=== PATIENT | female | born 1990 | race Caucasian/White ===

== ENCOUNTER 2017-01-16 19:13 | Outpatient (CLI) | payer BC, MEDICAID, SELFPAY ==
[2017-01-16 20:00] LABS: Mucous, Urine 0 SEEN /hpf (<or=2+); Red Blood Cells-Urine 0 SEEN /hpf (0-5)
[2017-01-16 20:14] VITALS: BMI 33.9
[2017-01-16 20:18] LABS: Color, Urine Yellow (Yellow); Glucose, Dipstick Normal (Normal); Ketone-Dipstick Negative (Negative); Leukocyte Esterase-Dipstick 25 /ul (Negative); Nitrite-Dipstick Negative (Negative); Occult Blood-Urine Negative /ul (Negative); Protein-Dipstick 15 mg/dl (Negative); Urine Bilirubin Dipstick Negative (Negative); Urine Clarity Clear (Clear); Urine Urobilinogen Normal (Normal)
[2017-01-16 20:26] LABS: Bacteria RARE /hpf (None Seen); Squamous Epithelial Cells - UA 0-5 SEEN /hpf (5-10); White Blood Cells 0-5 SEEN /hpf (0-5)
[2017-01-16 20:29] LABS: ROM Internal Control Test YES-OK TO RESULT pt. (Internal QC); ROM Patient Test Negative (Negative)
[2017-01-16] MEDS: Nalbuphine 10 MG/ML Ampul IM (22:26)
[2017-01-17] MEDS: Nalbuphine 10 MG/ML Ampul IM (01:33)
--- NOTE | 2017-01-17 21:16 | OB.TRI.NOTE ---
History of Present Illness - History of Present Illness Reason For Visit: R/O LABOR Gestational age: 39 History of Present Illness: presents 37 weeks co ctx - Medications Home Medications: Home Medications Medication Instructions Recorded Pnv No.122/Iron/Folic Acid 1 each PO DAILY 09/09/16 [ Multi Tablet] Acetaminophen [Tylenol Extra 500 - 1,000 mg PO Q6H PRN PRN 01/16/17 Strength] - Allergies Allergies/Adverse Reactions: Allergies STEROIDS Allergy (Unknown, Uncoded 01/16/17 20:17) Unknown NST - FHR Rate Baby A Baseline: 140 Variability:: Moderate Accelerations:: 15 x 15 Decelerations:: None NST Reactive:: Yes FHR Category:: Category I Uterine Activity:: q2-5 Impression/Plan some cervical change and then stable, monitored extended hours, given nubain x 2 and then no cervical change. dc home labor precautions category I tracing reactive
== END 2017-01-17 06:05 | disposition home or self-care (01) ==
PROVIDERS: Family Provider Family Medicine; PCP Family Medicine; Visit Provider Obstetrics & Gynecology
DX: Z34.93 Encounter for supervision of normal pregnancy, unspecified, third trimester (principal); Z3A.37 37 weeks gestation of pregnancy
CPT/HCPCS: 59025; 59050; 81001; 84112; 87086; 87088; 96372; 99218; G0378

== ENCOUNTER 2017-06-23 10:00 | Outpatient (RCR) | payer BC, MEDICAID, SELFPAY ==
--- NOTE | 2017-05-26 11:29 | HP.PTEVAL_ITS ---
Patient's Visit Information DANIEL RAIN is a 27 year old F referred to Physical Therapy by Agus Levy DO [email or web address] with a diagnosis of SCIATICA. Date of Evaluation: 05/26/17 Physical Therapist: Cortez Penny PT, - Visit Plan Frequency: 2x /Week Duration: 4 Weeks Plan: DLS ABD/BACK ,POSTURAL EX'S ,MODALITIES ,SI JOINT CORRECTION EX'S -METS - Subjective Subjective: This 27 y/o female presents to physical therapy sciatica. Patient has had lumbar pain sciatica symptoms since 1st pregrancy 6 years ago ,then 2nd was worse. Symptoms worse with bending,lifting ,sitting, standing. Symptoms better with walking. Pain pain is affects sleeping. Coughing/sneezing - . Bowel/bladder normal.Pain affects quality of life and ability housework tasks. Location of pain symmtrical L-S region buttucks /hamstring right side.Denies parathesia/tingling. SOCAIL: 2 childern ,boyfriend. VOCATION: not working - Pain Bilateral Back Pain Intensity (Out of 10): 4 Pain Intensity Range: 10 Bilateral Lower Extremity Pain Intensity (Out of 10): 0 Pain Intensity Range: 10 - Objective POSTURE: mild foward posture,right pelvis elevated ight ,leg length 1/4 R - shorter. GAIT: normal tj ,reciprocal pattern. NEURO: denies parathesia/ tingling ,reflexes L3-4,L4-5,L5-S1 2/3. PALPATION: tender SI,paraspinals. MMT : quads/hams 4/5,hip flexion 4-/5 ,ankle 4/5. LUMBAR ROM: flexion WNL, extension WNL,side glides WNL. FLEXABILITY: min WNL - Special Tests L/S Slump test left side: Negative L/S Slump test right side: Negative L/S Left Straight Leg Raise: Negative L/S Right Straight Leg Raise: Negative Lumbar Standing: Flexion - Mechanical Response: No effect Lumbar Standing: Flexion - Symptoms During Testing: Increases Lumbar Standing: Flexion - Symptoms After Testing: No worse Lumbar Standing: Extension - Mechanical Response: No effect Lumbar Standing: Extension - Symptoms During Testing: Increases Lumbar Standing: Extension - Symptoms After Testing: No worse Lumbar Lying: Flexion - Mechanical Response: No effect Lumbar Lying: Flexion - Symptoms During Testing: Increases Lumbar Lying: Flexion - Symptoms After Testing: No worse Comments:: STIFFNESS Lumbar Lying: Extension - Mechanical Response: No effect Lumbar Lying: Extension - Symptoms During Testing: Increases Lumbar Lying: Extension - Symptoms After Testing: No worse - Goals Goal 1:: Independant with HEP. Goal Time Frame: 4-6 Weeks Goal 2:: Independant with posture for ADL'S Goal Time Frame: 4-6 Weeks Goal 3:: Decrease lumbar pain by 50% or greater to improve function Goal Time Frame: 4-6 Weeks Goal 4:: Patient to increase strength of multifidas and Transverse abd to improve pelvic lumbar control. Goal Time Frame: 4-6 Weeks Goal 5:: Patient be able to perform ADL'S and housework tasks with min limiitations Goal Time Frame: 4-6 Weeks - Rehabilitation Potential Physical Therapy Diagnosis: This patient has symmtrical lumbar pain with radicular symmptom sfor 6 years since 1st worse 2nd with multple complexity issues. along with derease sore strength,weakness ,and posture Rehabilitation Potential: Good - Anticipated Interventions Patient/Client Instruction: Educate patient on: Condition, Plan of Care For the Purpose of:: To decrease pain, To increase ROM, To improve muscle performance and motor function, To increase tolerance to activity/condition/ position, To improve performance and independence with ADL's, To improve ability of physical actions for home/community/work/leisure, To improve health of tissue, To decrease soft tissue restriction, To reduce risk of recurrence, To improve health and function, To improve ability to perform tasks related to life management Therapeutic Exercise to Include: Strength training, Postural training, Flexibilty training, Dynamic Lumbar Stabilization For the Purpose of:: To decrease pain, To improve muscle performance and motor function, To increase tolerance to activity/condition/position, To improve ability of physical actions for home/community/work/leisure, To improve health of tissue, To decrease soft tissue restriction, To increase flexibility/ROM, To reduce risk of recurrence, To prevent re-injury, To improve ability to perform tasks related to life management TENS: Yes IF ES: Yes Thermo therapy (hot pack): Yes Ultrasound (thermal/non thermal): Yes For the Purpose of:: To decrease pain, To increase ROM, To improve nutrient delivery to tissue, To increase oxygenation perfusion, To improve health of tissue, To decrease soft tissue restriction Thank you for the opportunity to evaluate your patient. For Medicare and Medicare HMO plans, please review the plan of care and approve it. It will need to be FAXED BACK to us at [phone] for Medicare purposes. Please let me know if there are questions or concerns regarding this plan of care. Physician Signature: Date:
--- NOTE | 2017-08-23 08:21 | HP.PTDCNRP_ITS ---
HP - Discharge Summary (1) - Patient Information DANIEL RAIN was seen in my office for initial evaluation on 05/26/17. The following Plan of Care was established for this patient: Initial Frequency: 2x /Week Initial Duration: 4 Weeks - Anticipated Interventions Patient/Client Instruction: Educate patient on: Condition, Plan of Care For the Purpose of:: To decrease pain, To increase ROM, To improve muscle performance and motor function, To increase tolerance to activity/condition/ position, To improve performance and independence with ADL's, To improve ability of physical actions for home/community/work/leisure, To improve health of tissue, To decrease soft tissue restriction, To reduce risk of recurrence, To improve health and function, To improve ability to perform tasks related to life management Therapeutic Exercise to Include: Strength training, Postural training, Flexibilty training, Dynamic Lumbar Stabilization For the Purpose of:: To decrease pain, To improve muscle performance and motor function, To increase tolerance to activity/condition/position, To improve ability of physical actions for home/community/work/leisure, To improve health of tissue, To decrease soft tissue restriction, To increase flexibility/ROM, To reduce risk of recurrence, To prevent re-injury, To improve ability to perform tasks related to life management TENS: Yes IF ES: Yes Thermo therapy (hot pack): Yes Ultrasound (thermal/non thermal): Yes For the Purpose of:: To decrease pain, To increase ROM, To improve nutrient delivery to tissue, To increase oxygenation perfusion, To improve health of tissue, To decrease soft tissue restriction This patient was last seen in our office 06/23/17. Pertinent comments regarding their Physical therapy will appear below: Patient seen for PT for sciatica pain for PT for 8 visits for DLS ,POSTURAL EX' S,manual therapy and modalities PRN. Patient progressed with decrease pain and improve function ,thus is d/c. At this point I will be discontinuing this patient from physical therapy. I would be happy to see this patient again in the future if found appropriate by the physician. Thank you! Cortez Penny, PT,
== END 2017-06-23 19:00 | disposition home or self-care (01) ==
LOC: PT 10:00
PROVIDERS: Family Provider Family Medicine; PCP Family Medicine; Visit Provider Family Medicine
DX: M54.30 Sciatica, unspecified side (principal)
CPT/HCPCS: 97014; 97110; 97162; G0283

== ENCOUNTER → 2017-07-05 09:53 | Outpatient (CLI) | payer BC, MEDICAID, SELFPAY ==
[2017-07-05 12:46] LABS: CRP 4.05 mg/L (0.0-3.0)
[2017-07-06 16:09] LABS: Endomysial Antibody IgA Negative (Negative)
[2017-07-07 11:29] LABS: Immunoglobulin A 124 mg/dL (87-352); t-Transglutaminase IgA <2 U/mL (0-3)
== END ==
PROVIDERS: Family Provider Family Medicine; PCP Family Medicine; Visit Provider Internal Medicine Gastroenterology
DX: R10.9 Unspecified abdominal pain (principal)
CPT/HCPCS: 36415; 82784; 83516; 86140; 86255

== ENCOUNTER → 2017-07-12 08:24 | Outpatient (CLI) | payer BC, MEDICAID, SELFPAY ==
--- NOTE | 2017-07-12 08:27 | RAD_ITS ---
PROCEDURE: SMALL BOWEL SERIES DATE OF EXAMINATION: July 12, 2017. INDICATION: Female, 27 years old. Lower abdominal pain. PHYSICIAN: Brian Gillespie M.D. FLUOROSCOPY TIME (if supplied): (0:43) minutes/seconds TECHNIQUE: Radiographic and fluoroscopic images were taken of the small intestine following the ingestion of barium. COMPARISON: None. FINDINGS: A preliminary supine KUB was obtained. There is an unremarkable bowel gas pattern. Fecal material is present throughout the colon. The lung bases are unremarkable. The osseous structures are normal. The patient orally ingested approximately 12 ounces of thin barium Normal visualized fundus, body, and antrum of the stomach. Normal duodenal bulb, C-loop, and proximal jejunum. Normal visualized mucosal folds of the jejunum and ileum. There are no demonstrated dilatations, strictures, or masses of the small intestine. There is no mass displacement of the loops of small intestine. There is a normal motor pattern with barium reaching the colon within approximately 45 minutes. Spot films under fluoroscopic observation demonstrated a normal terminal ileum and ileocecal valve. RAD/Small Bowel Series Only IMPRESSION: Normal small bowel series. Electronically Signed: Brian Gillespie MD at 10:14 EDT Tel [phone], Service support ,
== END ==
PROVIDERS: Family Provider Family Medicine; PCP Family Medicine; Visit Provider Internal Medicine Gastroenterology
DX: R10.9 Unspecified abdominal pain (principal)
CPT/HCPCS: 74250

== ENCOUNTER 2017-11-18 03:39 | Emergency (ER) | payer BC, SELFPAY ==
[2017-11-18 03:41] VITALS: BP 122/83; PULSE 59; RESP 16; TEMP 36.2; O2SAT 98; BMI 29.0
--- NOTE | 2017-11-18 04:00 | ED.DCSUM_ITS ---
- ER Visit Summary Date of Service: 11/18/17 Chief Complaint: Right-sided dental pain History of Present Illness: The patient is a 27 F who presents for 1 day of right-sided dental pain. Patient states she had a root canal performed in the past on her right maxillary posterior molar. She did not get a crown on it, as she did not have the money at the time. Yesterday she began having aching at the tooth that is gradually worsened, and now is radiating down into her jaw and neck. She has tried ibuprofen and Orajel without relief. She denies any fever, trouble breathing, pain with swallowing, inability to handle her secretions, neck stiffness, or other complaints at this time. Physical Examination: Patient is afebrile and hemodynamically stable. Well-nourished well-developed sitting in bed in no distress. Patient has no noted facial swelling on the right. Oropharynx shows no asymmetry or posterior oropharyngeal erythema or exudate. No oropharyngeal lesions. Normal gingiva. Tenderness to percussion of the right maxillary second molar. No obvious fracture or decay. No noted fluctuance or erythema to the gingiva. No sublingual edema. Neck is supple and without lymphadenopathy. Remainder of exam is unremarkable. Test Results: [] Emergency Department Course and Treatment: Patient has no findings on exam that are consistent with an obvious dental abscess or facial cellulitis. Her exam is unremarkable, although she is complaining of the severe dental pain. Antibiotics were not started at this time, as there is no indication of actual dental infection. Patient was given a prescription for ibuprofen and acetaminophen to use in combination to help with pain control. She will call her dentist on Monday to set up a follow-up appointment. We discussed signs or symptoms that should warrant another evaluation in the emergency department. Patient was discharged home after receiving a dose of pain medication in the emergency department. Treatment Plan: [] Disposition: [] Impression: Odontalgia This note was generated with [employer] dictation software. It may contain incorrect words, spelling, and punctuation that were not noted in review of the chart prior to signing ED Disposition - Plan for ED Patient: Disposition: Home or Assisted Living Chief Complaint: Dental Instructions: ED Tooth Pain Prescriptions: Acetaminophen [Acetaminophen 8 Hour] 650 mg PO 4X/DAY PRN PRN #30 tab PRN Reason: Pain Ibuprofen 600 mg PO 4X/DAY PRN PRN #30 tab PRN Reason: Pain Referrals: Valarie Escoto DO [Primary Care Provider] - As Needed Randy Shea [NON-STAFF] - As soon as possible Additional Instructions: You may take the ibuprofen and the acetaminophen together 4 times a day as needed for pain. Try an ice pack on your jaw to see if that helps with pain as well. There was no sign of an infection at this time, and thus antibiotics were not prescribed. If you develop fever, inability to open your mouth, severe sore throat, difficulty swallowing your own saliva, difficulty breathing , or any other concerns, please return immediately to the emergency department for another evaluation. If you have any worsening of your condition or any new concerning symptoms, please return immediately to the emergency department for another evaluation.
--- NOTE | 2017-11-18 04:06 | DCINST.ED_ITS ---
ED Disposition - Plan for ED Patient: Disposition: Home or Assisted Living Chief Complaint: Dental Instructions: ED Tooth Pain Prescriptions: Acetaminophen [Acetaminophen 8 Hour] 650 mg PO 4X/DAY PRN PRN #30 tab PRN Reason: Pain Ibuprofen 600 mg PO 4X/DAY PRN PRN #30 tab PRN Reason: Pain Referrals: Valarie Escoto DO [Primary Care Provider] - As Needed Randy Shea [NON-STAFF] - As soon as possible Additional Instructions: You may take the ibuprofen and the acetaminophen together 4 times a day as needed for pain. Try an ice pack on your jaw to see if that helps with pain as well. There was no sign of an infection at this time, and thus antibiotics were not prescribed. If you develop fever, inability to open your mouth, severe sore throat, difficulty swallowing your own saliva, difficulty breathing , or any other concerns, please return immediately to the emergency department for another evaluation. If you have any worsening of your condition or any new concerning symptoms, please return immediately to the emergency department for another evaluation.
[2017-11-18] MEDS: Ibuprofen 600 MG Tablet PO (04:12)
[2017-11-18] MEDS: Acetaminophen 500 MG Tablet PO (04:13)
[2017-11-18 04:15] VITALS: BP 120/78; PULSE 74; RESP 16; O2SAT 97
== END 2017-11-18 04:19 | disposition home or self-care (01) ==
PROVIDERS: Emergency Provider Emergency Medicine; Family Provider Family Medicine; PCP Family Medicine
DX: K08.89 Other specified disorders of teeth and supporting structures (principal); Z79.899 Other long term (current) drug therapy
CPT/HCPCS: 90471; 99284

== ENCOUNTER 2018-07-17 10:59 | Emergency (ER) | payer SELFPAY ==
[2018-07-17 11:00] VITALS: BP 112/56; PULSE 75; RESP 16; TEMP 36.3; O2SAT 100; BMI 26.9
--- NOTE | 2018-07-17 11:26 | ED.VISSUMM ---
- ER Visit Summary Date of Service: 07/17/18 Chief Complaint: [Abdominal pain] History of Present Illness: The patient is a 28 F [presents the emergency department with symptoms that started yesterday. Patient states that she initially believed it was due to drinking a cup of coffee. Patient had upper abdominal distention and discomfort that radiated around to both sides of her mid back. Patient states that she was able to go to sleep and slept okay last night and woke up this morning and had continued ongoing pain in the upper epigastric region that radiated towards the right lower quadrant and left lower quadrant. Patient states the pain is continuous but waxes and wanes in intensity. Patient states that she is had some sweating associated with it. Patient states food seems to make it worse. Patient had one watery stool this morning and she has had 4 episodes of vomiting. Patient initially seen at urgent care and referred to the emergency department. Patient denies urinary symptoms. She denies fever at home. Her last menstrual period was the end of last month and she does not believe that she is late on her.. Patient does have history of fibromyalgia and history of IBS. No prior surgeries.] Physical Examination: [HEENT-PERRLA, EOMI. Cranial nerves II through XII grossly intact. TMs clear. Mucous membranes moist. No adenopathy. Cardiovascular-regular rate and rhythm without murmur or ectopy Lungs-clear to auscultation, chest wall stable without crepitus or subcu emphysema Abdomen-normoactive bowel sounds, soft. Patient has some mild right upper quadrant and epigastric tenderness on palpation. Negative Freeman sign. Patient also with tenderness over the right lower quadrant in the area of McBurney's. There is no rebound, rigidity, or perineal signs. Extremities-intact ?4, normal range of motion, normal pulses, atraumatic.] Test Results: [CBC with differential obtained showed a white count of 11.2. Chemistries were unremarkable. LFTs were normal. Lipase was 131. Urinalysis was normal. hCG was negative. CT scan of the abdomen pelvis without contrast showed a normal appendix as well as a normal gallbladder and nothing else acute.] Emergency Department Course and Treatment: [Patient received normal saline and was given Zofran 4 mg IV.] Treatment Plan: [Patient advised to follow-up with primary care physician within next 3 to 5 days. Patient will be given prescription for Prevacid as well as Zofran and Bentyl. Etiology of her abdominal pain unclear however it is possible and may be gastroenteritis versus early peptic ulcer disease. Patient understands testing in the ER does not rule out gallbladder disease however this I feel is low on the differential at this time.] Disposition: [Discharged home in stable condition] Impression: [Abdominal pain-etiology uncertain] This note was generated with [employer] dictation software. It may contain incorrect words, spelling, and punctuation that were not noted in review of the chart prior to signing ED Disposition - Plan for ED Patient: Referrals: Valarie Escoto DO [Primary Care Provider] -
[2018-07-17] MEDS: 0.9% Normal Saline 1,000 ML 1000 ML IV (11:30)
[2018-07-17] MEDS: Ondansetron 4 MG/2 ML Vial IV (11:30)
[2018-07-17 11:44] LABS: Bacteria 0 SEEN /hpf (None Seen); Mucous, Urine 0 SEEN /hpf (<or=2+); Red Blood Cells-Urine 0 SEEN /hpf (0-5); White Blood Cells 0 SEEN /hpf (0-5)
[2018-07-17 11:50] LABS: Absolute Lymphocyte Count 1.78 X10^3/ul (0.83-4.51); Absolute Neutrophil Count 8.1 X10^3/uL (2.0-7.7); Basophil# 0.04 X10^3/uL; Basophil% 0.4 % (0-1); Eosinophil# 0.37 X10^3/uL; Eosinophils% 3.3 % (0-5); Hematocrit 43.1 % (37-47); Hemoglobin 14.5 g/dl (12.0-15.0); Lymphocyte # 1.78 X10^3/ul (4.0); Lymphocyte % 15.9 % (19-41); Mean Corp Hgb Conc 33.6 g/gl (32-36); Mean Corpuscular Hgb 30.6 pg (27.0-32.0); Mean Corpuscular Volume 90.9 fL (81-99); Monocyte# 0.84 X10^3/uL; Monocyte% 7.5 % (0-10); Neutrophil # 8.12 X10^3/uL (2.7-7.7); Neutrophil % 72.7 % (47-70); Platelet Count 288 K/mm3 (150-450); RBC Distribution Width CV 13.6 % (11.6-14.6); RBC Distribution Width SD 45.7 fl (35.1-43.9); Red Blood Count 4.74 M/mm3 (4.2-5.4); White Blood Count 11.2 K/mm3 (4.4-11.0)
[2018-07-17 11:53] LABS: Color, Urine Yellow (Yellow); Glucose, Dipstick Normal (Normal); Ketone-Dipstick Negative (Negative); Leukocyte Esterase-Dipstick Negative /ul (Negative); Nitrite-Dipstick Negative (Negative); Occult Blood-Urine Negative /ul (Negative); Protein-Dipstick Negative (Negative); Urine Bilirubin Dipstick Negative (Negative); Urine Clarity Clear (Clear); Urine Urobilinogen Normal (Normal); Urine pH 6.5 (5.0 - 8.0)
[2018-07-17 12:02] LABS: POSITIVE COUNT NO; POSITIVE DIFFERENTIAL NO; POSITIVE MORPHOLOGY NO
[2018-07-17 12:05] LABS: ALB/GLOB Ratio 1.2 RATIO (0.9-2.4); AST(SGOT) 17 U/L (15-37); Alanine Aminotransfer ALT/SGPT 20 U/L (13-56); Alkaline Phosphatase 55 U/L (45-117); Anion Gap 7 (5-15); BUN 9 mg/dL (7-18); BUN/Creat Ratio 12.9 RATIO (10-20); Calcium,Total 8.4 mg/dL (8.5-10.1); Chloride 106 mmol/L (98-107); EST Glomerular Filtration Rate 107 mL/min (>60); Est Glom Filt Rate - Afr Amer 130 mL/min (>60); Estimated Creatinine Clearance 118.43 ml/min; Globulin 3.4 g/dL (2.2-4.2); Glucose 98 mg/dL (74-106); Lipase 131 U/L (73-393); Protein, Total 7.4 g/dL (6.4-8.2); Sodium Level 141 mmol/L (136-145)
[2018-07-17 12:13] LABS: Squamous Epithelial Cells - UA 0-5 SEEN /hpf (5-10)
--- NOTE | 2018-07-17 12:30 | CT_ITS ---
STUDY: CT ABDOMEN AND PELVIS WITHOUT CONTRAST REASON FOR EXAM: Female, 28 years old. Diffuse abdominal pain. RADIATION DOSAGE (If Supplied By Facility): CTDIvol = ( 7.35 ) mGy, DLP = ( 380.12 ) mGycm TECHNIQUE: Transaxial images were obtained from the dome of the diaphragm to the symphysis pubis without oral contrast, and without intravenous contrast. Sagittal and coronal images were reconstructed. Individualized dose optimization techniques were used for this CT. COMPARISON: January 01, 2009. FINDINGS: Lung bases: Unremarkable. Heart: Unremarkable. Liver: Unremarkable. Gallbladder/biliary ducts: Unremarkable. Pancreas: Unremarkable. Spleen: Unremarkable. Adrenal glands: Unremarkable. Kidneys/ureters/bladder: Unremarkable. Uterus/adnexa: Distended endometrial canal. Small bilateral cystic adnexa (axial image 137 series 2). Large bowel/small bowel: No acute small bowel or large bowel process. Underdistended distal colon/rectum. Appendix: Unremarkable (axial image 117 series 2). Gastroesophageal junction/stomach: Unremarkable. Retroperitoneum/lymph nodes: No intra-abdominal free air. No ascites. No pathologically enlarged lymph nodes. Vascular: Unremarkable. Osseous structures: Unremarkable. Subcutaneous/soft tissues: Unremarkable. CT/Abdomen/Pelvis without Cont IMPRESSION: No acute intra-abdominal/pelvic findings JELLY MAKER finding statistically physiologic Electronically Signed: Geraldo Chatterjee DO at 13:04 EDT Tel , Service support ,
[2018-07-17 12:42] LABS: Internal QC Validated? YES +Cl - CLEAR BKGD; Pregnancy, Serum, hCG Quali. NEGATIVE Negative
--- NOTE | 2018-07-17 13:49 | ED.DEP ---
ED Disposition - Plan for ED Patient: Instructions: ED Abdominal Pain Unkn Cause Prescriptions: Ondansetron [Zofran Odt] 4 mg PO Q8H PRN PRN #10 tab PRN Reason: Nausea Dicyclomine HCl [Bentyl] 20 mg PO TIDAC #20 cap Lansoprazole [Prevacid] 30 mg PO DAILY #30 cap Referrals: Valarie Escoto DO [Primary Care Provider] - 3-5 Days
[2018-07-17 14:08] VITALS: BP 109/74; PULSE 71; RESP 16; O2SAT 97
== END 2018-07-17 14:09 | disposition home or self-care (01) ==
LOC: ED 11:28
PROVIDERS: Emergency Provider Emergency Medicine; Family Provider Family Medicine; PCP Family Medicine
DX: R10.11 Right upper quadrant pain (principal); R10.31 Right lower quadrant pain; R11.2 Nausea with vomiting, unspecified; M79.7 Fibromyalgia; K58.9 Irritable bowel syndrome, unspecified
CPT/HCPCS: 74176; 80053; 81001; 83690; 84703; 85025; 96361; 96374; 99283; J7030; J2405

== ENCOUNTER → 2019-05-09 14:59 | Outpatient (CLI) | payer MEDICAID, SELFPAY ==
[2019-05-09 14:32] VITALS: BMI 26.9
[2019-05-09 16:22] LABS: Prolactin 3.8 ng/mL; Thyroid Stim Hormone (TSH) 0.63 uIU/mL (0.358-3.74)
[2019-05-12 14:06] LABS: DHEA Sulfate 266.2 ug/dL (84.8-378.0)
[2019-05-13 11:55] LABS: Testosterone Free 1.7 pg/mL (0.0-4.2)
[2019-05-14 15:17] LABS: HPV APTIMA, High Risk Negative (Negative)
== END ==
PROVIDERS: PCP Family Medicine; Referring Provider Nurse Practitioner Women's Health; Visit Provider Nurse Practitioner Women's Health
DX: Z12.4 Encounter for screening for malignant neoplasm of cervix (principal); L68.0 Hirsutism; R10.2 Pelvic and perineal pain
CPT/HCPCS: 36415; 82627; 84146; 84402; 84443; 87624; 88175; 82626; G0145

== ENCOUNTER → 2019-05-22 15:19 | Outpatient (CLI) | payer MEDICAID, SELFPAY ==
[2019-05-09 14:32] VITALS: BMI 26.9
--- NOTE | 2019-05-22 15:20 | US_ITS ---
STUDY: ULTRASOUND OF THE FEMALE PELVIS - COMPLETE REASON FOR EXAM: Female, 29 years old. PELVIC PAIN-LLQ LMP: 04/30/2019 TECHNIQUE: Transabdominal real-time exam with burk scale image documentation. Transvaginal ultrasound was required for better visualization of the uterus and adnexal areas. TECHNICAL QUALITY: Adequate. COMPARISON: Prior pelvic ultrasound FINDINGS: The uterus is anteverted and is in a midline position. The uterus measures 10.3 x 5.5 x 3.8 cm. Normal uterine cervix. The endometrium measures 7 mm in thickness, and is hyperechoic. There is no demonstrated endometrial mass. There is no demonstrated myometrial mass. I.U.D. - The patient does not have an I.U.D. The right ovary is visualized. The right ovary measures 3.8 x 3.3 x 2.5 cm. Volume 16mm Multiple follicles and a somewhat peripheral distribution. There is no visualized right adnexal mass or complex lesion. There is normal arterial and normal venous vascularity. The left ovary is visualized. The left ovary measures 3.2 x 3.1 x 1.7 cm. Volume 9 mL Multiple follicles and a somewhat peripheral distribution. There is no visualized left adnexal mass or complex lesion. There is normal arterial and normal venous vascularity. Prominent size of left adnexal vessels. There is no fluid in the cul-de-sac. The pre void volume of the bladder was 189 ml. US/Transvaginal Non- IMPRESSION: Normal uterus. Normal size and volume of the left ovary without dominant cyst or mass. Somewhat peripheral distribution of numerous follicles. Mild increased size and volume of the right ovary without a dominant cyst or mass. Peripheral distribution of numerous follicles. Findings suggest the possibility of polycystic ovaries, particularly the features of the right ovary. Prominent and tortuous adnexal veins on the left. Electronically Signed: Jamilah Jaquez MD at 15:41 EST , Service support ,
--- NOTE | 2019-05-22 15:20 | US_ITS ---
STUDY: ULTRASOUND OF THE FEMALE PELVIS - COMPLETE REASON FOR EXAM: Female, 29 years old. PELVIC PAIN-LLQ LMP: 04/30/2019 TECHNIQUE: Transabdominal real-time exam with burk scale image documentation. Transvaginal ultrasound was required for better visualization of the uterus and adnexal areas. TECHNICAL QUALITY: Adequate. COMPARISON: Prior pelvic ultrasound FINDINGS: The uterus is anteverted and is in a midline position. The uterus measures 10.3 x 5.5 x 3.8 cm. Normal uterine cervix. The endometrium measures 7 mm in thickness, and is hyperechoic. There is no demonstrated endometrial mass. There is no demonstrated myometrial mass. I.U.D. - The patient does not have an I.U.D. The right ovary is visualized. The right ovary measures 3.8 x 3.3 x 2.5 cm. Volume 16mm Multiple follicles and a somewhat peripheral distribution. There is no visualized right adnexal mass or complex lesion. There is normal arterial and normal venous vascularity. The left ovary is visualized. The left ovary measures 3.2 x 3.1 x 1.7 cm. Volume 9 mL Multiple follicles and a somewhat peripheral distribution. There is no visualized left adnexal mass or complex lesion. There is normal arterial and normal venous vascularity. Prominent size of left adnexal vessels. There is no fluid in the cul-de-sac. The pre void volume of the bladder was 189 ml. US/Pelvic (Non ) IMPRESSION: Normal uterus. Normal size and volume of the left ovary without dominant cyst or mass. Somewhat peripheral distribution of numerous follicles. Mild increased size and volume of the right ovary without a dominant cyst or mass. Peripheral distribution of numerous follicles. Findings suggest the possibility of polycystic ovaries, particularly the features of the right ovary. Prominent and tortuous adnexal veins on the left. Electronically Signed: Jamilah Jaquez MD at 15:41 EST , Service support ,
== END ==
PROVIDERS: PCP Family Medicine; Referring Provider Nurse Practitioner Women's Health; Visit Provider Nurse Practitioner Women's Health
DX: L68.0 Hirsutism (principal); R10.2 Pelvic and perineal pain
CPT/HCPCS: 76830; 76856; 93976

== ENCOUNTER 2019-06-27 01:30 | Emergency (ER) | payer MEDICAID, SELFPAY ==
[2019-05-09 14:32] VITALS: BMI 26.9
--- NOTE | 2019-06-27 | EKG12_ITS ---
Test Reason : HEADACHES Blood Pressure : / mmHG Vent. Rate : 082 BPM Atrial Rate : 082 BPM P-R Int : 154 ms QRS Dur : 086 ms QT Int : 350 ms P-R-T Axes : 064 074 060 degrees QTc Int : 408 ms Normal sinus rhythm with sinus arrhythmia Normal ECG Confirmed by SAVANNA AVALOS, LOULOU ([id number]), content editor CHER MARQUEZ ([id number]) on 07/02/2019 2:08:46 PM Referred By: BROWN Confirmed By:NARCISO CORRALES MD
--- NOTE | 2019-06-27 02:30 | CT_ITS ---
STUDY: CT BRAIN WITHOUT CONTRAST REASON FOR EXAM: Female, 29 years old. FLASHING IN EYES, NUMBNESS LEFT ARM, FLASHING IN EYES X 2O MINS, PARESTHESIA RADIATION DOSAGE (If Supplied By Facility): CTDIvol = ( 444.99 ) mGy, DLP = ( 812.98 ) mGycm TECHNIQUE: Transaxial CT imaging of the brain was performed without administration of intravenous contrast material. Individualized dose optimization techniques were used for this CT. COMPARISON: No relevant priors. FINDINGS: Normal soft tissue structures. Normal calvarium. Normal size ventricles and extra-axial spaces for the patient''s age. Normal white matter tracts of the cerebral hemispheres. Normal basal ganglia and thalami. Normal brainstem. Normal cerebellum. There is no intracranial hemorrhage. There are no findings of an acute ischemic infarction. Normal visualized paranasal sinuses. CT/Brain/Head without Contrast IMPRESSION: Normal unenhanced CT scan of the brain. Electronically Signed: Maren Ackerman MD at 2:53 EDT , Service support ,
[2019-06-27 10:18] LABS: ALB/GLOB Ratio 1.3 RATIO (0.9-2.4); Albumin, Serum 4.3 g/dL (3.2-5.0); BUN 12 mg/dL (7-18); Calcium,Total 8.8 mg/dL (8.5-10.1); Creatinine, Serum 0.86 mg/dL (0.55-1.02); EST Glomerular Filtration Rate 84 mL/min (>60); Est Glom Filt Rate - Afr Amer 102 mL/min (>60); Globulin 3.3 g/dL (2.2-4.2); Glucose 103 mg/dL (74-106); Protein, Total 7.6 g/dL (6.4-8.2)
[2019-06-27 10:19] LABS: AST(SGOT) 20 U/L (15-37); Alanine Aminotransfer ALT/SGPT 25 U/L (13-56); Alkaline Phosphatase 45 U/L (45-117); Anion Gap 7 (5-15); Chloride 108 mmol/L (98-107); Potassium 3.7 mmol/L (3.5-5.1); Sodium Level 141 mmol/L (136-145)
[2019-06-27 13:29] LABS: Absolute Lymphocyte Count 3.92 X10^3/uL (0.83-4.51); Absolute Neutrophil Count 6.2 X10^3/uL (2.0-7.7); Basophil% 0.6 % (0-1); Eosinophils% 1.6 % (0-5); Hemoglobin 14.1 g/dL (12.0-15.0); Lymphocyte # 3.92 X10^3/ul (4.0); Lymphocyte % 34.9 % (19-41); Mean Corp Hgb Conc 33.6 g/dL (32-36); Mean Corpuscular Hgb 31.7 pg (27.0-32.0); Mean Corpuscular Volume 94.4 fL (81-99); Mean Platelet Vol. 9.9 fl (6.2-12.0); Monocyte# 0.88 X10^3/uL; Monocyte% 7.8 % (0-10); Neutrophil # 6.16 X10^3/uL (2.7-7.7); Neutrophil % 54.8 % (47-70); Platelet Count 280 K/mm3 (150-450); RBC Distribution Width CV 44.9 % (11.6-14.6); RBC Distribution Width SD 13.1 fl (35.1-43.9); Red Blood Count 4.45 M/mm3 (4.2-5.4); White Blood Count 11.2 K/mm3 (4.4-11.0)
[2019-06-27 13:30] LABS: Basophil# 0.07 X10^3/uL; Eosinophil# 0.18 X10^3/uL; NRBC Flagged by Analyzer 0 % (0-5)
== END 2019-06-27 03:20 | disposition home or self-care (01) ==
LOC: ED 08:41
PROVIDERS: Emergency Provider Emergency Medicine; PCP Family Medicine
DX: G43.909 Migraine, unspecified, not intractable, without status migrainosus (principal); R20.2 Paresthesia of skin; M79.7 Fibromyalgia; Z72.0 Tobacco use
CPT/HCPCS: 36415; 70450; 80053; 85025; 93005; 96360; 96361; 99283; J7030; A4216

== ENCOUNTER 2019-09-18 12:18 | Emergency (ER) | payer MEDICAID, SELFPAY ==
[2019-08-23 14:58] VITALS: BMI 26.9
[2019-09-18 12:19] VITALS: BP 129/54; PULSE 98; RESP 18; TEMP 36.6; O2SAT 100; BMI 26.7
--- NOTE | 2019-09-18 12:39 | EKG12_ITS ---
Test Reason : GEN ILLNESS Blood Pressure : / mmHG Vent. Rate : 075 BPM Atrial Rate : 075 BPM P-R Int : 154 ms QRS Dur : 082 ms QT Int : 344 ms P-R-T Axes : 078 080 069 degrees QTc Int : 384 ms Normal sinus rhythm with sinus arrhythmia Normal ECG Confirmed by SAVANNA AVALOS, LOULOU ([id number]), editor sound JAMES SCALES ([id number]) on 09/20/2019 10:00:40 AM Referred By: MAE Confirmed By:NARCISO CORRALES MD
[2019-09-18 12:58] LABS: Bacteria 0 SEEN /hpf (None Seen); Color, Urine Yellow (Yellow); Glucose, Dipstick Normal (Normal); Ketone-Dipstick Negative (Negative); Leukocyte Esterase-Dipstick 25 /ul (Negative); Mucous, Urine 0 SEEN /hpf (<or=2+); Nitrite-Dipstick Negative (Negative); Occult Blood-Urine Negative /ul (Negative); Protein-Dipstick Negative (Negative); Red Blood Cells-Urine 0 SEEN /hpf (0-5); Urine Bilirubin Dipstick Negative (Negative); Urine Clarity Sl. Cloudy (Clear); Urine Urobilinogen Normal (Normal)
[2019-09-18 13:09] LABS: Absolute Lymphocyte Count 2.38 X10^3/uL (0.83-4.51); Absolute Neutrophil Count 4.4 X10^3/uL (2.0-7.7); Basophil# 0.04 X10^3/uL; Basophil% 0.5 % (0-1); Eosinophil# 0.11 X10^3/uL; Eosinophils% 1.5 % (0-5); Hematocrit 43.5 % (37-47); Hemoglobin 14.5 g/dL (12.0-15.0); Lymphocyte # 2.38 X10^3/ul (4.0); Lymphocyte % 31.6 % (19-41); Mean Corp Hgb Conc 33.3 g/dL (32-36); Mean Corpuscular Hgb 31.7 pg (27.0-32.0); Mean Corpuscular Volume 95.2 fL (81-99); Mean Platelet Vol. 9.8 fl (6.2-12.0); Monocyte# 0.53 X10^3/uL; NRBC Flagged by Analyzer 0 % (0-5); Neutrophil # 4.44 X10^3/uL (2.7-7.7); Neutrophil % 59.1 % (47-70); Platelet Count 288 K/mm3 (150-450); RBC Distribution Width CV 13.1 % (11.6-14.6); RBC Distribution Width SD 45.8 fl (35.1-43.9); Red Blood Count 4.57 M/mm3 (4.2-5.4); White Blood Count 7.5 K/mm3 (4.4-11.0)
[2019-09-18 13:11] LABS: Squamous Epithelial Cells - UA 5-10 SEEN /hpf (5-10)
[2019-09-18 13:12] LABS: White Blood Cells 0-5 SEEN /hpf (0-5)
[2019-09-18 13:14] LABS: Internal QC Validated? YES +Cl - CLEAR BKGD; Pregnancy, Serum, hCG Quali. NEGATIVE Negative
--- NOTE | 2019-09-18 13:14 | RAD_ITS ---
STUDY: X-RAY CHEST REASON FOR EXAM: Female, 29 years old. SINUS CONGESTION AND ALLERGY SX X4 WEEKS, HAS HAD CHEST CONGESTION AND TIGHTNESS X4 DAYS WITH SOB TECHNIQUE: 2 AP portable views COMPARISON: None. FINDINGS: EKG leads overlie the chest The lungs are clear and expanded. There is no demonstrated pleural abnormality. Normal size heart. Normal mediastinum and estrellita. Normal visualized pulmonary arteries. Normal visualized aortic arch and descending thoracic aorta. Normal visualized thoracic spine. Normal visualized ribs, clavicles, and shoulders. There is no demonstrated abnormality of the visualized soft tissue structures of the upper abdomen. RAD/Chest 1 View (Portable) IMPRESSION: Normal x-ray examination of the chest. Electronically Signed: Dale Arroyo MD at 13:24 EDT , Service support ,
[2019-09-18] MEDS: 0.9% Normal Saline 1,000 ML 1000 ML IV (13:15)
[2019-09-18 13:24] LABS: ALB/GLOB Ratio 1.2 RATIO (0.9-2.4); AST(SGOT) 11 U/L (15-37); Alanine Aminotransfer ALT/SGPT 15 U/L (13-56); Albumin, Serum 4.2 g/dL (3.2-5.0); Alkaline Phosphatase 46 U/L (45-117); Anion Gap 5 (5-15); BUN 11 mg/dL (7-18); BUN/Creat Ratio 13.3 RATIO (10-20); Calcium,Total 8.9 mg/dL (8.5-10.1); Chloride 108 mmol/L (98-107); Creatinine, Serum 0.83 mg/dL (0.55-1.02); EST Glomerular Filtration Rate 88 mL/min (>60); Est Glom Filt Rate - Afr Amer 106 mL/min (>60); Estimated Creatinine Clearance 99.01 ml/min; Globulin 3.4 g/dL (2.2-4.2); Glucose 89 mg/dL (74-106); Lipase 115 U/L (73-393); Potassium 3.8 mmol/L (3.5-5.1); Protein, Total 7.6 g/dL (6.4-8.2); Sodium Level 141 mmol/L (136-145)
[2019-09-18 13:28] LABS: D-Dimer Quantitative (DVT/PE) <= 0.27 FEU/ug/m (0.27-0.49)
--- NOTE | 2019-09-18 14:14 | ED.VISSUMM ---
- ER Visit Summary Date of Service: 09/18/19 Chief Complaint: Chest pain and abdominal pain History of Present Illness: The patient is a [address] Luo. She reports she has chest pain that began 4 days ago. Is a constant pain that waxes and wanes. 6 out of 10 at worst 5-10 currently. Is increased with smoking or deep breaths. Is decreased with warm tea. For that she is mildly short of breath with this. She denies any nausea or diaphoresis with this. Patient reports that she had epigastric pain for the past 3 days. Is a constant sharp pain that is 3 out of 10 at worst and 2 out of 10 currently. Is increased with eating. Is decreased with water. She reports that she feels bloated. States that seems to be worsened with eating red meat, spicy, or fatty foods. She also complains of a poor appetite. Patient complains of an occasional cough. She denies any sputum production. No fever or chills. Physical Examination: Vitals: Stable. Afebrile. General: Well-nourished and well-developed. Head: Normocephalic atraumatic. Neck: Supple, no lymphadenopathy. No JVD. Nontender. Cardiovascular: Regular rate and rhythm. No murmurs. Respiratory: No respiratory distress. Clear to auscultation bilaterally. Mild tenderness palpation of the costochondral margin on the left that does reproduce her pain. Abdominal: Soft, mild epigastric tenderness to palpation, nondistended, normal bowel sounds. No guarding, rebound, or peritoneal signs. Back: Nontender. Extremities: Nontender, no edema. Skin: Normal color, no rash. Neurologic: Alert and oriented ?3. Cranial nerves II through XII are intact. Normal strength and sensation. Psych: Normal affect. Test Results: EKG is sinus at 75 no acute changes. D-dimer is negative. Troponin is negative. test is negative. UA is negative. LFTs show an AST of 11 and total bili 1.1. Lipase is 115. Chem-7 shows a chloride 108. CBC is normal. Clinical Impression(s) from Imaging Studies Chest X-Ray 09/18/19 13:14 IMPRESSION: Normal x-ray examination of the chest. Electronically Signed: Dale Arroyo MD at 13:24 EDT , Service support , Emergency Department Course and Treatment: Patient refused pain or nausea medications. She was given a liter of normal saline. She is resting comfortably. Treatment Plan: Patient will be discharged with Zofran and Prilosec. Instructed to follow-up her primary care physician 1 week if not improving. Return to the emergency department for any worsening symptoms. Disposition: To home in improved and stable condition. Impression: 1. Abdominal pain, uncertain cause. 2. Atypical chest pain. This note was generated with [employer] software. It may contain incorrect words, spelling, and punctuation that were not noted in review of the chart prior to signing ED Disposition - Plan for ED Patient: Instructions: ED Abdominal Pain Unkn Cause Fem Prescriptions: Omeprazole [Prilosec] 20 mg PO DAILY #30 cap Prescription Printed Ondansetron [Zofran Odt] 4 mg PO Q8H PRN PRN #10 tab PRN Reason: Nausea Prescription Printed Referrals: Valarie Escoto DO [Primary Care Provider] - 1 Week if not improving
[2019-09-18 14:39] VITALS: PULSE 82; RESP 14; O2SAT 97
== END 2019-09-18 14:40 | disposition home or self-care (01) ==
LOC: ED 12:49
PROVIDERS: Emergency Provider Emergency Medicine; PCP Family Medicine
DX: R10.13 Epigastric pain (principal); R07.89 Other chest pain; R06.02 Shortness of breath; R05 Cough; R19.7 Diarrhea, unspecified; M79.7 Fibromyalgia; K58.9 Irritable bowel syndrome, unspecified; Z79.899 Other long term (current) drug therapy
CPT/HCPCS: 71045; 80053; 81001; 83690; 84484; 84703; 85025; 85379; 93005; 96360; 99285; J7030; A4216

== ENCOUNTER → 2020-02-25 15:17 | Outpatient (CLI) | payer MEDICAID, SELFPAY ==
[2020-01-28 12:49] VITALS: BMI 25.9
[2020-02-25 16:48] LABS: hCG Titer Quant., Serum 53398 mIU/mL (1-3)
== END ==
PROVIDERS: PCP Family Medicine; Referring Provider Nurse Practitioner Women's Health; Visit Provider Nurse Practitioner Women's Health
DX: N91.2 Amenorrhea, unspecified (principal)
CPT/HCPCS: 36415; 84702

== ENCOUNTER → 2020-03-03 12:12 | Outpatient (CLI) | payer MEDICAID, SELFPAY ==
[2020-01-28 12:49] VITALS: BMI 25.9
--- NOTE | 2020-03-03 12:14 | US_ITS ---
STUDY: FIRST TRIMESTER OBSTETRICAL ULTRASOUND REASON FOR EXAM: Female, 30 years old DATING/ VIABILITY -- LMP UNKNOWN LMP: Unknown. TECHNIQUE: Transvaginal TECHNICAL QUALITY: Adequate. PRIOR ULTRASOUND: None. FINDINGS: There is visualization of a single gestational sac in a normal intrauterine position. The mean sac diameter (MSD) measures 2.75 cm, indicating an estimated gestational age (EGA) of 7 weeks, 6 days. The gestational sac shape is within normal limits. There is a visualized yolk sac. The yolk sac measures 4.5 mm. The placenta is non-visualized. There is visualization of a live embryo. The crown-rump length (CRL) measures 1.86 cm, indicating an estimated gestational age (EGA) of 8 weeks, 1 days. There is demonstrated cardiac activity with a heart rate of 168 bpm. The estimated gestation age (EGA) by LMP is unknown. The estimated gestation age (EGA) by US is 8 weeks, 0 days. The estimated date of delivery (ARIANNA) by US is 10/13/2020. The uterus measures 13.3 cm x 8.7 cm x 6.5 cm. There is no demonstrated uterine fibroid. The cervix is closed. The right ovary measures 3.4 cm x 3.3 cm x 2.4 cm. There is no right ovarian cyst. There is no visualized right adnexal mass or complex lesion. The left ovary measures 3.9 cm x 4 cm x 3 cm. There is a 1.5 cm x 1.2 cm x 1.2 cm follicle. There is no visualized left adnexal mass or complex lesion. There is no fluid in the cul de sac. US/Init OB < 14Wks US IMPRESSION: Single live uterine gestation with mean gestational age of 8 weeks. Electronically Signed: Brian Gillespie, at 14:00 EST , Service support ,
== END ==
PROVIDERS: PCP Family Medicine; Referring Provider Nurse Practitioner Women's Health; Visit Provider Nurse Practitioner Women's Health
DX: Z36.87 Encounter for antenatal screening for uncertain dates (principal); Z3A.08 8 weeks gestation of pregnancy
CPT/HCPCS: 76801

== ENCOUNTER → 2020-03-16 | Outpatient (CLI) | payer MEDICAID, SELFPAY ==
[2020-03-16 14:36] VITALS: BMI 26.5
[2020-03-16 17:21] LABS: Amphetamine Urine VISTA NEGATIVE (<1000 ng/mL); Barbiturate Urine VISTA NEGATIVE (< 200 ng/mL); Benzodiazepine Urine VISTA NEGATIVE (< 200 ng/mL); Cocaine Urine VISTA NEGATIVE (< 300 ng/mL); Ecstacy Urine VISTA NEGATIVE (< 500 ng/mL); Methadone Urine VISTA NEGATIVE (< 300 ng/mL); PCP Urine VISTA NEGATIVE (< 25 ng/mL); THC Urine VISTA POSITIVE (< 50 ng/mL); Vista UDS pH Range 6
== END | disposition home or self-care (01) ==
LOC: LABSPEC 16:16
PROVIDERS: PCP Family Medicine; Referring Provider Obstetrics & Gynecology; Visit Provider Obstetrics & Gynecology
DX: Z34.80 Encounter for supervision of other normal pregnancy, unspecified trimester (principal)
CPT/HCPCS: 80307; 87086; 87088

== ENCOUNTER → 2020-03-23 12:50 | Outpatient (CLI) | payer MEDICAID, SELFPAY ==
[2020-03-16 14:36] VITALS: BMI 26.5
[2020-03-23 13:35] LABS: Absolute Lymphocyte Count 1.42 X10^3/uL (0.83-4.51); Absolute Neutrophil Count 4.6 X10^3/uL (2.0-7.7); Basophil# 0.03 X10^3/uL; Basophil% 0.4 % (0-1); Eosinophil# 0.08 X10^3/uL; Eosinophils% 1.2 % (0-5); Hematocrit 40.6 % (37-47); Hemoglobin 13.5 g/dL (12.0-15.0); Lymphocyte # 1.42 X10^3/ul (4.0); Lymphocyte % 20.6 % (19-41); Mean Corp Hgb Conc 33.3 g/dL (32-36); Mean Corpuscular Hgb 30.8 pg (27.0-32.0); Mean Corpuscular Volume 92.7 fL (81-99); Monocyte# 0.74 X10^3/uL; Monocyte% 10.8 % (0-10); NRBC Flagged by Analyzer 0 % (0-5); Neutrophil # 4.59 X10^3/uL (2.7-7.7); Neutrophil % 66.7 % (47-70); Platelet Count 264 K/mm3 (150-450); RBC Distribution Width CV 12.9 % (11.6-14.6); RBC Distribution Width SD 43.9 fl (35.1-43.9); Red Blood Count 4.38 M/mm3 (4.2-5.4); White Blood Count 6.9 K/mm3 (4.4-11.0)
[2020-03-23 14:49] LABS: HIV - WCH Non-Reactive (Nonreactive); Hepatitis B Surface Antigen Non-Reactive (Nonreactive); Hepatitis C Antibody Non-Reactive (Nonreactive); Rubella IgG Reactive (Nonreactive)
[2020-03-23 15:24] LABS: Glucose Challenge Gest 1H 50g 98 mg/dL (70-140)
[2020-03-26 03:34] LABS: Rapid Plasmin Reagin (RPR) NONREACTIVE (NONREACTIVE)
== END ==
PROVIDERS: PCP Family Medicine; Referring Provider Obstetrics & Gynecology; Visit Provider Obstetrics & Gynecology
DX: Z31.430 Encounter of female for testing for genetic disease carrier status for procreative management (principal); Z34.81 Encounter for supervision of other normal pregnancy, first trimester
CPT/HCPCS: 36415; 82950; 85025; 86592; 86703; 86762; 86803; 86850; 86900; 86901; 87340

== ENCOUNTER → 2020-07-23 11:08 | Outpatient (CLI) | payer MEDICAID, SELFPAY ==
[2020-07-10 10:05] VITALS: BMI 30.2
[2020-07-23 11:25] LABS: Absolute Lymphocyte Count 2.05 X10^3/uL (0.83-4.51); Absolute Neutrophil Count 8.6 X10^3/uL (2.0-7.7); Basophil# 0.06 X10^3/uL; Basophil% 0.5 % (0-1); Eosinophil# 0.15 X10^3/uL; Eosinophils% 1.3 % (0-5); Hematocrit 33.8 % (37-47); Hemoglobin 10.9 g/dL (12.0-15.0); Lymphocyte # 2.05 X10^3/ul (0.83-4.51); Lymphocyte % 17.4 % (19-41); Mean Corp Hgb Conc 32.2 g/dL (32-36); Mean Corpuscular Hgb 31.3 pg (27.0-32.0); Mean Corpuscular Volume 97.1 fL (81-99); Mean Platelet Vol. 9.8 fl (6.2-12.0); Monocyte# 0.69 X10^3/uL; Monocyte% 5.9 % (0-10); NRBC Flagged by Analyzer 0 % (0-5); Neutrophil % 73.2 % (47-70); Platelet Count 275 K/mm3 (150-450); RBC Distribution Width CV 13.1 % (11.6-14.6); RBC Distribution Width SD 46.4 fl (35.1-43.9); Red Blood Count 3.48 M/mm3 (4.2-5.4); White Blood Count 11.8 K/mm3 (4.4-11.0)
[2020-07-23 11:28] LABS: Glucose Challenge Gest 1H 50g 95 mg/dL (70-140)
== END ==
PROVIDERS: PCP Family Medicine; Referring Provider Nurse Practitioner Women's Health; Visit Provider Nurse Practitioner Women's Health
DX: Z34.92 Encounter for supervision of normal pregnancy, unspecified, second trimester (principal); Z3A.18 18 weeks gestation of pregnancy; Z13.1 Encounter for screening for diabetes mellitus
CPT/HCPCS: 36415; 82950; 85025

== ENCOUNTER 2020-08-15 23:00 | Outpatient (CLI) | payer MEDICAID, SELFPAY ==
[2020-08-06 09:32] VITALS: BMI 30.2
[2020-08-15 23:09] VITALS: BMI 31.1
[2020-08-15 23:12] VITALS: BP 118/64; PULSE 80; PULSE 88; TEMP 36.3; O2SAT 98
--- NOTE | 2020-08-16 00:57 | OB.TRI.HP_ITS ---
HPI - General HPI Narrative DANIEL RAIN, is a 30 F who presents for vaginal bleeding postcoital. Patient was having relations and then developed bleeding afterwards. She denies any clots but admits occasional contractions admits good movement no loss of fluid. Maternal Data Information ARIANNA Calculator Estimated Delivery Date Method Current WG Current Estimate 10/12/20 Ultrasound #1 31w 6d Other Estimates 09/14/20 LMP (Uncertain) 35w 6d PFSH Medical History (Updated 08/16/20 @ 01:[address] Anisa Gilbert MD) Anxiety Fibromyalgia Fibromyalgia GERD (gastroesophageal reflux disease) Hirsutism IBS (irritable bowel syndrome) Low blood pressure PCOS (polycystic ovarian syndrome) Seizures Home Medications lactobacillus combination no.8 3 billion cell capsule 3,000 mmu cells PO DAILY 01/28/20 [History Last Taken Unknown] PNV-iron 29 mg-folic acid 1 mg-omega3 250 mg-dha 200mg oral combo pack pkg PO 03/10/20 [History Last Taken 08/15/20] ferrous sulfate [iron] 325 mg PO DAILY 08/15/20 [History Last Taken Unknown] Allergy/AdvReac Type Severity Reaction Status Date / Time STEROIDS Allergy Unknown Unknown Uncoded 08/15/20 23:19 Family History Aunt Diabetes Mother Autosomal recessive severe combined immunodeficiency disease Other Anemia Anxiety Arthritis Asthma Breast cancer Cancer Depression Epilepsy Heart disease Surgical History History of tonsillectomy History of wisdom tooth extraction, class II edentulism Social History current occupational status: student current occupation: [employer] Smoking Status: Current every day smoker alcohol intake: never substance use type: does not use caffeine: Yes what type of physical activity do you participate in: walking and aerobics frequency: 1-2 times per week seatbelt use: always do you feel safe at home: Yes 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 Date Name GA/Weeks Outcome Route Bth Weight Infant Gen Labor Lgth Anesthesia Del [facility] Provider FOB Unknown 2011 Abelino Valente 40 live - full term 9lbs 1oz M chente 12 hours epidural [facility] Ofelia Unknown 2016 Dayana 38 live - full term 8lbs 8oz Female 11 hours epidural [facility] Ofelia Delivery Date: no complications Katelyn Arreola Delivery Date: nuchal cord; failed epidural; jaundice- stayed an extra 4 days in hospital Katelyn Arreola Visit Details Expected Delivery Route/Plan Labor Preferences- CB/BF classes: yes labor support person: Josue labor intervention preferences: no specific pain management options preferred: epidural cut cord/dad catch: yes : yes PP control planned: discussed/considering nexplanon discussed possible routes of delivery and associated risks: [] special requests: [] Plans flu vaccine: decline tdap vaccine: given rhogam: na LARC form signed: yes declined movement and labor precautions reviewed. Problem list reviewed and updated with the most current plan of care details and appropriate orders placed. Relevant counseling for the gestational age provided. Continue routine care and follow up unless otherwise noted in visit notes/problem list details OB Flowsheet Initial Weight: 170 lb Date -?-?-?-?-?-?-?-?-?-?-?-?- EGA Weight BP Urine Prot -?-?-?-?-?-?-?-?-?-?-?-?- Glucose FHR FuHt Pres Dilation -?-?-?-?-?-?-?-?-?-?-?-?- Effaced St Visit Note 03/16/20 -?-?-?-?-?-?-?-?-?-?-?-?- 10w 0d 169 lb 8 oz (-8 oz) 169 lb 8 oz (-8 oz) 110/78 110/78 -?-?-?-?-?-?-?-?-?-?-?-?- 163 -?-?-?-?-?-?-?-?-?-?-?-?- GP - CRL 35mm co nsistent with prior US. 04/17/20 -?-?-?-?-?-?-?-?-?-?-?-?- 14w 4d 175 lb (+5 lb) 114/57 -?-?-?-?-?-?-?-?-?-?-?-?- 150 -?-?-?-?-?-?-?-?-?-?-?-?- SM- no vb lof so me fm 05/13/20 -?-?-?-?-?-?-?-?-?-?-?-?- 18w 2d 181 lb 2 oz (+11 lb 2 oz) 110/60 Negative -?-?-?-?-?-?-?-?-?-?-?-?- Negative 150 -?-?-?-?-?-?-?-?-?-?-?-?- GP - no LOF, VB, DFM, ctx. Anatomy scan 05/21. 06/12/20 -?-?-?-?-?-?-?-?-?-?-?-?- 22w 4d 188 lb (+18 lb) 112/82 Negative -?-?-?-?-?-?-?-?-?-?-?-?- Negative 145 -?-?-?-?-?-?-?-?-?-?-?-?- SM- no vb lof go od fm no regular ctx 07/10/20 -?-?-?-?-?-?--?-?-?-?-?-?- 26w 4d 193 lb (+23 lb) 116/72 Negative -?-?-?-?-?-?-?-?-?-?-?-?- Negative 145 -?-?-?-?-?-?-?-?-?-?-?-?- SM- no vb lof go od fm no reuglar ctx 07/23/20 -?-?-?-?-?-?-?-?-?-?-?-?- 28w 3d 196 lb 2 oz (+26 lb 2 oz) 108/60 Trace -?-?-?-?-?-?-?-?-?-?-?--?- Negative 142 29 -?-?-?-?-?-?-?-?-?-?-?-?- MH-No VB, LOF. G ood FM. larc, will start FE. Glucose nl 08/06/20 -?-?-?-?-?-?-?-?-?-?-?-?- 30w 3d 194 lb (+24 lb) 120/82 -?-?-?-?-?-?-?-?-?-?-?-?- 140 32 -?-?-?-?-?-?-?-?-?-?-?-?- SM- no vb lof go od fm no regular ctx 08/15/20 -?-?-?-?-?-?-?-?-?-?-?-?- 31w 5d 195 lb 15.855 oz (+25 lb 15.855 oz) 118/64 -?-?-?-?-?-?-?-?-?-?-?-?- -?-?-?-?-?-?-?-?-?-?-?-?- ROS Constitutional Constitutional: Reports systems reviewed and no addt'l complaints, except as documented Gastrointestinal Gastrointestinal: Reports as per HPI Physical Exam Const alert, oriented x3 and no apparent distress HEENT Head and Scalp: normocephalic and atraumatic Neck full ROM and no lymphadenopathy Chest inspection of chest normal Resp normal respiratory effort GI GI Narrative: gravid, abdomen nontender, AGA Manual OB Exam: dilated, effaced and station NST FHR Rate Baby A Baseline: 140 Variability:: Moderate Accelerations:: 15 x 15 Decelerations:: None NST Reactive:: Yes FHR Category:: Category I Uterine Activity:: no regular Assessment & Plan Assessment/Plan (1) Postcoital bleeding: PLAN: cervix 1-2 thick high, stable, dc home labor and bleeding preca utions Multi Select Codes Visit Charges Office Visit/Consults: 18028 OV L3 Est Urinary/Genital Urinary/Genital CPT Codes: 77552-26 non-stress test Interp
== END 2020-08-16 01:00 | disposition home or self-care (01) ==
LOC: WPOUT 23:07 → WP 23:07
PROVIDERS: PCP Family Medicine; Referring Provider Obstetrics & Gynecology; Visit Provider Obstetrics & Gynecology
DX: O46.8X3 Other antepartum hemorrhage, third trimester (principal); N93.0 Postcoital and contact bleeding; O99.613 Diseases of the digestive system complicating pregnancy, third trimester; K58.9 Irritable bowel syndrome, unspecified; K21.9 Gastro-esophageal reflux disease without esophagitis; O99.333 Smoking (tobacco) complicating pregnancy, third trimester; F17.200 Nicotine dependence, unspecified, uncomplicated; Z3A.31 31 weeks gestation of pregnancy
CPT/HCPCS: 59025; 59050; 99218; G0378

== ENCOUNTER → 2020-08-20 10:11 | Outpatient (CLI) | payer MEDICAID, SELFPAY ==
[2020-08-20 09:49] VITALS: BMI 31.1
[2020-08-20 10:32] LABS: Basophil# 0.04 X10^3/uL; Basophil% 0.4 % (0-1); Eosinophil# 0.12 X10^3/uL; Eosinophils% 1.2 % (0-5); Hematocrit 32.6 % (37-47); Hemoglobin 10.8 g/dL (12.0-15.0); Lymphocyte % 18.4 % (19-41); Mean Corp Hgb Conc 33.1 g/dL (32-36); Mean Corpuscular Volume 96.7 fL (81-99); Mean Platelet Vol. 10.1 fl (6.2-12.0); Monocyte# 0.66 X10^3/uL; Monocyte% 6.8 % (0-10); NRBC Flagged by Analyzer 0 % (0-5); Neutrophil # 7.02 X10^3/uL (2.7-7.7); Platelet Count 271 K/mm3 (150-450); RBC Distribution Width CV 13.7 % (11.6-14.6); RBC Distribution Width SD 48.7 fl (35.1-43.9); Red Blood Count 3.37 M/mm3 (4.2-5.4); White Blood Count 9.8 K/mm3 (4.4-11.0)
== END ==
PROVIDERS: PCP Family Medicine; Referring Provider Obstetrics & Gynecology; Visit Provider Obstetrics & Gynecology
DX: O99.019 Anemia complicating pregnancy, unspecified trimester (principal); Z3A.00 Weeks of gestation of pregnancy not specified
CPT/HCPCS: 36415; 85025

== ENCOUNTER 2020-08-25 07:20 | Outpatient (CLI) | payer MEDICAID, SELFPAY ==
[2020-08-20 09:49] VITALS: BMI 31.1
[2020-08-25 07:31] VITALS: BP 105/56; PULSE 87; TEMP 36.9
[2020-08-25 07:32] VITALS: BMI 31.2
[2020-08-25 08:22] LABS: Color, Urine Yellow (Yellow); Glucose, Dipstick Normal (Normal); Ketone-Dipstick Negative (Negative); Leukocyte Esterase-Dipstick 25 /ul (Negative); Nitrite-Dipstick Negative (Negative); Occult Blood-Urine 10 /ul (Negative); Protein-Dipstick 15 mg/dl (Negative); Urine Bilirubin Dipstick Negative (Negative); Urine Clarity Sl. Cloudy (Clear); Urine Urobilinogen Normal (Normal)
[2020-08-25 08:31] LABS: ROM Internal Control Test YES-OK TO RESULT pt. (Internal QC)
[2020-08-25 08:33] LABS: ROM Patient Test POSITIVE (Negative)
--- NOTE | 2020-08-25 09:48 | OB.TRI.HP_ITS ---
HPI - General HPI Narrative DANIEL RAIN, is a 30 F at 33 weeks who presents with loss of fluid. Patient reports that she had intercourse last night and had some bleeding and cramping following intercourse. Reports that this morning she woke up and noticed a large gush of yellow fluid. Not continuing to have leaking at this time. Denies dysuria. Maternal Data Information ARIANNA Calculator Estimated Delivery Date Method Current WG Current Estimate 10/12/20 Ultrasound #1 33w 1d Other Estimates 09/14/20 LMP (Uncertain) 37w 1d PFSH Medical History Anxiety Fibromyalgia Fibromyalgia GERD (gastroesophageal reflux disease) Hirsutism IBS (irritable bowel syndrome) Low blood pressure PCOS (polycystic ovarian syndrome) Seizures Home Medications lactobacillus combination no.8 3 billion cell capsule 3,000 mmu cells PO DAILY 01/28/20 [History Last Taken Unknown] PNV-iron 29 mg-folic acid 1 mg-omega3 250 mg-dha 200mg oral combo pack pkg PO 03/10/20 [History Last Taken 08/15/20] ferrous sulfate [iron] 325 mg PO DAILY 08/15/20 [History Last Taken Unknown] Allergy/AdvReac Type Severity Reaction Status Date / Time STEROIDS Allergy Unknown Unknown Uncoded 08/25/20 07:33 Family History Aunt Diabetes Mother Autosomal recessive severe combined immunodeficiency disease Other Anemia Anxiety Arthritis Asthma Breast cancer Cancer Depression Epilepsy Heart disease Surgical History History of tonsillectomy History of wisdom tooth extraction, class II edentulism Social History current occupational status: student current occupation: [employer] Smoking Status: Current every day smoker alcohol intake: never substance use type: does not use caffeine: Yes what type of physical activity do you participate in: walking and aerobics frequency: 1-2 times per week seatbelt use: always do you feel safe at home: Yes 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 Date Name GA/Weeks Outcome Route Bth [facility] F[facility] Unknown 2011 Abelino Valente 40 live - full term 9lbs 1oz M chente 12 hours epidural [facility] Tirsojaqueline Unknown 2016 Dayana 38 live - full term 8lbs 8oz Female 11 hours epidural [facility] Marcanthony Delivery Date: no complications Katelyn Arreola Delivery Date: nuchal cord; failed epidural; jaundice- stayed an extra 4 days in hospital Dorita Arreolaily Visit Details Expected Delivery Route/Plan Labor Preferences- CB/BF classes: yes labor support person: Josue labor intervention preferences: no specific pain management options preferred: epidural cut cord/dad catch: yes : yes PP control planned: discussed/considering nexplanon discussed possible routes of delivery and associated risks: [] special requests: [] Plans flu vaccine: decline tdap vaccine: given rhogam: na LARC form signed: yes declined movement and labor precautions reviewed. Problem list reviewed and updated with the most current plan of care details and appropriate orders placed. Relevant counseling for the gestational age provided. Continue routine care and follow up unless otherwise noted in visit notes/problem list details OB Flowsheet Initial Weight: 170 lb Date -?-?-?-?-?-?-?-?-?-?-?-?- EGA Weight BP Urine Prot -?-?-?-?-?-?-?-?-?-?--?-?- Glucose FHR FuHt Pres Dilation -?-?-?-?-?-?-?-?-?-?-?-?- Effaced St Visit Note 03/16/20 -?-?-?-?-?-?-?-?-?-?-?-?- 10w 0d 169 lb 8 oz (-8 oz) 169 lb 8 oz (-8 oz) 110/78 110/78 -?-?-?-?-?-?-?-?-?-?-?-?- 163 -?-?-?-?-?-?-?-?-?-?-?-?- GP - CRL 35mm co nsistent with prior US. 04/17/20 -?-?-?-?-?-?-?-?-?-?-?-?- 14w 4d 175 lb (+5 lb) 114/57 -?-?-?-?-?-?-?-?-?-?-?-?- 150 -?-?-?-?-?-?-?-?-?-?-?-?- SM- no vb lof so me fm 05/13/20 -?-?-?-?-?-?-?-?-?-?-?-?- 18w 2d 181 lb 2 oz (+11 lb 2 oz) 110/60 Negative -?-?-?-?-?-?-?-?-?-?-?-?- Negative 150 -?-?-?-?-?-?-?-?-?-?-?-?- GP - no LOF, VB, DFM, ctx. Anatomy scan 05/21. 06/12/20 -?-?-?-?-?-?--?-?-?-?-?-?- 22w 4d 188 lb (+18 lb) 112/82 Negative -?-?-?-?-?-?-?-?-?-?-?-?- Negative 145 -?-?-?-?-?-?-?-?-?-?-?-?- SM- no vb lof go od fm no regular ctx 07/10/20 -?-?-?-?-?-?-?-?-?-?-?-?- 26w 4d 193 lb (+23 lb) 116/72 Negative -?-?-?-?-?-?-?-?-?-?-?-?- Negative 145 -?-?-?-?-?-?-?-?-?-?-?-?- SM- no vb lof go od fm no reuglar ctx 07/23/20 -?-?-?-?-?-?-?-?-?-?-?-?- 28w 3d 196 lb 2 oz (+26 lb 2 oz) 108/60 Trace -?-?-?-?-?-?-?-?-?-?-?-?- Negative 142 29 -?-?-?-?-?-?-?-?-?-?-?-?- MH-No VB, LOF. G ood FM. larc, will start FE. Glucose nl 08/06/20 -?-?-?-?-?-?-?-?-?-?-?-?- 30w 3d 194 lb (+24 lb) 120/82 -?-?-?-?-?-?-?-?-?-?-?-?- 140 32 -?-?-?-?-?-?-?-?-?-?-?-?- SM- no vb lof go od fm no regular ctx 08/15/20 -?-?-?-?-?-?-?-?-?-?-?-?- 31w 6d 195 lb 15.855 oz (+25 lb 15.855 oz) 118/64 -?-?-?-?-?-?-?-?-?-?-?-?- -?-?-?-?-?-?-?-?-?-?-?-?- 08/20/20 -?-?-?-?-?-?-?-?-?-?-?-?- 32w 3d 196 lb 2 oz (+26 lb 2 oz) 120/70 Negative -?-?-?-?-?-?-?-?-?-?-?-?- Negative 140 32 -?-?-?-?-?-?-?-?-?-?-?-?- GP - no LOF, VB, DFM, ctx. Seen in ER over weekend for bleeding. No bleeding since. PTL precautions reviewed. 08/25/20 -?-?-?-?-?-?-?-?-?-?-?-?- 33w 1d 196 lb 10.437 oz (+26 lb 10.437 oz) 105/56 15 mg/ dl (Negative) H -?-?-?-?-?-?-?-?-?-?-?-?- -?-?-?-?-?-?-?-?-?-?-?-?- ROS Constitutional Constitutional: Denies fatigue or fever(s) Genitourinary Genitourinary: Denies contractions, itching, urinary frequency, urinary hesitancy or urinary urgency Physical Exam Const alert, oriented x3, no apparent distress, average body habitus, healthy appearing and well nourished HEENT normocephalic and moist oral mucous membranes Head and Scalp: atraumatic Eyes PERRL and EOMs intact bilaterally Neck full ROM Resp normal respiratory effort, no retractions and no use of accessory muscles Cardio regular rate and regular rhythm GI soft to palpation, non-tender and non-distended OB / External & Speculum: external exam normal, vaginal bleeding and vaginal discharge; Negative for bleeding, tissue present in vagina, vaginal laceration, vulvular erythema or vulvular tenderness Amniotic Fluid: no amniotic fluid noted and other yellow discharge noted but no passage of fluid through os on valsalva ; Negative for ferning present Extremity normal to inspection and full ROM Skin no rashes or lesions noted Neuro no focal motor deficits and no sensory deficits noted Psych mental status grossly normal, affect normal, speech normal and activity/motor behavior normal NST FHR Rate Baby A Baseline: 140 Variability:: Moderate Accelerations:: 15 x 15 Decelerations:: None NST Reactive:: Yes FHR Category:: Category I Uterine Activity:: irritability Assessment & Plan (1) Vaginal discharge: PLAN: Presents after having large gush of fluid this morning. No further leaking. Patient did have bleeding last night, but none currently ROM plus sent and was positive, however clinical picture was not consistent with loss of fluid Ferning is negative. Bedside ROSI is 17 with a DVP of 5.4. Suspect that positive ROM is related to a combination of recent intercourse and vaginal bleeding and is a false positive test given negative ferning, negative pooling, normal ROSI Patient discharged home in stable condition with good return precautions Multi Select Codes Visit Charges Office Visit/Consults: 88783 OV L3 Est Urinary/Genital Urinary/Genital CPT Codes: 74514-99 non-stress test Interp
== END 2020-08-25 09:52 ==
LOC: WPOUT 07:26 → WP 07:27
PROVIDERS: PCP Family Medicine; Referring Provider Obstetrics & Gynecology; Visit Provider Obstetrics & Gynecology
DX: O26.893 Other specified pregnancy related conditions, third trimester (principal); N89.8 Other specified noninflammatory disorders of vagina; Z3A.33 33 weeks gestation of pregnancy
CPT/HCPCS: 59025; 59050; 76815; 81002; 84112; 87086; 87088; 99218; G0378

== ENCOUNTER → 2020-09-18 10:25 | Outpatient (CLI) | payer MEDICAID, SELFPAY ==
[2020-09-18 09:57] VITALS: BMI 31.2
[2020-09-18 10:48] LABS: Absolute Lymphocyte Count 1.74 X10^3/uL (0.83-4.51); Absolute Neutrophil Count 7.7 X10^3/uL (2.0-7.7); Basophil# 0.04 X10^3/uL; Basophil% 0.4 % (0-1); Hematocrit 33.2 % (37-47); Lymphocyte # 1.74 X10^3/ul (0.83-4.51); Lymphocyte % 16.6 % (19-41); Mean Corp Hgb Conc 33.1 g/dL (32-36); Mean Corpuscular Hgb 31.4 pg (27.0-32.0); Mean Corpuscular Volume 94.9 fL (81-99); Mean Platelet Vol. 10.1 fl (6.2-12.0); Monocyte# 0.74 X10^3/uL; Monocyte% 7.1 % (0-10); NRBC Flagged by Analyzer 0 % (0-5); Neutrophil # 7.74 X10^3/uL (2.7-7.7); Neutrophil % 73.8 % (47-70); Platelet Count 266 K/mm3 (150-450); RBC Distribution Width CV 13.4 % (11.6-14.6); RBC Distribution Width SD 46.7 fl (35.1-43.9); White Blood Count 10.5 K/mm3 (4.4-11.0)
[2020-09-18 11:11] LABS: ALB/GLOB Ratio 0.7 RATIO (0.9-2.4); AST(SGOT) 18 U/L (15-37); Alanine Aminotransfer ALT/SGPT 15 U/L (13-56); Albumin, Serum 2.8 g/dL (3.2-5.0); Alkaline Phosphatase 109 U/L (45-117); Anion Gap 7 (5-15); BUN 6 mg/dL (7-18); BUN/Creat Ratio 9.6 RATIO (10-20); Calcium,Total 8.5 mg/dL (8.5-10.1); Chloride 106 mmol/L (98-107); Creatinine, Serum 0.63 mg/dL (0.55-1.02); EST Glomerular Filtration Rate 120 mL/min (>60); Est Glom Filt Rate - Afr Amer 145 mL/min (>60); Globulin 3.9 g/dL (2.2-4.2); Glucose 79 mg/dL (74-106); Potassium 3.5 mmol/L (3.5-5.1); Protein, Total 6.7 g/dL (6.4-8.2); Sodium Level 137 mmol/L (136-145)
== END ==
PROVIDERS: PCP Family Medicine; Referring Provider Obstetrics & Gynecology; Visit Provider Obstetrics & Gynecology
DX: O26.899 Other specified pregnancy related conditions, unspecified trimester (principal); R10.11 Right upper quadrant pain; Z3A.00 Weeks of gestation of pregnancy not specified
CPT/HCPCS: 36415; 80053; 85025; 87081

== ENCOUNTER → 2020-09-21 08:51 | Outpatient (CLI) | payer MEDICAID, SELFPAY ==
[2020-09-18 09:57] VITALS: BMI 31.2
--- NOTE | 2020-09-21 08:52 | US_ITS ---
STUDY: SECOND AND THIRD TRIMESTER OBSTETRICAL ULTRASOUND - LIMITED REASON FOR EXAM: Female, 30 years old . growth. Larger than dates. LMP: 01/06/2020. PRIOR ULTRASOUND: Comparison is made with prior study dated 03/03/2020. TECHNIQUE: Transabdominal TECHNICAL QUALITY: Adequate. FINDINGS: There is a single intrauterine fetus. The fetus is in a cephalic presentation. There is demonstrated cardiac activity with a heart rate of 148 bpm. There is a normal amniotic fluid volume. The largest amniotic fluid pocket measures 5 cm. The amniotic fluid index (ROSI) is 14.7 cm. The placenta is posterior in location and is not low lying. There are Grade 2 placental changes. The cervix was not measured due to head position. BIOMETRY: BPD: 9.1 cm: 37 weeks, 0 days HC: 32.7 cm: 37 weeks, 0 days AC: 33.4 cm: 37 weeks, 1 days FL: 7.2 cm: 37 weeks, 0 days Age by LMP: 37 weeks, 0 days. ARIANNA by LMP: 10/12/2020. age by prior US: 36 weeks, 6 days. ARIANNA by prior US: 10/13/2020. age by current US: 37 weeks, 1 days. ARIANNA by current US: 10/11/2020. Estimated weight: 3173 grams, +/- 476 grams, 64 percentile. US/OB Limited With Biometrics IMPRESSION: Single live intrauterine gestation with a mean gestational age of 36 weeks and 6 days. The measurements obtained today fall within the normal expected range. Electronically Signed: Brian Gillespie MD at 8:34 EDT , Service support ,
== END ==
PROVIDERS: PCP Family Medicine; Referring Provider Obstetrics & Gynecology; Visit Provider Obstetrics & Gynecology
DX: O26.843 Uterine size-date discrepancy, third trimester (principal); Z3A.36 36 weeks gestation of pregnancy
CPT/HCPCS: 76816

== ENCOUNTER 2020-09-29 20:05 | Inpatient (IN) | payer MEDICAID, SELFPAY ==
[2020-09-25 09:43] VITALS: BMI 31.2
[2020-09-29] VITALS (46 sets, daily range): BP systolic 93–137; BP diastolic 49–89; PULSE 78–118; TEMP 36.6–37.4; O2SAT 83–100; BMI 31.1
[2020-09-29] MEDS: Lactated Ringers 1,000 ML 50 ML IV (20:25)
[2020-09-29] MEDS: Lactated Ringers 500 ML 999 ML IV ×2 (20:26→21:54)
[2020-09-29 20:40] LABS: Absolute Lymphocyte Count 2.08 X10^3/uL (0.83-4.51); Absolute Neutrophil Count 9.3 X10^3/uL (2.0-7.7); Basophil# 0.02 X10^3/uL; Basophil% 0.2 % (0-1); Eosinophil# 0.15 X10^3/uL; Eosinophils% 1.2 % (0-5); Hematocrit 35.2 % (37-47); Hemoglobin 11.7 g/dL (12.0-15.0); Lymphocyte # 2.08 X10^3/ul (0.83-4.51); Lymphocyte % 16.7 % (19-41); Mean Corp Hgb Conc 33.2 g/dL (32-36); Mean Corpuscular Hgb 31.1 pg (27.0-32.0); Mean Corpuscular Volume 93.6 fL (81-99); Mean Platelet Vol. 10.8 fl (6.2-12.0); Monocyte# 0.81 X10^3/uL; Monocyte% 6.5 % (0-10); NRBC Flagged by Analyzer 0 % (0-5); Neutrophil % 74.4 % (47-70); Platelet Count 287 K/mm3 (150-450); RBC Distribution Width CV 13.4 % (11.6-14.6); RBC Distribution Width SD 46.2 fl (35.1-43.9); Red Blood Count 3.76 M/mm3 (4.2-5.4); White Blood Count 12.5 K/mm3 (4.4-11.0)
[2020-09-29] MEDS: fentaNYL-bupivacaine (epidural) 100 ML BAG EPIDURAL (21:52)
[2020-09-29] MEDS: Ondansetron 4 MG/2 ML Vial IV (22:34)
[2020-09-29] MEDS: 0.9% Saline Lock 10 ML Syringe IV (22:34)
--- NOTE | 2020-09-29 23:05 | HP.PCM.OB_ITS ---
HPI - General General Date of Admission: 09/29/20 HPI Narrative DANIEL RAIN, is a 30 F who presents IAL made cervical change to 4 and now 5 cm. no vb lof admits good fm Maternal Data Information ARIANNA Calculator Estimated Delivery Date Method Current WG Current Estimate 10/12/20 Ultrasound #1 38w 1d Other Estimates 09/14/20 LMP (Uncertain) 42w 1d PFS PFS Medical History Anxiety Fibromyalgia Fibromyalgia GERD (gastroesophageal reflux disease) Hirsutism IBS (irritable bowel syndrome) Low blood pressure PCOS (polycystic ovarian syndrome) Seizures Home Medications lactobacillus combination no.8 3 billion cell capsule 3,000 mmu cells PO DAILY 01/28/20 [History Last Taken Unknown] PNV-iron 29 mg-folic acid 1 mg-omega3 250 mg-dha 200mg oral combo pack pkg PO 03/10/20 [History Last Taken 09/28/20] ferrous sulfate [iron] 325 mg PO DAILY 08/15/20 [History Last Taken 09/27/20] famotidine [Pepcid] 20 mg PO BID 09/29/20 [History Last Taken 09/27/20] Allergy/AdvReac Type Severity Reaction Status Date / Time STEROIDS Allergy Unknown Unknown Uncoded 09/29/20 17:48 Family History Aunt Diabetes Mother Autosomal recessive severe combined immunodeficiency disease Other Anemia Anxiety Arthritis Asthma Breast cancer Cancer Depression Epilepsy Heart disease Surgical History History of tonsillectomy History of wisdom tooth extraction, class II edentulism Social History current occupational status: student current occupation: [employer] Smoking Status: Never smoker alcohol intake: never substance use type: does not use caffeine: Yes what type of physical activity do you participate in: walking and aerobics frequency: 1-2 times per week seatbelt use: always do you feel safe at home: Yes additional social history: 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 Date Name GA/Weeks Outcome Route Bth Weight Gen [facility] 2011 Abelino Valente 40 live - full term 9lbs 1oz M chente 12 hours epidural [facility] 2016 Dayana 38 live - full term 8lbs 8oz Female 11 hours epidural [facility] Marcwilmerony Delivery Date: no complications Katelyn Arreola Delivery Date: nuchal cord; failed epidural; jaundice- stayed an extra 4 days in hospital Dorita Arreolaily Visit Details Expected Delivery Route/Plan Labor Preferences- CB/BF classes: yes labor support person: Josue labor intervention preferences: no specific pain management options preferred: epidural cut cord/dad catch: yes : yes PP control planned: discussed/considering nexplanon discussed possible routes of delivery and associated risks: [] special requests: [] Plans flu vaccine: decline tdap vaccine: given rhogam: na LARC form signed: yes declined movement and labor precautions reviewed. Problem list reviewed and updated with the most current plan of care details and appropriate orders placed. Relevant counseling for the gestational age provided. Continue routine care and follow up unless otherwise noted in visit notes/problem list details OB Flowsheet Initial Weight: 170 lb Date -?-?-?-?-?-?-?-?-?-?-?-?- EGA Weight BP Urine Prot -?-?-?-?-?-?-?-?-?-?-?-?- Glucose FHR FuHt Pres Dilation -?-?-?-?-?-?-?-?-?-?-?-?- Effaced St Visit Note 03/16/20 -?-?-?-?-?-?-?-?-?-?-?-?- 10w 0d 169 lb 8 oz (-8 oz) 169 lb 8 oz (-8 oz) 110/78 110/78 -?-?-?-?-?-?-?-?-?-?-?-?- 163 -?-?-?-?-?-?-?-?-?-?-?-?- GP - CRL 35mm co nsistent with prior US. 04/17/20 -?-?-?-?-?-?-?-?-?-?-?-?- 14w 4d 175 lb (+5 lb) 114/57 -?-?-?-?-?-?-?-?-?-?-?-?- 150 -?-?-?-?-?-?-?-?-?-?-?-?- SM- no vb lof so me fm 05/13/20 -?-?-?-?-?-?-?-?-?-?-?-?- 18w 2d 181 lb 2 oz (+11 lb 2 oz) 110/60 Negative -?-?-?-?-?-?-?-?-?-?-?-?- Negative 150 -?-?-?-?-?-?-?-?-?-?-?-?- GP - no LOF, VB, DFM, ctx. Anatomy scan 05/21. 06/12/20 -?-?-?-?-?-?-?-?-?-?-?-?- 22w 4d 188 lb (+18 lb) 112/82 Negative -?-?-?-?-?-?-?-?-?-?-?-?- Negative 145 -?-?-?-?-?-?-?-?-?-?-?-?- SM- no vb lof go od fm no regular ctx 07/10/20 -?-?-?-?-?-?-?-?-?-?-?-?- 26w 4d 193 lb (+23 lb) 116/72 Negative -?-?-?-?-?-?-?-?-?-?-?-?- Negative 145 -?-?-?-?-?-?-?-?-?-?-?-?- SM- no vb lof go od fm no reuglar ctx 07/23/20 -?-?-?-?-?-?-?-?-?-?-?-?- 28w 3d 196 lb 2 oz (+26 lb 2 oz) 108/60 Trace -?-?-?-?-?-?-?-?-?-?-?-?- Negative 142 29 -?-?-?-?-?-?-?-?-?-?-?-?- MH-No VB, LOF. G ood FM. larc, will start FE. Glucose nl 08/06/20 -?-?-?-?-?-?-?-?-?-?-?-?- 30w 3d 194 lb (+24 lb) 120/82 -?-?-?-?-?-?-?-?-?-?-?-?- 140 32 -?-?-?-?-?-?-?-?-?-?-?-?- SM- no vb lof go od fm no regular ctx 08/15/20 -?-?-?-?-?-?-?-?-?-?-?-?- 31w 6d 195 lb 15.855 oz (+25 lb 15.855 oz) 118/64 -?-?-?-?-?-?-?-?-?-?--?-?- -?-?-?-?-?-?-?-?-?-?-?-?- 08/20/20 -?-?-?-?-?-?-?-?-?-?-?-?- 32w 3d 196 lb 2 oz (+26 lb 2 oz) 120/70 Negative -?-?-?-?-?-?-?-?-?-?-?-?- Negative 140 32 -?-?-?-?-?-?-?-?-?-?-?-?- GP - no LOF, VB, DFM, ctx. Seen in ER over weekend for bleeding. No bleeding since. PTL precautions reviewed. 08/25/20 -?-?-?-?-?-?-?-?-?-?-?-?- 33w 1d 196 lb 10.437 oz (+26 lb 10.437 oz) 105/56 15 mg/ dl (Negative) H -?-?-?-?-?-?-?-?-?-?-?-?- -?-?-?-?-?-?-?-?-?-?-?-?- 09/04/20 -?-?-?-?-?-?-?-?-?-?-?-?- 34w 4d 196 lb (+26 lb) 104/68 -?-?-?-?-?-?-?-?-?-?-?-?- 140 35 -?-?-?-?-?-?-?-?-?-?-?-?- SM- no vb lof go od fm no reuglar ctx. had episode of upper abdominal pain and vomiting that resolved. 09/18/20 -?-?-?-?-?-?-?-?-?-?-?-?- 36w 4d 197 lb (+27 lb) 124/76 Negative -?-?-?-?-?-?-?-?-?-?-?-?- Negative 140 37 Cephalic 1 -?-?-?-?-?-?-?-?-?-?-?-?- 50 -3 GP - no LO F, VB, DFM, ctx. GBS today. Still having RUQ/epigastric pain. Pepcid sent to pharmacy. CMP ordered. 09/25/20 -?-?-?-?-?-?-?-?-?-?-?-?- 37w 4d 197 lb (+27 lb) 102/88 Negative -?-?-?-?-?-?-?-?-?-?-?-?- Negative 145 38 Cephalic -?-?-?-?-?-?-?-?-?-?-?-?- SM- no vb lof go od fm no regular ctx. some RUQ discomfort but good overall 09/29/20 -?-?-?-?-?-?-?-?-?-?-?-?- 38w 1d 109/66 137/75 128/89 129/65 118/67 131/64 100/50 99/54 127/57 102/55 102/54 99/51 100/50 98/50 94/53 94/52 98/56 -?-?-?-?-?-?-?-?-?-?-?-?- -?-?-?-?-?-?-?-?-?-?-?-?- NST FHR Rate Baby A Baseline: 140 Variability:: Moderate Accelerations:: 15 x 15 Decelerations:: None NST Reactive:: Yes FHR Category:: Category I Uterine Activity:: q3-5 ROS Constitutional Constitutional: Reports systems reviewed and no addt'l complaints, except as documented ENT HEENT: Reports systems reviewed and no addt'l complaints, except as documented Cardiovascular Cardiovascular: Reports systems reviewed and no addt'l complaints, except as documented Respiratory/Chest Respiratory/Chest: Reports systems reviewed and no addt'l complaints, except as documented Gastrointestinal Gastrointestinal: Reports systems reviewed and no addt'l complaints, except as documented and nausea; Denies abdominal pain Genitourinary Genitourinary: Reports systems reviewed and no addt'l complaints, except as documented, contractions Details: present and frequency (regular ) and movement Details: present Musculoskeletal Musculoskeletal: Reports systems reviewed and no addt'l complaints, except as documented Integumentary Integumentary: Reports as per HPI Neurologic Neurologic: Reports systems reviewed and no addt'l complaints, except as documented Endocrine Endocrinology: Reports systems reviewed and no addt'l complaints, except as documented Vital Signs Vital Signs Vital Signs: 09/29/20 16:45 09/29/20 16:47 09/29/20 20:07 Temperature 98.2 F 99.3 F H Pulse Rate 101 H 100 Blood Pressure 111/68 109/66 BP Systolic 111 109 BP Diastolic 68 66 Pulse Ox 99 09/29/20 21:17 09/29/20 21:29 09/29/20 21:33 Temperature 98.1 F Pulse Rate 113 H 118 H 113 H Blood Pressure 137/75 H 128/89 H BP Systolic 137 128 BP Diastolic 75 89 Pulse Ox 99 09/29/20 21:34 09/29/20 21:38 09/29/20 21:39 Temperature Pulse Rate 115 H 111 H 109 H Blood Pressure 129/65 H BP Systolic 129 BP Diastolic 65 Pulse Ox 100 99 09/29/20 21:42 09/29/20 21:44 09/29/20 21:48 Temperature Pulse Rate 112 H 111 H 103 H Blood Pressure 118/67 131/64 H BP Systolic 118 131 BP Diastolic 67 64 Pulse Ox 100 09/29/20 21:50 09/29/20 21:53 09/29/20 21:55 Temperature Pulse Rate 115 H 112 H 106 H Blood Pressure 100/50 L BP Systolic 100 BP Diastolic 50 Pulse Ox 99 99 09/29/20 21:57 09/29/20 22:00 09/29/20 22:03 Temperature Pulse Rate 116 H 115 H 113 H Blood Pressure 99/54 L 127/57 H BP Systolic 99 127 BP Diastolic 54 57 Pulse Ox 99 09/29/20 22:05 09/29/20 22:09 09/29/20 22:10 Temperature Pulse Rate 109 H 113 H 104 H Blood Pressure 102/55 L BP Systolic 102 BP Diastolic 55 Pulse Ox 99 99 09/29/20 22:12 09/29/20 22:15 09/29/20 22:17 Temperature Pulse Rate 111 H 117 H 115 H Blood Pressure 102/54 L 99/51 L BP Systolic 102 99 BP Diastolic 54 51 Pulse Ox 98 09/29/20 22:20 09/29/20 22:22 09/29/20 22:25 Temperature Pulse Rate 111 H 109 H 100 Blood Pressure 100/50 L BP Systolic 100 BP Diastolic 50 Pulse Ox 99 99 09/29/20 22:30 09/29/20 22:33 09/29/20 22:35 Temperature Pulse Rate 112 H 85 90 Blood Pressure 98/50 L BP Systolic 98 BP Diastolic 50 Pulse Ox 97 99 09/29/20 22:40 09/29/20 22:43 09/29/20 22:45 Temperature Pulse Rate 87 94 86 Blood Pressure 94/53 L BP Systolic 94 BP Diastolic 53 Pulse Ox 97 98 09/29/20 22:50 09/29/20 22:53 09/29/20 22:55 Temperature Pulse Rate 85 88 Blood Pressure 94/52 L BP Systolic 94 BP Diastolic 52 Pulse Ox 96 98 09/29/20 22:56 09/29/20 23:00 Temperature Pulse Rate 102 H 106 H Blood Pressure 98/56 L BP Systolic 98 BP Diastolic 56 Pulse Ox 100 Weight Weight: 196 lb Body Mass Index (BMI) 31.1 Physical Exam Const alert, oriented x3 and healthy appearing Constitutional Narrative: uncomfortable with contractions HEENT normocephalic and moist oral mucous membranes Head and Scalp: atraumatic Neck full ROM, no lymphadenopathy, supple and thyroid normal General: trachea midline Thyroid: thyroid normal Lymph Lymphatic: no lymphadenopathy noted Chest inspection of chest normal Resp normal respiratory effort Cardio regular rate GI normal to inspection, nondistended, normoactive bowel sounds, soft to palpation and non-tender Inspection: gravid external exam normal Bimanual Exam - Vag & Uterus: uterus non-tender Manual OB Exam: estimated gestational size appropriate, presentation cephalic, dilated, effaced and station Extremity normal to inspection General Extremity: Negative for edema Skin no rashes or lesions noted Neuro deep tendon reflexes 2+ bilaterally Motor Exam: strength 5/5 throughout and clonus absent Psych mental status grossly normal Labs Labs Labs: Blood Type A POSITIVE Antibody Screen NEGATIVE Hct 35.2 % (37-47) L Hgb 11.7 g/dL (12.0-15.0) L Obstetrics US Rubella IgG Antibody Reactive (Nonreactive) Hep Bs Antigen Non-Reactive (Nonreactive) HIV 1&2 Antibody Non-Reactive (Nonreactive) C.trachomatis DNA (PCR) Negative (Negative) Glucose 1 Hr 50 gm 95 mg/dL (70-140) Group B Strep DNA Negative (Negative) Rhogam given: No Assessment & Plan (1) : QUALIFIERS: Weeks of gestation: 37 weeks Qualified Code(s): Z3A.37 - 37 weeks gestation of COMMENT: genetic- low risk and carrier- neg14/14; NL anatomy, GBS neg, 09/18 growth nl 64% (2) Anxiety and depression: COMMENT: doing well without any medication at this time. (3) Supervision of other normal : COMMENT: PRR ARIANNA 10/12/20 girl Tania PC: Dayana Roca Spouse: Josue (4) Anemia affecting , antepartum: COMMENT: Fe added, Hgb 10.8 on 08/20 (5) Active labor at term: PLAN: Patient presents IAL, plan expectant management for , pitocin/AROM PRN if needed. Pain management: plans epidural. GBS neg. Management of any complications: none I have reviewed the [facility] and made any clinically relevant updates.
[2020-09-30] VITALS (41 sets, daily range): BP systolic 92–147; BP diastolic 50–69; PULSE 76–120; RESP 16; TEMP 36.2–38.4; O2SAT 93–100
[2020-09-30] MEDS: fentaNYL-bupivacaine (epidural) 100 ML BAG EPIDURAL (02:13)
[2020-09-30] MEDS: Lactated Ringers 1,000 ML 200 ML IV (02:15)
[2020-09-30] MEDS: Oxytocin 30 units/NS 500 ml 30 UNITS/500 ML IV.SOLN 334 UNITS IV (04:19)
--- NOTE | 2020-09-30 04:26 | EX.PCM.OBRPT ---
Assessment & Plan (1) : QUALIFIERS: Weeks of gestation: 37 weeks Qualified Code(s): Z3A.37 - 37 weeks gestation of COMMENT: genetic- low risk and carrier- neg; NL anatomy, GBS neg, 09/18 growth nl 64% (2) Supervision of other normal : COMMENT: PRR ARIANNA 10/12/20 maeve Marin PC: George Rocay Spouse: Josue (3) Anxiety and depression: COMMENT: doing well without any medication at this time. (4) Anemia affecting , antepartum: COMMENT: Fe added, Hgb 10.8 on 08/20 (5) Active labor at term: Maternal Data Information ARIANNA Calculator Estimated Delivery Date Method Current WG Current Estimate 10/12/20 Ultrasound #1 38w 2d Other Estimates 09/14/20 LMP (Uncertain) 42w 2d Vaginal Delivery Operative Information Date of Procedure: 09/30/20 Pre-Operative Diagnosis: IAL Post-Operative Diagnosis: same Surgery / Procedure Performed: Spontaneous Vaginal Delivery Type of Anesthesia: Epidural Special Medications: none Estimated Blood Loss: 100 Fluids Replaced: crystalloid Findings Description of Procedure: Patient began pushing and delivered the head in the JUSTIN presentation. The head was delivered atraumatically . The anterior and posterior shoulders delivered without complication followed by the rest of the infant and the infant was placed on the maternal abdomen. Delayed cord clamping was employed for approximately 60 seconds. Cord was clamped and cut and gentle traction was applied to the cord and the placenta delivered spontaneously immediately following it was noted to be intact with three-vessel cord. The perineum and vagina were inspected and noted to have no laceration. EBL was 100 cc. Patient and infant tolerated delivery well. Presentation: JUSTIN Amniotic Membrane Rupture Type: Artificial Amniotic Fluid Description: Clear Placental Delivery Description: Spontaneous Placenta Disposition: [facility] Cord Vessel Description: 3 Vessels Cord Entanglement: None A Gender: Female Delayed Cord Clamping: Yes Post Vaginal Delivery Medications Given After Delivery: IV Pitocin Episiotomy Description: None Laceration: None Complication Complications: None Procedures Urinary/Genital [id number]: [id number] Vaginal Delivery+PP Care([facility])
--- NOTE | 2020-09-30 04:28 | PCM.DC ---
Discharge Instructions Diet Discharge Diet: No restrictions Activity Discharge Activity: Return to Normal Activity, May Not Drive (while taking narcotic pain medications.) and May Shower May resume sexual activity in: 4-6 weeks Dressing / Incision Call your doctor if your incision/area has: Continuous Slow Oozing, Sudden Increased Bleeding, Increased Pain/ Swelling, Increased Redness and Foul Smelling Discharge Follow Up Care Please Follow Up With: Anisa Gilbert MD When: Call [phone] to make an appointment with your doctor in 6 weeks. If you had elevated blood pressure or 4th degree laceration, you will need to be seen in 2 weeks. Test Results: Test results from this visit will be discussed in further detail at your follow-up appointment, if applicable. Discharge Plan Admission Admit Date/Time: 09/29/20 20:05 Primary Reason for Your Visit: vaginal delivery Attending Provider: Anisa Gilbert Primary Care Provider: Valarie Escoto Discharge Orders/Prescriptions Prescriptions: New naproxen 250 MG tablet 250 - 500 mg PO Q8H PRN PRN (Reason: MILD PAIN) Qty: 30 RF: 1 Continued Adult Probiotic 3 billion cell capsule 3,000 mmu cells PO DAILY RF: 0 PNV-iron 29 mg-folic acid 1 mg-omega3 250 mg-dha 200mg oral combo pack [id number] mg combo pack PO RF: 0 ferrous sulfate [iron] 325 mg (65 mg iron) Tablet 325 mg PO DAILY RF: 0 famotidine [Pepcid] 20 mg tablet 20 mg PO BID RF: 0 Referrals / Follow Up: Valarie Escoto DO [Primary Care Provider] - Anisa Gilbert MD [STAFF PHYSICIAN] - Disposition Disposition (needs filled in before D/C Order can be placed): Home, Self Care
[2020-09-30] MEDS: Acetaminophen 500 MG Tablet 1000 MG PO ×2 (04:53→20:29)
[2020-09-30] MEDS: 0.9% Saline Lock 10 ML Syringe IV (06:55)
[2020-09-30] MEDS: Naproxen 500 MG Tablet PO (14:17)
[2020-10-01] VITALS: BP 90/47; PULSE 68; RESP 16; TEMP 36.4; O2SAT 98
[2020-10-01 04:20] VITALS: BP 92/51; PULSE 72; RESP 16; TEMP 36.7
[2020-10-01] MEDS: Naproxen 500 MG Tablet PO ×2 (05:52→08:19)
[2020-10-01 08:00] VITALS: BP 114/69; PULSE 83; RESP 16; TEMP 36.3; O2SAT 100
[2020-10-01] MEDS: Senna/Docusate Sodium 1 Tablet PO (08:20)
--- NOTE | 2020-10-01 10:45 | CASEMGMT ---
Social Work Assessment Labor and Delivery Unit [place] [place] [id number] Phone number: [phone] Date of Referral: 09/30/2020 Time of Referral: 1749 Referred By: Dr. Wren Date of Intervention: 10/01/2020 Time of Intervention: 1025 Reason for Referral: Maternal history of substance use positive for THC in February 2020 History obtained from: Medical records and mother of baby (MOB) Dania Rogers; father of baby (FOB) Oniel Blue present for part of conversation. Household composition: MOB and FOB report together along with the MOB older children. Home situation is reported as safe and adequate. Patient's parent/guardian status: MOB is a 30-year-old single female involved with the FOB who is [place]/ male, for the last 1 year. During private conversation with the MOB, the MOB denied any history of domestic violence or intimate partner violence. Hickman baby is the first child for the FOB. Minor children include: Abelino Valente, born 03/27/2011; Dayana Valente, born 01/22/2017; baby girl Stephanie Blue, born 09/30/2020. The first August children's father is a man by the name of Aiden Valente. Medical History: MOB is 3, para 2 now 3 after delivering the baby girl. care started at 10 weeks. MOB with a history of fibromyalgia and PCOS. Reported history of seizure disorder. Infant delivered at 38 weeks gestation weighing 30 to 70 g. Apgars 8 and 8 at 1 and 5 minutes of life. 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 Recently graduated from this program. No issues with reading, writing, or learning comprehension. Financial Status: MOB is not currently employed. The FOB works at [employer]. Infant Supplies: MOB reports to have all necessary supplies including a safe sleep space and car seat for the baby. MOB plans to breast-feed baby. Childcare/Caregiver(s): MOB will be the primary caregiver of the , with the FOB helping when he is home. Transportation: MOB denies any issues. Programs/Agencies Involved: MOB is involved with job and family services for medical and food assistance. Reports plan to apply for WIC. Accepted information on help me grow but declined referral. No other agency involvement reported. Children Services/Legal Issues: MOB denies any legal issues for herself or the FOB. When asked about children services history, the MOB reported a history of talking to a social services coordinator 1 time in the past. From what MOB describes it sounds like it may have been a social services coordinator at the doctor's office rather than children services. There is discussion about MOB seeking care for the child in and appropriate timeframe. No further discussions occurred other than that one time at the doctor's office. Behavioral Health Issues: Mental Health History: MOB reports a history of depression and anxiety. Depression since the age of 16. MOB reports a history of depression and anxiety after the of her daughter. The older 2 children's father had difficulty with remaining loyal to the MOB, and reports that hours prior to delivering Dayana MOB found out about some infidelity that had been occurring throughout the with Dayana. MOB denies any history of suicidal ideation, planning, intent or attempts. [place] depression screen below the threshold for depression with a score of 4 on this date. Substance Use History: MOB with a history of marijuana usage which is reported as social. Denies continued use throughout the . Denies any illicit substance use such as heroin, meth, cocaine, or any pills. No alcohol use reported during . Family History: Not discussed. Drug Screens: Maternal drug screen positive at the new OB visit on March 16, 2020 for marijuana. No subsequent testing for the MOB. Infant's urine drug screen is negative meconium is pending. Family/Social Stressors: MOB reports stress from multiple obligations during this such as trying to finish school. MOB reports things are leveling out the right now and to be feeling as though her emotional health is stable. Support Systems: MOB reports her father, her sister, and the FOB and support systems. FOB did ask her to take some time off of work to help. Depression/Shaken Baby/Safe Sleeping provided information on depression and anxiety, shaken baby prevention and safe sleeping. ASSESSMENT: Met with the MOB and the FOB together, and then along with the MOB. MOB and FOB both polite and cooperative. MOB reports to have needed supplies for the baby and that housing is stable. Reports to feel to have adequate support. During private conversation with the MOB, MOB denied any abuse history. Talked a bit more about history of depression and anxiety. Would be open to seeking support through counseling if needed. MOB denies continued substance use during . Educated to need to call children services regarding substance exposure in utero. Offered MOB opportunity to ask questions. Let MOB know that uncertain whether case would be opened at this time due to drug screen being early in trimester and the baby negative drug screen at time of delivery. But MOB now that if the meconium comes back positive however children services would more certainly follow-up. MOB denies any concerns about the FOB with any substance use. Safe Plan of Care for related to substance use: Discussed no breast-feeding and using substances. MOB agreed and would go to formula. No use of substances around the baby. Plan for abstinence at this time. PLAN: MOB and infant will discharge home when ready. Provided MOB with mood and anxiety disorder packet, and a [facility] resource list. [facility] applications also provided. -RODRIGO Flanagan, LOLA *Information documented in this assessment generated with [employer]*
--- NOTE | 2020-10-01 11:36 | PCM.PN.OB ---
Subjective Subjective Patient doing well without complaints. Tolerating PO. Ambulating and voiding without difficulty. feeding well. Denies chest pain, shortness of breath, calf pain/swelling, fevers, chills, lightheadedness. Objective Data Objective Data Vital Signs: Vital Signs Temp Pulse Resp BP Pulse Ox 97.4 F L 83 16 114/69 100 10/01/20 08:00 10/01/20 08:00 10/01/20 08:00 10/01/20 08:00 10/01/20 08:00 Oxygen Delivery Method Room Air Weight: 196 lb Body Mass Index (BMI) 31.1 Intake & Output: Intake and Output for Last 24 Hours 09/29/20 09/30/20 10/01/20 23:59 23:59 23:59 Intake Total 1048.33 / 1048.33 2063.34 / 2063.34 Output Total 1750 / 1750 Balance 1048.33 / 1048.33 313.34 / 313.34 Lab / Micro Data Result Diagrams: 09/29/20 20:25 Micro: Microbiology 09/29/20 20:22 Mucosa - Nose SARS-CoV-2 Antigen (Rapid) - Final ROS Constitutional Constitutional: Reports systems reviewed and no addt'l complaints, except as documented Cardiovascular Cardiovascular: Reports systems reviewed and no addt'l complaints, except as documented Respiratory/Chest Respiratory/Chest: Reports systems reviewed and no addt'l complaints, except as documented Gastrointestinal Gastrointestinal: Reports systems reviewed and no addt'l complaints, except as documented Physical Exam Const alert, oriented x3 and no apparent distress HEENT Head and Scalp: atraumatic Resp normal respiratory effort GI soft to palpation and non-tender Bimanual Exam - Vag & Uterus: uterus non-tender Uterus Palpation: uterus fundus firm (below Umbilicus) Assessment & Plan (1) Vaginal delivery: COMMENT: IAL 38 SM girl Eloha PLAN: s/p PPD # 1 1. routine post delivery care 2. breast feeding- support given 3. rh positive 4. rubella immune
--- NOTE | 2020-10-01 14:30 | CASEMGMT ---
Social Work Labor and Delivery Unit Called [facility] children services, and spoke with Keyanna in the intake department, , extension [phone]. Reported substance exposed infant in utero based on first trimester drug screen. No subsequent testing done between first drug screen and delivery. Infant's urine drug screen negative. Meconium is pending. Brief maternal and histories provided. Children services aware of intended discharge timeframe. Plan: MOB and will discharge home when ready. Community resource information and information on mood and anxiety disorders provided. Will monitor for meconium drug screen. -GALE Flanagan, COIN MACHINE MECHANIC *Documentation generated via the [employer] system*
--- NOTE | 2020-10-07 17:08 | NURSING ---
Follow up phone call no answer. Left voicemail.
--- NOTE | 2020-10-20 13:03 | CASEMGMT ---
Social Work Labor and Delivery Unit 's meconium drug screen results are back. Please refer to 's chart, which is linked directly to this patient's chart. Called [facility] services this date, and spoke with Andressa in the intake screening department, , extension [phone]. Updated Andressa to results. No further social work services requested or indicated. -GALE Flanagan, RN WOMEN SERVICES *Information generated via the [employer] system.*
== END 2020-10-01 11:45 | disposition home or self-care (01) | DRG 560 ==
LOC: WPOUT 20:12 → WP 20:12
PROVIDERS: Admitting Provider Obstetrics & Gynecology; PCP Family Medicine; Visit Provider Obstetrics & Gynecology
DX: O99.354 Diseases of the nervous system complicating childbirth (principal); G40.909 Epilepsy, unspecified, not intractable, without status epilepticus; O99.02 Anemia complicating childbirth; D64.9 Anemia, unspecified; O99.52 Diseases of the respiratory system complicating childbirth; J45.909 Unspecified asthma, uncomplicated; O99.62 Diseases of the digestive system complicating childbirth; K58.9 Irritable bowel syndrome, unspecified; K21.9 Gastro-esophageal reflux disease without esophagitis; Z20.822 Contact with and (suspected) exposure to COVID-19; Z87.891 Personal history of nicotine dependence; Z3A.37 37 weeks gestation of pregnancy; Z37.0 Single live birth
CPT/HCPCS: 59025; 59050; 85025; 86850; 86900; 86901; 87426; 99218; J7120; A4216; G0378; J2405

== ENCOUNTER → 2020-11-25 16:48 | Outpatient (CLI) | payer MEDICAID, SELFPAY ==
[2020-10-21 13:37] VITALS: BMI 31.1
--- NOTE | 2020-11-25 16:51 | CT_ITS ---
STUDY: CT ABDOMEN AND PELVIS WITH CONTRAST REASON FOR EXAM: Female, 30 years old. LOWER ABD PAIN RADIATION DOSAGE (If Supplied By Facility): CTDIvol = ( 15.05 ) mGy, DLP = ( 1112.23 ) mGycm TECHNIQUE: Transaxial images were obtained from the dome of the diaphragm to the symphysis pubis with oral contrast. 100mL Isovue-300 was administered. Sagittal and coronal images were reconstructed. Individualized dose optimization techniques were used for this CT. COMPARISON: None. FINDINGS: The visualized lung bases are unremarkable. The visualized portions of the heart are within normal limits. Normal liver. Normal gallbladder and extrahepatic biliary system. Normal spleen. Normal pancreas. Normal bilateral adrenal glands. Normal right kidney. Normal left kidney. Normal visualized stomach. Normal small intestine. Normal colon. The appendix is visualized and appears normal. Normal abdominal aorta. Normal inferior vena cava. Normal retroperitoneum. Normal urinary bladder. Normal visualized uterus. There is a small umbilical hernia containing fat. Normal osseous structures. CT/Abdomen/Pelvis WITH Contrast IMPRESSION: No acute inflammatory process, bowel obstruction or bowel wall thickening. Electronically Signed: Buzz Lares MD ([place]) at 9:52 EDT , Service support ,
== END ==
PROVIDERS: PCP Family Medicine; Referring Provider Family Medicine; Visit Provider Family Medicine
DX: R10.9 Unspecified abdominal pain (principal)
CPT/HCPCS: 74177; Q9967

== ENCOUNTER → 2021-01-13 | Outpatient (CLI) | payer MEDICAID, SELFPAY ==
[2021-01-13 17:31] LABS: Probe Check A
== END | disposition home or self-care (01) ==
LOC: LABSPEC 01-14 06:33
PROVIDERS: PCP Family Medicine; Referring Provider Family Medicine; Visit Provider Family Medicine
DX: Z20.828 Contact with and (suspected) exposure to other viral communicable diseases (principal)
CPT/HCPCS: 87635; U0005; U0003

== ENCOUNTER 2021-01-28 09:26 | Day surgery (SDC) | payer MEDICAID, SELFPAY ==
[2021-01-28] VITALS (7 sets, daily range): BP systolic 92–110; BP diastolic 60–80; PULSE 70–78; RESP 16–18; TEMP 36.1–36.4; O2SAT 97–100; BMI 30.3
--- NOTE | 2021-01-28 | GASB_PTH ---
PATIENT: DANIEL RAIN LOC: EN U#:[id number] AGE/SX: 31/F ROOM: RE01/28/[address]: Dr. Garret Clarke DO : 1990 BED: DIS: 01/28/2021 SPEC #: [id number] RECD: 01/28/21 13:30 STATUS: SOPHIA VALERIANO #: [id number] MONA: 01/28/21 00:[address]: Garret Clarke DEPT: SURGICAL PATHOLOGY RECD BY: Wilfredo Dunham ENTERED: 01/29/21 09:22 SP TYPE: Gastric Bx OTHR DR: Dr. Valarie Escoto DO Tissues: A - Gastric mucous membrane B - Duodenum, NOS Procedures: Surgery Specimen Level IV HEADER OPERATION: Colonoscopy, EGD ([facility]) PRE-OP DIAGNOSIS: Irritable bowel syndrome TISSUE SUBMITTED: A ? Antrum biopsy, B ? Duodenum biopsy MICROSCOPIC DIAGNOSIS A. Gastric antrum, biopsy: Chronic gastritis. B. Duodenum, biopsy: No pathologic change. AM:christianne 02/01/2021 COMMENT A. The results of immunohistochemistry for Helicobacter pylori will be reported separately ([id number]). MICROSCOPIC DESCRIPTION Slides are reviewed. GROSS DESCRIPTION A - Received in fixative is one container labeled with the patient's name and designated antrum biopsy. The specimen consists of multiple irregular fragments of light moreira soft tissue that in aggregate measure 1 x 0.3 x 0.1 cm. The specimen is totally submitted in one cassette. B - Received in fixative is one container labeled with the patient's name and designated duodenum biopsy. The specimen consists of multiple irregular fragments of light moreira soft tissue that in aggregate measure 0.6 x 0.3 x 0.1 cm. The specimen is totally submitted in one cassette. / BRAYAN:christianne 01/29/21 TC:3 CPT: 76715 x2
[2021-01-28 09:54] LABS: Internal QC Validated? YES +Cl - CLEAR BKGD; Pregnancy, Urine Negative Negative
[2021-01-28] MEDS: Lactated Ringers 1,000 ML 100 ML IV (09:59)
--- NOTE | 2021-01-28 10:46 | HP.PCM_ITS ---
History and Physical Date of Admission: 02/08/21 Details: DANIEL RAIN, is a 30 F who presents to the office today for abdominal pain and alternating diarrhea and constipation. For the last ten years, following her her first , she has had difficulty with fibromyalgia, IBS, autoimmune disease (elevated MATT inflammatory marker). Her recent , she gave September of 2020, 4 healthy child. She originally thought her symptoms were secondary to an umbilical hernia. Her current symptoms include constipation that has been ongoing since after her first , but has been much worse since recent . She has tried stool softeners which were ineffective. PCP also prescribed Linzess started 145mcg but this dose was ineffective and dose doubled and this has been more helpful. She has had a couple instances of diarrhea with double dose. Increased pain in upper stomach and constant pain in lower stomach. Feels bloated constantly. Indigestion with chest pressure, taking Pepcid 20mg QD PRN. Has eliminated fat and red meat from diet and this is helpful. Three vaginal births the most recent being September 2020. States she has vitiligo in her leg creases. History of PCOS. Increased fatigue recently. 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 Numbness and tingling in fingertips discussed - possible Raynaud. Denies history of EGD of colonoscopy. Family history of Lupus. 11/25/20 CT of abdomen and pelvis showed small umbilical hernia containing fat. No surgery or treatment recommended at that time by Dr. Levy who is her PCP. ROS Const Constitutional: Positive for fatigue, headache(s), weakness and weight change (gain) Eyes Eyes: Positive for blurry vision, irritation and discharge ENT ENT: Positive for nasal congestion, headache(s) and hoarseness Cardio Cardiology: Positive for chest pain at rest Gastro GI: Positive for abdominal pain, bloating, constipation, heartburn and nausea/dyspepsia Musc Musculoskeletal: Positive for joint pain, back pain, joint swelling, muscle cramps, muscle weakness, numbness, stiffness, tingling and leg pain at night Skin Skin: Positive for dry skin Neuro Neurology: Positive for weakness, headache(s), numbness and tingling Psych Psychiatric: Positive for anxiety Endo Endocrine: Positive for cold intolerance and fatigue Jesse/Lymp Hematologic/Lymphatic: Positive for easy bruising Exam Const General: cooperative and comfortable Nutritional Appearance: average body habitus and well nourished [facility] Head: normal to inspection Ears: hearing grossly normal bilaterally Nose: external nose normal Face and sinus: normal facial exam Mouth: oral mucosae normal Throat: posterior oropharynx normal Eyes General: appearance normal, both eyes and all related structures Neck Neck: normal visual inspection Chest Chest palpation & inspection: normal inspection of the chest and normal palpation of entire chest wall Resp Effort & Inspection: normal respiratory effort Auscultation: Bilateral: Clear to Auscultation Cardio Palpation: normal PMI Rate: regular rate Rhythm: regular rhythm GI Inspection: normal to inspection Auscultation: normal bowel sounds Percussion: normal to percussion Palpation: no hepatosplenomegaly Skin General: no rashes or lesions noted Neuro General: patient alert Extrem General: normal to inspection Psych Affect: normal affect Quality Reporting Tobacco Screening ([facility] 138) Smoking Status: Never smoker Assessment and Plan Assessment and Plan (1) IBS (irritable bowel syndrome): Plan - Dr. Combs Friend, DO: She could be suffering from IBS with mixed constipation and diarrhea. We will evaluate her upper and lower GI tract including biopsies of her stomach, small bowel and colon. We may also get cultures of her duodenum. We will evaluate her for inflammatory bowel disease, eosinophilic gastroenteritis and microscopic diseases of the GI tract. This is an updated H&P from when the patient was seen in office.
--- NOTE | 2021-01-28 12:11 | OP.EGD_ITS ---
Patient Name: Dania Rogers Procedure Date: 01/28/2021 11:35 AM Date of : 1990 Age: 31 Procedure: Upper GI endoscopy Indications: Epigastric abdominal pain Providers: Garret Clarke DO Referring MD: Valarie Escoto Medicines: See the Anesthesia note for documentation of the administered medications Patient Profile: This is a 31 year old female. Refer to note in patient chart for documentation of history and physical. Patient has symptoms of acute abdominal cramping, acute abdominal distention and acute epigastric abdominal pain. Complications: No immediate complications. Procedure: Pre-Anesthesia Assessment: - Prior to the procedure, a History and Physical was performed, and patient medications and allergies were reviewed. The risks and benefits of the procedure and the sedation options and risks were discussed with the patient. All questions were answered and informed consent was obtained. Patient identification and proposed procedure were verified by the physician in the pre-procedure area. Mental Status Examination: alert and oriented. Airway Examination: normal oropharyngeal airway and neck mobility. Respiratory Examination: clear to auscultation. CV Examination: normal. Prophylactic Antibiotics: The patient does not require prophylactic antibiotics. Prior Anticoagulants: The patient has taken no previous anticoagulant or antiplatelet agents. ASA Grade Assessment: II - A patient with mild systemic disease. After reviewing the risks and benefits, the patient was deemed in satisfactory condition to undergo the procedure. The anesthesia plan was to use moderate sedation / analgesia (conscious sedation). Immediately prior to administration of medications, the patient was re-assessed for adequacy to receive sedatives. The heart rate, respiratory rate, oxygen saturations, blood pressure, adequacy of pulmonary ventilation, and response to care were monitored throughout the procedure. The physical status of the patient was re-assessed after the procedure. After obtaining informed consent, the endoscope was passed under direct vision. Throughout the procedure, the patient's blood pressure, pulse, and oxygen saturations were monitored continuously. The Endoscope was introduced through the mouth, and advanced to the second part of duodenum. The upper GI endoscopy was accomplished without difficulty. The patient tolerated the procedure well. Moderate Sedation: Moderate (conscious) sedation was administered by the endoscopy nurse and supervised by the endoscopist. The patient's oxygen saturation, heart rate, blood pressure and response to care were monitored. Total physician intraservice time was 15 minutes. Scope In: 11:46:43 AM Scope Out: 11:51:15 AM Total Procedure Duration Time 0 hours 4 minutes 32 seconds Findings: No other significant abnormalities were identified in a careful examination of the esophagus. One non-bleeding linear gastric ulcer with no stigmata of bleeding was found in the gastric body. The lesion was 5 mm in largest dimension. Biopsies were taken with a cold forceps for histology. Verification of patient identification for the specimen was done. Estimated blood loss was minimal. Two non-bleeding linear gastric ulcers with no stigmata of bleeding were found in the stomach. The largest lesion was 3 mm in largest dimension. Biopsies were taken with a cold forceps for histology. Verification of patient identification for the specimen was done. Estimated blood loss was minimal. The exam of the duodenum was otherwise normal. Impression: - Non-bleeding gastric ulcer with no stigmata of bleeding. Biopsied. - Non-bleeding gastric ulcers with no stigmata of bleeding. Biopsied. Recommendation: - Discharge patient to home. - Resume previous diet. - Continue present medications. - Await pathology results. - Repeat upper endoscopy in 1 year for surveillance. - Return to GI office in 2 weeks. Procedure Code(s): --- Professional --- 41501, Esophagogastroduodenoscopy, flexible, transoral; with biopsy, single or multiple G0500, Moderate sedation services provided by the same physician or other qualified health rn critical care performing a gastrointestinal endoscopic service that sedation supports, requiring the presence of an independent trained observer to assist in the monitoring of the patient's level of consciousness and physiological status; initial 15 minutes of intra-service time; patient age 5 years or older (additional time may be reported with 03371, as appropriate) CPT copyright 2017 [employer]. All rights reserved. The codes documented in this report are preliminary and upon remote inpatient coder review may be revised to meet current compliance requirements. Garret Clarke DO 01/28/2021 12:11:42 PM This report has been signed electronically. Number of Addenda: 1 Note Initiated On: 01/28/2021 11:35 AM Addendum Number: 1 Addendum Date: 11/26/2021 6:13:36 AM MAC was used instead of moderate sedation for this patient. Garret Clarke DO 11/26/2021 6:13:44 AM This report has been signed electronically.
--- NOTE | 2021-01-28 12:12 | OP.CCLET_ITS ---
11/26/2021 Valarie Esctoo [address] [facility] [place] [address] Re : Upper GI endoscopy procedure for Dania Rogers Dear Dr. Escoto This procedure was performed on January. My impressions and recommendations are as follows: Impressions : - Non-bleeding gastric ulcer with no stigmata of bleeding. Biopsied. - Non-bleeding gastric ulcers with no stigmata of bleeding. Biopsied. Recommendations : - Discharge patient to home. - Resume previous diet. - Continue present medications. - Await pathology results. - Repeat upper endoscopy in 1 year for surveillance. - Return to GI office in 2 weeks. My findings are described in the full procedure note, which is enclosed. If I can be of further assistance, please feel free to contact me at . Sincerely, Garret Clarke, 01/28/2021 12:11:42 PM This report has been signed electronically.
--- NOTE | 2021-01-28 12:15 | IMM_PTH ---
PATIENT: DANIEL RAIN LOC: EN U#:[id number] AGE/SX: 31/F ROOM: RE01/28/[address]: Dr. Garret Clarke DO : 1990 BED: DIS: 01/28/2021 SPEC #: [id number] RECD: 01/29/21 10:01 STATUS: SOPHIA REQ #: [id number] MONA: 01/28/21 12:[address]: Garret Clarke DEPT: IMMUNOHISTOCHEMISTRY RECD BY: Zena Wong ENTERED: 01/29/21 10:02 SP TYPE: IMMUNO OTHR DR: Dr. Valarie Escoto DO Tissues: A - Stomach, NOS Procedures: H Pylori (initial) PHYSICIAN & INSTITUTION [place] [address] SPECIMEN INFORMATION: Tissue Source: A ? Antrum biopsy Clinical Info: Irritable bowel syndrome Specimen Number: [id number] CPT code: 02870 METHODOLOGY: Deparaffinized sections of prefer/formalin-fixed tissue or PAP/DQ stained slides are incubated with monoclonal/polyclonal antibodies/oligonucleotide probes. Localization is made via biotin free immunoperoxidase method. Appropriate controls are performed and reacted as expected. Results on target cell population are indicated in the following table: RESULTS: ANTIBODY / CLONE RESULT Block A H Pylori (polyclonal) negative These tests were developed and their performance characteristics determined by [facility]. They may not have been cleared or approved by the U.S. Food and Drug Administration. The FDA has determined that such clearance or approval is not necessary. INTERPRETATION: A. Antrum biopsy: Negative for Helicobacter pylori organisms. AM:christianne 02/01/2021
--- NOTE | 2021-01-28 12:20 | OP.COLON_ITS ---
Patient Name: Dania Rogers Procedure Date: 01/28/2021 11:53 AM Date of : 1990 Age: 31 Procedure: Colonoscopy Indications: Abdominal pain in the left lower quadrant Providers: Garret Clarke DO Referring MD: Valarie Escoto Medicines: See the Anesthesia note for documentation of the administered medications Patient Profile: This is a 31 year old female. Refer to note in patient chart for documentation of history and physical. Patient has symptoms of acute abdominal cramping, acute abdominal distention and acute epigastric abdominal pain. Last Colonoscopy: none. The patient's first colonoscopy is today. Complications: No immediate complications. Procedure: Pre-Anesthesia Assessment: - Prior to the procedure, a History and Physical was performed, and patient medications and allergies were reviewed. The risks and benefits of the procedure and the sedation options and risks were discussed with the patient. All questions were answered and informed consent was obtained. Patient identification and proposed procedure were verified by the physician in the pre-procedure area. Mental Status Examination: alert and oriented. Airway Examination: normal oropharyngeal airway and neck mobility. Respiratory Examination: clear to auscultation. CV Examination: normal. Prophylactic Antibiotics: The patient does not require prophylactic antibiotics. Prior Anticoagulants: The patient has taken no previous anticoagulant or antiplatelet agents. ASA Grade Assessment: II - A patient with mild systemic disease. After reviewing the risks and benefits, the patient was deemed in satisfactory condition to undergo the procedure. The anesthesia plan was to use moderate sedation / analgesia (conscious sedation). Immediately prior to administration of medications, the patient was re-assessed for adequacy to receive sedatives. The heart rate, respiratory rate, oxygen saturations, blood pressure, adequacy of pulmonary ventilation, and response to care were monitored throughout the procedure. The physical status of the patient was re-assessed after the procedure. After I obtained informed consent, the scope was passed under direct vision. Throughout the procedure, the patient's blood pressure, pulse, and oxygen saturations were monitored continuously. The Colonoscope was introduced through the anus and advanced to the hepatic flexure. The colonoscopy was performed with moderate difficulty due to poor bowel prep with stool present. The patient tolerated the procedure well. The quality of the bowel preparation was unsatisfactory. Moderate Sedation: Moderate (conscious) sedation was administered by the endoscopy nurse and supervised by the endoscopist. The patient's oxygen saturation, heart rate, blood pressure and response to care were monitored. Total physician intraservice time was 15 minutes. Scope In: 11:56:20 AM Scope Out: 12:02:00 PM Total Procedure Duration Time 0 hours 5 minutes 40 seconds Findings: The perianal and digital rectal examinations were normal. A 19 mm polyp was found in the sigmoid colon. The polyp was semi-pedunculated. Impression: - Preparation of the colon was unsatisfactory. - One 19 mm polyp in the sigmoid colon. - No specimens collected. Recommendation: - Repeat colonoscopy at the next available appointment because the bowel preparation was poor. - Continue present medications. Procedure Code(s): --- Professional --- 09877, 53, Colonoscopy, flexible; diagnostic, including collection of specimen(s) by brushing or washing, when performed (separate procedure) G0500, Moderate sedation services provided by the same physician or other qualified health pet care associate performing a gastrointestinal endoscopic service that sedation supports, requiring the presence of an independent trained observer to assist in the monitoring of the patient's level of consciousness and physiological status; initial 15 minutes of intra-service time; patient age 5 years or older (additional time may be reported with 58022, as appropriate) CPT copyright 2017 [employer]. All rights reserved. The codes documented in this report are preliminary and upon cad engineer review may be revised to meet current compliance requirements. Garret Clarke DO 01/28/2021 12:20:13 PM This report has been signed electronically. Number of Addenda: 1 Note Initiated On: 01/28/2021 11:53 AM Addendum Number: 1 Addendum Date: 11/26/2021 6:13:54 AM MAC was used instead of moderate sedation for this patient. Garret Clarke DO 11/26/2021 6:14:05 AM This report has been signed electronically.
--- NOTE | 2021-01-28 12:21 | OP.CCLET_ITS ---
11/26/2021 Valarie Escoto [address] [place] [address] Re : Colonoscopy procedure for Dania Rogers Dear Dr. Escoto This procedure was performed on January. My impressions and recommendations are as follows: Impressions : - Preparation of the colon was unsatisfactory. - One 19 mm polyp in the sigmoid colon. - No specimens collected. Recommendations : - Repeat colonoscopy at the next available appointment because the bowel preparation was poor. - Continue present medications. My findings are described in the full procedure note, which is enclosed. If I can be of further assistance, please feel free to contact me at . Sincerely, Garret Friend, 01/28/2021 12:20:13 PM This report has been signed electronically.
--- NOTE | 2021-01-28 13:13 | SUR.PHASEII ---
This nurse called in verbal order for pepcid 20mg PO BID for 4 weeks to [facility] from Dr. Clarke. (Protonix script told not to take d/t at this time.
== END 2021-01-28 13:15 | disposition home or self-care (01) ==
LOC: EN 09:26 → AC 09:26
PROVIDERS: Anesthesiology; PCP Family Medicine; Referring Provider Family Medicine; Visit Provider Internal Medicine Gastroenterology
PROC: 0DJD8ZZ Inspection of Lower Intestinal Tract, Via Natural or Artificial Opening Endoscopic (ICD-10-PCS; CPT 45378; principal; 2021-01-28 12:10)
DX: K29.50 Unspecified chronic gastritis without bleeding (principal); K25.9 Gastric ulcer, unspecified as acute or chronic, without hemorrhage or perforation; K58.2 Mixed irritable bowel syndrome; K63.5 Polyp of colon; K21.9 Gastro-esophageal reflux disease without esophagitis; K58.9 Irritable bowel syndrome, unspecified; Z20.822 Contact with and (suspected) exposure to COVID-19; M79.7 Fibromyalgia; F41.9 Anxiety disorder, unspecified; Z79.899 Other long term (current) drug therapy; Z87.891 Personal history of nicotine dependence
CPT/HCPCS: 43239; 45378; 81025; 87426; 88305; 88342; J7120

== ENCOUNTER → 2021-02-23 | Outpatient (CLI) | payer MEDICAID, SELFPAY | END | disposition home or self-care (01) | LOC: PAT 04-12 16:38 | PROVIDERS: PCP Family Medicine; Referring Provider Internal Medicine Gastroenterology; Visit Provider Internal Medicine Gastroenterology | DX: Z20.822 Contact with and (suspected) exposure to COVID-19 (principal) | CPT/HCPCS: 87426; C9803 ==

== ENCOUNTER → 2021-03-02 | Outpatient (CLI) | payer MEDICAID, SELFPAY ==
[2021-03-04 22:07] LABS: Chlamydia By Nucleic Acid AMP Negative (Negative)
[2021-03-05 16:09] LABS: Gonococcus By Nucleic Acid AMP Negative (Negative)
== END | disposition home or self-care (01) ==
PROVIDERS: PCP Family Medicine; Referring Provider Nurse Practitioner Women's Health; Visit Provider Nurse Practitioner Women's Health
DX: Z11.3 Encounter for screening for infections with a predominantly sexual mode of transmission (principal); N76.0 Acute vaginitis
CPT/HCPCS: 87070; 87205; 87491; 87591

== ENCOUNTER 2021-03-31 06:28 | Day surgery (SDC) | payer MEDICAID, SELFPAY ==
[2021-03-31] MEDS: Lactated Ringers 1,000 ML 15 ML IV (07:05)
[2021-03-31 07:10] VITALS: BP 103/60; PULSE 80; RESP 16; TEMP 36.4; O2SAT 98; BMI 27.0
[2021-03-31 07:11] LABS: Internal QC Validated? YES +Cl - CLEAR BKGD; Pregnancy, Urine Negative Negative
--- NOTE | 2021-03-31 07:30 | COLBX_PTH ---
PATIENT: DANIEL RAIN LOC: EN U#:[id number] AGE/SX: 31/F ROOM: RE03/31/[address]: Dr. Garret Clarke DO : 1990 BED: DIS: 03/31/2021 SPEC #: [id number] RECD: 03/31/21 10:53 STATUS: SOPHIA VALERIANO #: [id number] MONA: 03/31/21 07:[address]: Garret Clarke DEPT: SURGICAL PATHOLOGY RECD BY: Katie Chapman ENTERED: 03/31/21 13:18 SP TYPE: COLON BX OTHR DR: Dr. Agus Levy DO Tissues: A - Transverse colon Sigmoid colon biopsy Procedures: Surgery Specimen Level IV HEADER OPERATION: Colonoscopy (MAC) PRE-OP DIAGNOSIS: Repeat colonoscopy TISSUE SUBMITTED: A ? Transverse polyp biopsy, B ? Rectosigmoid polyp MICROSCOPIC DIAGNOSIS A. Transverse colon polyp, biopsy: Hyperplastic polyp. B. Rectosigmoid polyp, biopsy: Tubular adenoma. BRAYAN:christianne 04/01/2021 MICROSCOPIC DESCRIPTION Slides are reviewed. GROSS DESCRIPTION A - Received in fixative is one container labeled with the patient's name and designated transverse polyp biopsy. The specimen consists of one irregular fragment of light moreira soft tissue that measures 0.3 x 0.3 x 0.1 cm. The specimen is totally submitted in one cassette. B - Received in fixative is one container labeled with the patient's name and designated rectosigmoid polyp. The specimen consists of a moreira-pink polyp measuring 1 x 0.6 x 0.5 cm. The specimen is bisected and submitted entirely in one cassette. / BRAYAN:christianne 03/31/21 TC:1 CPT: 80355 x2
--- NOTE | 2021-03-31 07:41 | PCM.HP.BLA ---
History and Physical Date of Admission: 03/31/21 30 F who presents to the office today for abdominal pain and alternating diarrhea and constipation. For the last ten years, following her her first , she has had difficulty with fibromyalgia, IBS, autoimmune disease (elevated MATT inflammatory marker). Her recent , she gave September of 2020, 4 healthy child. She originally thought her symptoms were secondary to an umbilical hernia. Her current symptoms include constipation that has been ongoing since after her first , but has been much worse since recent . She has tried stool softeners which were ineffective. PCP also prescribed Linzess started 145mcg but this dose was ineffective and dose doubled and this has been more helpful. She has had a couple instances of diarrhea with double dose. Increased pain in upper stomach and constant pain in lower stomach. Feels bloated constantly. Indigestion with chest pressure, taking Pepcid 20mg QD PRN. Has eliminated fat and red meat from diet and this is helpful. Three vaginal births the most recent being September 2020. States she has vitiligo in her leg creases. History of PCOS. Increased fatigue recently. 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 Numbness and tingling in fingertips discussed - possible Raynaud. Denies history of EGD of colonoscopy. Family history of Lupus. 11/25/20 CT of abdomen and pelvis showed small umbilical hernia containing fat. No surgery or treatment recommended at that time by Dr. Levy who is her PCP. ROS Const Constitutional: Positive for fatigue, headache(s), weakness and weight change (gain) Eyes Eyes: Positive for blurry vision, irritation and discharge ENT ENT: Positive for nasal congestion, headache(s) and hoarseness Cardio Cardiology: Positive for chest pain at rest Gastro GI: Positive for abdominal pain, bloating, constipation, heartburn and nausea/dyspepsia Musc Musculoskeletal: Positive for joint pain, back pain, joint swelling, muscle cramps, muscle weakness, numbness, stiffness, tingling and leg pain at night Skin Skin: Positive for dry skin Neuro Neurology: Positive for weakness, headache(s), numbness and tingling Psych Psychiatric: Positive for anxiety Endo Endocrine: Positive for cold intolerance and fatigue Jesse/Lymp Hematologic/Lymphatic: Positive for easy bruising Exam Const General: cooperative and comfortable Nutritional Appearance: average body habitus and well nourished [facility] Head: normal to inspection Ears: hearing grossly normal bilaterally Nose: external nose normal Face and sinus: normal facial exam Mouth: oral mucosae normal Throat: posterior oropharynx normal Eyes General: appearance normal, both eyes and all related structures Neck Neck: normal visual inspection Chest Chest palpation & inspection: normal inspection of the chest and normal palpation of entire chest wall Resp Effort & Inspection: normal respiratory effort Auscultation: Bilateral: Clear to Auscultation Cardio Palpation: normal PMI Rate: regular rate Rhythm: regular rhythm GI Inspection: normal to inspection Auscultation: normal bowel sounds Percussion: normal to percussion Palpation: no hepatosplenomegaly Skin General: no rashes or lesions noted Neuro General: patient alert Extrem General: normal to inspection Psych Affect: normal affect Quality Reporting Tobacco Screening ([facility] 138) Smoking Status: Never smoker Assessment and Plan Assessment and Plan (1) IBS (irritable bowel syndrome): Plan - Dr. Combs Friend, DO: She could be suffering from IBS with mixed constipation and diarrhea. We will evaluate her upper and lower GI tract including biopsies of her stomach, small bowel and colon. We may also get cultures of her duodenum. We will evaluate her for inflammatory bowel disease, eosinophilic gastroenteritis and microscopic diseases of the GI tract. This is an updated H&P from when the patient was seen in office. 2-history of adenomatous polyps found on previous colonoscopy. Recommend repeat colonoscopy due to poor prep. She was explained alternatives, risk, benefits including not withstanding bleeding, infection, sepsis, perforation, need for emergency to . You have an ASA of 1. I have re-examined the patient. There are no clinical changes since date of exam.
[2021-03-31 08:16] VITALS: BP 103/60; BP 97/59; PULSE 94; RESP 16; TEMP 36.5; O2SAT 100
[2021-03-31 08:20] VITALS: BP 103/60; BP 94/55; PULSE 98; RESP 16; O2SAT 100
--- NOTE | 2021-03-31 08:20 | OP.COLON_ITS ---
Patient Name: Dania Rogers Procedure Date: 03/31/2021 7:36 AM Date of : 1990 Age: 31 Procedure: Colonoscopy Indications: Adenomatous polyps in the colon Providers: Garret Clarke DO Referring MD: Garret Clarke DO Medicines: See the Anesthesia note for documentation of the administered medications Patient Profile: This is a 31 year old female. Refer to note in patient chart for documentation of history and physical. Last Colonoscopy: within the past 3 months. Complications: No immediate complications. Procedure: Pre-Anesthesia Assessment: - Prior to the procedure, a History and Physical was performed, and patient medications and allergies were reviewed. The risks and benefits of the procedure and the sedation options and risks were discussed with the patient. All questions were answered and informed consent was obtained. Patient identification and proposed procedure were verified by the physician in the pre-procedure area. Mental Status Examination: alert and oriented. Airway Examination: normal oropharyngeal airway and neck mobility. Respiratory Examination: clear to auscultation. CV Examination: normal. Prophylactic Antibiotics: The patient does not require prophylactic antibiotics. Prior Anticoagulants: The patient has taken no previous anticoagulant or antiplatelet agents. ASA Grade Assessment: II - A patient with mild systemic disease. After reviewing the risks and benefits, the patient was deemed in satisfactory condition to undergo the procedure. The anesthesia plan was to use moderate sedation / analgesia (conscious sedation). Immediately prior to administration of medications, the patient was re-assessed for adequacy to receive sedatives. The heart rate, respiratory rate, oxygen saturations, blood pressure, adequacy of pulmonary ventilation, and response to care were monitored throughout the procedure. The physical status of the patient was re-assessed after the procedure. After I obtained informed consent, the scope was passed under direct vision. Throughout the procedure, the patient's blood pressure, pulse, and oxygen saturations were monitored continuously. The Colonoscope was introduced through the anus and advanced to the cecum, identified by appendiceal orifice and ileocecal valve. The entire colon was well visualized. Moderate Sedation: Moderate (conscious) sedation was administered by the endoscopy nurse and supervised by the endoscopist. The patient's oxygen saturation, heart rate, blood pressure and response to care were monitored. Total physician intraservice time was 15 minutes. Scope In: 7:51:53 AM Scope Withdrawal Time 0 hours 11 minutes 59 seconds Scope Out: 8:12:39 AM Total Procedure Duration Time 0 hours 20 minutes 46 seconds Findings: The perianal and digital rectal examinations were normal. The retroflexed view of the distal rectum and anal verge was normal and showed no anal or rectal abnormalities. Two sessile polyps were found in the recto-sigmoid colon and transverse colon. The polyps were 1 to 2 mm in size. These polyps were removed with a hot snare. Resection and retrieval were complete. Verification of patient identification for the specimen was done. Estimated blood loss was minimal. The transverse colon, hepatic flexure and ascending colon were moderately tortuous. Advancing the scope required using manual pressure. Impression: - The distal rectum and anal verge are normal on retroflexion view. - Two 1 to 2 mm polyps at the recto-sigmoid colon and in the transverse colon, removed with a hot snare. Resected and retrieved. - Tortuous colon. Recommendation: - Discharge patient to home. - Resume previous diet. - Continue present medications. - Await pathology results. - Repeat colonoscopy in 1 year for surveillance based on pathology results. - Return to GI office in 2 weeks. Procedure Code(s): --- Professional --- 16997, Colonoscopy, flexible; with removal of tumor(s), polyp(s), or other lesion(s) by snare technique 66943, 59, Moderate sedation services provided by the same physician or other qualified health wound care coordinator performing the diagnostic or therapeutic service that the sedation supports, requiring the presence of an independent trained observer to assist in the monitoring of the patient's level of consciousness and physiological status; initial 15 minutes of intraservice time, patient age 5 years or older CPT copyright 2017 [employer]. All rights reserved. The codes documented in this report are preliminary and upon clinical administrative coordinator review may be revised to meet current compliance requirements. Garret Clarke DO 03/31/2021 8:20:06 AM This report has been signed electronically. Number of Addenda: 1 Note Initiated On: 03/31/2021 7:36 AM Addendum Number: 1 Addendum Date: 12/02/2021 6:05:22 AM MAC was used instead of moderate sedation for the patient. Garret Clarke DO 12/02/2021 6:05:26 AM This report has been signed electronically.
--- NOTE | 2021-03-31 08:21 | OP.CCLET_ITS ---
12/02/2021 Agus Levy [address] [place] [address] Re : Colonoscopy procedure for Dania Rogers Dear Dr. Levy This procedure was performed on Wednesday, March 31, 2021. My impressions and recommendations are as follows: Impressions : - The distal rectum and anal verge are normal on retroflexion view. - Two 1 to 2 mm polyps at the recto-sigmoid colon and in the transverse colon, removed with a hot snare. Resected and retrieved. - Tortuous colon. Recommendations : - Discharge patient to home. - Resume previous diet. - Continue present medications. - Await pathology results. - Repeat colonoscopy in 1 year for surveillance based on pathology results. - Return to GI office in 2 weeks. My findings are described in the full procedure note, which is enclosed. If I can be of further assistance, please feel free to contact me at . Sincerely, Garret Clarke, 03/31/2021 8:20:06 AM This report has been signed electronically.
[2021-03-31 08:25] VITALS: BP 103/60; BP 99/62; PULSE 72; RESP 16; O2SAT 100
[2021-03-31 08:34] VITALS: BP 103/60; BP 92/52; PULSE 69; RESP 16; TEMP 36.6; O2SAT 100
[2021-03-31 08:47] VITALS: BP 103/60
== END 2021-03-31 23:59 | disposition home or self-care (01) ==
LOC: EN 06:30 → AC 06:30
PROVIDERS: Anesthesiology; PCP Family Medicine; Referring Provider Family Medicine; Visit Provider Internal Medicine Gastroenterology
PROC: 0DJD8ZZ Inspection of Lower Intestinal Tract, Via Natural or Artificial Opening Endoscopic (ICD-10-PCS; CPT 45378; principal; 2021-03-31 07:25)
DX: D12.7 Benign neoplasm of rectosigmoid junction (principal); K63.5 Polyp of colon; K58.9 Irritable bowel syndrome, unspecified; F41.9 Anxiety disorder, unspecified; Z79.899 Other long term (current) drug therapy; M79.7 Fibromyalgia; K21.9 Gastro-esophageal reflux disease without esophagitis
CPT/HCPCS: 45385; 81025; 87426; 88305; C9803; J7120; J2405

== ENCOUNTER 2021-04-22 16:54 | Outpatient (CLI) | payer MEDICAID, SELFPAY | END 2021-04-22 23:59 | disposition short-term general hospital (02) | LOC: LABSPEC 16:55 | PROVIDERS: PCP Family Medicine; Visit Provider Nurse Practitioner Women's Health | DX: N39.0 Urinary tract infection, site not specified (principal) | CPT/HCPCS: 87077; 87086; 87088; 87186 ==

== ENCOUNTER 2021-06-09 14:50 | Outpatient (CLI) | payer MEDICAID, SELFPAY ==
--- NOTE | 2021-06-09 14:52 | US_ITS ---
INDICATION: IUD placement EXAMINATION: Ultrasound US Pelvis Non OB Complete With Transvaginal Imaging TECHNIQUE: Transabdominal and transvaginal pelvic ultrasound was performed. Grayscale, spectral waveform, and color flow Doppler evaluation of the adnexa. COMPARISON: Pelvis ultrasound from 05/22/2019 FINDINGS: UTERUS: Anteverted. The uterus measures 9.3 x 6.2 x 4.1 cm. There is no uterine mass. The endometrial stripe measures 3.1 mm in AP diameter which is within normal limits. There are a few nabothian cysts. The IUD appears to be slightly malpositioned located within the mid to lower uterine segment. The tips do not appear to be deployed in the fundus. Trace nonspecific fluid in endometrial canal around the IUD. RIGHT OVARY: 4.2 x 3.5 x 2.6 cm. Non-enlarged, normal echogenicity. Physiologic follicular changes. There is normal arterial inflow and venous outflow present in the right ovary. No right adnexal mass. LEFT OVARY: 3.2 x 2.3 x 3.4 cm. Non-enlarged, normal echogenicity. Physiologic follicular changes. There is normal arterial inflow and venous outflow present in the left ovary. No left adnexal mass. FREE FLUID: None. US/Transvaginal Non- IMPRESSION: The IUD appears to be slightly malpositioned located within the mid to lower uterine segment. The tips do not appear to be deployed in the fundus. No other acute findings. Electronically Signed: Aurelio Foster, at 16:39 EDT ,
--- NOTE | 2021-06-09 14:52 | US_ITS ---
INDICATION: IUD placement EXAMINATION: Ultrasound US Pelvis Non OB Complete With Transvaginal Imaging TECHNIQUE: Transabdominal and transvaginal pelvic ultrasound was performed. Grayscale, spectral waveform, and color flow Doppler evaluation of the adnexa. COMPARISON: Pelvis ultrasound from 05/22/2019 FINDINGS: UTERUS: Anteverted. The uterus measures 9.3 x 6.2 x 4.1 cm. There is no uterine mass. The endometrial stripe measures 3.1 mm in AP diameter which is within normal limits. There are a few nabothian cysts. The IUD appears to be slightly malpositioned located within the mid to lower uterine segment. The tips do not appear to be deployed in the fundus. Trace nonspecific fluid in endometrial canal around the IUD. RIGHT OVARY: 4.2 x 3.5 x 2.6 cm. Non-enlarged, normal echogenicity. Physiologic follicular changes. There is normal arterial inflow and venous outflow present in the right ovary. No right adnexal mass. LEFT OVARY: 3.2 x 2.3 x 3.4 cm. Non-enlarged, normal echogenicity. Physiologic follicular changes. There is normal arterial inflow and venous outflow present in the left ovary. No left adnexal mass. FREE FLUID: None. US/Pelvic (Non ) IMPRESSION: The IUD appears to be slightly malpositioned located within the mid to lower uterine segment. The tips do not appear to be deployed in the fundus. No other acute findings. Electronically Signed: Aurelio Foster, at 16:39 EDT ,
== END 2021-06-09 23:59 | disposition home or self-care (01) ==
LOC: US 14:51
PROVIDERS: PCP Family Medicine; Referring Provider Nurse Practitioner Women's Health; Visit Provider Nurse Practitioner Women's Health
DX: R10.2 Pelvic and perineal pain (principal)
CPT/HCPCS: 76830; 76856

== ENCOUNTER 2021-06-14 17:11 | Outpatient (CLI) | payer MEDICAID, SELFPAY ==
[2021-06-16 22:07] LABS: Chlamydia By Nucleic Acid AMP Negative (Negative)
[2021-06-17 13:33] LABS: Gonococcus By Nucleic Acid AMP Negative (Negative)
== END 2021-06-14 23:59 | disposition home or self-care (01) ==
LOC: LABSPEC 17:12
PROVIDERS: PCP Family Medicine; Referring Provider Obstetrics & Gynecology; Visit Provider Obstetrics & Gynecology
DX: R10.2 Pelvic and perineal pain (principal); Z20.2 Contact with and (suspected) exposure to infections with a predominantly sexual mode of transmission
CPT/HCPCS: 87070; 87077; 87086; 87088; 87186; 87205; 87491; 87591

== ENCOUNTER 2021-06-16 10:46 | Outpatient (CLI) | payer MEDICAID, SELFPAY ==
--- NOTE | 2021-06-16 10:48 | ECHOD_ITS ---
Reason For Study: Chest pain Procedure This was a 2D Doppler, Color Flow transthoracic echocardiogram. Myocardial strain analysis was performed in this exam to aid in the assessment of cardiac function. Exam performed in department. Left Ventricle Normal LV size. Left ventricular systolic function is normal. The estimated ejection fraction is 55 %. No regional wall motion abnormalities noted. Right Ventricle Normal RV size. Normal systolic function. Atria Normal left atrium. Normal right atrium. Mitral Valve Normal mitral valve. Tricuspid Valve Normal tricuspid valve. Aortic Valve Normal aortic valve. Trisinus/trileaflet aortic valve. Pulmonic Valve Normal pulmonic valve. Great Vessels Normal aortic root. The pulmonary artery is normal size. Normal inferior vena cava. Pericardium/Pleural No pericardial effusion. MMode/2D Measurements & Calculations LVIDd: 4.3 cm IVSd: 0.68 cm Ao root diam: 3.4 cm LVIDs: 3.0 cm LVPWd: 0.70 cm RVDd: 3.1 cm FS: 30.0 % LAV(MOD-sp4): 28.6 ml LVAd ap4: 31.6 cm2 LVAd ap2: 34.6 cm2 LVLd ap4: 8.5 cm LVLd ap2: 9.3 cm EDV(MOD-sp4): 98.7 ml EDV(MOD-sp2): 110.7 ml EDV(sp4-el): 99.9 ml EDV(sp2-el): 110.0 ml LVAs ap4: 17.3 cm2 LVAs ap2: 19.9 cm2 LVLs ap4: 7.2 cm LVLs ap2: 7.9 cm ESV(MOD-sp4): 37.0 ml ESV(MOD-sp2): 43.9 ml ESV(sp4-el): 35.1 ml ESV(sp2-el): 42.6 ml EF(MOD-sp4): 62.6 % EF(MOD-sp2): 60.4 % EF(sp4-el): 64.9 % SV(MOD-sp4): 61.7 ml SV(MOD-sp2): 66.8 ml SV(sp4-el): 64.8 ml LA dimension(2D): 2.7 cm LA A4 area: 13.2 cm2 RA A4 area: 15.0 cm2 Doppler Measurements & Calculations MV E max miguelito: 79.3 cm/sec Lat Peak E' Miguelito: 16.9 cm/sec Med Peak E' Miguelito: 14.7 cm/sec MV A max miguelito: 51.5 cm/sec E/E' lat: 4.7 E/E' med: 5.4 MV E/A: 1.5 Ao V2 max: 132.0 cm/sec LV V1 max: 99.3 cm/sec PA V2 max: 88.9 cm/sec Ao max P.0 mmHg LV V1 max P.9 mmHg ECHO/Echo Complete Interpretation Summary Normal LV size. Left ventricular systolic function is normal. The estimated ejection fraction is 55 %. Structurally normal valves. The global longitudinal strain is mildly abnormal. The global longitudinal strain = -15.8% (abnormal). Ordering Physician: Agus Levy Referring Physician: Agus Levy Performed By: Lyric Orellana RDCS
== END 2021-06-16 23:59 | disposition home or self-care (01) ==
LOC: CVS 10:47
PROVIDERS: PCP Family Medicine; Referring Provider Family Medicine; Visit Provider Family Medicine
DX: R07.9 Chest pain, unspecified (principal)
CPT/HCPCS: 93306

== ENCOUNTER 2021-07-13 17:51 | Outpatient (CLI) | payer MEDICAID, SELFPAY ==
--- NOTE | 2021-07-13 17:53 | MRI_ITS ---
STUDY: MRI BRAIN WITH AND WITHOUT CONTRAST REASON FOR EXAM: Female, 31 years old. FATIGUE,PARESTHESIAS OF EXTREMITIES, VISION CHANGES TECHNIQUE: Standardized multiplanar fat and water weighted pulse sequences were obtained. IV 15ML DOTAREM was administered for the contrast portion of the examination. COMPARISON: None. FINDINGS: Normal size of the ventricles and extra-axial spaces for the patient''s age. Normal white matter tracts of the supratentorial brain. Normal bilateral basal ganglia. Normal thalami. There is no extra-axial fluid accumulation. Normal flow voids within the major intracranial circulation suggesting patency by spin echo criteria. Normal venous enhancement. There is no enhancing intra-axial or extra-axial abnormality. No restricted diffusion. No acute infarction or intracranial hemorrhage. Normal sella turcica, pituitary gland, infundibular stalk, optic chiasm and hypothalamus. Normal midbrain, carolyn and medulla. Normal cerebellum. Normal basal cisterns. Seventh/8th cranial nerve root complexes are symmetric. Cerebellar tonsils are normally positioned. Globes, optic nerves and extraocular muscles are symmetric. Hippocampal gyri are symmetric on the coronal images. Minimal mucosal thickening noted at the base of the right maxillary antrum. No paranasal sinus air-fluid levels. Normal calvarium and skull base. Normal visualized soft tissue structures. Normal visualized upper cervical spine. MRI/Brain W/WO Contrast IMPRESSION: Minimal right maxillary sinus mucosal disease. Otherwise negative. No acute intracranial abnormality. Electronically Signed: Chase Green MD at 1:04 EDT ,
== END 2021-07-13 23:59 | disposition home or self-care (01) ==
LOC: MRI 17:51
PROVIDERS: PCP Family Medicine; Referring Provider Family Medicine; Visit Provider Family Medicine
DX: R53.83 Other fatigue (principal); R20.2 Paresthesia of skin; H53.9 Unspecified visual disturbance
CPT/HCPCS: 70553; A9575

== ENCOUNTER → 2021-08-30 | Outpatient (CLI) | payer MEDICAID, SELFPAY | END | disposition home or self-care (01) | LOC: EN 10:07 | PROVIDERS: PCP Family Medicine; Visit Provider Internal Medicine Gastroenterology | DX: Z00.00 Encounter for general adult medical examination without abnormal findings (principal) ==

== ENCOUNTER → 2021-10-04 | Outpatient (CLI) | payer MEDICAID, SELFPAY ==
[2021-10-04 15:45] LABS: hCG Titer Quant., Serum 46081 mIU/mL (1-3)
== END | disposition home or self-care (01) ==
LOC: PAVLAB 14:39
PROVIDERS: PCP Family Medicine; Referring Provider Nurse Practitioner Women's Health; Visit Provider Nurse Practitioner Women's Health
DX: Z34.90 Encounter for supervision of normal pregnancy, unspecified, unspecified trimester (principal)
CPT/HCPCS: 36415; 84702

== ENCOUNTER → 2021-10-08 | Outpatient (CLI) | payer MEDICAID, SELFPAY ==
--- NOTE | 2021-10-08 18:15 | US_ITS ---
EXAM: US , TRANSVAGINAL CLINICAL INDICATION: age TECHNIQUE: Real-time transvaginal obstetrical ultrasound of the maternal pelvis and a first trimester with image documentation. Transvaginal imaging was used for better evaluation of the fetus and adnexa. This report was created using [employer] report generation technology. COMPARISON: None. FINDINGS: GESTATION: Single intrauterine gestational sac. Yolk sac visualized. heart rate 173 bpm. [place]-rump length is 2 cm corresponding to 8 weeks 3 days. UTERUS/CERVIX: Unremarkable. No myometrial mass. The uterus measures 12.4 x 8.2 x 6.7 cm. OVARIES: Unremarkable. No mass. The right ovary measures 4.1 x 2.9 x 2.5 cm. The left ovary measures 3.2 x 2.4 x 1.7 cm. FREE FLUID: No free fluid. US/Transvaginal w/Preg US IMPRESSION: Single live intrauterine at approximately 8 weeks 3 days. No specific abnormality identified. Electronically Signed: Randy Underwood MD at 20:34 EDT ,
== END | disposition home or self-care (01) ==
LOC: US 18:15
PROVIDERS: PCP Family Medicine; Visit Provider Nurse Practitioner Women's Health
DX: Z34.90 Encounter for supervision of normal pregnancy, unspecified, unspecified trimester (principal)
CPT/HCPCS: 76817

== ENCOUNTER → 2021-10-28 | Outpatient (CLI) | payer MEDICAID, SELFPAY ==
[2021-10-28 15:46] LABS: Absolute Lymphocyte Count 1.95 X10^3/uL (0.83-4.51); Absolute Neutrophil Count 7.1 X10^3/uL (2.0-7.7); Basophil# 0.03 X10^3/uL; Basophil% 0.3 % (0-1); Eosinophil# 0.06 X10^3/uL; Eosinophils% 0.6 % (0-5); Hematocrit 37.4 % (37-47); Hemoglobin 12.7 g/dL (12.0-15.0); Lymphocyte # 1.95 X10^3/ul (0.83-4.51); Mean Corpuscular Hgb 31.4 pg (27.0-32.0); Mean Corpuscular Volume 92.3 fL (81-99); Mean Platelet Vol. 9.8 fl (6.2-12.0); Monocyte# 0.61 X10^3/uL; Monocyte% 6.3 % (0-10); NRBC Flagged by Analyzer 0 % (0-5); Neutrophil # 7.05 X10^3/uL (2.7-7.7); Neutrophil % 72.5 % (47-70); Platelet Count 303 K/mm3 (150-450); RBC Distribution Width CV 13.2 % (11.6-14.6); RBC Distribution Width SD 44.5 fl (35.1-43.9); Red Blood Count 4.05 M/mm3 (4.2-5.4); White Blood Count 9.7 K/mm3 (4.4-11.0)
[2021-10-28 16:13] LABS: Amphetamine Urine VISTA NEGATIVE (<1000 ng/mL); Barbiturate Urine VISTA NEGATIVE (< 200 ng/mL); Benzodiazepine Urine VISTA NEGATIVE (< 200 ng/mL); Cocaine Urine VISTA NEGATIVE (< 300 ng/mL); Ecstacy Urine VISTA NEGATIVE (< 500 ng/mL); Methadone Urine VISTA NEGATIVE (< 300 ng/mL); PCP Urine VISTA NEGATIVE (< 25 ng/mL); THC Urine VISTA NEGATIVE (< 50 ng/mL); Vista UDS pH Range 6
[2021-10-28 16:42] LABS: NATERA MAILED SPECIMEN
[2021-10-29 04:16] LABS: HIV - WCH Non-Reactive (Nonreactive); Hepatitis B Surface Antigen Non-Reactive (Nonreactive); Hepatitis C Antibody Non-Reactive (Nonreactive); Rubella IgG Reactive (Nonreactive); Syphilis Antibodies Non-reactive
== END | disposition home or self-care (01) ==
PROVIDERS: PCP Family Medicine; Referring Provider Nurse Practitioner Women's Health; Visit Provider Nurse Practitioner Women's Health
DX: Z34.81 Encounter for supervision of other normal pregnancy, first trimester (principal)
CPT/HCPCS: 36415; 80307; 85025; 86703; 86762; 86780; 86803; 86850; 86900; 86901; 87086; 87088; 87340

== ENCOUNTER → 2021-12-23 | Outpatient (CLI) | payer MEDICAID, SELFPAY ==
[2021-12-23 12:09] LABS: Absolute Lymphocyte Count 2.24 X10^3/uL (0.83-4.51); Absolute Neutrophil Count 8.1 X10^3/uL (2.0-7.7); Basophil# 0.05 X10^3/uL; Basophil% 0.4 % (0-1); Eosinophil# 0.09 X10^3/uL; Eosinophils% 0.8 % (0-5); Hematocrit 38.1 % (37-47); Hemoglobin 12.8 g/dL (12.0-15.0); Lymphocyte # 2.24 X10^3/ul (0.83-4.51); Lymphocyte % 19.8 % (19-41); Mean Corp Hgb Conc 33.6 g/dL (32-36); Mean Corpuscular Hgb 31.2 pg (27.0-32.0); Mean Corpuscular Volume 92.9 fL (81-99); Mean Platelet Vol. 10.2 fl (6.2-12.0); Monocyte# 0.75 X10^3/uL; Monocyte% 6.6 % (0-10); NRBC Flagged by Analyzer 0 % (0-5); Neutrophil # 8.12 X10^3/uL (2.7-7.7); Platelet Count 316 K/mm3 (150-450); RBC Distribution Width CV 13.1 % (11.6-14.6); RBC Distribution Width SD 44.6 fl (35.1-43.9); White Blood Count 11.3 K/mm3 (4.4-11.0)
[2021-12-23 12:54] LABS: ALB/GLOB Ratio 0.8 RATIO (0.9-2.4); AST(SGOT) 13 U/L (15-37); Alanine Aminotransfer ALT/SGPT 16 U/L (13-56); Albumin, Serum 3.3 g/dL (3.2-5.0); Alkaline Phosphatase 49 U/L (45-117); Anion Gap 7 (5-15); BUN 8 mg/dL (7-18); BUN/Creat Ratio 13.7 RATIO (10-20); Calcium,Total 9.1 mg/dL (8.5-10.1); Chloride 108 mmol/L (98-107); Creatinine, Serum 0.58 mg/dL (0.55-1.02); EST Glomerular Filtration Rate 129 mL/min (>60); Est Glom Filt Rate - Afr Amer 157 mL/min (>60); Glucose 83 mg/dL (74-106); Protein, Total 7.3 g/dL (6.4-8.2); Sodium Level 140 mmol/L (136-145)
[2021-12-27 00:07] LABS: Chlamydia By Nucleic Acid AMP Negative (Negative)
[2021-12-27 14:24] LABS: Gonococcus By Nucleic Acid AMP Negative (Negative)
== END | disposition home or self-care (01) ==
LOC: PAVLAB 11:23 → LAB 11:26
PROVIDERS: PCP Family Medicine; Referring Provider Nurse Practitioner Women's Health; Visit Provider Nurse Practitioner Women's Health
DX: O26.899 Other specified pregnancy related conditions, unspecified trimester (principal); R10.9 Unspecified abdominal pain
CPT/HCPCS: 36415; 80053; 85025; 87491; 87591

== ENCOUNTER → 2022-02-08 | Outpatient (CLI) | payer MEDICAID, SELFPAY ==
--- NOTE | 2022-02-08 07:46 | US_ITS ---
STUDY: ABDOMINAL ULTRASOUND - RIGHT UPPER QUADRANT REASON FOR VISIT: Female, 32 years old. Right upper quadrant abdominal pain for one month with nausea. Pain worsens after meals. TECHNIQUE: Ultrasound evaluation of the right upper quadrant was performed with real-time and static burk-scale imaging. TECHNICAL QUALITY: Adequate. COMPARISON: Abdominal ultrasound, April 10, 2017. CT of the abdomen and pelvis, November 25, 2020. FINDINGS: Liver: The liver measures 17.1 cm. There is normal echogenicity of the liver. The bile ducts are within normal limits. There is hepatic color flow. The direction of portal flow is hepatopetal. There is no demonstrated mass lesion. Gallbladder: Normal distended gallbladder. The gallbladder wall measures 2 mm. There is a negative sonographic Freeman''s sign. There is no pericholecystic fluid. There are no gallstones. Common Bile Duct (C.B.D.): The common bile duct measures 5 mm. Pancreas: Normal size of the head, body and tail of the pancreas. There is normal echogenicity of the pancreas. There is no demonstrated pancreatic mass or cyst. Right Kidney: Normal size of the right kidney. The right kidney measures 11.1 cm. Normal renal cortex. The right cortex measures 1.3 cm. There is no demonstrated renal mass or cyst. There is no right hydronephrosis. Question minimal free fluid in the hepatorenal fossa. US/Gallbladder IMPRESSION: Question small amount of free fluid in the hepatorenal fossa. Otherwise normal right upper quadrant ultrasound examination. Electronically Signed: Tristian Springer DO at 16:51 EST ,
== END | disposition home or self-care (01) ==
LOC: US 07:46
PROVIDERS: PCP Family Medicine; Referring Provider Nurse Practitioner Women's Health; Visit Provider Nurse Practitioner Women's Health
DX: O26.899 Other specified pregnancy related conditions, unspecified trimester (principal); R10.9 Unspecified abdominal pain
CPT/HCPCS: 76705

== ENCOUNTER → 2022-02-15 | Outpatient (CLI) | payer MEDICAID, SELFPAY ==
[2022-02-15 13:50] LABS: Absolute Lymphocyte Count 1.84 X10^3/uL (0.83-4.51); Absolute Neutrophil Count 8.7 X10^3/uL (2.0-7.7); Basophil# 0.04 X10^3/uL; Basophil% 0.3 % (0-1); Eosinophils% 1.7 % (0-5); Hematocrit 34.7 % (37-47); Lymphocyte # 1.84 X10^3/ul (0.83-4.51); Lymphocyte % 15.9 % (19-41); Mean Corp Hgb Conc 34.6 g/dL (32-36); Mean Corpuscular Hgb 32.6 pg (27.0-32.0); Mean Corpuscular Volume 94.3 fL (81-99); Mean Platelet Vol. 9.6 fl (6.2-12.0); Monocyte# 0.66 X10^3/uL; Monocyte% 5.7 % (0-10); NRBC Flagged by Analyzer 0 % (0-5); Neutrophil # 8.74 X10^3/uL (2.7-7.7); Neutrophil % 75.6 % (47-70); Platelet Count 279 K/mm3 (150-450); RBC Distribution Width CV 13.1 % (11.6-14.6); RBC Distribution Width SD 45.2 fl (35.1-43.9); Red Blood Count 3.68 M/mm3 (4.2-5.4); White Blood Count 11.6 K/mm3 (4.4-11.0)
[2022-02-15 14:12] LABS: ALB/GLOB Ratio 0.8 RATIO (0.9-2.4); AST(SGOT) 9 U/L (15-37); Alanine Aminotransfer ALT/SGPT 14 U/L (13-56); Alkaline Phosphatase 70 U/L (45-117); Anion Gap 7 (5-15); BUN 7 mg/dL (7-18); BUN/Creat Ratio 12.5 RATIO (10-20); Calcium,Total 8.7 mg/dL (8.5-10.1); Chloride 104 mmol/L (98-107); Creatinine, Serum 0.56 mg/dL (0.55-1.02); EST Glomerular Filtration Rate 135 mL/min (>60); Est Glom Filt Rate - Afr Amer 163 mL/min (>60); Globulin 3.9 g/dL (2.2-4.2); Glucose 100 mg/dL (74-106); Glucose Challenge Gest 1H 50g 100 mg/dL (70-140); Potassium 3.5 mmol/L (3.5-5.1); Protein, Total 6.9 g/dL (6.4-8.2); Sodium Level 138 mmol/L (136-145)
== END | disposition home or self-care (01) ==
LOC: PAVLAB 12:48
PROVIDERS: PCP Family Medicine; Referring Provider Nurse Practitioner Women's Health; Visit Provider Nurse Practitioner Women's Health
DX: O99.719 Diseases of the skin and subcutaneous tissue complicating pregnancy, unspecified trimester (principal); L29.9 Pruritus, unspecified
CPT/HCPCS: 36415; 80053; 82950; 85025

== ENCOUNTER → 2022-04-19 | Outpatient (CLI) | payer MEDICAID, SELFPAY ==
[2022-04-19 13:56] LABS: ROM Internal Control Test YES-OK TO RESULT pt. (Internal QC); ROM Patient Test Negative (Negative)
[2022-04-19 15:57] LABS: Group B Strep DNA By PCR Negative (Negative); Internal Control PASS; Probe Check PASS; Specimen Processing Control PASS
== END | disposition home or self-care (01) ==
PROVIDERS: PCP Family Medicine; Visit Provider Nurse Practitioner Women's Health
DX: O42.90 Premature rupture of membranes, unspecified as to length of time between rupture and onset of labor, unspecified weeks of gestation (principal); Z3A.00 Weeks of gestation of pregnancy not specified
CPT/HCPCS: 84112; 87081; 87653

== ENCOUNTER 2022-04-22 14:15 | Outpatient (CLI) | payer MEDICAID, SELFPAY ==
[2022-04-22 14:26] VITALS: TEMP 37.1
[2022-04-22 14:27] VITALS: BP 108/63; PULSE 102
[2022-04-22 14:31] VITALS: BMI 31.4
--- NOTE | 2022-04-24 16:05 | OB.TRI.HP_ITS ---
HPI - General HPI Narrative DANIEL RAIN, is a 32 y/o @ 36 weeks 3 days who presents to L&D with decreased movement. Maternal Data Information ARIANNA Calculator Estimated Delivery Date Method Current WG Current Estimate 05/17/22 Ultrasound #1 36w 5d PFSH PFSH Medical History Anxiety Back pain Chest pain Chronic pain Fibromyalgia Former smoker Gastric reflux GERD (gastroesophageal reflux disease) Hirsutism History of echocardiogram History of IBS History of irregular heartbeat History of ulceration Hx of vaginal delivery IBS (irritable bowel syndrome) Loose, teeth PCOS (polycystic ovarian syndrome) Personal history of colonic polyps Seizures Smoker Home Medications amoxicillin 875 mg tablet 875 mg PO BID 04/22/22 [History Last Taken 04/21/22 21:00] [id number] 1 mg tablet 1 tab PO DAILY 04/22/22 [History Last Taken 04/21/22 21:00] Allergy/AdvReac Type Severity Reaction Status Date / Time Corticosteroids Allergy Unknown NEEDS Verified 04/22/22 14:32 (Glucocorticoids) FOLLOW-UP [steroids] Family History Aunt Diabetes Mother Autosomal recessive severe combined immunodeficiency disease Other Anemia Anxiety Arthritis Asthma Breast cancer Cancer Depression Epilepsy Heart disease Surgical History History of esophagogastroduodenoscopy (EGD) History of tonsillectomy History of wisdom tooth extraction, class II edentulism Hx of colonoscopy Social History current occupational status: student current occupation: [employer] Smoking Status: Current every day smoker tobacco type: cigarettes alcohol intake: never substance use type: does not use caffeine: Yes what type of physical activity do you participate in: walking and aerobics frequency: 1-2 times per week seatbelt use: always do you feel safe at home: Yes additional social history: Single History 4 Elective abortions Hx Para 3 Spontaneous abortions Hx # Term Pregnancies Ectopic pregnancies Hx # Pregnancies Multiple births # of living children 3 Past Pregnancies Del. Date Name GA/Weeks Outcome Route Bth Weight Gen Labor Lgth Anesthesia Del Locatn Provider FOB Unknown 2011 Abelino Valente 40 live - full term 9lbs 1oz M chente [address] [facility] Ofelia Unknown 2016 Dayana 38 live - full term 8lbs 8oz Female [address] [facility] Ofelia 09/30/20 Eloha 38 live - full term Female [facility] Dr. Gilbert Delivery Date: Last Updated by: Katelyn Arreola no complications Delivery Date: Last Updated by: Katelyn Arreola nuchal cord; failed epidural; jaundice- stayed an extra 4 days in hospital Visit Details Expected Delivery Route/Plan Labor Preferences- CB/BF classes: recommended just breathe course labor support person: Josue labor intervention preferences: [] pain management options preferred: limited cut cord/dad catch: yes : yes PP control planned: discussed. Consider BS discussed possible routes of delivery and associated risks: [] special requests: [] Plans Covid status: declines Flu vaccine: declines Tdap vaccine: given Rhogam: na LARC form signed: yes Problem list reviewed and updated with the most current plan of care details and appropriate orders placed. Relevant counseling for the gestational age provided. Continue routine care and follow up unless otherwise noted in visit notes/problem list details OB Flowsheet Initial Weight: Not Recorded Date -?-?-?-?-?-?-?-?-?-?-?-?- EGA Weight BP Urine Prot -?-?-?-?-?-?-?-?-?-?-?-?- Glucose FHR FuHt Pres Dilation -?-?-?--?-?-?-?-?-?-?-?-?- Effaced St Visit Note 10/28/21 -?-?-?-?-?-?-?-?-?-?-?-?- 11w 2d 165 lb 2 oz 127/72 -?-?-?-?-?-?-?-?-?-?-?-?- 156 -?-?-?-?-?-?-?-?-?-?-?-?- JV- CRL assessme nt done at [facility] and today scan consistent with established gestatational age. 11/25/21 -?-?-?-?-?-?-?-?-?-?-?-?- 15w 2d 168 lb 110/80 Negative -?-?-?-?-?-?-?-?-?-?-?-?- Negative 150 -?-?-?-?-?-?-?-?-?-?-?-?- SM- reviewed NIP T results has fu with MFM next week. no vb lof 12/23/21 -?-?-?-?-?-?-?-?-?-?-?-?- 19w 2d 171 lb 4 oz 118/78 Nega tive -?-?-?-?-?-?-?-?-?-?--?-?- Negative 161 -?-?-?-?-?-?-?-?-?-?-?-?- -No VBseema. 2nd NIPT was LR. Has anatomy with MFM next week. Noting itching stomach/arms, no rash. Pain mostlymid upper abdomen, sometime to right. Labs and GB US ordered. Enc pepcid 01/19/22 -?-?-?-?-?-?-?-?-?-?-?-?- 23w 1d 179 lb 2 oz 106/59 Nega tive -?-?-?-?-?--?-?-?-?-?-?-?- Negative 146 23 -?-?-?-?-?-?-?-?-?-?-?-?- Lc-no vbvon. anatomy with MFM complete. no further itching. bile acids normal. counselor form given for increased stressors. increased constipation-colace bid. 02/15/22 -?-?-?-?-?-?-?-?-?-?-?-?- 27w 0d 184 lb 8 oz 122/68 Nega tive -?-?-?-?-?-?-?-?-?-?-?-?- Negative 148 27 -?-?-?-?-?-?-?-?-?-?-?-?- -No vB, LOF. G ood Fm. Continues upper abdominal pain, has gen surg appt 03/02. Needs labs per gen surg, will confirm what and add 28 wk labs. Larc done. 03/08/22 -?-?-?-?-?-?-?-?-?-?-?-?- 30w 0d 190 lb 98/66 Negative -?-?-?-?-?-?-?-?-?-?-?-?- Negative 145 30 -?-?-?-?-?-?-?-?-?-?-?-?- JV- no lof, vagi nal bleeding, or dec fm. normal glucola and cbc 03/24/22 -?-?-?-?-?-?-?-?-?-?-?-?- 32w 2d 195 lb 4 oz 112/70 Nega tive -?-?-?-?-?-?-?-?-?-?-?-?- Negative 139 32 0 -?-?-?-?-?-?-?-?-?-?-?-?- -4 -Good FM. Increased mucousy discharge and pressure. Has had some pink DC but not red blood. -Good FM. Increased mucous y discharge and pressure. Has had some pink DC but not red blood. Normal DC today. 04/12/22 -?-?-?-?-?-?-?-?-?-?-?-?- 35w 0d 196 lb 6 oz 122/72 Nega tive -?-?-?-?-?-?-?-?-?-?-?-?- Negative 151 35 -?-?-?-?-?-?-?-?-?-?-?-?- -No Vb, LOF. G ood FM. No reg CTX. tdap 04/19/22 -?-?-?-?-?-?-?-?-?-?-?-?- 36w 0d 193 lb 6 oz 112/70 Nega tive -?-?-?-?-?-?-?-?-?-?-?-?- Negative 136 36 1 -?-?-?-?-?-?-?-?-?-?-?-?- 30 -4 -No VB. Good FM. Thinks has had a couple of gushes of fluid. ROM collected. GBS also. ROS Constitutional Constitutional: Reports systems reviewed and no addt'l complaints, except as documented Gastrointestinal Gastrointestinal: Denies bloating, constipation, cramping, diarrhea, nausea or vomiting Genitourinary Genitourinary: Reports other Details: Denies vaginal odor, vaginal bleeding, or vaginal discharge ; Denies difficulty urinating or flank pain NST FHR Rate Baby A Baseline: 140 Variability:: Moderate Accelerations:: 15 x 15 Decelerations:: None NST Reactive:: Yes FHR Category:: Category I Assessment & Plan (1) Anxiety: COMMENT: calm margaret recommended counselor recommendations provided (2) Pruritus of : COMMENT: labs, bile acids negative itching resolved (3) Abdominal pain affecting : COMMENT: mid upper. sometime right upper:US GB WNL. Does have fluid near liver and is seeing GI (4) Abnormal genetic test during : COMMENT: abnormal NIPT 1:17 risk tri 13, 18, triploidy. refer to M, redraw NIPT low risk (5) Jarett-Danlos disease: COMMENT: normal echo (6) : QUALIFIERS: Weeks of gestation: 30 weeks Qualified Code(s): Z3A.30 - 30 weeks gestation of COMMENT: GBS neg, nl anatomy repeat 4 wks for addtnl views nl, NIPT now normal. carrier done in past neg . (7) Supervision of normal : QUALIFIERS: Trimester: second trimester COMMENT: PRR ARIANNA 05/17/22 Dayana Roca [place] FOB Josue (8) Decreased movement: COMMENT: NST reactive 04/22/22
== END 2022-04-22 15:08 | disposition home or self-care (01) ==
LOC: WPOUT 14:19 → WP 14:19
PROVIDERS: PCP Family Medicine; Referring Provider Obstetrics & Gynecology; Visit Provider Obstetrics & Gynecology
DX: O36.8130 Decreased fetal movements, third trimester, not applicable or unspecified (principal); O99.891 Other specified diseases and conditions complicating pregnancy; Q79.60 Ehlers-Danlos syndrome, unspecified; O99.343 Other mental disorders complicating pregnancy, third trimester; F41.9 Anxiety disorder, unspecified; Z3A.36 36 weeks gestation of pregnancy; Z87.891 Personal history of nicotine dependence; O99.72 Diseases of the skin and subcutaneous tissue complicating childbirth; L29.9 Pruritus, unspecified
CPT/HCPCS: 59025; 59050; 99221; G0378

== ENCOUNTER 2022-05-11 07:02 | Inpatient (IN) | payer MEDICAID, SELFPAY ==
[2022-05-11] VITALS (39 sets, daily range): BP systolic 97–141; BP diastolic 46–88; PULSE 76–146; TEMP 35.9–37.2; O2SAT 98; BMI 32.4
[2022-05-11] MEDS: Lactated Ringers 1,000 ML 50 ML IV (08:35)
[2022-05-11] MEDS: Oxytocin 15 Units/NS 250ml 15 UNITS/250 ML IV.SOLN 2 UNITS IV (08:40)
[2022-05-11 08:42] LABS: Absolute Lymphocyte Count 1.69 X10^3/uL (0.83-4.51); Absolute Neutrophil Count 6.5 X10^3/uL (2.0-7.7); Basophil# 0.04 X10^3/uL; Basophil% 0.4 % (0-1); Eosinophil# 0.12 X10^3/uL; Eosinophils% 1.3 % (0-5); Hemoglobin 11.6 g/dL (12.0-15.0); Lymphocyte # 1.69 X10^3/ul (0.83-4.51); Lymphocyte % 18.7 % (19-41); Mean Corp Hgb Conc 34.1 g/dL (32-36); Mean Corpuscular Volume 93.7 fL (81-99); Mean Platelet Vol. 10.9 fl (6.2-12.0); Monocyte# 0.58 X10^3/uL; Monocyte% 6.4 % (0-10); NRBC Flagged by Analyzer 0 % (0-5); Neutrophil # 6.51 X10^3/uL (2.7-7.7); Neutrophil % 72.3 % (47-70); Platelet Count 215 K/mm3 (150-450); RBC Distribution Width CV 13.2 % (11.6-14.6); RBC Distribution Width SD 45.1 fl (35.1-43.9); Red Blood Count 3.63 M/mm3 (4.2-5.4)
--- NOTE | 2022-05-11 08:48 | HP.PCM.OB_ITS ---
HPI - General General Date of Admission: 05/11/22 HPI Narrative DANIEL RAIN, is a 32 F who presents at 39+1 for elective IOL. 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 Maternal Data Information ARIANNA Calculator Estimated Delivery Date Method Current WG Current Estimate 05/17/22 Ultrasound #1 39w 1d PFSH PFSH Medical History Anxiety Back pain Chest pain Chronic pain Fibromyalgia Former smoker Gastric reflux GERD (gastroesophageal reflux disease) Hirsutism History of echocardiogram History of IBS History of irregular heartbeat History of ulceration Hx of vaginal delivery IBS (irritable bowel syndrome) Loose, teeth PCOS (polycystic ovarian syndrome) Personal history of colonic polyps Seizures Smoker Home Medications umnguqyf-oyl-Xo-FA 1 mg tablet 1 tab PO DAILY Check with primary doctor 04/22/22 [History Last Taken 05/08/22 08:00] Allergy/AdvReac Type Severity Reaction Status Date / Time Corticosteroids Allergy Unknown NEEDS Verified 05/11/22 07:24 (Glucocorticoids) FOLLOW-UP [steroids] Family History Aunt Diabetes Mother Autosomal recessive severe combined immunodeficiency disease Other Anemia Anxiety Arthritis Asthma Breast cancer Cancer Depression Epilepsy Heart disease Surgical History History of esophagogastroduodenoscopy (EGD) History of tonsillectomy History of wisdom tooth extraction, class II edentulism Hx of colonoscopy Social History current occupational status: student current occupation: [employer] Smoking Status: Former smoker alcohol intake: never substance use type: does not use caffeine: Yes what type of physical activity do you participate in: walking and aerobics frequency: 1-2 times per week seatbelt use: always do you feel safe at home: Yes additional social history: Single History 4 Elective abortions Hx Para 3 Spontaneous abortions Hx # Term Pregnancies Ectopic pregnancies Hx # Pregnancies Multiple births # of living children 3 Past Pregnancies Del. Date Name GA/Weeks Outcome Route Bth Weight Infant Gen Labor Lgth Anesthesia Del Locatn Provider FOB Unknown 2011 Abelino Valente 40 live - full term 9lbs 1oz M chente 12 hours epidural [facility] Ofelia Unknown 2016 Dayana 38 live - full term 8lbs 8oz Female 11 hours epidural [facility] Ofelia 09/30/20 Eloha 38 live - full term 7. 3 Female [facility] Dr. Gilbert Delivery Date: Last Updated by: Katelyn Arreola no complications Delivery Date: Last Updated by: Katelyn Arreola nuchal cord; failed epidural; jaundice- stayed an extra 4 days in hospital Visit Details Expected Delivery Route/Plan Labor Preferences- CB/BF classes: recommended just breathe course labor support person: Josue labor intervention preferences:TUB ROOM!! pain management options preferred: limited cut cord/dad catch: yes : yes PP control planned: discussed. Consider BS discussed possible routes of delivery and associated risks:r/b/a of /VAVD/c- section special requests: [] Plans Covid status: declines Flu vaccine: declines Tdap vaccine: given Rhogam: na LARC form signed: yes Problem list reviewed and updated with the most current plan of care details and appropriate orders placed. Relevant counseling for the gestational age provided. Continue routine care and follow up unless otherwise noted in visit notes/problem list details OB Flowsheet Initial Weight: Not Recorded Date -?-?-?-?-?-?-?-?-?-?-?-?- EGA Weight BP Urine Prot -?-?-?-?-?-?-?-?-?-?-?-?- Glucose FHR FuHt Pres Dilation -?-?-?-?-?-?-?-?-?-?-?-?- Effaced St Visit Note 10/28/21 -?-?-?--?-?-?-?-?-?-?-?-?- 11w 2d 165 lb 2 oz 127/72 -?-?-?-?-?-?-?-?-?-?-?-?- 156 -?-?-?-?-?-?-?-?-?-?-?-?- JV- CRL assessme nt done at [facility] and today scan consistent with established gestatational age. 11/25/21 -?-?-?-?-?-?-?-?-?-?-?-?- 15w 2d 168 lb 110/80 Negative -?-?-?-?-?-?-?-?-?-?-?-?- Negative 150 -?-?-?-?-?-?-?-?-?-?-?-?- SM- reviewed NIP T results has fu with MFM next week. no vb lof 12/23/21 -?-?-?-?-?-?-?-?-?-?-?-?- 19w 2d 171 lb 4 oz 118/78 Nega tive -?-?-?-?-?-?-?-?-?-?-?-?- Negative 161 -?-?-?-?-?-?-?-?-?-?-?-?- MH-No VBseema. 2nd NIPT was LR. Has anatomy with MFM next week. Noting itching stomach/arms, no rash. Pain mostlymid upper abdomen, sometime to right. Labs and GB US ordered. Enc pepcid 01/19/22 -?-?-?-?-?-?-?-?-?-?-?-?- 23w 1d 179 lb 2 oz 106/59 Nega tive -?-?-?-?-?-?-?-?-?-?-?-?- Negative 146 23 -?-?-?-?-?-?-?-?-?-?-?-?- Lc-no vb,von g. anatomy with MFM complete. no further itching. bile acids normal. counselor form given for increased stressors. increased constipation-colace bid. 02/15/22 -?-?-?-?-?-?-?-?-?-?-?-?- 27w 0d 184 lb 8 oz 122/68 Nega tive -?-?-?-?-?-?-?-?-?-?-?-?- Negative 148 27 -?-?-?-?-?-?-?-?-?-?-?-?- MH-No vB, LOF. G ood Fm. Continues upper abdominal pain, has gen surg appt 03/02. Needs labs per gen surg, will confirm what and add 28 wk labs. Larc done. 03/08/22 -?-?-?-?-?-?-?-?-?-?-?-?- 30w 0d 190 lb 98/66 Negative -?-?-?-?-?-?-?-?-?-?-?-?- Negative 145 30 -?-?-?-?-?-?-?-?-?-?-?-?- JV- no lof, vagi nal bleeding, or dec fm. normal glucola and cbc 03/24/22 -?-?-?-?-?-?-?-?-?-?-?-?- 32w 2d 195 lb 4 oz 112/70 Nega tive -?-?-?-?-?-?-?-?-?-?-?-?- Negative 139 32 0 -?-?-?-?-?-?-?-?-?-?-?-?- -4 -Good FM. Increased mucousy discharge and pressure. Has had some pink DC but not red blood. -Good FM. Increased mucous y discharge and pressure. Has had some pink DC but not red blood. Normal DC today. 04/12/22 -?-?-?-?-?-?-?-?-?-?-?-?- 35w 0d 196 lb 6 oz 122/72 Nega tive -?-?-?-?-?-?-?-?-?-?-?-?- Negative 151 35 -?-?-?-?-?-?-?-?-?-?-?-?- -No Vb, LOF. G ood FM. No reg CTX. tdap 04/19/22 -?-?-?-?-?-?-?-?-?-?-?-?- 36w 0d 193 lb 6 oz 112/70 Nega tive -?-?-?-?-?-?-?-?-?-?-?-?- Negative 136 36 1 -?-?-?-?-?-?-?-?-?-?-?-?- 30 -4 -No VB. Good FM. Thinks has had a couple of gushes of fluid. ROM collected. GBS also. 04/25/22 -?-?-?-?-?-?-?-?-?-?-?-?- 36w 6d 197 lb 109/73 Negative -?-?-?-?-?-?-?-?-?-?-?-?- Negative 143 37 1 -?-?-?-?-?-?-?-?-?-?-?-?- 30 -4 LC- doing well. +rectal pressure. no change in exam. good fm. no ctx/vb/lof. relaxation techniques/labor comfort techniques reviewed 05/02/22 -?-?-?-?-?-?-?-?-?-?-?-?- 37w 6d 201 lb 4 oz 120/73 Nega tive -?-?-?-?-?-?-?-?-?-?-?-?- Negative 140 39 2 -?-?-?-?-?-?-?-?-?-?-?-?- 30 -2 SM- no vb lof good fm no regular ctx 05/10/22 -?-?-?-?-?-?-?-?-?-?-?-?- 39w 0d 201 lb 4 oz 125/82 Nega tive -?-?-?-?-?-?-?-?-?-?-?-?- Negative 135 39 2.5 -?-?-?-?-?-?-?-?-?-?-?-?- 60 -2 JV- pt sta kourtney that she has a lot of pelvic pressure and worried that baby is going to be too big. wants iol NST FHR Rate Baby A Baseline: 140 Variability:: Moderate Accelerations:: 15 x 15 Decelerations:: None NST Reactive:: Yes FHR Category:: Category I Uterine Activity:: irregular ROS Cardiovascular Cardiovascular: Denies abdominal pain, chest pain, diaphoresis or dyspnea Respiratory/Chest Respiratory/Chest: Denies change in mental status, chest congestion, chest tightness, cough, shortness of breath at rest, shortness of breath with exertion, breast mass, breast pain, breast skin changes, breast swelling, change in breast shape or nipple discharge Genitourinary Genitourinary: Reports change in urinary stream Musculoskeletal Musculoskeletal: Reports none Integumentary Integumentary: Reports none Neurologic Neurologic: Reports none Psychiatric Psychiatric: Reports none Endocrine Endocrinology: Reports none Hematologic/Lymphatic Hematologic/Lymphatic: Reports none Allergic/Immunologic Allergic/Immunologic: Reports none Vital Signs Vital Signs Vital Signs: 05/11/22 07:35 05/11/22 07:35 05/11/22 07:36 Temperature Temperature Source Pulse Rate 98 92 Blood Pressure 124/77 H BP Systolic 124 BP Diastolic 77 Pulse Ox 05/11/22 07:36 05/11/22 07:35 05/11/22 07:36 Temperature Temperature Source Temporal Pulse Rate Blood Pressure BP Systolic BP Diastolic Pulse Ox 98 98 05/11/22 07:35 Temperature 98.3 F Temperature Source Pulse Rate Blood Pressure BP Systolic BP Diastolic Pulse Ox Weight Weight: 204 lb Body Mass Index (BMI) 32.4 Physical Exam Const alert, oriented x3 and no apparent distress General Appearance: cooperative, comfortable and well kempt Orientation / Consciousness: awake and oriented to person Exam Limitations: no limitations HEENT normocephalic Neck full ROM Chest inspection of chest normal Resp normal respiratory effort, normal air movement and no retractions Effort and Inspection: able to speak in complete sentences and symmetric chest movement Cardio regular rate Peripheral Pulses: pulses 2+ throughout GI normal to inspection, nondistended, normoactive bowel sounds Inspection: gravid no CVA tenderness and appearance of the vagina normal External Female Exam: normal appearance of the urethra; Negative for external lesion OB / External & Speculum: external exam normal Manual OB Exam: estimated gestational size appropriate and presentation cephalic Uterus Palpation: Negative for uterus tender Extremity normal to inspection Skin no rashes or lesions noted Neuro deep tendon reflexes 2+ bilaterally and gait normal Motor Exam: strength 5/5 throughout and clonus absent Psych Activity / Motor Behavior: appropriate eye contact Speech: normal speech Labs Labs Labs: Blood Type A POSITIVE Antibody Screen NEGATIVE Hct 34.0 % (37-47) L Hgb 11.6 g/dL (12.0-15.0) L Obstetrics US Syphilis Total Ab Non-reactive Rubella IgG Antibody Reactive (Nonreactive) Hep Bs Antigen Non-Reactive (Nonreactive) Chlamydia DNA (JUAN A) Negative (Negative) Neisseria gonorrhoeae DNA (JUAN A) Negative (Negative) HIV 1&2 Antibody Non-Reactive (Nonreactive) Glucose 1 Hr 50 gm 100 mg/dL (70-140) Group B Strep DNA Negative (Negative) Rhogam given: No Miscellaneous Test Assessment & Plan (1) Anxiety: COMMENT: calm margaret recommended counselor recommendations provided (2) Abnormal genetic test during : COMMENT: abnormal NIPT 1:17 risk tri 13, 18, triploidy. refer to MFM, redraw NIPT low risk (3) Jarett-Danlos disease: COMMENT: normal echo (4) Supervision of normal : QUALIFIERS: Trimester: second trimester COMMENT: PRR ARIANNA 05/17/22boradha Astudillo, [facility] Dayana Roca, Tania Salas (5) : QUALIFIERS: Weeks of gestation: 39 weeks Qualified Code(s): Z3A.39 - 39 weeks gestation of COMMENT: GBS neg, nl anatomy repeat 4 wks for addtnl views nl, NIPT now normal. carrier done in past neg . (6) Elective induction of labor planned: COMMENT: varela 6 pitocin PLAN: Plan admission to with routine orders pitocin per protocol will desire early epidual for Jarett-Danlos disease Dr. Owen updated in POC, admission and exam. co-management
--- NOTE | 2022-05-11 12:51 | PN.OBGYN_ITS ---
Subjective Subjective increasing discomfort with contractions Objective Data Objective Data Vital Signs: Vital Signs Temp Pulse BP Pulse Ox 97.9 F 91 114/68 98 05/11/22 11:45 05/11/22 12:49 05/11/22 12:49 05/11/22 07:36 Weight: 204 lb Body Mass Index (BMI) 32.4 Intake & Output: Intake and Output for Last 24 Hours 05/09/22 05/10/22 05/11/22 23:59 23:59 23:59 Intake Total 16.3 / 16.3 Balance 16.3 / 16.3 Lab / Micro Data Result Diagrams: 05/11/22 07:30 Labs: Laboratory Results - last 24 hr 05/11/22 07:30: WBC 9.0, RBC 3.63 L, Hgb 11.6 L, Hct 34.0 L, MCV 93.7, MCH 32.0, MCHC 34.1, RDW Std Deviation 45.1 H, RDW Coeff of Leroy 13.2, Plt Count 215, MPV 10.9, Immature Gran % (Auto) 0.900, Neut % (Auto) 72.3 H, Lymph % (Auto) 18.7 L, [place] % (Auto) 6.4, Eos % (Auto) 1.3, Baso % (Auto) 0.4, Absolute Neuts (auto) 6.5, Absolute Lymphs (auto) 1.69, Nucleated RBC % 0 05/11/22 07:30: Blood Type A POSITIVE, Antibody Screen NEGATIVE Physical Exam Const alert, oriented x3 and no apparent distress Resp normal respiratory effort and normal air movement Narrative: contractions mild-moderate to palpation, soft in between. Bimanual Exam - Vag & Uterus: Negative for uterus tender Manual OB Exam: presentation cephalic, dilated 3, effaced 60 and station - 3 Extremity normal to inspection NST FHR Rate Baby A Baseline: 130 Variability:: Moderate Accelerations:: 15 x 15 Decelerations:: None NST Reactive:: Yes FHR Category:: Category I Uterine Activity:: q3 minutes Assessment & Plan (1) Elective induction of labor planned: COMMENT: varela 6 pitocin PLAN: Plan 32 yo at 39.1 for elective IOL. on 8mu of Pitocin. increasing discomfort. current tracing:cat 1, reassuring FHT: Moderate variability reactive no decelerations category I tracing [place]: q3 minutes Contractions reviewed tracing abnormalities since last note: none A/P: 360/-3 posterior cervix, soft. approaching active labor -peanut ball x30 minutes -AROM when able Dr. Owen updated in POC and agrees with above
[2022-05-11] MEDS: LACTATED RINGERS 500 ML 999 ML IV ×2 (16:29→22:04)
--- NOTE | 2022-05-11 17:16 | PN.OBGYN_ITS ---
Subjective Subjective feeling more uncomfortable with contractions, requesting epidural placement Objective Data Objective Data Vital Signs: Vital Signs Temp Pulse BP Pulse Ox 96.6 F L 82 99/58 L 98 05/11/22 16:02 05/11/22 16:03 05/11/22 16:03 05/11/22 14:27 Weight: 204 lb Body Mass Index (BMI) 32.4 Intake & Output: Intake and Output for Last 24 Hours 05/09/22 05/10/22 05/11/22 23:59 23:59 23:59 Intake Total 945.66 / 945.66 Balance 945.66 / 945.66 Lab / Micro Data Result Diagrams: 05/11/22 07:30 Labs: Laboratory Results - last 24 hr 05/11/22 07:30: WBC 9.0, RBC 3.63 L, Hgb 11.6 L, Hct 34.0 L, MCV 93.7, MCH 32.0, MCHC 34.1, RDW Std Deviation 45.1 H, RDW Coeff of Leroy 13.2, Plt Count 215, MPV 10.9, Immature Gran % (Auto) 0.900, Neut % (Auto) 72.3 H, Lymph % (Auto) 18.7 L, [place] % (Auto) 6.4, Eos % (Auto) 1.3, Baso % (Auto) 0.4, Absolute Neuts (auto) 6.5, Absolute Lymphs (auto) 1.69, Nucleated RBC % 0 05/11/22 07:30: Blood Type A POSITIVE, Antibody Screen NEGATIVE Physical Exam Narrative pt contractions moderate to palpation on 14mu of pitocin. AROM for clear fluid, moderate amount. cat 1 tracing prior and after AROM. 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 A/P: 32 yo at 39.1 on 14mu of pitocin s/p AROM clear fluid epidural for comfort cont position changes Dr. Owen updated on POC and agrees with above mgmt.
[2022-05-11] MEDS: Lactated Ringers 1,000 ML 200 ML IV (20:05)
[2022-05-11] MEDS: fentaNYL 100 MCG/2 ML Ampul IV (21:09)
[2022-05-11] MEDS: 0.9% Saline Lock 10 ML Syringe IV (21:20)
[2022-05-11] MEDS: Ondansetron 4 MG/2 ML Vial IV (21:59)
[2022-05-11] MEDS: Oxytocin 10 UNITS/ML Vial IM (23:08)
--- NOTE | 2022-05-11 23:18 | EX.PCM.OBRPT ---
Assessment & Plan (1) (spontaneous vaginal delivery): COMMENT: elective IOL at 39.1. boy: PLAN: s/p PPD # 0 1. routine post delivery care 2. breast feeding- support given 3. rh positive 4. rubella immune Maternal Data Information ARIANNA Calculator Estimated Delivery Date Method Current WG Current Estimate 05/17/22 Ultrasound #1 39w 1d Vaginal Delivery Maternal Presentation Maternal Presentation: Elective Induction Type of Induction: Pitocin and Amniotomy Operative Information Date of Procedure: 05/11/22 Pre-Operative Diagnosis: Post-Operative Diagnosis: Surgery / Procedure Performed: Spontaneous Vaginal Delivery Type of Anesthesia: None Estimated Blood Loss: 50 Time of Delivery: 22:57 Findings Description of Procedure: Patient began pushing and delivered the head in the JUSTIN presentation. The head was delivered atraumatically and a loose nuchal cord ?1 was identified and easily reduced over the infant's head. The anterior and posterior shoulders delivered without complication followed by the rest of the and the infant was placed on the maternal abdomen. Delayed cord clamping was employed for approximately 60 seconds. Cord was clamped and cut and gentle traction was applied to the cord and the placenta delivered spontaneously immediately following it was noted to be intact with three-vessel cord. The perineum and vagina were inspected and noted to have non bleeding bilateral periurethral laceration, repair not required. EBL was 50cc. Patient and tolerated delivery well, entered recovery phase bonding skin to skin. Presentation: Vertex Amniotic Membrane Rupture Type: Artificial Amniotic Fluid Description: Clear Placental Delivery Description: Spontaneous Placenta Disposition: [facility] Cord Vessel Description: 3 Vessels Cord Entanglement: Around neck x 1, loose Nuchal Cord Compression: Without compression Infant A Gender: Male (1 minute): 8 (5 minute): 9 Delayed Cord Clamping: Yes Post Vaginal Delivery Episiotomy Description: None Laceration: Periurethral Extnsion/lac (mild, non bleeding) Multi Select Codes Addendum Addendum: ATTN YUMIKO: CNM DELIVERY
--- NOTE | 2022-05-11 23:31 | DCINST_ITS ---
Discharge Instructions Diet Discharge Diet: No restrictions Activity Discharge Activity: May Not Drive and May Shower May resume sexual activity in: 6 weeks Weight Bearing Status: Full weight bearing Dressing / Incision Call your doctor if your incision/area has: Sudden Increased Bleeding, Increased Pain/ Swelling and Foul Smelling Discharge Call your doctor if you observe: Fever of 101 or Higher, Numbness or Tingling, Change in Color, Inability to urinate, Inability to have a bowel movement, Using more than 1 pad per hour, Shortness of breath, Dizziness, Fainting spells, Chest pain, Calf discomfort and Uncontrolled pain Follow Up Care Please Follow Up With: Bertha Cardona CNM When: 6 weeks , please call office to make an appointment. Congratulations on the of your baby BOY SONATA!!!! Test Results: Test results from this visit will be discussed in further detail at your follow- up appointment, if applicable. Discharge Plan Admission Admit Date/Time: 05/11/22 07:02 Attending Provider: Katty Owen Primary Care Provider: Agus Levy Instructions Patient Instructions: After a Vaginal Discharge Orders/Prescriptions Prescriptions: No Action 1 mg Tablet 1 tab PO DAILY Referrals / Follow Up: Agus Levy DO [Primary Care Provider] - Disposition Disposition (needs filled in before D/C Order can be placed): Home, Self Care
[2022-05-11] MEDS: Acetaminophen 500 MG Tablet 1000 MG PO (23:53)
[2022-05-11] MEDS: oxyCODONE 5 MG Tablet PO (23:55)
[2022-05-12] VITALS (11 sets, daily range): BP systolic 90–122; BP diastolic 47–70; PULSE 68–96; RESP 16; TEMP 36.7–37.2; O2SAT 98–99
[2022-05-12] MEDS: Methylergonovine 0.2 MG/ML Ampul IM (00:55)
[2022-05-12] MEDS: Acetaminophen 500 MG Tablet 1000 MG PO ×3 (06:20→19:41)
[2022-05-12] MEDS: oxyCODONE 5 MG Tablet PO ×3 (06:24→16:13)
[2022-05-12] MEDS: Naproxen 500 MG Tablet PO ×2 (09:24→17:55)
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
[2022-05-13 00:29] VITALS: BP 101/67; PULSE 68; RESP 16; TEMP 36.9
[2022-05-13] MEDS: Naproxen 500 MG Tablet PO ×2 (01:06→08:30)
--- NOTE | 2022-05-13 01:25 | PCM.PN.OB ---
Subjective Subjective late entry- patient seen 05/12- 8:00am Patient doing well without complaints. Tolerating PO. Ambulating and voiding without difficulty. feeding well. Denies chest pain, shortness of breath, calf pain/swelling, fevers, chills, lightheadedness. Objective Data Objective Data Vital Signs: Vital Signs Temp Pulse Resp BP Pulse Ox O2 Del Method 98.4 F 68 16 101/67 98 Room Air 05/13/22 00:29 05/13/22 00:29 05/13/22 00:29 05/13/22 00:29 05/12/22 16:45 05/12/22 16:45 Oxygen Delivery Method Room Air Weight: 204 lb Body Mass Index (BMI) 32.4 Intake & Output: Intake and Output for Last 24 Hours 05/11/22 05/12/22 05/13/22 23:59 23:59 23:59 Intake Total 2885.06 / 2885.06 Output Total 50 / 50 Balance 2885.06 / 2885.06 -50 / -50 Lab / Micro Data Result Diagrams: 05/11/22 07:30 ROS Constitutional Constitutional: Reports systems reviewed and no addt'l complaints, except as documented Cardiovascular Cardiovascular: Reports systems reviewed and no addt'l complaints, except as documented Respiratory/Chest Respiratory/Chest: Reports systems reviewed and no addt'l complaints, except as documented Gastrointestinal Gastrointestinal: Reports systems reviewed and no addt'l complaints, except as documented Physical Exam Const alert, oriented x3 and no apparent distress HEENT Head and Scalp: atraumatic Resp normal respiratory effort GI soft to palpation and non-tender Bimanual Exam - Vag & Uterus: uterus non-tender Uterus Palpation: uterus fundus firm (below Umbilicus) Assessment & Plan (1) (spontaneous vaginal delivery): COMMENT: elective IOL at 39.1. boy:Baudilio. PLAN: Plan s/p PPD # 1 1. routine post delivery care 2. breast feeding- support given 3. rh positive 4. rubella immune
[2022-05-13 06:00] VITALS: BP 96/53; PULSE 69; RESP 16
[2022-05-13] MEDS: Acetaminophen 500 MG Tablet 1000 MG PO (06:53)
--- NOTE | 2022-05-13 07:53 | PCM.PN.OB ---
Subjective Subjective Patient doing well without complaints. Tolerating PO. Ambulating and voiding without difficulty. feeding well. Denies chest pain, shortness of breath, calf pain/swelling, fevers, chills, lightheadedness. Objective Data Objective Data Vital Signs: Vital Signs Temp Pulse Resp BP Pulse Ox O2 Del Method 98.4 F 69 16 96/53 L 98 Room Air 05/13/22 00:29 05/13/22 06:00 05/13/22 06:00 05/13/22 06:00 05/12/22 16:45 05/12/22 16:45 Oxygen Delivery Method Room Air Weight: 204 lb Body Mass Index (BMI) 32.4 Intake & Output: Intake and Output for Last 24 Hours 05/11/22 05/12/22 05/13/22 23:59 23:59 23:59 Intake Total 2885.06 / 2885.06 Output Total 50 / 50 Balance 2885.06 / 2885.06 -50 / -50 Lab / Micro Data Result Diagrams: 05/11/22 07:30 ROS Constitutional Constitutional: Reports systems reviewed and no addt'l complaints, except as documented Cardiovascular Cardiovascular: Reports systems reviewed and no addt'l complaints, except as documented Respiratory/Chest Respiratory/Chest: Reports systems reviewed and no addt'l complaints, except as documented Gastrointestinal Gastrointestinal: Reports systems reviewed and no addt'l complaints, except as documented Physical Exam Const alert, oriented x3 and no apparent distress HEENT Head and Scalp: atraumatic Resp normal respiratory effort GI soft to palpation and non-tender Bimanual Exam - Vag & Uterus: uterus non-tender Uterus Palpation: uterus fundus firm (below Umbilicus) Assessment & Plan (1) (spontaneous vaginal delivery): COMMENT: elective IOL at 39.1. boy:Baudilio. 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 routine post delivery care 2. breast feeding- support given 3. rh positive 4. rubella immune
[2022-05-13 09:39] VITALS: BP 100/44; PULSE 80; RESP 16; TEMP 37.3
== END 2022-05-13 10:45 | disposition home or self-care (01) | DRG 560 ==
PROVIDERS: Admitting Provider Obstetrics & Gynecology; PCP Family Medicine; Visit Provider Obstetrics & Gynecology
DX: O99.892 Other specified diseases and conditions complicating childbirth (principal); Z37.0 Single live birth; O99.344 Other mental disorders complicating childbirth; F41.9 Anxiety disorder, unspecified; Q79.60 Ehlers-Danlos syndrome, unspecified; O69.81X0 Labor and delivery complicated by cord around neck, without compression, not applicable or unspecified; Z3A.39 39 weeks gestation of pregnancy; Z87.891 Personal history of nicotine dependence
CPT/HCPCS: 59025; 59050; 85025; 86850; 86900; 86901; 99221; J7120; A4216; G0378; J2405

== ENCOUNTER → 2022-07-01 | Outpatient (CLI) | payer MEDICAID, SELFPAY ==
--- NOTE | 2022-07-01 08:52 | US_ITS ---
EXAM: US ABDOMEN LIMITED, RIGHT UPPER QUADRANT CLINICAL INDICATION: RUQ pain x 2 years TECHNIQUE: Real-time ultrasound of the right upper quadrant with image documentation. This report was created using [employer] report generation technology. COMPARISON: None. FINDINGS: LIVER: Echogenic liver/hepatic steatosis. Main portal vein is patent with normal direction of blood flow. No intrahepatic biliary ductal dilation. GALLBLADDER: Gallbladder measures 9.6 cm with no gallstones, wall thickening, or surrounding fluid. Sonographic Freeman''s sign is absent. Common bile measures 5 mm. COMMON BILE DUCT: Unremarkable as visualized. The proximal common bile duct is within normal limits for the patient''s age. PANCREAS: Pancreas is normal. No pancreatic ductal dilatation. RIGHT KIDNEY: Right kidney is normal. There is no hydronephrosis. No shadowing calculus. No focal lesion or perinephric collection is demonstrated. FREE FLUID: No ascites. US/Abdomen Limited IMPRESSION: 1. Hepatic steatosis. 2. No other significant abnormalities. Electronically Signed: Joel Brooks MD at 19:55 EDT ,
--- NOTE | 2022-07-01 09:30 | RAD_ITS ---
INDICATION: back pain -- include coccyx EXAMINATION/TECHNIQUE: X-RAY - XR Spine Lumbar Min 4 Views COMPARISON: None. FINDINGS: VERTEBRAE: Preserved vertebral body height. No fracture. No spondylolisthesis. Preservation of the normal lumbar lordosis. No significant facet arthropathy. DISCS: Disc spaces are maintained. INCLUDED ABDOMEN: Included bowel gas pattern is non-obstructive. RAD/L/S Spine Min 4 Views IMPRESSION: No evidence of lumbar spinal fracture or spondylolisthesis. Electronically Signed: Alanis Redman MD at 11:35 EDT ,
== END | disposition home or self-care (01) ==
LOC: US 08:50
PROVIDERS: PCP Family Medicine; Referring Provider Registered Nurse; Visit Provider Registered Nurse
DX: M99.04 Segmental and somatic dysfunction of sacral region (principal); R10.11 Right upper quadrant pain
CPT/HCPCS: 72110; 76705

== ENCOUNTER 2022-07-14 12:00 | Outpatient (RCR) | payer MEDICAID, SELFPAY ==
--- NOTE | 2022-07-08 09:50 | HP.PTEVAL_ITS ---
Patient's Visit Information DANIEL RAIN is a 32 year old F referred to Physical Therapy by Dr. Keyanna Jordan DC with a diagnosis of Lumbar Pain. Date of Evaluation: 07/07/22 Physical Therapist: Deirdre Heath DPT - Visit Plan Frequency: 2x /Week Duration: 4 Weeks Plan: Aquatic: HYPERMOBILITY- focus on LE and core strength/stabilization-in mid range - Subjective She had her 4th child in Apr and has been cleared to get back to exercise- they are testing her for EDS- does not have an apt for rheumatology- saw Dr. Jordan and she wants her to get some core strength/stabilization. Dr. Levy is her PCP- she has always had a lot of knees, hips and back pains throughout her lumbar spine. 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 She has 4 kids (11, 5, 18 months and 2 months). Worst: 7/10 Constant discomfort Agg: lifting, sitting too long Eases: walking with her hand on her back and stretching out Best: 4/10. 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 She has a lot of pain in her legs right >left- she also has foot pain. Does have some N/T in her fingers and toes- has poor circulation. She has stomach issues as well. She has had x-rays but no MRI- x-rays were negative. Sleep: she moves a lot at night so its more disturbed. 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 PMHx: changes since Dr. Jordan beginning stages of fatty liver disease Meds: no medications - Objective Posture: FH., RS- can correct but is unable to maintain in sitting for longer than 5 min Gait: no deviation noted good arm swing and trunk rotation ROM: Lumbar: WFL but does report discomfort in all directions Hip/Knee/Ankle: WFL. Palpation: tender along right paraspinals L3-5, right hip, ITBand and quad. Strength: Ankle: 4+/5, Knee: 4+/5, Hip: 4/5 throughout, Core: poor. Flex: HS: severe Gastroc: moderate, Sensation: WNL to gross touch bilateral LE. - Balance/Special Test Scores Oswestry Low Back Score: 26 - Goals Goal 1:: Patient will be I with HEP and progression Goal Time Frame: 4-6 Weeks Goal 2:: Patient will maintain proper posture t/o tx session to demo increased core s/s Goal Time Frame: 4-6 Weeks Goal 3:: Patient will report 80% improvement Goal Time Frame: 4-6 Weeks - Rehabilitation Potential Physical Therapy Diagnosis: Patient presents with hypermobility- she has painful ROM, decreased LE and core strength/stabilization, flex, proprioception. and muscular endurance leading to poor posture and decreased ability to perform ADL's. Rehabilitation Potential: Good - Anticipated Interventions Therapeutic Exercise to Include: Strength training, Endurance training, Agility training, Body mechanics, Postural training, Gait and locomotor training, Neuromotor development, In an aquatic setting, Passive ROM, Active ROM, Dynamic Lumbar Stabilization, Scapular Strength/Stabilization For the Purpose of:: To improve muscle performance and motor function Thank you for the opportunity to evaluate your patient. For Medicare and Medicare HMO plans, please review the plan of care and approve it. It will need to be FAXED BACK to us at [phone] for Medicare purposes. For Medicare only, by signing this I certify the plan of care. Please let me know if there are questions or concerns regarding this plan of care. Physician Signature: Date:
--- NOTE | 2022-10-24 09:59 | HP.PT.NRP ---
Patient Information Patient Information: DANIEL RAIN was seen in my office for initial evaluation on 07/07/22. The following Plan of Care was established for this patient: POC Established Initial Frequency: 2x /Week Initial Duration: 4 Weeks Anticipated Interventions Therapeutic Exercise to Include: Strength training, Endurance training, Agility training, Body mechanics, Postural training, Gait and locomotor training, Neuromotor development, In an aquatic setting, Passive ROM, Active ROM, Dynamic Lumbar Stabilization and Scapular Strength/Stabilization For the Purpose of:: To improve muscle performance and motor function Last Seen Last Seen: This patient was last seen in our office . Pertinent comments regarding their Physical therapy will appear below: Patient has not attended PT in over 30 days and is appropriate for discharge. At this point I will be discontinuing this patient from physical therapy. I would be happy to see this patient again in the future if found appropriate by the physician. Thank you! Deirdre Heath, DPT Balance/Gait/Functional tests Balance/Special Test Scores Oswestry Low Back Score: 26
== END 2022-07-14 19:00 | disposition home or self-care (01) ==
LOC: PT 12:00
PROVIDERS: PCP Family Medicine; Referring Provider Chiropractor; Visit Provider Chiropractor
DX: M99.01 Segmental and somatic dysfunction of cervical region (principal); M99.03 Segmental and somatic dysfunction of lumbar region; M99.02 Segmental and somatic dysfunction of thoracic region; M54.9 Dorsalgia, unspecified; M99.04 Segmental and somatic dysfunction of sacral region
CPT/HCPCS: 97113; 97162

== ENCOUNTER → 2022-07-15 | Outpatient (CLI) | payer MEDICAID, SELFPAY ==
--- NOTE | 2022-07-15 08:04 | NM_ITS ---
CLINICAL: 32-year-old female with history of epigastric pain. RADIONUCLIDE HEPATOBILIARY SCINTIGRAPHY COMPARISON: None available FINDINGS: Following the intravenous administration of 6.0 mCi of 99m Tc Mebrofenin, hepatobiliary images reveal:. 1. Relatively prompt and homogeneous radiopharmaceutical concentration is noted by a normal sized liver. No parenchymal defects are identified. 2. Gallbladder activity is identified at 15 minutes post radiopharmaceutical administration. 3. Small intestinal tract is observed by 60 minutes post tracer injection. 4. Washout of the radiopharmaceutical by the hepatic parenchyma appears qualitatively normal. Cholecystokinin (0.02 ug/kg) was administered intravenously over a 30-minute period. The post CCK gallbladder ejection fraction calculated at 20 minutes following Cholecystokinin administration was noted to be 90.0 % (normal greater than 35%). During 30 minutes of post CCK imaging, there is scintigraphic evidence of refilling of the gallbladder with the 30 minute ejection fraction calculated to be 83%. NM/Hepatobilliary Img w/Pharm Int IMPRESSION: 1. A gallbladder ejection fraction calculated to be greater than 35% following the administration of Cholecystokinin makes the probability of functional hepatobiliary disease (gallbladder dyskinesia) and/or organic hepatobiliary disease (chronic acalculous cholecystitis and/or cystic duct syndrome) to be low. (Steffi Sullivan et al, Journal of Nuclear Medicine 32:1695, 1991). 2. An encountered normal gallbladder ejection fraction with refilling of the gallbladder following CCK administration may represent the presence of Sphincter of Oddi dysfunction. Correlation with Sphincter of Oddi manometry may be of benefit. (Elliott and Elliott, J Nucl Med 38:1824, 1997). Electronically Signed: Raul Bhatia, at 10:59 EDT ,
--- NOTE | 2022-07-15 08:04 | US_ITS ---
STUDY: ABDOMINAL ULTRASOUND - ELASTOGRAPHY REASON FOR VISIT: Female, 32 years old. G[place] TECHNIQUE: Liver stiffness measurements were obtained on a [employer] RS 85 ultrasound machine using a CA 1-7 probe following the SRU guidelines. 3 measurements were obtained using a 2-D-SWE method. TheIQR/M was 14% suggesting a quality data set. TECHNICAL QUALITY: Adequate. COMPARISON: Comparison is made with prior study dated July 01, 2022. FINDINGS: Liver: Fatty infiltration of the liver. Median liver stiffness measured 4.2 kPa. Abdomen: There is no demonstrated mass lesion. US/Elastography Parenchyma/Organ IMPRESSION: Liver stiffness measures 4.2 kPa compatible with F0-F1 (Normal to mild liver fibrosis) Metavir score. Electronically Signed: Brian Gillespie MD at 8:49 EDT ,
== END | disposition home or self-care (01) ==
LOC: NM 08:03
PROVIDERS: PCP Family Medicine; Visit Provider Nurse Practitioner Adult Health
DX: R10.11 Right upper quadrant pain (principal); K76.0 Fatty (change of) liver, not elsewhere classified
CPT/HCPCS: 76981; 78227; A9537; J2805

== ENCOUNTER 2022-08-29 21:16 | Emergency (ER) | payer MEDICAID, SELFPAY ==
[2022-08-29 21:17] VITALS: BP 103/80; PULSE 65; RESP 15; TEMP 36.3; O2SAT 100; BMI 28.7
--- NOTE | 2022-08-29 21:42 | EKG12_ITS ---
Test Reason : CP Blood Pressure : / mmHG Vent. Rate : 063 BPM Atrial Rate : 063 BPM P-R Int : 164 ms QRS Dur : 086 ms QT Int : 386 ms P-R-T Axes : 069 073 070 degrees QTc Int : 395 ms Normal sinus rhythm with sinus arrhythmia Normal ECG Confirmed by JAIR AVALOS, FANG ([id number]), food editor YESICA MACHADO ([id number]) on 08/31/2022 9:35:54 AM Referred By: LISANDRA Confirmed By:FANG ADAM MD
--- NOTE | 2022-08-29 21:43 | ED.VIS.CHEST ---
HPI History of Present Illness Chief Complaint: Chest Pain Detail of Chief Complaint: Chest pain Informant: patient Narrative Narrative: Patient presents to the emergency department with complaint of chest pain that she has had for about 3 days. Patient describes a tightness across her chest like somebody is pushing down on her chest. Patient also sometimes has the sensation like there is something stuck in her throat. Patient states that she delivered a child 3-1/2 months ago. Patient taking a progesterone control. After delivery of her child she had symptoms that she thought and her physicians may be consistent with a blood clot but did not have any further follow-up or investigation into that as her symptoms eventually resolved. No significant family history of heart disease. No recent travel or surgery otherwise. Patient denies recent illness or fever or cough. Patient has been taking Tums but not getting any relief with that. PFSH PFSH Medical History Anxiety Back pain Chest pain Chronic pain Fibromyalgia Former smoker Gastric reflux GERD (gastroesophageal reflux disease) Hirsutism History of echocardiogram History of IBS History of irregular heartbeat History of ulceration Hx of vaginal delivery IBS (irritable bowel syndrome) Liver disease Loose, teeth MRSA infection macrosomia PCOS (polycystic ovarian syndrome) Personal history of colonic polyps depression psychosis Seizures Smoker Home Medications NK 08/29/22 [History Last Taken Unknown] Allergy/AdvReac Type Severity Reaction Status Date / Time Corticosteroids Allergy Unknown NEEDS Verified 07/14/22 11:08 (Glucocorticoids) FOLLOW-UP [steroids] Family History Aunt Diabetes Mother Autosomal recessive severe combined immunodeficiency disease Other Anemia Anxiety Arthritis Asthma Breast cancer Cancer Depression Epilepsy Heart disease Surgical History History of esophagogastroduodenoscopy (EGD) History of tonsillectomy History of wisdom tooth extraction, class II edentulism Hx of colonoscopy Social History current occupational status: student current occupation: [employer] Smoking Status: Never smoker alcohol intake: never substance use type: does not use caffeine: Yes what type of physical activity do you participate in: walking and aerobics frequency: 1-2 times per week seatbelt use: always do you feel safe at home: Yes additional social history: Single ROS ROS ED Review of Systems ROS Unobtainable: other Constitutional Constitutional ED: Reports lethargy; Denies chills, fever(s), sweats or weight loss Eyes Eyes: Denies blurry vision, change in vision or diplopia ENT ENT ED: Denies rhinorrhea or sore throat Cardiovascular Cardiovascular: Reports chest pain; Denies orthopnea or racing heartbeat Respiratory/Chest Respiratory/Chest: Denies cough, dyspnea, dyspnea on exertion, orthopnea or sputum Gastrointestinal Gastrointestinal: Denies abdominal pain, diarrhea, nausea or vomiting Genitourinary Genitourinary ED: Denies dysuria, hematuria or urinary frequency Musculoskeletal Musculoskeletal: Denies arthralgias, back pain, myalgias or neck pain Integumentary Denies abscess, Abrasions or rash Neurologic Neurologic: Denies headache(s) or weakness Psychiatric Psychiatric: Denies anxiety, depression or suicidal thoughts Endocrine Endocrinology: Denies polydipsia, polyphagia or polyuria Hematologic/Lymphatic Hematologic/Lymphatic: Denies easy bleeding, easy bruising or lymphadenopathy Allergic/Immunologic Allergic/Immunologic ED: Denies mouth swelling, tongue swelling or urticaria EXAM Physical Exam Const Vital Signs: 08/29/22 21:17 08/29/22 21:35 08/29/22 21:52 Temperature 97.4 F L Temperature Source Temporal Pulse Rate 65 Respiratory Rate 15 Respiratory Effort Normal Blood Pressure 103/80 Blood Pressure Mean 87 Pulse Ox 100 Oxygen Delivery Method Room Air Room Air Positive well nourished and well developed General Appearance ED: well developed and NAD HEENT Reports TM's clear and moist mucous membranes normocephalic and atraumatic; Negative for trauma or tenderness Tympanic Membrane ED: Yes TM's clear Eyes PERRL and EOMs intact bilaterally General Eye ED: Negative for pale conjunctiva or scleral icterus Neck no lymphadenopathy, supple and no JVD General: Negative for tenderness Chest Wall inspection of chest normal and palpation of chest normal Chest: Negative for tenderness Resp normal respiratory effort and clear to auscultation bilaterally Effort and Inspection: Negative for respiratory distress or pain with movement Auscultation: Negative for rhonchi, wheezes or diminished lung sounds Cardio regular rate, regular rhythm, S1 normal heart sound, S2 normal heart sound and no murmurs Peripheral Pulses: pulses 2+ throughout GI normal to inspection, nondistended, normoactive bowel sounds, soft to palpation, non-tender, non-distended and no masses Back/Spine no CVA tenderness and no thoracic nor lumbar tenderness Extremity normal to inspection General Extremety ED: Negative for edema General Extremity: Negative for edema Neuro oriented x3, CN's II-XII intact bilaterally, no sensory deficits noted and gait normal Sensorium / Orientation: awake, alert, oriented to person, oriented to place and oriented to time Motor Exam: strength 5/5 throughout and strength abnormal Psych mental status grossly normal Skin no rashes or lesions noted and no wounds MDM MDM MDM Narrative Medical decision making narrative: Patient presents with chest pain x3 days. Patient has history of GERD and has been off Protonix since she got . Patient also was worried about blood clots. She herself has no heart history. No significant risk factors for heart disease. EKG obtained on arrival shows a sinus rhythm with a rate of 53 bpm with occasional PACs. CBC with differential was normal. Troponin was normal at 4. Chemistries normal. D-dimer is less than 0.27. Chest x-ray unremarkable. This point etiology of her chest pain is unclear. Suspect possibility of a component of anxiety. Patient will be following up with GI. I do not feel she is having acute coronary syndrome. With D-dimer being normal feel PE ruled out. Lab Data Attestation: I reviewed the patient's lab results. Labs: Laboratory Results - last 24 hr 08/29/22 08/29/22 08/29/22 21:45 21:45 21:45 WBC 7.4 RBC 4.57 Hgb 13.8 Hct 42.2 MCV 92.3 MCH 30.2 MCHC 32.7 RDW Std Deviation 45.2 H RDW Coeff of Leroy 13.3 Plt Count 275 MPV 9.9 Immature Gran % (Auto) 0.100 Neut % (Auto) 41.8 L Lymph % (Auto) 46.4 H [place] % (Auto) 7.8 Eos % (Auto) 3.4 Baso % (Auto) 0.5 Absolute Neuts (auto) 3.1 Absolute Lymphs (auto) 3.44 Nucleated RBC % 0 D-Dimer Quant (PE/DVT) < 0.27 L Sodium 140 Potassium 3.7 Chloride 105 Carbon Dioxide 29.0 Anion Gap 6 BUN 14 Creatinine 0.71 Estim Creat Clear Calc 112.67 Est GFR (MDRD) Af Amer 123 Est GFR (MDRD) Non-Af 102 BUN/Creatinine Ratio 19.6 Glucose 104 Calcium 10.1 Troponin I High Sens 4 Radiography Diagnostic Testing: Clinical Impression(s) from Imaging Studies Chest X-Ray 08/29/22 22:00 IMPRESSION: No radiographic evidence of acute cardiopulmonary disease. Electronically Signed: Wiliam Adams MD at 22:21 EDT , 1 view chest x-ray obtained interpreted by myself as no evidence of infiltrate or pneumothorax or acute disease process. Radiology in agreement. EKG Initial EKG: Attestation: I personally reviewed and interpreted this EKG as follows: Comments: Sinus rhythm with a ventricular rate of 63 bpm with occasional PACs Discharge Plan Triage Chief Complaint: Chest Pain ED Provider: Lisa Torres Dx/Rx/DC Orders Clinical Impression: Chest pain Instructions: ED Chest Pain, Uncertain Cause Prescriptions: No Action NK Primary Care Provider: Agus Levy Referrals: Agus Levy DO [Primary Care Provider] - 3-5 Days Disposition Disposition: Home, Self Care
--- NOTE | 2022-08-29 22:00 | RAD_ITS ---
EXAM: XR CHEST, 1 VIEW CLINICAL INDICATION: chest pain TECHNIQUE: Frontal view of the chest. COMPARISON: 09/18/2019 FINDINGS: LUNGS AND PLEURAL SPACES: Unremarkable. No consolidation or edema. No pneumothorax. No effusion. HEART: Unremarkable. Cardiac silhouette not enlarged. MEDIASTINUM: Central airways and mediastinal contour are unremarkable. BONES/JOINTS: Unremarkable. SOFT TISSUES: Unremarkable. RAD/Chest 1 View (Portable) IMPRESSION: No radiographic evidence of acute cardiopulmonary disease. Electronically Signed: Wiliam Adams MD at 22:21 EDT ,
[2022-08-29 22:01] LABS: Absolute Lymphocyte Count 3.44 X10^3/uL (0.83-4.51); Absolute Neutrophil Count 3.1 X10^3/uL (2.0-7.7); Basophil# 0.04 X10^3/uL; Basophil% 0.5 % (0-1); Eosinophil# 0.25 X10^3/uL; Eosinophils% 3.4 % (0-5); Hematocrit 42.2 % (37-47); Hemoglobin 13.8 g/dL (12.0-15.0); Lymphocyte # 3.44 X10^3/ul (0.83-4.51); Lymphocyte % 46.4 % (19-41); Mean Corp Hgb Conc 32.7 g/dL (32-36); Mean Corpuscular Hgb 30.2 pg (27.0-32.0); Mean Corpuscular Volume 92.3 fL (81-99); Mean Platelet Vol. 9.9 fl (6.2-12.0); Monocyte# 0.58 X10^3/uL; Monocyte% 7.8 % (0-10); NRBC Flagged by Analyzer 0 % (0-5); Neutrophil # 3.09 X10^3/uL (2.7-7.7); Neutrophil % 41.8 % (47-70); Platelet Count 275 K/mm3 (150-450); RBC Distribution Width CV 13.3 % (11.6-14.6); RBC Distribution Width SD 45.2 fl (35.1-43.9); Red Blood Count 4.57 M/mm3 (4.2-5.4); White Blood Count 7.4 K/mm3 (4.4-11.0)
[2022-08-29] MEDS: 0.9% Normal Saline 1,000 ML 150 ML IV (22:08)
[2022-08-29 22:19] LABS: Anion Gap 6 (5-15); BUN 14 mg/dL (7-18); BUN/Creat Ratio 19.6 RATIO (10-20); Calcium,Total 10.1 mg/dL (8.5-10.1); Chloride 105 mmol/L (98-107); Creatinine, Serum 0.71 mg/dL (0.55-1.02); EST Glomerular Filtration Rate 102 mL/min (>60); Est Glom Filt Rate - Afr Amer 123 mL/min (>60); Estimated Creatinine Clearance 112.67 ml/min; Glucose 104 mg/dL (74-106); Potassium 3.7 mmol/L (3.5-5.1); Sodium Level 140 mmol/L (136-145); Troponin-I HS (w/2H Reflex) 4 pg/mL (3.0-54.0)
[2022-08-29 22:21] LABS: D-Dimer Quantitative (DVT/PE) < 0.27 FEU/ug/m (0.27-0.49)
[2022-08-29] MEDS: Mag Hydrox/Al Hydrox/Simeth 30 ML UDC PO (23:06)
[2022-08-29 23:59] LABS: Reflex Troponin-HS? (from REC) Y
== END 2022-08-29 23:13 | disposition home or self-care (01) ==
PROVIDERS: Emergency Provider Emergency Medicine; PCP Family Medicine; Visit Provider Emergency Medicine
DX: R07.9 Chest pain, unspecified (principal)
CPT/HCPCS: 71045; 80048; 84484; 85025; 85379; 93005; 96360; 99284; J7030

== ENCOUNTER → 2022-09-30 | Outpatient (CLI) | payer MEDICAID, SELFPAY ==
[2022-09-30 16:17] LABS: T4 Free Direct 0.87 ng/dL (0.76-1.46); Thyroid Stim Hormone (TSH) 1.19 uIU/mL (0.358-3.74)
== END | disposition home or self-care (01) ==
LOC: BFHLAB 11:33
PROVIDERS: PCP Family Medicine; Referring Provider Family Medicine; Visit Provider Family Medicine
DX: E06.9 Thyroiditis, unspecified (principal)
CPT/HCPCS: 36415; 84439; 84443

== ENCOUNTER → 2022-10-03 | Outpatient (CLI) | payer MEDICAID, SELFPAY ==
--- NOTE | 2022-10-03 08:12 | MRI_ITS ---
STUDY: MRI LUMBAR SPINE WITHOUT CONTRAST REASON FOR EXAM: Female, 32 years old. CHRONIC BACK PAIN, leg pain TECHNIQUE: Standardized fat and water weighted pulse sequences were obtained in the sagittal and axial planes. COMPARISON: CT abdomen and pelvis without contrast 07/17/2018. Lumbar spine radiographs 07/01/2022. FINDINGS: T11-T12 and T12-L1: (Sagittal only). Normal endplates. Normal disc height, hydration and morphology. No ventral extradural defects. Normal central canal and bilateral intervertebral neural foramina. Normal lumbar lordosis. There is no substantial scoliosis. Normal conus medullaris that terminates at the T12-L1 disc space level. L1-2: Normal endplates. Normal disc height, hydration and morphology. Normal bilateral facet joints. Normal central canal and bilateral lateral recesses. Normal bilateral intervertebral neural foramina. L2-3: Normal endplates. Normal disc height, hydration and morphology. Normal bilateral facet joints. Normal central canal and bilateral lateral recesses. Normal bilateral intervertebral neural foramina. L3-4: Normal endplates. Normal disc height, hydration and morphology. Normal bilateral facet joints. Normal central canal and bilateral lateral recesses. Normal bilateral intervertebral neural foramina. L4-5: Normal endplates. Normal disc height, hydration and morphology. Normal bilateral facet joints. Normal central canal and bilateral lateral recesses. Normal bilateral intervertebral neural foramina. L5-S1: Normal endplates. Normal disc height. Small posterior bulging annulus without ventral extradural defect due to presence of ventral epidural fat. Normal facet joints. Normal central canal and bilateral lateral recesses. Normal bilateral intervertebral neural foramina. Normal visualized sacral ala. Normal visualized paraspinous soft tissue structures. MRI/Spine Lumbar (Routine) IMPRESSION: 1. Small L5-S1 posterior bulging annulus but without associated ventral extradural defect due to presence of prominent ventral epidural fat. This was present on CT abdomen and pelvis of 07/17/2018 and unchanged. 2. No MR evidence of lumbar extruded disc fragment, spinal stenosis or nerve root displacement. Electronically Signed: Josh Quiñones MD at 9:37 EDT ,
== END | disposition home or self-care (01) ==
LOC: MRI 08:02
PROVIDERS: PCP Family Medicine; Referring Provider Family Medicine; Visit Provider Family Medicine
DX: M54.50 Low back pain, unspecified (principal); G89.29 Other chronic pain
CPT/HCPCS: 72148

== ENCOUNTER → 2022-10-06 | Outpatient (CLI) | payer MEDICAID, SELFPAY ==
--- NOTE | 2022-10-06 17:25 | US_ITS ---
INDICATION: THYROID TENDERNESS EXAMINATION: Ultrasound US Thyroid (eg thyroid, parathyroid, parotid) TECHNIQUE: Wakefield scale and color doppler imaging was performed of the thyroid gland. COMPARISON: None. FINDINGS: RIGHT THYROID LOBE: 1.4 x 4.9 x 1.6 cm with a volume of 5.5 mL. Homogeneous echotexture. Normal vascularity. No thyroid nodules. LEFT THYROID LOBE: 1.8 x 4.9 x 1.5 cm with a volume of 6.8 mL. Homogeneous echotexture. Normal vascularity. No thyroid nodules. ISTHMUS: 4 mm in AP diameter. Homogeneous echotexture. Normal vascularity. No thyroid nodules. US/Thyroid IMPRESSION: Normal thyroid ultrasound. Electronically Signed: Maciel Lyn DO at 6:32 EDT ,
== END | disposition home or self-care (01) ==
LOC: US 17:23
PROVIDERS: PCP Family Medicine; Referring Provider Family Medicine; Visit Provider Family Medicine
DX: E06.9 Thyroiditis, unspecified (principal); Z83.41 Family history of multiple endocrine neoplasia [MEN] syndrome
CPT/HCPCS: 76536

== ENCOUNTER 2022-12-19 06:47 | Day surgery (SDC) | payer MEDICAID, SELFPAY ==
--- NOTE | 2022-10-10 12:50 | HP.PT.NRP ---
Patient Information Patient Information: DANIEL RAIN was seen in my office for initial evaluation on . The following Plan of Care was established for this patient: Last Seen Last Seen: This patient was last seen in our office . Pertinent comments regarding their Physical therapy will appear below: Chart Discharge At this point I will be discontinuing this patient from physical therapy. I would be happy to see this patient again in the future if found appropriate by the physician. Thank you! PINA SolimanT
--- NOTE | 2022-12-19 | EGD_PTH ---
PATIENT: DANIEL RAIN LOC: EN U#:[id number] AGE/SX: 32/F ROOM: RE12/19/[address]: Dr. Garret Clarke DO : 1990 BED: DIS: 12/19/2022 SPEC #: [id number] RECD: 12/19/22 10:40 STATUS: SOPHIA VALERIANO #: [id number] MONA: 12/19/22 00:[address]: Garret Clarke DEPT: SURGICAL PATHOLOGY RECD BY: Wilfredo Dunham ENTERED: 12/19/22 10:41 SP TYPE: EGD BIOPSY OT DR: Dr. Agus Levy DO Tissues: A - Duodenum, NOS B - Esophageal mucous membrane Procedures: Special Stain Group II Surgery Specimen Level IV Alcian Blue/PAS (control) HEADER OPERATION: EGD ([employer] [facility] [employer]) biopsies PRE-OP DIAGNOSIS: RUQ abdominal pain TISSUE SUBMITTED: A - Duodenum biopsy, B - Distal esophagus biopsy MICROSCOPIC DIAGNOSIS A. Duodenum, biopsy: No pathologic change. B. Distal esophagus, biopsy: Fragments of gastric mucosa with chronic inflammation. No evidence of goblet cell metaplasia. See comment. AM:christianne 12/20/2022 COMMENT B. Alcian blue/PAS stain with matched control supports the above diagnosis. MICROSCOPIC DESCRIPTION Slides are reviewed. GROSS DESCRIPTION A - Received in fixative is one container labeled with the patient's name and designated duodenum biopsy. The specimen consists of multiple irregular fragments of light moreira soft tissue that in aggregate measure 1.0 x 0.3 x 0.1 cm. The specimen is totally submitted in one cassette. B - Received in fixative is one container labeled with the patient's name and designated distal esophagus biopsy. The specimen consists of two irregular fragments of light moreira soft tissue that in aggregate measure 0.6 x 0.3 x 0.1 cm. The specimen is totally submitted in one cassette. / BRAYAN:christianne 12/19/2022 TC:3 CPT: 08847 x2, 11175
[2022-12-19] MEDS: Lactated Ringers 1,000 ML 15 ML IV (07:05)
[2022-12-19 07:06] VITALS: BP 107/74; PULSE 86; RESP 17; TEMP 36.8; O2SAT 100; BMI 27.2
--- NOTE | 2022-12-19 07:33 | PCM.HP.BLA ---
History and Physical Date of Admission: 12/19/22 upper abd pain Details: DANIEL RAIN, is a 32 F who presents to the office today for flare of upper abd pain. Reports it never resolved but has gotten worse since having a baby about 7 wks ago. She is . Epigastric pain started when she took naproxen following delivery x 6 days. Gets pain in RUQ and LUQ, having bloating and indigestion, getting retrosternal chest pain and pressure with eating. Tends to be constipated, has IBS-C. But can occas get attacks of abd cramping, bloating and then diarrhea. Previously on Linzess which helped, d/c'd when . Has tortuous colon. Hx gastric ulcers, EGD in 01/2021 revealed multiple linear gastric ulcers.? 01/2022 US free fluid near gallbladder; she is scheduled for RUQ US next month ROS Const Constitutional: Positive for fatigue ENT ENT: Positive for difficulty swallowing Gastro GI: Positive for abdominal pain, bloating, constipation, diarrhea, difficulty swallowing and excessive flatus; No belching, change in bowel habits, change in stool character, coffee ground emesis, cramping, heartburn, feeling full early, incontinent of stools, Vomiting blood/hematemesis, Blood in stool, loose stools, Black,tarry stools, nausea/dyspepsia, pain with swallowing, vomiting or other Musc Musculoskeletal: Positive for joint pain, back pain, joint swelling, muscle cramps, numbness, stiffness and tingling; No sciatica Skin Skin: No yellowing of the eye or itchy eyes Neuro Neurology: Positive for numbness and tingling Psych Psychiatric: No anxiety and No depression Endo Endocrine: Positive for fatigue Aller/Imm Allergy/Immunologic: No itchy eyes Jesse/Lymp Hematologic/Lymphatic: No easy bleeding or easy bruising Exam Const General: cooperative, healthy appearing and comfortable Orientation: alert, awake and oriented x3 Eyes Sclera: sclerae normal Resp Effort & Inspection: normal respiratory effort GI Inspection: normal to inspection Quality Reporting Tobacco Screening ([facility] 138) Smoking Status: Former smoker Assessment and Plan Assessment and Plan (1) RUQ abdominal pain: Status: Chronic Plan: 32 yr old female with flare of RUQ and epigastric and LUQ pain. Hx gastric ulcers. She is getting a repeat US to reeval the free fluid between liver and kidney. Will get HIDA to eval GB function. Start pantoprazole 40 mg QAM, safe with . Start Miralax daily for chronic constipation, safe with . Could try Fiber Choice tabs, kiwi supplement, aloe vera gel pills. Schedule EGD, f/u with Dr Clarke 2 wks afterward. Orders: Orders Hepatobilliary Img w/Pharm Int Today R10.11 - Right upper quadrant pain Medications: New pantoprazole 40 mg PO QAM 90 tabs 1RF I have examined the patient and the H&P has been reviewed. There are no clinical changes since date of exam.
[2022-12-19 07:54] VITALS: BP 107/74; BP 107/75; PULSE 99; RESP 18; TEMP 36.3; O2SAT 100
--- NOTE | 2022-12-19 07:54 | OP.EGD_ITS ---
Patient Name: Dania Rogers Procedure Date: 12/19/2022 7:30 AM Date of : 1990 Age: 32 Procedure: Upper GI endoscopy Indications: Epigastric abdominal pain, Abdominal pain in the left upper quadrant Providers: Garret Clarke DO Referring MD: Garret Clarke DO Medicines: Monitored Anesthesia Care Patient Profile: This is a 32 year old female. Refer to note in patient chart for documentation of history and physical. Patient has symptoms of chronic epigastric abdominal pain and chronic dyspepsia. Complications: No immediate complications. Procedure: Pre-Anesthesia Assessment: - Prior to the procedure, a History and Physical was performed, and patient medications and allergies were reviewed. The risks and benefits of the procedure and the sedation options and risks were discussed with the patient. All questions were answered and informed consent was obtained. Patient identification and proposed procedure were verified by the physician in the pre-procedure area. Mental Status Examination: alert and oriented. Airway Examination: normal oropharyngeal airway and neck mobility. Respiratory Examination: clear to auscultation. CV Examination: normal. Prophylactic Antibiotics: The patient does not require prophylactic antibiotics. Prior Anticoagulants: The patient has taken no anticoagulant or antiplatelet agents. ASA Grade Assessment: II - A patient with mild systemic disease. After reviewing the risks and benefits, the patient was deemed in satisfactory condition to undergo the procedure. The anesthesia plan was to use monitored anesthesia care (MAC). Immediately prior to administration of medications, the patient was re-assessed for adequacy to receive sedatives. The heart rate, respiratory rate, oxygen saturations, blood pressure, adequacy of pulmonary ventilation, and response to care were monitored throughout the procedure. The physical status of the patient was re-assessed after the procedure. After obtaining informed consent, the endoscope was passed under direct vision. Throughout the procedure, the patient's blood pressure, pulse, and oxygen saturations were monitored continuously. The Endoscope was introduced through the mouth, and advanced to the second part of duodenum. The upper GI endoscopy was accomplished without difficulty. The patient tolerated the procedure well. Scope In: 7:40:48 AM Scope Out: 7:45:30 AM Total Procedure Duration Time 0 hours 4 minutes 42 seconds Findings: No gross lesions were noted in the entire esophagus. The Z-line was irregular and was found 39 cm from the incisors. Biopsies were taken with a cold forceps for histology. Verification of patient identification for the specimen was done. Estimated blood loss was minimal. Clear fluid was found in the gastric body. Fluid aspiration was performed. Patchy mildly erythematous mucosa without active bleeding and with no stigmata of bleeding was found in the duodenal bulb and in the first portion of the duodenum. Biopsies were taken with a cold forceps for histology. Verification of patient identification for the specimen was done. Estimated blood loss was minimal. Impression: - No gross lesions in the entire esophagus. - Z-line irregular, 39 cm from the incisors. Biopsied. - Clear gastric fluid. Fluid aspiration performed. - Erythematous duodenopathy. Biopsied. Recommendation: - Discharge patient to home. - Resume previous diet. - Continue present medications. - Await pathology results. Procedure Code(s): --- Professional --- 67038, Esophagogastroduodenoscopy, flexible, transoral; with biopsy, single or multiple CPT copyright 2021 [employer]. All rights reserved. The codes documented in this report are preliminary and upon certified professional coder review may be revised to meet current compliance requirements. Garret Clarke DO 12/19/2022 7:54:16 AM This report has been signed electronically. Number of Addenda: 0 Note Initiated On: 12/19/2022 7:30 AM
--- NOTE | 2022-12-19 07:55 | OP.CCLET_ITS ---
12/19/2022 Agus Levy [address] [place] [address] Re : Upper GI endoscopy procedure for Dania Rogers Dear Dr. Levy This procedure was performed on Monday, December 19, 2022. My impressions and recommendations are as follows: Impressions : - No gross lesions in the entire esophagus. - Z-line irregular, 39 cm from the incisors. Biopsied. - Clear gastric fluid. Fluid aspiration performed. - Erythematous duodenopathy. Biopsied. Recommendations : - Discharge patient to home. - Resume previous diet. - Continue present medications. - Await pathology results. My findings are described in the full procedure note, which is enclosed. If I can be of further assistance, please feel free to contact me at . Sincerely, Garret Clarke, 12/19/2022 7:54:16 AM This report has been signed electronically.
[2022-12-19 07:59] VITALS: BP 107/73; BP 107/74; PULSE 91; RESP 18; O2SAT 98
[2022-12-19 08:05] VITALS: BP 105/79; BP 107/74; PULSE 83; RESP 18; O2SAT 100
[2022-12-19 08:10] VITALS: BP 107/74; BP 108/82; PULSE 70; RESP 18; TEMP 35.9; O2SAT 99
[2022-12-19 08:30] VITALS: BP 107/74
== END 2022-12-19 08:41 | disposition home or self-care (01) ==
LOC: EN 06:48 → AC 06:49
PROVIDERS: PCP Family Medicine; Referring Provider Family Medicine; Visit Provider Internal Medicine Gastroenterology
PROC: 0DJ08ZZ Inspection of Upper Intestinal Tract, Via Natural or Artificial Opening Endoscopic (ICD-10-PCS; CPT 43235; principal; 2022-12-19 07:40)
DX: K20.90 Esophagitis, unspecified without bleeding (principal); Z87.891 Personal history of nicotine dependence; Z87.19 Personal history of other diseases of the digestive system
CPT/HCPCS: 43239; 88305; 88313; J7120

== ENCOUNTER → 2023-01-23 | Outpatient (CLI) | payer MEDICAID, SELFPAY ==
--- NOTE | 2023-01-23 12:22 | US_ITS ---
STUDY: ULTRASOUND OF THE FEMALE PELVIS - LIMITED REASON FOR EXAM: Female, 32 years old pelvic pressure -- PATIET HAS A NUVA RING TECHNIQUE: Transabdominal and Transvaginal TECHNICAL QUALITY: Adequate. COMPARISON: 10/08/2021 FINDINGS: The uterus is anteverted and is in a midline position. The uterus measures 7.4 x 5.4 x 3.9 cm. Normal uterine cervix. The endometrium measures 6 mm in thickness, and is hyperechoic. There is no demonstrated endometrial mass. There is no demonstrated myometrial mass. The right ovary measures 2.9 x 2.8 x 2.0 cm. There is no right ovarian cyst or ovarian mass. There is no visualized right adnexal mass or complex lesion. There is normal arterial and normal venous vascularity. The left ovary measures 2.8 x 2.9 x 1.8 cm. There is no left ovarian cyst or ovarian mass. There is no visualized left adnexal mass or complex lesion. There is normal arterial and normal venous vascularity. There is no fluid in the cul-de-sac. US/Pelvic (Non ) IMPRESSION: Normal female pelvis. Electronically Signed: Raul Rees MD at 23:24 EDT ,
== END | disposition home or self-care (01) ==
LOC: OPUS 12:22
PROVIDERS: PCP Family Medicine; Referring Provider Obstetrics & Gynecology; Visit Provider Obstetrics & Gynecology
DX: R10.2 Pelvic and perineal pain (principal)
CPT/HCPCS: 76830; 76856

== ENCOUNTER → 2023-01-31 | Outpatient (CLI) | payer MEDICAID, SELFPAY ==
--- NOTE | 2023-01-31 09:29 | NM_ITS ---
CLINICAL: 33-year-old female with history of clinical gastroparesis. SEMI-SOLID PHASE 99m Tc SULFUR COLLOID GASTRIC EMPTYING STUDY COMPARISON: None available FINDINGS: The patient was administered 1.2 mCi of 99m Tc sulfur colloid mixed with oatmeal and consumed per os. Image acquisitions in the anterior-posterior projections were obtained for 60 minutes. There is prompt visualization of the stomach. There is no gastroesophageal reflux identified. First order kinetics are maintained throughout the duration of the acquisitions. The T ? linear fit was extrapolated to be 102.93 minutes, (Normal: 12-56 minutes). NM/Gastric Emptying Study IMPRESSION: 1. ABNORMAL 99m Tc sulfur colloid semi-solid phase (oatmeal) gastric emptying imaging examination. A. There is delayed semi-solid phase gastric emptying compared to normal controls.. (Krishna et al, J Nucl Med Tech 38: 186, 2010). Electronically Signed: Raul Bhatia DO at 22:26 EST ,
== END | disposition home or self-care (01) ==
LOC: NM 09:28
PROVIDERS: PCP Family Medicine; Referring Provider Internal Medicine Gastroenterology; Visit Provider Internal Medicine Gastroenterology
DX: K30 Functional dyspepsia (principal)
CPT/HCPCS: 78264; A9541

== ENCOUNTER 2023-04-15 00:54 | Emergency (ER) | payer MEDICAID, SELFPAY ==
[2023-04-15 00:55] VITALS: BP 111/68; PULSE 97; RESP 18; TEMP 37.1; O2SAT 97; BMI 27.6
--- NOTE | 2023-04-15 01:12 | EX.ED.DYSGE1 ---
HPI History of Present Illness Chief Complaint: Other, Pain/Inj Detail of Chief Complaint: Right-sided scalp pain and swelling that is now resolved. Informant: patient Onset/Context/Timing Onset: Today and Hours Context: Gradual Onset Timing: Intermittent Current Severity: Gone Maximum Severity: Mild Narrative Narrative: 33-year-old female past medical history of anxiety, fibromyalgia, chronic pain and Jarett-Danlos syndrome. States that she has been on amoxicillin for 10 days it is now over about several days ago. She is finished it. Complaining of right-sided scalp pain that was swollen and now it is resolved. And she is pain-free. No nausea. No nasal drainage. No fever. No trauma. No headache. Prior similar symptoms: No Recent Illness/Hospitalization: No PFSH PFSH Medical History Anxiety Back pain Bile duct leak Chest pain Chronic pain Difficulty swallowing Fibromyalgia Former smoker Gastric reflux GERD (gastroesophageal reflux disease) Hirsutism History of echocardiogram History of edema History of IBS History of irregular heartbeat History of pain when walking History of ulceration Hx of vaginal delivery IBS (irritable bowel syndrome) Leg cramps Liver disease Loose, teeth MRSA infection macrosomia PCOS (polycystic ovarian syndrome) Personal history of colonic polyps depression psychosis Seizures Smoker Umbilical hernia Home Medications NK 04/15/23 [History Last Taken Unknown] Family History Aunt Diabetes Mother Autosomal recessive severe combined immunodeficiency disease Other Anemia Anxiety Arthritis Asthma Breast cancer Cancer Depression Epilepsy Heart disease Surgical History History of esophagogastroduodenoscopy (EGD) History of tonsillectomy History of wisdom tooth extraction, class II edentulism Hx of colonoscopy Social History current occupational status: student current occupation: [employer] Smoking Status: Former smoker alcohol intake: never substance use type: does not use caffeine: Yes what type of physical activity do you participate in: walking and aerobics frequency: 1-2 times per week seatbelt use: always do you feel safe at home: Yes additional social history: Single ROS ROS ED ROS Narrative Right scalp pain and swelling that is since resolved. Review of Systems ROS Unobtainable: Denies due to encephalopathy Constitutional Constitutional ED: Denies chills or fever(s) Eyes Eyes: Denies blurry vision ENT ENT ED: Denies ear pain Cardiovascular Cardiovascular: Denies chest pain Respiratory/Chest Respiratory/Chest: Denies cough or dyspnea Gastrointestinal Gastrointestinal: Denies abdominal pain Genitourinary Genitourinary ED: Denies dysuria or hematuria Musculoskeletal Musculoskeletal: Denies arthralgias or back pain Integumentary Denies abscess Neurologic Neurologic: Denies headache(s), paresthesias or weakness Psychiatric Psychiatric: Denies anxiety or depression Endocrine Endocrinology: Denies cold intolerance Hematologic/Lymphatic Hematologic/Lymphatic: Reports none Allergic/Immunologic Allergic/Immunologic ED: Denies mouth swelling, tongue swelling or urticaria EXAM Physical Exam Narrative Exam Narrative: Well-appearing 33-year-old female. Vital signs stable afebrile. HEENT exam normal. Given reactive light. Dentition unremarkable. No swelling. No tenderness. Dentition in good condition. Posterior pharynx normal. No gingivitis. No abscess. No trismus. Frontal and maxillary sinuses nontender. No nasal drainage. TMs normal. Right side of her scalp currently there is no swelling, tenderness, redness or lymphadenopathy. No signs of trauma. She admits that has resolved. Neck nontender no lymphadenopathy. Lungs clear to auscultation bilaterally. Heart regular rhythm rate about 95 no murmur. Chest wall and ribs nontender. Abdomen soft nontender. Back nontender. Moving all 4 extremities. 5-5 applications coordinator strength. Dorsi plantarflexion intact. Calves are nontender without edema or cords. Neurologically she is awake alert no focal motor deficits. Const Vital Signs: 04/15/23 00:55 Temperature 98.7 F Temperature Source Oral Pulse Rate 97 Respiratory Rate 18 Blood Pressure 111/68 Blood Pressure Mean 82 Pulse Ox 97 Positive well nourished and well developed; Negative for obese, cachectic, contractures or unkempt General Appearance ED: well developed and NAD; Negative for unkempt, cachectic, contractures, cyanotic, diaphoretic or pallor Nutritional Appearance: Negative for cachectic or obese HEENT Reports TM's clear and moist mucous membranes; Denies dry mucous membranes or other Negative for trauma, tenderness or other Tympanic Membrane ED: Yes TM's clear Mouth ED: No dry mucous membranes Mouth: No dry mucous membranes Eyes PERRL and EOMs intact bilaterally General Eye ED: Negative for pale conjunctiva or scleral icterus Neck no lymphadenopathy, supple and no JVD General: Negative for tenderness Lymph Lymphatic: Negative for other Chest Wall inspection of chest normal and palpation of chest normal Chest: Negative for other Resp normal respiratory effort and clear to auscultation bilaterally Effort and Inspection: Negative for retractions Auscultation: Negative for rales, rhonchi or wheezes Cardio regular rate, regular rhythm, S1 normal heart sound, S2 normal heart sound and no murmurs Palpation: Negative for palpable S3 or palpable S4 Rate: Negative for bradycardia or tachycardic Rhythm: Negative for abnormal rhythm GI normal to inspection, nondistended, normoactive bowel sounds, non-tender, non-distended and no masses Inspection: Negative for abdominal distention Auscultation: normoactive bowel sounds Palpation: soft; Negative for tender or guarding Back/Spine no CVA tenderness General Back: Negative for CVA tenderness Cervical Spine: Negative for cervical spine tenderness Thoracic Spine / Upper Back: Negative for thoracic spinal tenderness or paraspinal muscle tenderness Lumbar Spine / Lower Back: Negative for lumbar spinal tenderness Extremity normal to inspection General Extremety ED: Negative for edema or tenderness General Extremity: Negative for edema Neuro oriented x3 and CN's II-XII intact bilaterally Sensorium / Orientation: alert; Negative for orientation impaired, lethargic or stuporous Motor Exam: strength 5/5 throughout Psych mental status grossly normal Appearance: Negative for unkempt Attitude: No agitated Mood & Affect: Negative for depressed, anxious or tearful Skin no rashes or lesions noted, no wounds and skin turgor normal General Skin Exam: elasticity normal; Negative for jaundice or pallor Lesions: No lesion noted Rashes: No rashes noted Trauma: Negative for abrasion Wounds: Negative for wounds noted MDM MDM MDM Narrative Medical decision making narrative: 33-year-old female complains of swelling to her right scalp and pain and now is completely resolved. She is a normal exam. She does not need antibiotics. She can use Motrin and Tylenol for pain. Outpatient follow-up with primary care physician if it returns. Discharge Plan Triage Chief Complaint: Other, Pain/Inj ED Provider: Srikanth Mendez Dx/Rx/DC Orders Clinical Impression: Head pain Instructions: ED Pain, Acute, Uncertain Cause Prescriptions: No Action NK Primary Care Provider: Agus Levy Referrals: Agus Levy, DO [Primary Care Provider] - 1 Week if not improving Activity Restrictions/Additional Instructions: Motrin and Tylenol for pain. You do not need any antibiotic at this time. Follow-up with your doctor if not improving. Disposition Disposition: Home, Self Care
--- OUTSIDE RECORDS SUMMARY | 2023-04-15 01:20 | XMS RPT_ITS | CCD ---
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 Name Role Phone Anisa Gilbert MD Unavailable [phone] JENNIFER Perez RN, Katelyn Mills Unavailable Unavailabl e NEORI READ JACLYN Unavailable Unavail able MARLY FARRAH L Unavailable Unavailable NEYLOWELLT JACEK JACLYN Unavailable Unavail able NEYLOWELLT JCAEK JACLYN Unavailable Unavail able MARLY FARRAH L Unavailable Unavailable NEYLOWELLT JACEK, JACLYN Unavailable Unavail able MARLY FARRAH L Unavailable Unavailable MARLY, FARRAH L Unavailable Unavailable Unknown, Referring Provider Unavailable Unav ailable Semajflavia DO Valarie A Primary Care Provider [phone] Tucker Dunham MD Unavailable Jevon WILLS Valarie A Primary Care Provider Tucker Dunham MD Unavailable [phone] Anisa Gilbert MD Unavailable [phone] Anisa Gilbert MD Unavailable [phone] Thorpe RN Unavailable Unavailable Katelyn Jimenez CGC Unavailable GRUPO LEVY Referring Unavailable GRUPO LEVY Primary Care Unavailable KATELYN JIMENEZ Attending Unavailable REFERRED, SELF Referring Unavailable KATELYN JIMENEZ Attending Unavailable MALYS VALARIE A Primary Care Unavailable MALYS, VALARIE A Primary Care Unavailable YURIDIA GARDNER Referring Unavailable YURIDIA GARDNER Attending Unavailable Allergies Allergy Classification Reported Allergen(s) Allergy Type Date of Onset Reaction(s) Facility (2 sources) Corticosteroids drug allergy unsure of reaction [facility] (2 sources) PARoxetine Drug Allergy 11-04-[address] [facility] (2 sources) venlafaxine Drug Allergy 11-04-19 16 Tremor, swelling, possible hives [facility] (1 source) betamethasone; Translations: [BETAMETHASONE DIPROPIONATE] Drug Allergy 10-08-19 11 [facility] Rep[facility] (3 sources) Corticosteroids; Translations: [CORTICOSTEROIDS] Propensity to adverse reactions 10-08-19 11 Other (See Comments) [facility] (3 sources) PARoxetine; Translations: [PAROXETINE] Drug Allergy 11-04-19 16 Other (See Comments) [facility] (3 sources) venlafaxine; Translations: [VENLAFAXINE] Drug Allergy 11-04-19 16 Other (See Comments) [facility] Medications Current Medications Medication Drug Class(es) Dates Sig (Normalized) Sig (Original) Vit-Fe Fumarate-FA ( 1+1 PO) (2 sources) Vit-Fe Fumarate-FA ( 1+1 PO) Take 1 Tablet by mouth 0 Active Completed/Discontinued Medications Medication Drug Class(es) Dates Sig (Normalized) Sig (Original) azithromycin 250 mg oral tablet (4 sources) Macrolide Antimicrobial Start: 04-20-2015 End: 01-10-2017 take 2 tablets by mouth once, then take 1 tablet by mouth once daily, then take 2-5 tablets by mouth AZITHROMYCIN 250 MG TABS 2 po on day 1 then 1 po daily on days 2-5 AZITHROMYCIN [id number] Anisa Gilbert MD cyclobenzaprine hydrochloride 10 mg oral tablet (4 sources) Muscle Relaxant Start: 04-20-2015 End: 01-10-2017 take 1 tablet by mouth every eight hours as needed for muscle spasms CYCLOBENZAPRINE HCL 10 MG TABS 1 po every 8 hours as needed for muscle spasm CYCLOBENZAPRINE HCL [id number] Anisa Gilbert MD FLUoxetine 20 mg oral capsule (4 sources) Serotonin Reuptake Inhibitor Start: 11-04-2015 End: 01-10-2017 take 1 capsule by mouth once daily FLUOXETINE HCL 20 MG CAPS One capsule by mouth daily FLUOXETINE HCL [id number] Grupo Levy DO hyoscyamine sulfate 0.125 mg oral tablet (4 sources) Start: 05-05-2014 End: 01-10-2017 take 1 tablet by mouth three times daily 30 minutes before bedtime HYOSCYAMINE SULFATE 0.125 MG TABS 1 po 30 minutes before eating three times/day and at bedtime HYOSCYAMINE SULFATE [id number] Valarie Escoto DO naproxen sodium 220 mg oral tablet (6 sources) Nonsteroidal Anti-inflammatory Drug Start: 05-05-2014 End: 01-10-2017 ALEVE 220 MG TABS Two tablets as needed for pain NAPROXEN SODIUM [id number] Valarie Escoto DO PARoxetine hydrochloride 10 mg oral tablet (4 sources) Serotonin Reuptake Inhibitor Start: 04-20-2015 End: 11-04-2015 take 1 tablet by mouth once daily PAXIL 10 MG TABS 1 po daily PAROXETINE HCL [id number] Grupo Levy DO 24 hr venlafaxine 37.5 mg extended release oral capsule (20 sources) Serotonin and Norepinephrine Reuptake Inhibitor Start: 04-20-2015 End: 11-04-2015 take 1 capsule by mouth once daily, then take 1 capsule by mouth every other day EFFEXOR XR 75 MG [id number] 1 po daily x 7 days then 1 po every other day VENLAFAXINE HCL [id number] Grupo Levy DO Problems Active Problems Problem Classification Problem Date Documented Da te Episodic/Chronic Anxiety disorders (2 sources) Mixed anxiety and depressive disorder; Translations: [Other specified anxiety disorders] Onset: 05-05-2014 05-05-2014 Chronic Lung disease due to external agents (4 sources) Reactive airways dysfunction syndrome; Translations: [Other asthma] Onset: 05-05-2014 Resolved: 01-10-2017 05-05-2014 Chronic Menstrual disorders (4 sources) Amenorrhea; Translations: [Amenorrhea, unspecified] Onset: 05-05-2014 Resolved: 01-10-2017 01-10-2017 Chronic Other and unspecified benign neoplasm (3 sources) History of polyp of colon; Translations: [Personal history of colonic polyps] Episodic Other and unspecified benign neoplasm (1 source) Tubular adenoma ; Translations: [Benign neoplasm, unspecified site] 01-25-2023 Episodic Other congenital anomalies (1 source) Jarett-Danlos syndrome; 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, unspecified] 12-10-2021 Chronic Other gastrointestinal disorders (2 sources) Irritable bowel syndrome; Translations: [Irritable bowel syndrome without diarrhea] Onset: 05-05-2014 05-05-2014 Chronic Unclassified (3 sources) 37 weeks gestation of ; Translations: [28 weeks gestation of ] Onset: 11-14-2016 01-16-2017 Past or Other Problems Problem Classification Problem Date Documented Da te Episodic/Chronic Abdominal pain (4 sources) Generalized abdominal pain; Translations: [Generalized abdominal pain] Onset: 05-05-2014 Resolved: 01-10-2017 05-05-2014 Episodic Immunizations and screening for infectious disease (3 sources) Exposure to communicable disease; Translations: [Encounter for immunization] Onset: 11-04-2015 Resolved: 11-14-2015 11-04-2015 Episodic Malaise and fatigue (4 sources) Fatigue; Translations: [Other fatigue] Onset: 05-05-2014 Resolved: 01-10-2017 01-10-2017 Episodic Normal and/or delivery (7 sources) Gestation period, 36 weeks; Translations: [Gestation period, 35 weeks] Onset: 11-14-2016 01-10-2017 Episodic Other complications of (4 sources) Uterine size for dates discrepancy; Translations: [High risk ] Onset: 01-03-2017 01-03-2017 Episodic Other complications of (3 sources) Abnormal findings on screening of mother; Translations: [Abnormal chromosomal and genetic finding on screening of mother] Onset: 12-03-2021 Episodic Other connective tissue disease (6 sources) Fibromyositis; Translations: [Muscle pain] Onset: 05-05-2014 Resolved: 01-10-2017 11-04-2015 Episodic Other nervous system disorders (4 sources) Numbness of limbs; Translations: [Paresthesia of skin] Onset: 06-24-2014 Resolved: 01-10-2017 06-24-2014 Episodic Other non-traumatic joint disorders (4 sources) Joint pain; Translations: [Pain in unspecified joint] Onset: 05-05-2014 Resolved: 01-10-2017 01-10-2017 Episodic Other upper respiratory infections (4 sources) Acute maxillary sinusitis; Translations: [Acute maxillary sinusitis, unspecified] Onset: 04-20-2015 Resolved: 01-10-2017 01-10-2017 Episodic Spondylosis; intervertebral disc disorders; other back problems (4 sources) Low back pain; Translations: [Low back pain] Onset: 04-20-2015 Resolved: 01-10-2017 01-10-2017 Episodic Results Test Name Value Interpretation Reference Range Facil ity Vital Signs Date Time Vital Sign Value Performing Clinician Katelyn carrasco 01-16-2017 08:11-0400 BMI (Body Mass Index) 34.34 kg/m2 Anisa Gilbert MD [facility] 01-16-2017 08:11-0400 Body Temperature 96.6 [degF] Anisa Gilbert MD [facility] 01-16-2017 08:11-0400 BP Diastolic 73 mm[Hg] Anisa Gilbert MD [facility] 01-16-2017 08:11-0400 BP Systolic 116 mm[Hg] Anisa Gilbert MD [facility] 01-16-2017 08:11-0400 Pulse (Heart Rate) 95 /min Anisa Gilbert MD [facility] 01-16-2017 08:11-0400 Respiratory Rate 16 /min Anisa Gilbert MD [facility] 01-16-2017 08:11-0400 Weight 96.53 kg Anisa Gilbert MD [facility] 11-04-2015 08:14-0400 BSA (Body Surface Area) 1.89 m2 Anisa Gilbert MD [facility] 05-05-2014 14:32-0500 Height 167.64 cm Anisa Gilbert MD [facility] Encounters Encounter Date Encounter Type Care Provider Facility Start: 02-27-2023 End: 02-27-2023 ambulatory GRUPO Mills [facility] Start: 01-25-2023 End: 01-26-2023 ambulatory VALARIE ESCOTO [facility] Start: 01-25-2023 End: 01-25-2023 ambulatory SELF REFERRED [facility] Start: 01-25-2023 End: 01-25-2023 Subsequent hospital visit by physician Yuridia Gardner MD Work Phone: [facility] Procedures Date Procedure Procedure Detail Performing Clinician Start: 06-25-2021 Nonphysician telephone assessment 21-30 min Referring Provider Unknown Start: 01-16-2017 End: 01-16-2017 Routine OB Visit (Global) Anisa boucher MD Work Phone: Start: 01-10-2017 End: 01-10-2017 Routine OB Visit (Global) Anisa boucher MD Work Phone: Start: 01-10-2017 End: 01-11-2017 Streptococcus agalactiae DNA [Presence] in Unspecified specimen by JUAN A with probe detection Anisa Gilbert MD Work Phone: Start: 01-03-2017 End: 01-03-2017 Routine OB Visit (Global) Anisa boucher MD Work Phone: Start: 01-03-2017 End: 01-17-2017 Us preg uterus real time f/u trnsabdl per fetus Anisa Gilbert MD Work Phone: Start: 11-04-2015 End: 11-05-2015 *CHLGC - Chlamydia/GC DNA Probe [id number] Grupo Levy DO Work Phone: Start: 05-05-2014 End: 05-09-2014 *MATT Valarie Escoto, DO Work Phone: Start: 05-05-2014 End: 05-06-2014 *B12FO Vitamin B12 and Folates Valarie machuca, DO Work Phone: Start: 05-05-2014 End: 05-06-2014 *CBC with Differential Valarie Escoto, DO Work Phone: Start: 05-05-2014 End: 05-08-2014 *CELIAC Celiac Disease [place] [id number] Valarie Escoto, DO Work Phone: Start: 05-05-2014 End: 05-06-2014 *CMP Complete Metabolic Panel Valarie alejandro, DO Work Phone: Start: 05-05-2014 End: 05-09-2014 1,25-Dihydroxyvitamin D [Mass/volume] in Serum or Plasma Valarie Escoto, DO Work Phone: Start: 05-05-2014 End: 05-06-2014 C reactive protein [Mass/volume] in Serum or Plasma by High sensitivity method Valarie Escoto, DO Work Phone: Start: 05-05-2014 End: 05-06-2014 Choriogonadotropin ( test) [Presence] in Serum or Plasma Valarie Escoto, DO Work Phone: Start: 05-05-2014 End: 05-06-2014 Erythrocyte sedimentation rate Valarie machuca DO Work Phone: Start: 05-05-2014 End: 05-06-2014 Ferritin [Mass/volume] in Serum or Plasma Valarie Escoto, DO Work Phone: Start: 05-05-2014 End: 05-06-2014 Iron and Iron binding capacity panel - Serum or Plasma Valarie Escoto, DO Work Phone: Start: 05-05-2014 End: 05-06-2014 Rheumatoid factor [Units/volume] in Serum or Plasma Valarie Escoto, DO Work Phone: Start: 05-05-2014 End: 05-06-2014 Thyrotropin [Units/volume] in Serum or Plasma Valarie Escoto, DO Work Phone: Start: 05-05-2014 End: 05-06-2014 Thyroxine (T4) free [Mass/volume] in Serum or Plasma Valarie Escoto, DO Work Phone: Start: 05-05-2014 End: 05-06-2014 Triiodothyronine (T3) [Mass/volume] in Serum or Plasma Valarie Escoot, DO Work Phone: Plan of Treatment Date Care Activity Detail Author Start: 05-26-2023 End: 05-26-2023 Patient encounter procedure 05/26/2023 11:45 AM EST Office Visit Griselda Mckinney [place], [place] [id number] [place] [address] [facility] Start: 02-27-2023 End: 02-27-2023 Professional / ancillary services management 02/27/2023 10:00 AM EST Telehealth Ancillary [facility] Wade South[place]jeana Mckinney [place], [place] [id number] Katelyn Jimenez CGC [place], [place] [id number] [facility] Start: 11-25-2022 FLU (#1) FLU (#1) [facility] Start: 12-30-2021 End: 12-30-2021 Professional / ancillary services management 12/30/2021 Ancillary Procedure Visit [facility] Start: 11-25-2021 FLU (#1) FLU (#1) [facility] Start: 01-24-2017 End: 01-24-[address] [facility] Start: 01-10-2017 End: 01-11-2017 Streptococcus agalactiae DNA [Presence] in Unspecified specimen by JUAN A with probe detection *GBSD - Group B Strep, DNA by PCR [facility] Start: 01-03-2017 End: 01-17-2017 Us preg uterus real time f/u trnsabdl per fetus US uterus, re-evaluation of size or follow up [facility] Start: 11-04-2015 End: 11-05-2015 *CHLGC - Chlamydia/GC DNA Probe [id number] *CHLGC - Chlamydia/GC DNA Probe [id number] [facility] Start: 04-20-2015 End: 04-20-2015 Physical Therapy General [facility], [address] [place] [address], [place], [address] [facility] Start: 06-24-2014 End: 06-24-2014 EMG EMG [facility] Start: 06-24-2014 End: 06-24-2014 Nerve Conduction Nerve Conduction [facility] Start: 05-05-2014 End: 05-09-2014 *MATT *MATT [facility] Start: 05-05-2014 End: 05-06-2014 *B12FO Vitamin B12 and Folates *B12FO Vitamin B12 and Folates [facility] Start: 05-05-2014 End: 05-06-2014 *CBC with Differential *CBC with Differential [facility] Start: 05-05-2014 End: 05-08-2014 *CELIAC Celiac Disease AB [id number] *CELIAC Celiac Disease AB [id number] [facility] Start: 05-05-2014 End: 05-06-2014 *CMP Complete Metabolic Panel *CMP Complete Metabolic Panel [facility] Start: 05-05-2014 End: 05-09-2014 1,25-Dihydroxyvitamin D [Mass/volume] in Serum or Plasma *[id number] Vitamin D, 1, 25- DiHydroxy [facility] Start: 05-05-2014 End: 05-06-2014 C reactive protein (hsCRP) *CRP - C-Reative Protein [facility] Start: 05-05-2014 End: 05-06-2014 Erythrocyte sedimentation rate *Sedimentation Rate (ESR) [facility] Start: 05-05-2014 End: 05-06-2014 Ferritin *Ferritin [facility] Start: 05-05-2014 End: 05-06-2014 HCG ( test) Ql *PREGS - Qualitative, Serum [facility] Start: 05-05-2014 End: 05-06-2014 Iron and Iron binding capacity panel - Serum or Plasma *IBC Iron & Total Iron Binding Capacity [facility] Start: 05-05-2014 End: 05-06-2014 Rheumatoid factor *RA Rheumatoid Factor - Quaint [facility] Start: 05-05-2014 End: 05-06-2014 Thyroid stimulating hormone (TSH) *TSH [facility] Start: 05-05-2014 End: 05-06-2014 Thyroxine (T4) free *T4 free [facility] Start: 05-05-2014 End: 05-06-2014 Triiodothyronine (T3) *T3-Total [facility] Start: 01-26-2013 Microscopic observation [Identifier] in Cervix by Cyto stain Pap Smear [facility] Start: 2008 MenB (1 of 2 - MenB 2-Dose Series Bexsero) MenB (1 of 2 - MenB 2-Dose Series Bexsero) [facility] Start: 2008 MenB (1 of 2 - MenB 2-Dose Series) MenB (1 of 2 - MenB 2-Dose Series) [facility] Start: 01-26-1999 Tetanus Diphtheria and Pertussis Vaccines (1 - Tdap) Tetanus Diphtheria and Pertussis Vaccines (1 - Tdap) [facility] Start: 01-26-1993 MMR (1 of 1 - Standard series) MMR (1 of 1 - Standard series) [facility] Start: 01-26-1993 Varicella (1 of 2 - 2-dose childhood series) Varicella (1 of 2 - 2-dose childhood series) [facility] Start: 1992 COVID-19 (#1) COVID-19 (#1) [facility] Start: 1992 Hepatitis B (1 of 3 - 3-dose series) Hepatitis B (1 of 3 - 3-dose series) [facility] Genetic Sendout: Cus brittany Panel Genetic Sendout: Custom Panel Lab Routine Tubular adenoma 01/25/2023 12:07 PM EDT [facility] Work Phone: End: 12-03-2021 Panorama Test: Chromosomes 13, 18, 21, X&Y, Triploidy, Optional 22Q 11.2 Deletion [facility] Work Phone: Payers Date Payer Category Payer Unknown 1990 Unknown [id number] 1992 Unknown [id number]. [id number] 1992 Unknown [id number] 16. [id number] Unknown [id number] Unknown [id number] Social History Date Type Detail Facility Start: 12-03-2021 Tobacco smoking status NHIS Ex-smoker [facility] End: 03-27-2020 History of tobacco use Current smoker [facility] End: 03-27-2020 History of tobacco use Cigarette Smoker [facility] Start: 12-03-2021 Tobacco use and exposure Smokeless tobacco non-user [facility] Start: 12-03-2021 Alcohol intake Lifetime non-d vito (finding) [facility] Start: 08-24-2021 [facility] Start: 1990 Sex Assigned At Not on file [facility] Start: 11-23-2021 End: 12-03-2021 Exposure to SARS-CoV-2 (event) Not sure [facility] Start: 12-03-2021 History of Social function [facility] Start: 12-03-2021 Tobacco use panel [facility] NEGATED: Highlighted rowStart: NINF History of tobacco use Passive smoker [facility] Evaluation note Note Date & Type Note Facility documented in this encounter [facility] Evaluation note Note Date & Type Note Facility documented in this encounter [facility] History of Present illness Narrative Note Date & Type Note Facility History of Present illness Narrative Ms. Dania Rogers is a 31-year-old female who recently underwent her first colonoscopy and was found to have two colon polyps, including one tubular adenoma. Given the finding of multiple polyps at a young age, she was referred to the [facility]etics [facility] at [facility] by Farrah Mendoza NP ([facility]).Personal history of cancer? NoPrior genetic testing? NoPatient's history is significant for two polyps detected and removed via polypectomy in Mar 2021:- hyperplastic polyp in the transverse colon- tubular adenoma in the rectosigmoid colonAdditional PHMX: PCOS, mitral valve prolapse (resolved), fibromyalgia, possible connective tissue disorder (?), febrile seizures as a child, hirsutism, anxietyCANCER SCREENING HX:Mammograms/breast MRIs? No. No history of breast biopsies.Gynecologic exams? Annual. Has not had hysterectomy. Retains ovaries.- PAP smear? Most recent 2021 - negative. No history of abnormal PAP smears.- Vaginal ultrasound? She had a transvaginal u/s in May 2021 - PCOSColonoscopy? Yes- She presented for an initial colonoscopy in Jan 2021 (due to IBS symptoms) but prep was incomplete, so she underwent repeat colonoscopy in Mar 2021. 2 colon polyps were detected and removed via polypectomy: one hyperplastic polyp, one tubular adenoma.- Longer than typical colon (10 ft long), moderately tortuous.- GI recommended follow up in 3 years.Upper endoscopy? Yes x 1, in Jan 2021, gastric ulcers per patient (report not available). She is going back later in June for repeat EGD. She was given Protonix for the gastric ulcers.Dermatology? Has not seen a toll booth operator.- However, she reports that she has a few white irvin , that she thinks are increasing in size. Both spots are on her thigh/near hip (on each side). She also reports that she has darker pigmented beauty spots on her back, not textured or raised, and that these are new within the last couple years. Of note: a physical exam was not performed at the time of this visit.Other cancer screening? NoREPRODUCTIVE HX:# Children: 3# Pregnancies: 3Age first : 21Breast feeding?: Yes, 2.5 years totalMenarche at age 14.Premenopausal. Has IUD currently.OCP: 1 month total (3 years ago)HRT: NoSOCIAL HX:Former smoking history, on and off for a few years, quit at age 28.Rare alcohol use.Marijuana use in the past but no other drug use.FAMILY HISTORYA 4-generation pedigree was obtained and was significant for the following:- Paternal grandmother: breast cancer dx in her 50s-60s, multiple myeloma dx in her 70s, +smoker- Maternal grandfather: lung cancer dx 80s, +smoker- Paternal great aunt: cancer, unknown type- Paternal first cousin: skin cancer at age 33 (redhead, fair skin, +sun exp.)- Maternal great aunt: ovarian cancer in her 60s- Maternal great aunt: uterine cancer in her 60s- Maternal great aunt: breast and uterine cancer in her 50s- Mother's first cousins (aka Dania's first cousins once-removed) with history of kidney, colon, lung, and cervical cancer, respectively.Ms. Rogers reports that her maternal and paternal ancestry is . She has Ashkenazi Religious ancestry on her mother's side (MGM's mother was Ashkenazi Religious). Consanguinity was denied. [id number] 1500 Work Phone: History of Present illness Narrative Note Date & Type Note Facility History of Present illness Narrative Ms. Dania Rogers is a 31-year-old female who recently underwent her first colonoscopy and was found to have two colon polyps, including one tubular adenoma. Given the finding of multiple polyps at a young age, she was referred to the [facility] at [facility] by Farrah Mendoza NP ([facility]).Personal history of cancer? NoPrior genetic testing? NoPatient's history is significant for two polyps detected and removed via polypectomy in Mar 2021:- hyperplastic polyp in the transverse colon- tubular adenoma in the rectosigmoid colonAdditional PHMX: PCOS, mitral valve prolapse (resolved), fibromyalgia, possible connective tissue disorder (?), febrile seizures as a child, hirsutism, anxietyCANCER SCREENING HX:Mammograms/breast MRIs? No. No history of breast biopsies.Gynecologic exams? Annual. Has not had hysterectomy. Retains ovaries.- PAP smear? Most recent 2021 - negative. No history of abnormal PAP smears.- Vaginal ultrasound? She had a transvaginal u/s in May 2021 - PCOSColonoscopy? Yes- She presented for an initial colonoscopy in Jan 2021 (due to IBS symptoms) but prep was incomplete, so she underwent repeat colonoscopy in Mar 2021. 2 colon polyps were detected and removed via polypectomy: one hyperplastic polyp, one tubular adenoma. Longer than typical colon (10 ft long), moderately tortuous.- GI recommended follow up in 3 years.Upper endoscopy? Yes x 1, in Jan 2021, gastric ulcers per patient (report not available). She is going back later in June for repeat EGD. She was given Protonix for the gastric ulcers.Dermatology? Has not seen a toll booth operator.- However, she reports that she has a few white irvin , that she thinks are increasing in size. Both spots are on her thigh/near hip (on each side). She also reports that she has darker pigmented beauty spots on her back, not textured or raised, and that these are new within the last couple years. Of note: a physical exam was not performed at the time of this visit.Other cancer screening? NoREPRODUCTIVE HX:# Children: 3# Pregnancies: 3Age first : 21Breast feeding?: Yes, 2.5 years totalMenarche at age 14.Premenopausal. Has IUD currently.OCP: 1 month total (3 years ago)HRT: NoSOCIAL HX:Former smoking history, on and off for a few years, quit at age 28.Rare alcohol use.Marijuana use in the past but no other drug use.FAMILY HISTORYA 4-generation pedigree was obtained and was significant for the following:- Paternal grandmother: breast cancer dx in her 50s-60s, multiple myeloma dx in her 70s, +smoker- Maternal grandfather: lung cancer dx 80s, +smoker- Paternal great aunt: cancer, unknown type- Paternal first cousin: skin cancer at age 33 (redhead, fair skin, +sun exp.)- Maternal great aunt: ovarian cancer in her 60s- Maternal great aunt: uterine cancer in her 60s- Maternal great aunt: breast and uterine cancer in her 50s- Mother's first cousins (aka Dania's maternal first cousins once-removed) with history of kidney, colon, lung, and cervical cancer, respectively.Ms. Rogers reports that her maternal and paternal ancestry is . She has Ashkenazi Religious ancestry on her mother's side ([facility] mother was Ashkenazi Religious). Consanguinity was denied. [email or web address] Work Phone: Summary Purpose Family History No Family History Records FoundNo Family History Records FoundNo Family History Records FoundNo Family History Records Found Advance Directives No Advanced Directives Records FoundNo Advanced Directives Records FoundNo Advanced Directives Records FoundNo Advanced Directives Records Found Chief Complaint * A telephone visit (audio only) between the patient (at the originating site) and the provider (at the distant site) was utilized to provide this telehealth service. * Verbal consent was requested and obtained from DANIA ROGERS on this date, 06/25/2021 03:15 PM , for a telehealth visit. * Personal history of colon polyps * Accompanied by alone. * A telephone visit (audio only) between the patient (at the originating site) and the provider (at the distant site) was utilized to provide this telehealth service. * Verbal consent was requested and obtained from DANIA ROGERS on this date, 06/25/2021 03:15 PM , for a telehealth visit. * Personal history of colon polyps * Accompanied by alone. * A telephone visit (audio only) between the patient (at the originating site) and the provider (at the distant site) was utilized to provide this telehealth service. * Verbal consent was requested and obtained from DANIA ROGERS on this date, 06/25/2021 03:15 PM , for a telehealth visit. * Personal history of colon polyps * Accompanied by alone. 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 Relationship Specialty Start Date End Date Valarie Escoto, DO [address] [place], [place] [id number] PCP - General Family Medicine 04/21/20 Tucker Dunham MD [address] [place] [address] 04/21/20 Anisa Gilbert MD [address] [place] [address] Referring Physician Obstetrics Gynecology 12/29/21 Anisa Gilbert MD [address] [place] [address] Attending Provider Obstetrics Gynecology 12/29/21 Eva [place], [place] [address] Registered Nurse 08/18/22 Katelyn Jimenez, [place] [address] Genetic Counselor Genetics 01/25/23 Reason for Visit (unrecogniz ed section and content) Referral ID Status Reason Start Date Expiration Date V isits Requested Visits Authorized [id number] Open Specialty Services Required 01/25/2023 01/25/2024 1 FOR RECORDS PERTAINING TO PATIENTS WHO ARE OR HAVE BEEN ENROLLED IN A CHEMICAL DEPENDENCY/SUBSTANCEABUSE PROGRAM, SOME INFORMATION MAY BE OMITTED. This clinical summary was aggregated from multiple sources. Caution should be exercised in using it in the provision of clinical care. This summary normalizes information from multiple sources, and as a consequence, information in this document may materially change the coding, format and clinical context of patient data. In addition, data may be omitted in some cases. CLINICAL DECISIONS SHOULD BE BASED ON THE PRIMARY CLINICAL RECORDS. [facility] [employer] provides no warranty or guarantee of the accuracy or completeness of information in this document.
[2023-04-15 01:22] VITALS: BP 103/86; RESP 18; O2SAT 100
== END 2023-04-15 01:27 | disposition home or self-care (01) ==
LOC: ED 01:16
PROVIDERS: Emergency Provider Emergency Medicine; PCP Family Medicine; Visit Provider Emergency Medicine
DX: R51.9 Headache, unspecified (principal); Q79.60 Ehlers-Danlos syndrome, unspecified; M79.7 Fibromyalgia; K21.9 Gastro-esophageal reflux disease without esophagitis; F41.9 Anxiety disorder, unspecified; G89.29 Other chronic pain; Z87.891 Personal history of nicotine dependence
CPT/HCPCS: 99282

== ENCOUNTER → 2023-05-10 | Outpatient (CLI) | payer MEDICAID, SELFPAY ==
--- NOTE | 2023-05-10 16:48 | CT_ITS ---
EXAM: CT MAXILLOFACIAL SINUSES WITHOUT INTRAVENOUS CONTRAST CLINICAL INDICATION: SINUSITIS TECHNIQUE: Helically acquired images were obtained of the maxillofacial sinuses without intravenous contrast. This CT exam was performed using one or more of the following dose reduction techniques: automated exposure control, adjustment of the mA and/or kV according to patient size, and/or use of iterative reconstruction technique. COMPARISON: No relevant prior studies available. FINDINGS: MAXILLARY SINUSES: There is trace mucosal thickening in the maxillary sinuses. There are no air-fluid levels. Ostiomeatal complexes are normally formed. SPHENOID SINUSES: Clear. FRONTAL SINUSES: Clear. ETHMOID AIR CELLS: Clear. NASAL CAVITY/SEPTUM: Nasal septum is midline. Nasal turbinates are unremarkable. BONES/JOINTS: Anterior cranial fossa is unremarkable. ORBITS: Unremarkable. DENTAL: Unremarkable as visualized. No periodontal osseous erosion. CT/Sinus/Facial Bone IMPRESSION: Trace mucosal thickening in the maxillary sinus. There is no evidence of sinusitis. Electronically Signed: Wiliam Adams MD at 23:54 EST ,
--- OUTSIDE RECORDS SUMMARY | 2023-05-10 19:36 | XMS RPT_ITS | CCD ---
Author Name Unknown Address [address] [place] [address] Organization [facility] Care Team Providers Care Photonics Engineer Name Role Phone Anisa Gilbert MD Unavailable [phone] JENNIFER Perez RN, Katelyn Mills Unavailable Unavailabl e NEORI READ JACLYN Unavailable Unavail able MARLY FARRAH L Unavailable Unavailable NEYLOWELLT JACEK JACLYN Unavailable Unavail able NEYLOWELLT JACEK JACLYN Unavailable Unavail able MARLY FARRAH L Unavailable Unavailable NEYLOWELLT JACEK JACLYN Unavailable Unavail able MARLY FARRAH L Unavailable Unavailable MARLY FARRAH L Unavailable Unavailable Unknown, Referring Provider Unavailable Unav ailable Malflavia DO Valarie A Primary Care Provider Tucker Dunham MD Unavailable Jevon WILLS Valarie A Primary Care Provider Tucker Dunham MD Unavailable Anisa Gilbert MD Unavailable [phone] Anisa Gilbert MD Unavailable [phone] Eva Thorpe RN Unavailable Unavailable Katelyn Jimenez [...] sources) Corticosteroids drug allergy unsure of reaction [facility] (2 sources) PARoxetine Drug Allergy 11-04-19 16 [facility] (2 sources) venlafaxine Drug Allergy 11-04-19 16 Tremor, swelling, possible hives [facility] (1 source) betamethasone; Translations: [BETAMETHASONE DIPROPIONATE] Drug Allergy 10-08-19 11 [facility] (3 sources) Corticosteroids; Translations: [CORTICOSTEROIDS] Propensity to adverse reactions 10-08-19 11 Other (See Comments) [facility] (3 sources) PARoxetine; Translations: [PAROXETINE] Drug Allergy 11-04-19 16 Other (See Comments) [facility] (3 sources) venlafaxine; Translations: [VENLAFAXINE] Drug Allergy 11-04-19 16 Other (See Comments) [facility] Medications Current Medications Medication Drug Class(es) Dates [...] 1 po daily on days 2-5 AZITHROMYCIN [id number] Anisa Gilbert MD cyclobenzaprine hydrochloride 10 mg oral tablet (4 sources) Muscle Relaxant Start: 04-20-2015 End: 01-10-2017 take 1 tablet by mouth every eight hours as needed for muscle spasms CYCLOBENZAPRINE HCL 10 MG TABS 1 po every 8 hours as needed for muscle spasm CYCLOBENZAPRINE HCL [id number] Anisa Gilbert MD FLUoxetine 20 mg oral capsule (4 sources) Serotonin Reuptake Inhibitor Start: 11-04-2015 End: 01-10-2017 take 1 capsule by mouth once daily FLUOXETINE HCL 20 MG CAPS One capsule by mouth daily FLUOXETINE HCL [id number] Grupo Levy DO hyoscyamine sulfate 0.125 mg oral tablet (4 sources) Start: 05-05-2014 End: 01-10-2017 take 1 tablet by mouth three times daily 30 minutes before bedtime HYOSCYAMINE SULFATE 0.125 MG TABS 1 po 30 minutes before eating three times/day and at bedtime HYOSCYAMINE SULFATE [id number] Valarie Escoto DO naproxen sodium 220 mg oral tablet (6 sources) Nonsteroidal Anti-inflammatory Drug Start: 05-05-2014 End: 01-10-2017 ALEVE 220 MG TABS Two tablets as needed for pain NAPROXEN SODIUM [id number] Valarie Escoto DO PARoxetine hydrochloride 10 mg oral tablet (4 sources) Serotonin Reuptake Inhibitor Start: 04-20-2015 End: 11-04-2015 take 1 tablet by mouth once daily PAXIL 10 MG TABS 1 po daily PAROXETINE HCL [id number] Grupo Levy DO 24 hr venlafaxine 37.5 mg extended release oral capsule (20 sources) Serotonin and Norepinephrine Reuptake Inhibitor Start: 04-20-2015 End: 11-04-2015 take 1 capsule by mouth once daily, then take 1 capsule by mouth every other day EFFEXOR XR 75 MG [id number] 1 po daily x 7 days then 1 po every other day VENLAFAXINE HCL [id number] Grupo Levy DO Problems Active Problems Problem [...] Mass Index) 34.34 kg/m2 Anisa Gilbert MD [facility] 01-16-2017 08:11-0400 Body Temperature 96.6 [degF] Anisa Gilbert MD [facility] 01-16-2017 08:11-0400 BP Diastolic 73 mm[Hg] Anisa Gilbert MD [facility] 01-16-2017 08:11-0400 BP Systolic 116 mm[Hg] Anisa Gilbert MD [facility] 01-16-2017 08:11-0400 Pulse (Heart Rate) 95 /min Anisa Gilbert MD [facility] 01-16-2017 08:11-0400 Respiratory Rate 16 /min Anisa Gilbert MD [facility] 01-16-2017 08:11-0400 Weight 96.53 kg Anisa Gilbert MD [facility] 11-04-2015 08:14-0400 BSA (Body Surface Area) 1.89 m2 Anisa Gilbert MD [facility] 05-05-2014 14:32-0500 Height 167.64 cm Anisa Gilbert MD [facility] Encounters Encounter Date Encounter Type Care Provider Facility Start: 02-27-2023 End: 02-27-2023 ambulatory [place] [facility] Start: 01-25-2023 End: 01-26-2023 ambulatory VALARIE ESCOTO [facility] Start: 01-25-2023 End: 01-25-2023 ambulatory SELF REFERRED [facility] Start: 01-25-2023 End: 01-25-2023 Subsequent hospital visit [...] End: 11-05-2015 *CHLGC - Chlamydia/GC DNA Probe [id number] Grupo Levy DO Work Phone: Start: 05-05-2014 End: 05-09-2014 *MATT Valarie Escoto, DO Work Phone: Start: 05-05-2014 End: 05-06-2014 *B12FO Vitamin B12 and Folates Valarie machuca, DO Work Phone: Start: 05-05-2014 End: 05-06-2014 *CBC with Differential Valarie Escoto, DO Work Phone: Start: 05-05-2014 End: 05-08-2014 *CELIAC Celiac Disease AB [id number] Valarie Escoto, DO Work Phone: Start: 05-05-2014 [...] (T3) [Mass/volume] in Serum or Plasma Valarie Escoto, DO Work Phone: Plan of Treatment Date Care Activity Detail Author Start: 05-26-2023 End: 05-26-2023 Patient encounter procedure 05/26/2023 11:45 AM EST Office Visit Griselda Mckinney [place], [place] [phone] [place] [address] [facility] Start: 02-27-2023 End: 02-27-2023 Professional / ancillary services management 02/27/2023 10:00 AM EST Telehealth Ancillary [facility] [place], [place] [phone] Katelyn Jimenez [place], [place] [phone] [facility] Start: 11-25-2022 FLU (#1) FLU (#1) [facility] Start: 12-30-2021 End: 12-30-2021 Professional / ancillary services management 12/30/2021 Ancillary Procedure [facility] Start: 11-25-2021 FLU (#1) FLU (#1) [facility] Start: 01-24-2017 End: 01-24-2017 Appointment Appointment [facility] Start: 01-10-2017 End: 01-11-2017 Streptococcus agalactiae DNA [Presence] in Unspecified specimen by JUAN A with probe detection *GBSD - Group B Strep, DNA by PCR [facility] Start: 01-03-2017 End: 01-17-2017 Us preg uterus real time f/u trnsabdl per fetus US uterus, re-evaluation of size or follow up [facility] Start: 11-04-2015 End: 11-05-2015 *CHLGC - Chlamydia/GC DNA Probe [id number] *CHLGC - Chlamydia/GC DNA Probe [id number] [facility] Start: 04-20-2015 End: 04-20-2015 Physical Therapy [facility] [address] [place] [address], [place], [address] [facility] Start: 06-24-2014 End: 06-24-2014 EMG EMG [facility] Start: 06-24-2014 End: 06-24-2014 Nerve Conduction Nerve Conduction [facility] Start: 05-05-2014 End: 05-09-2014 *MATT *MATT [facility] Start: 05-05-2014 End: 05-06-2014 *B12FO Vitamin B12 and Folates *B12FO Vitamin B12 and Folates [facility] Start: 05-05-2014 End: 05-06-2014 *CBC with Differential *CBC with Differential [facility] Start: 05-05-2014 End: 05-08-2014 *CELIAC Celiac Disease AB [id number] *CELIAC Celiac Disease AB [id number] [facility] Start: 05-05-2014 End: 05-06-2014 *CMP Complete Metabolic Panel *CMP Complete Metabolic Panel [facility] Start: 05-05-2014 End: 05-09-2014 1,25-Dihydroxyvitamin D [Mass/volume] in Serum or Plasma *[id number] Vitamin D, 1, 25- DiHydroxy [facility] Start: 05-05-2014 End: 05-06-2014 C reactive protein (hsCRP) *CRP - C-Reative Protein [facility] Start: 05-05-2014 End: 05-06-2014 Erythrocyte sedimentation rate *Sedimentation Rate (ESR) [facility] Start: 05-05-2014 End: 05-06-2014 Ferritin *Ferritin [facility] Start: 05-05-2014 End: 05-06-2014 HCG ( test) Ql *PREGS - Qualitative, Serum [facility] Start: 05-05-2014 End: 05-06-2014 Iron and Iron binding capacity panel - Serum or Plasma *IBC Iron & Total Iron Binding Capacity [facility] Start: 05-05-2014 End: 05-06-2014 Rheumatoid factor *RA Rheumatoid Factor - Quaint [facility] Start: 05-05-2014 End: 05-06-2014 Thyroid stimulating hormone (TSH) *TSH [facility] Start: 05-05-2014 End: 05-06-2014 Thyroxine (T4) free *T4 free [facility] Start: 05-05-2014 End: 05-06-2014 Triiodothyronine (T3) *T3-Total [facility] Start: 01-26-2013 Microscopic observation [Identifier] in Cervix by Cyto stain Pap Smear [facility] Start: 2008 MenB (1 of 2 - MenB 2-Dose Series Bexsero) MenB (1 of 2 - MenB 2-Dose Series Bexsero) [facility] Start: 2008 MenB (1 of 2 - MenB 2-Dose Series) MenB (1 of 2 - MenB 2-Dose Series) [facility] Start: 01-26-1999 Tetanus Diphtheria and Pertussis Vaccines (1 - Tdap) Tetanus Diphtheria and Pertussis Vaccines (1 - Tdap) [facility] Start: 01-26-1993 MMR (1 of 1 - Standard series) MMR (1 of 1 - Standard series) [facility] Start: 01-26-1993 Varicella (1 of 2 - 2-dose childhood series) Varicella (1 of 2 - 2-dose childhood series) [facility] Start: 1992 COVID-19 (#1) COVID-19 (#1) [facility] Start: 1992 Hepatitis B (1 of 3 - 3-dose series) Hepatitis B (1 of 3 - 3-dose series) [facility] Genetic Sendout: Cus brittany Panel Genetic Sendout: Custom Panel Lab Routine Tubular adenoma 01/25/2023 12:07 PM EDT [facility] Work Phone: End: 12-03-2021 Panorama Test: Chromosomes 13, 18, 21, X&Y, Triploidy, Optional 22Q 11.2 Deletion [facility] Work Phone: Payers Date Payer Category Payer Unknown 1990 Unknown [id number] 1992 Unknown [id number] 2. [id number] 1992 Unknown [id number] 16. [id number] Unknown [id number] Unknown [id number] Social History Date Type Detail Facility Start: 12-03-2021 Tobacco smoking status NHIS Ex-smoker [facility] End: 03-27-2020 History of tobacco use Current smoker [facility] End: 03-27-2020 History of tobacco use Cigarette Smoker [facility] Start: 12-03-2021 Tobacco use and exposure Smokeless tobacco non-user [facility] Start: 12-03-2021 Alcohol intake Lifetime non-d vito (finding) [facility] Start: 08-24-2021 [facility] Start: 1990 Sex Assigned At Not on file [facility] Start: 11-23-2021 End: 12-03-2021 Exposure to SARS-CoV-2 (event) Not sure [facility] Start: 12-03-2021 History of Social function [facility] Start: 12-03-2021 Tobacco use panel [facility] NEGATED: Highlighted rowStart: NINF History of tobacco use Passive smoker [facility] Evaluation note Note Date & Type Note Facility documented in this encounter [facility] Evaluation note Note Date & Type Note Facility documented in this encounter [facility] History of Present illness Narrative Note Date & Type Note Facility History of Present illness Narrative Ms. Dania Rogers is a 31-year-old female who recently underwent her first colonoscopy and was found to have two colon polyps, including one tubular adenoma. Given the finding of multiple polyps at a young age, she was referred to the Cancer Genetics Clinic at [facility] by Farrah Mendoza NP ([facility]).Personal history of cancer? NoPrior genetic testing? [...] the gastric ulcers.Dermatology? Has not seen a c d stripper.- However, she reports that she has a [...] paternal ancestry is . She has Ashkenazi Scientologist ancestry on her mother's side (MGM's mother was Ashkenazi Scientologist). Consanguinity was denied. [id number] Work Phone: History of Present illness Narrative Note Date & Type Note Facility History of Present illness Narrative Ms. Dania Rogers is a 31-year-old female who recently underwent her first colonoscopy and was found to have two colon polyps, including one tubular adenoma. Given the finding of multiple polyps at a young age, she was referred to the Cancer Genetics Clinic at [facility] by Farrah Mendoza NP ([facility]).Personal history of cancer? NoPrior genetic testing? [...] the gastric ulcers.Dermatology? Has not seen a c d stripper.- However, she reports that she has a [...] paternal ancestry is . She has Ashkenazi Scientologist ancestry on her mother's side ([facility] mother was Ashkenazi Scientologist). Consanguinity was denied. [employer] Work Phone: Summary Purpose Family History No [...] DATE CREATED AUTHOR AUTHOR'S ORGANIZ ATION 04/07/2019 [facility] ([place]) DATE CREATED AUTHOR AUTHOR'S ORGANIZ ATION 10/31/2021 [employer] DATE CREATED AUTHOR AUTHOR'S ORGANIZ ATION 02/28/2023 [facility] Care Teams (unrecognized sec tion and content) Photonics Engineer Relationship Specialty Start Date End Date Valarie Escoto, DO [address] [place], [place] [phone] PCP - General Family Medicine 04/21/20 Tucker Dunham MD [address] [place] [address] 04/21/20 Anisa Gilbert MD [address] [place] [address] Referring Physician Obstetrics Gynecology 12/29/21 Anisa Gilbert MD [address] [place] [address] Attending Provider Obstetrics Gynecology 12/29/21 Eva [place], [place] [address] Registered Nurse 08/18/22 Katelyn Jimenez, [place] [address] Genetic Counselor Genetics 01/25/23 Reason for Visit (unrecogniz ed section and content) Referral ID Status Reason Start Date Expiration Date V isits Requested Visits Authorized [id number] Open Specialty Services Required 01/25/2023 01/25/2024 1 [...] BE BASED ON THE PRIMARY CLINICAL RECORDS. [facility] [employer] provides no warranty or guarantee of the accuracy or completeness of information in this document.
== END | disposition home or self-care (01) ==
LOC: CT 16:47
PROVIDERS: PCP Family Medicine; Referring Provider Otolaryngology; Visit Provider Otolaryngology
DX: J32.9 Chronic sinusitis, unspecified (principal)
CPT/HCPCS: 70486

== ENCOUNTER → 2023-06-27 | Outpatient (CLI) | payer MEDICAID, SELFPAY ==
[2023-06-27 11:07] LABS: ALB/GLOB Ratio 1.3 RATIO (0.9-2.4); AST(SGOT) 9 U/L (15-37); Alanine Aminotransfer ALT/SGPT 18 U/L (13-56); Albumin, Serum 4.2 g/dL (3.2-5.0); Alkaline Phosphatase 49 U/L (45-117); Anion Gap 7 (5-15); BUN 9 mg/dL (7-18); BUN/Creat Ratio 11.2 RATIO (10-20); Calcium,Total 9.1 mg/dL (8.5-10.1); Chloride 106 mmol/L (98-107); Creatinine, Serum 0.81 mg/dL (0.55-1.02); EST Glomerular Filtration Rate 88 mL/min (>60); Est Glom Filt Rate - Afr Amer 106 mL/min (>60); Globulin 3.3 g/dL (2.2-4.2); Glucose 101 mg/dL (74-106); Protein, Total 7.5 g/dL (6.4-8.2); Sodium Level 140 mmol/L (136-145)
[2023-06-27 12:29] LABS: HIV - WCH Non-Reactive (Nonreactive); Hepatitis B Surface Antigen Non-Reactive (Nonreactive); Hepatitis C Antibody Non-Reactive (Nonreactive); Syphilis Antibodies Non-reactive
[2023-06-28 06:09] LABS: HSV 2 IgG < 0.91 index (0.00-0.90)
[2023-06-29 22:06] LABS: Chlamydia By Nucleic Acid AMP Negative (Negative); Gonococcus By Nucleic Acid AMP Negative (Negative)
[2023-07-01 15:08] LABS: HPV APTIMA, High Risk Negative (Negative)
[2023-07-01 22:50] LABS: HPV Reflexed? YES, CHARGE PATIENT
== END | disposition home or self-care (01) ==
PROVIDERS: PCP Family Medicine; Referring Provider Obstetrics & Gynecology; Visit Provider Obstetrics & Gynecology
DX: Z12.4 Encounter for screening for malignant neoplasm of cervix (principal); Z11.3 Encounter for screening for infections with a predominantly sexual mode of transmission
CPT/HCPCS: 36415; 80053; 86695; 86696; 86703; 86780; 86803; 87340; 87491; 87591; 87624; 88175; G0145

== ENCOUNTER 2023-10-28 11:39 | Emergency (ER) | payer MEDICAID, SELFPAY ==
[2023-10-28 11:40] VITALS: BP 107/72; PULSE 73; RESP 15; TEMP 36.4; O2SAT 100; BMI 22.9
[2023-10-28 12:13] VITALS: O2SAT 95
--- NOTE | 2023-10-28 12:13 | EKG12_ITS ---
Test Reason : CP Blood Pressure : / mmHG Vent. Rate : 068 BPM Atrial Rate : 068 BPM P-R Int : 154 ms QRS Dur : 082 ms QT Int : 366 ms P-R-T Axes : 074 077 061 degrees QTc Int : 389 ms Normal sinus rhythm Normal ECG Confirmed by Randy Ty ([id number]), editor publications JAMES SCALES ([id number]) on 10/30/2023 2:16:42 PM Referred By: YUMIKO Confirmed By:Randy Ty
--- NOTE | 2023-10-28 12:13 | RAD_ITS ---
EXAM: XR CHEST, 1 VIEW CLINICAL INDICATION: chest pain TECHNIQUE: Frontal view of the chest. COMPARISON: XR Chest dated 08/29/2022 FINDINGS: LUNGS AND PLEURAL SPACES: Normal. No consolidation or edema. No pneumothorax. No effusion. HEART: Normal heart size. MEDIASTINUM: No mediastinal or hilar mass. BONES/JOINTS: No acute abnormality. RAD/Chest 1 View (Portable) IMPRESSION: No acute cardiopulmonary abnormality. No interval change. Electronically Signed: Nawaf Matthew MD at 13:01 EDT ,
--- NOTE | 2023-10-28 12:14 | ED.VIS.CHEST ---
HPI History of Present Illness Chief Complaint: Chest Pain Detail of Chief Complaint: Chest pain Informant: patient Narrative Narrative: Patient presents with chest pain that started 2 or 3 days ago in the right side of her chest that was pleuritic. Patient states that at times she notices some discomfort in the center of her chest and left chest. Patient thinks she may have had a blood clot in her lung couple years ago but she states that her doctors told her she waited too long to to be seen and did not actually have a diagnosis of PE made. Patient denies recent travel or surgery. Denies recent illness. No significant family history of heart disease. Patient describes the pain as sharp and worse with deep breath at times. She is also had some intermittent pressure in the center of her chest. [facility] Medical History Anxiety Back pain Bile duct leak Chest pain Chronic pain Difficulty swallowing Fibromyalgia Former smoker Gastric reflux GERD (gastroesophageal reflux disease) Hirsutism History of echocardiogram History of edema History of IBS History of irregular heartbeat History of pain when walking History of ulceration Hx of vaginal delivery IBS (irritable bowel syndrome) Leg cramps Liver disease Loose, teeth MRSA infection macrosomia PCOS (polycystic ovarian syndrome) Personal history of colonic polyps depression psychosis Seizures Smoker Umbilical hernia Home Medications ?Medication ?Instructions ?Recorded ?Last Taken ?Type Saccharomyces boulardii 250 mg 250 mg PO DAILY 06/27/23 Unknown History capsule (Daily Probiotic (S. boulardii)) buspirone 10 mg tablet 10 mg PO TID PRN anxiety #60 tabs 06/27/23 Unknown Rx etonogestrel 0.12 mg-ethinyl 1 vag ring vaginal Q4W #3 ea 06/27/23 Unknown Rx estradiol 0.015 mg/24 hr vaginal ring (NuvaRing) inulin 2 gram chewable tablet g PO 06/27/23 Unknown History (Prebiotic Fiber) magnesium 200 mg tablet 200 mg PO DAILY 06/27/23 Unknown History multivitamin 1 tab PO DAILY 06/27/23 Unknown History polyethylene glycol 3350 17 4 g PO DAILY #238 grams 06/27/23 Unknown Rx gram/dose oral powder (Miralax) valacyclovir 1 gram tablet 1,000 mg PO BID #6 tabs 08/22/23 Unknown Rx (Valtrex) Allergy/AdvReac Type Severity Reaction Status Date / Time acyclovir Allergy Severe Chest Verified 10/28/23 11:39 tightness spironolactone AdvReac chest pain Verified 10/28/23 11:39 Family History Aunt Diabetes Mother Autosomal recessive severe combined immunodeficiency disease Other Anemia Anxiety Arthritis Asthma Breast cancer Cancer Depression Epilepsy Heart disease Surgical History History of esophagogastroduodenoscopy (EGD) History of tonsillectomy History of wisdom tooth extraction, class II edentulism Hx of colonoscopy Social History number of children: 4 current occupational status: unemployed and student current occupation: [email or web address] and [employer] Smoking Status: Former smoker alcohol intake: never substance use type: does not use caffeine: Yes what type of physical activity do you participate in: walking and aerobics frequency: 1-2 times per week seatbelt use: always do you feel safe at home: Yes additional social history: Single ROS ROS ED Review of Systems ROS Unobtainable: other Constitutional Constitutional ED: Reports lethargy; Denies chills, fever(s), sweats or weight loss Eyes Eyes: Denies blurry vision, change in vision or diplopia ENT ENT ED: Denies rhinorrhea or sore throat Cardiovascular Cardiovascular: Reports chest pain; Denies orthopnea or racing heartbeat Respiratory/Chest Respiratory/Chest: Reports dyspnea; Denies cough, dyspnea on exertion, orthopnea or sputum Gastrointestinal Gastrointestinal: Denies abdominal pain, diarrhea, nausea or vomiting Genitourinary Genitourinary ED: Denies dysuria, hematuria or urinary frequency Musculoskeletal Musculoskeletal: Denies arthralgias, back pain, myalgias or neck pain Integumentary Denies abscess, Abrasions or rash Neurologic Neurologic: Denies headache(s) or weakness Psychiatric Psychiatric: Denies anxiety, depression or suicidal thoughts Endocrine Endocrinology: Denies polydipsia, polyphagia or polyuria Hematologic/Lymphatic Hematologic/Lymphatic: Denies easy bleeding, easy bruising or lymphadenopathy Allergic/Immunologic Allergic/Immunologic ED: Denies mouth swelling, tongue swelling or urticaria EXAM Physical Exam Const Vital Signs: 10/28/23 11:40 10/28/23 12:13 10/28/23 12:39 Temperature 97.6 F L Temperature Source Temporal Pulse Rate 73 93 Respiratory Rate 15 20 H Blood Pressure 107/72 97/80 Blood Pressure Mean 83 85 Pulse Ox 100 95 95 Oxygen Delivery Method Room Air Room Air Room Air 10/28/23 13:00 Temperature Temperature Source Pulse Rate 72 Respiratory Rate 19 H Blood Pressure 115/77 Blood Pressure Mean 89 Pulse Ox 98 Oxygen Delivery Method Room Air Positive well nourished and well developed General Appearance ED: well developed and NAD HEENT Reports TM's clear and moist mucous membranes normocephalic and atraumatic; Negative for trauma or tenderness Tympanic Membrane ED: Yes TM's clear Eyes PERRL and EOMs intact bilaterally General Eye ED: Negative for pale conjunctiva or scleral icterus Neck no lymphadenopathy, supple and no JVD General: Negative for tenderness Chest Wall inspection of chest normal and palpation of chest normal Chest: Negative for tenderness Resp normal respiratory effort and clear to auscultation bilaterally Effort and Inspection: Negative for respiratory distress or pain with movement Auscultation: Negative for rhonchi, wheezes or diminished lung sounds Cardio regular rate, regular rhythm, S1 normal heart sound, S2 normal heart sound and no murmurs Peripheral Pulses: pulses 2+ throughout GI normal to inspection, nondistended, normoactive bowel sounds, soft to palpation, non-tender, non-distended and no masses Back/Spine no CVA tenderness and no thoracic nor lumbar tenderness Extremity normal to inspection General Extremety ED: Negative for edema General Extremity: Negative for edema Neuro oriented x3, CN's II-XII intact bilaterally, no sensory deficits noted and gait normal Sensorium / Orientation: awake, alert, oriented to person, oriented to place and oriented to time Motor Exam: strength 5/5 throughout and strength abnormal Psych mental status grossly normal Skin no rashes or lesions noted and no wounds MDM MDM MDM Narrative Medical decision making narrative: Patient presents with intermittent pleuritic chest pain x 2 to 3 days and she is concerned about blood clot. Clinically she looks well and vital signs stable. EKG obtained via protocol prior to my arrival to evaluate patient shows a sinus rhythm with rate of 68 bpm with no acute ST segment changes. CBC with differential obtained showed a white count of 6.7 with hemoglobin 14 and platelet count 311. Chemistries unremarkable. Troponin was less than 3. D-dimer obtained was normal at 0.28. 1 view chest x-ray unremarkable. This point etiology of her chest discomfort unclear. I do not feel she is having acute coronary syndrome. I see no evidence for pericarditis and she did have a normal sed rate of 1. At this point normal D-dimer with no significant risk factors for PE or DVT other than she does take oral contraceptive. She is not tachycardic or hypoxic therefore extremely low suspicion for DVT or PE. Patient advised to follow-up with her primary care physician within next 5 to 7 days. She is advised to use ibuprofen for discomfort. Lab Data Attestation: I reviewed the patient's lab results. Labs: Laboratory Results - last 24 hr 10/28/23 12:24 WBC 6.7 RBC 4.56 Hgb 14.0 Hct 43.3 MCV 95.0 MCH 30.7 MCHC 32.3 RDW Std Deviation 47.7 H RDW Coeff of Leroy 13.5 Plt Count 311 MPV 10.0 Immature Gran % (Auto) 0.300 Neut % (Auto) 54.2 Lymph % (Auto) 33.9 [place] % (Auto) 7.7 Eos % (Auto) 3.0 Baso % (Auto) 0.9 Absolute Neuts (auto) 3.6 Absolute Lymphs (auto) 2.26 Nucleated RBC % 0 ESR 1 D-Dimer Quant (PE/DVT) 0.28 Sodium 139 Potassium 3.9 Chloride 109 H Carbon Dioxide 25.0 Anion Gap 5 BUN 15 Creatinine 0.85 Estim Creat Clear Calc 93.26 Est GFR (MDRD) Af Amer 100 Est GFR (MDRD) Non-Af 83 BUN/Creatinine Ratio 17.6 Glucose 89 Calcium 8.8 Troponin I High Sens < 3 L Radiography Diagnostic Testing: Clinical Impression(s) from Imaging Studies Chest X-Ray 10/28/23 12:13 IMPRESSION: No acute cardiopulmonary abnormality. No interval change. Electronically Signed: Nawaf Matthew MD at 13:01 EDT , 1 view chest x-ray obtained interpreted by myself as no evidence of infiltrate or pneumothorax or acute disease process. Radiology in agreement. EKG Initial EKG: Attestation: I personally reviewed and interpreted this EKG as follows: Comments: Sinus rhythm with rate of 68 bpm with no acute ST segment changes Discharge Plan Triage Chief Complaint: Chest Pain ED Provider: Lisa Torres Dx/Rx/DC Orders Clinical Impression: Chest pain Instructions: ED Chest Pain, Uncertain Cause Prescriptions: No Action multivitamin Tablet 1 tab PO DAILY magnesium 200 mg tablet 200 mg PO DAILY Saccharomyces boulardii [Daily Probiotic (S. boulardii)] 250 mg capsule 250 mg PO DAILY Prebiotic Fiber 2 gram tablet,chewable PO buspirone 10 mg tablet 10 mg PO TID PRN (Reason: anxiety) Qty: 60 3RF polyethylene glycol 3350 [Miralax] 17 gram/dose powder 4 g PO DAILY Qty: 238 12RF etonogestrel-ethinyl estradiol [NuvaRing] 0.12-0.015 mg/24 hr ring 1 vag ring vaginal Q4W Qty: 3 4RF Rx Instructions: leave in place for 3 weeks of a 4-week cycle valacyclovir [Valtrex] 1 gram tablet 1,000 mg PO BID Qty: 6 4RF Primary Care Provider: Agus Levy Referrals: Agus Levy DO [Primary Care Provider] - 5-7 Days Print Language: Chinese Disposition Disposition: Home, Self Care
[2023-10-28] MEDS: 0.9% Normal Saline (1000mL) 1,000 ML 150 ML IV (12:23)
[2023-10-28 12:39] VITALS: BP 97/80; PULSE 93; RESP 20; O2SAT 95
[2023-10-28 12:39] LABS: Absolute Lymphocyte Count 2.26 X10^3/uL (0.83-4.51); Absolute Neutrophil Count 3.6 X10^3/uL (2.0-7.7); Basophil# 0.06 X10^3/uL; Basophil% 0.9 % (0-1); Hematocrit 43.3 % (37-47); Lymphocyte # 2.26 X10^3/ul (0.83-4.51); Lymphocyte % 33.9 % (19-41); Mean Corp Hgb Conc 32.3 g/dL (32-36); Mean Corpuscular Hgb 30.7 pg (27.0-32.0); Monocyte# 0.51 X10^3/uL; Monocyte% 7.7 % (0-10); NRBC Flagged by Analyzer 0 % (0-5); Neutrophil # 3.61 X10^3/uL (2.7-7.7); Neutrophil % 54.2 % (47-70); Platelet Count 311 K/mm3 (150-450); RBC Distribution Width CV 13.5 % (11.6-14.6); RBC Distribution Width SD 47.7 fl (35.1-43.9); Red Blood Count 4.56 M/mm3 (4.2-5.4); White Blood Count 6.7 K/mm3 (4.4-11.0)
[2023-10-28 12:54] LABS: D-Dimer Quantitative (DVT/PE) 0.28 FEU/ug/m (0.27-0.49)
[2023-10-28 13:00] VITALS: BP 115/77; PULSE 72; RESP 19; O2SAT 98
[2023-10-28 13:00] LABS: Erythrocyte Sedimentation Rate 1 mm/hr (0-30)
[2023-10-28 13:09] LABS: Anion Gap 5 (5-15); BUN 15 mg/dL (7-18); BUN/Creat Ratio 17.6 RATIO (10-20); Calcium,Total 8.8 mg/dL (8.5-10.1); Chloride 109 mmol/L (98-107); Creatinine, Serum 0.85 mg/dL (0.55-1.02); EST Glomerular Filtration Rate 83 mL/min (>60); Est Glom Filt Rate - Afr Amer 100 mL/min (>60); Estimated Creatinine Clearance 93.26 ml/min; Glucose 89 mg/dL (74-106); Potassium 3.9 mmol/L (3.5-5.1); Sodium Level 139 mmol/L (136-145); Troponin-I HS (w/2H Reflex) < 3 pg/mL (3.0-54.0)
[2023-10-28 13:40] VITALS: BP 118/71; PULSE 77; RESP 16; TEMP 36.8; O2SAT 100
[2023-10-28 14:32] LABS: Reflex Troponin-HS? (from REC) Y
== END 2023-10-28 13:41 | disposition home or self-care (01) ==
PROVIDERS: Emergency Provider Emergency Medicine; PCP Family Medicine; Visit Provider Emergency Medicine
DX: R07.89 Other chest pain (principal); Z87.891 Personal history of nicotine dependence
CPT/HCPCS: 71045; 80048; 84484; 85025; 85379; 85652; 93005; 96360; 99283; J7030

== ENCOUNTER → 2023-11-02 | Outpatient (CLI) | payer MEDICAID, SELFPAY ==
--- NOTE | 2023-11-02 09:50 | US_ITS ---
HISTORY: PULSING SENSATION IN THE ABD. TECHNIQUE: Luna scale and color doppler imaging was obtained of the abdominal aorta. 15 images. COMPARISON: None. FINDINGS: PROXIMAL ABDOMINAL AORTA: 1.6 x 2 cm. MID ABDOMINAL AORTA: 1.7 x 1.7 cm. DISTAL ABDOMINAL AORTA: 1.7 x 1.8 cm. RIGHT ILIAC ARTERY: 6 x 12 mm. LEFT ILIAC ARTERY: 10 X 13 MM. US/Aorta IMPRESSION: No sonographic evidence of abdominal aortic aneurysm. Electronically Signed: Mattie Agudelo MD at 10:05 EDT ,
== END | disposition home or self-care (01) ==
LOC: US 09:47
PROVIDERS: PCP Family Medicine; Referring Provider Family Medicine; Visit Provider Family Medicine
DX: Q79.60 Ehlers-Danlos syndrome, unspecified (principal); Z13.6 Encounter for screening for cardiovascular disorders
CPT/HCPCS: 76775

== ENCOUNTER → 2023-11-29 | Outpatient (CLI) | payer MEDICAID, SELFPAY ==
[2023-12-02 07:08] LABS: Chlamydia By Nucleic Acid AMP Negative (Negative); Gonococcus By Nucleic Acid AMP Negative (Negative)
== END | disposition home or self-care (01) ==
PROVIDERS: PCP Family Medicine; Referring Provider Nurse Practitioner Women's Health; Visit Provider Nurse Practitioner Women's Health
DX: Z11.3 Encounter for screening for infections with a predominantly sexual mode of transmission (principal); N89.8 Other specified noninflammatory disorders of vagina
CPT/HCPCS: 87070; 87205; 87491; 87591

== ENCOUNTER → 2023-12-21 | Outpatient (CLI) | payer MEDICAID, SELFPAY ==
[2023-12-25 22:06] LABS: Chlamydia By Nucleic Acid AMP Negative (Negative); Gonococcus By Nucleic Acid AMP Negative (Negative)
== END | disposition home or self-care (01) ==
PROVIDERS: PCP Family Medicine; Referring Provider Nurse Practitioner Women's Health; Visit Provider Nurse Practitioner Women's Health
DX: N89.8 Other specified noninflammatory disorders of vagina (principal)
CPT/HCPCS: 87070; 87077; 87205; 87491; 87591

== ENCOUNTER → 2024-01-16 | Outpatient (CLI) | payer MEDICAID, SELFPAY ==
--- NOTE | 2024-01-16 17:05 | US_ITS ---
INDICATION: PAIN EXAMINATION: Ultrasound US Pelvis Non OB Complete With Transvaginal Imaging TECHNIQUE: Transabdominal and transvaginal pelvic ultrasound was performed. Grayscale, spectral waveform, and color flow Doppler evaluation of the adnexa. COMPARISON: Prior study dated: 01/23/2023 FINDINGS: UTERUS: Anteverted. The uterus measures 9.4 x 6.3 x 4.8 cm. There is no uterine mass. The endometrial stripe measures 10 mm in AP diameter which is within normal limits. Trace of fluid within the endometrial cavity. RIGHT OVARY: 3.1 x 2.8 x 2.1 cm. Non-enlarged, normal echogenicity. There is normal arterial inflow and venous outflow present in the right ovary. LEFT OVARY: 3.9 x 2 x 2.3 cm. Non-enlarged, normal echogenicity. There is normal arterial inflow and venous outflow present in the left ovary. FREE FLUID: None. US/Pelvic w/ Transvaginal IMPRESSION: Essentially unremarkable examination. Electronically Signed: Patricio Alarcon MD at 15:15 EDT ,
--- OUTSIDE RECORDS SUMMARY | 2024-01-16 17:35 | XMS RPT_ITS | CCD ---
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 Name Role Phone Anisa Gilbert MD Unavailable [phone] JENNIFER Perez RN, Katelyn Mills Unavailable Unavailabl e NEYLOWELLT JACEK JACLYN Unavailable Unavail able MARLY, FARRAH L Unavailable Unavailable NEYLOWELLT JACEK JACLYN Unavailable Unavail able NEYLOWELLT JACEK JACLYN Unavailable Unavail able MARLY, FARRAH L Unavailable Unavailable NEYHART READ, JACLYN Unavailable Unavail able MARLY, FARRAH L Unavailable Unavailable MARLY, FARRAH L Unavailable Unavailable Unknown, Referring Provider Unavailable Unav ailable Valarie Escoto DO A Primary Care Provider Tucker Dunham MD Unavailable [phone] Valarie Escoto DO A Primary Care Provider Tucker Dunham MD Unavailable [phone] Anisa Gilbert MD Unavailable [phone] Anisa Gilbert MD Unavailable [phone] Eva Thorpe RN Unavailable Unavailable Katelyn Jimenez CGC F Unavailable [phone] YOLANDA ESCOTOA A Primary Care Unavailable REFERRED, SELF Referring Unavailable BRADEN JIMENEZILY F Attending Unavailable KATELYN JIMENEZ F Attending Unavailable GRUPO LEVY A Referring Unavailable GYPSY, GRUPO A Primary Care Unavailable KULWANTYOLANDA ALEJANDROA A Primary Care Unavailable YURIDIA GARDNER Referring Unavailable YURIDIA GARDNER Attending Unavailable GYPSY, GRUPO A Primary Care Unavailable YURIDIA GARDNER Attending Unavailable KATELYN JIMENEZ Referring Unavailable Allergies Allergy Classification Reported Allergen(s) Allergy Type Date of Onset Reaction(s) Facility (2 sources) Corticosteroids drug allergy unsure of reaction [facility] (2 sources) PARoxetine Drug Allergy 11-04-19 16 [facility] (2 sources) venlafaxine Drug Allergy 11-04-19 16 Tremor, swelling, possible hives [facility] (1 source) betamethasone; Translations: [BETAMETHASONE DIPROPIONATE] Drug Allergy 10-08-19 11 [facility] (3 sources) Corticosteroids; Translations: [CORTICOSTEROIDS] Propensity to adverse reactions 10-08-19 11 Other (See Comments) [facility] (3 sources) PARoxetine; Translations: [PAROXETINE] Drug Allergy 11-04-19 16 Other (See Comments) [facility] (3 sources) venlafaxine; Translations: [VENLAFAXINE] Drug Allergy 11-04-19 16 Other (See Comments) [facility] Medications Current Medications Medication Drug [...] 1 po daily on days 2-5 AZITHROMYCIN [id number] Anisa Gilbert MD cyclobenzaprine hydrochloride 10 mg oral tablet (4 sources) Muscle Relaxant Start: 04-20-2015 End: 01-10-2017 take 1 tablet by mouth every eight hours as needed for muscle spasms CYCLOBENZAPRINE HCL 10 MG TABS 1 po every 8 hours as needed for muscle spasm CYCLOBENZAPRINE HCL [id number] Anisa Gilbert MD FLUoxetine 20 mg oral capsule (4 sources) Serotonin Reuptake Inhibitor Start: 11-04-2015 End: 01-10-2017 take 1 capsule by mouth once daily FLUOXETINE HCL 20 MG CAPS One capsule by mouth daily FLUOXETINE HCL [id number] Grupo Levy DO hyoscyamine sulfate 0.125 mg oral tablet (4 sources) Start: 05-05-2014 End: 01-10-2017 take 1 tablet by mouth three times daily 30 minutes before bedtime HYOSCYAMINE SULFATE 0.125 MG TABS 1 po 30 minutes before eating three times/day and at bedtime HYOSCYAMINE SULFATE [id number] Valarie Escoto DO naproxen sodium 220 mg oral tablet (6 sources) Nonsteroidal Anti-inflammatory Drug Start: 05-05-2014 End: 01-10-2017 ALEVE 220 MG TABS Two tablets as needed for pain NAPROXEN SODIUM [id number] Valarie Escoto DO PARoxetine hydrochloride 10 mg oral tablet (4 sources) Serotonin Reuptake Inhibitor Start: 04-20-2015 End: 11-04-2015 take 1 tablet by mouth once daily PAXIL 10 MG TABS 1 po daily PAROXETINE HCL [id number] Grupo Levy DO 24 hr venlafaxine 37.5 mg extended release oral capsule (20 sources) Serotonin and Norepinephrine Reuptake Inhibitor Start: 04-20-2015 End: 11-04-2015 take 1 capsule by mouth once daily, then take 1 capsule by mouth every other day EFFEXOR XR 75 MG [id number] 1 po daily x 7 days then 1 po every other day VENLAFAXINE HCL [id number] Grupo Levy DO Start: 06-24-2014 End: 11-04-2015 take 1 capsule by mouth once daily VENLAFAXINE HCL ER 150 MG [id number] 1 po daily VENLAFAXINE HCL [id number] Grupo Levy DO Start: 06-24-2014 take 1 tablet by gita th once daily in the morning VENLAFAXINE HCL ER 150 MG [id number] 1 po daily in AM VENLAFAXINE HCL [id number] Valarie Escoto DO Start: 05-05-2014 End: 01-10-2017 EFFEXOR XR 37.5 MG [id number] 3 capsules daily for 4 days, the 2 capsules daily for 4 days, then 1 capsules daily for 4 days VENLAFAXINE HCL [id number] Anisa Gilbert MD Problems Active Problems Problem Classification Problem Date [...] Results Test Name Value Interpretation Reference Range Facility Progress Noteon 05-26-2023 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 Modifying Factors, Associated Signs & Symptoms): Dania Rogers is a 33 y.o. who presents for genetic evaluation of joint hypermobility and pain concerning for a possible diagnosis of Ehler Danlos syndrome or a related connective tissue disorder. Her back (constant pain) and knees and hips are the most painful sites, with worsening issues over the years especially since pregnancies. PT in the past, exercises at home help some. Dislocated hip during workout (first full dislocation) Dania also reports a history of translucent skin, some skin hyperextensibility, unexplained striae at puberty prior to without a significant gain or loss of body fat or weight. She has a suspected bladder prolapse. She has MVP and it has been 2 years since she had a cardiac evaluation. She also has a history of gastroparesis MVP - last saw cardiology about 2 years. Does have some dizziness with standing Herniated disk in back - just dx but back pain several years Question of pulmonary embolus after last delivery Previous Genetic Testing: Seen for hereditary cancer evaluation for her history of colon polyps and family history of RET variant of unclear signifciance in her mother. 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 Past Medical History: Past Medical History: Diagnosis Date EDS (Jarett-Danlos syndrome) Fibromyalgia History of esophagogastroduodenoscopy (EGD) History of stomach ulcers Hx of tonsillectomy Umbilical hernia [place] teeth extracted Past Surgical History: Procedure Laterality Date COLONOSCOPY POLYPECTOMY colon polyps -pre-cancerous; has extra long colon Discussion of surgery to correct twisted gray bone as an Development: Developmentally, Dania was normal in all her milestones Family History: Three generation pedigree was obtained today and is available under media tab. See for complete details. Maternal ancestry is Mixed (Sami/Azerbaijani/Iranian/Swe dish/Brazilian/AJ). Paternal ancestry is Mixed . Ashkenazi Scientology ancestry reported maternally by Dania's mother but Dania reports that AJ was not detected on ancestry testing that she did personally. There is no known parental consanguinity. Full sister with EDS-like symptoms, but no gastrointestinal involvement Maternal half sister with benign brain tumor at age 18 Mother with MGUS, under Multi Cancer Panel with RNA testing at [facility] (84 genes) and was found to have a RET gene variant of unknown significance (c.628G>A ([id number])). The other 83 genes were negative/normal. Mother with blood clots in her lungs post- Maternal grandmother's sister had uterine cancer in her 50s and breast cancer in her 50s Maternal grandmother's brother had an unknown cancer Maternal grandmother's niece had cervical cancer, at age 37 Maternal grandmother's nephew had colorectal cancer diagnosed at age 48 Maternal grandmother's niece had lung cancer Maternal grandfather with mesothelioma and three non-melanoma skin cancers Maternal grandfather's sister had ovarian cancer Maternal grandfather's sister with breast cancer in her 50s and ovarian cancer in her 60s Maternal grandfather's brother had kidney cancer at 80 Maternal grandfather's nephew had kidney cancer Maternal grandfather's niece had ovarian cancer at 40 Father with hyper-extendable knees Paternal aunt with congenital heart defect (born with 2 holes in her heart), in her 20s. Hypermobile Paternal first cousin with multiple skin cancers Paternal grandmother with lung cancer, history of smoking Paternal grandfather with lung cancer, history of smoking Review of Systems Constitutional: Negative Vision: Negative ENT: Negative Head and Neck: Negative Endocrine: Negative Hematology/Lymphatic: Negative Respiratory: Negative Cardiovascular: Above Gastrointestinal: above : Negative Skin: Negative Musculoskeletal: above Neuro: Negative Psychiatric: Negative Allergy/Immun: Negative Physical Examination Constitutional: Vitals: BP 132/77 Pulse 94 Ht 170.1 cm Wt 72.3 kg BMI 24.99 kg/m General Appearance: Mental Status: alert and cooperative Speech: Normal Skin: stretch irvin Hair: Normal Head: Normal Eyes: Normal Orbits/[place]: Normal Nose: Normal Ears: Normal Mouth: Normal Tongue: Normal Teeth: Normal Palate: Normal Neck: Normal Chest: Normal Lungs: Normal Heart: Normal Abdomen: Normal Back: Normal Joints: Hypermobile - puts hands flat to floor UPPER EXTREMITY Hand: puts thumbs to forearms Arm: Hyperextends elbows LOWER EXTREMITY Foot: pes planus and few small papules Leg: hyperextends knees NERVOUS SYSTEM Cranial Nerves: Normal Sensation: Normal (more content not included)... Normal [facility] Office Visit (Genetics)on Follow-up visit Diagnoses/Problems Assessed History of colon polyps (V12.72) (Z86.010) Patient Discussion/Summary Ms. ROGERS is a 31-year-old female who recently underwent her first colonoscopy and was found to have two colon polyps: one hyperplastic polyp and one tubular adenoma. She presented to the [facility] today for evaluation of her personal and family history. The following is a summary of our discussion. We reviewed genes, inherited predispositions to cancer, and genes that are associated with hereditary polyposis. We discussed that, most of the time, cancer and colon polyps are not due to an inherited genetic susceptibility. However, in some cases, there is an inherited genetic mutation that can make a person more susceptible to developing polyps and/or certain types of cancer. Within these families, we often see multiple family members with GI polyps and/or cancer, occurring in multiple generations. In addition, an earlier age of onset is suggestive of an inherited predisposition. Assessment: - Dania does not meet current NCCN criteria for testing for polyposis syndromes based on her personal history of just two colon polyps, despite her young age of onset. - Those with hereditary polyposis tend to develop numerous polyps (typically >20 polyps). Additionally, she does not have a close family hx of colon polyps or colon cancer. - If she is found to have additional polyps over time, then she should contact our program, as eligibility for genetic testing (and our level of suspicion) may change with additional information. - The family history is otherwise not particularly suggestive of a single-gene predisposition based on the reported ages of onset, types of cancer, and number of affected relatives. - However, Dania could consider 3-site AJ BRCA1/2 testing, based on her maternal AJ ancestry, per current NCCN guidelines. - Of note, Dania does have some more distant relatives on her mother's side of the family (great aunts and some of her mother's first cousins) who have a history of cancer, including one great aunt on her grandfather's side who of ovarian cancer. - In reviewing strategies for testing, we discussed that Dania's MOTHER meets NCCN criteria for more comprehensive multi-gene panel testing based on the family history of cancer. If her mother undergoes genetic testing, and her results are negative, then 3-site AJ BRCA1/2 testing would no longer be necessary for Dania. If her mother tests positive for a gene mutation, then genetic testing would be available to Dania to determine whether she carries the same mutation. After a thorough discussion about various options and the benefits and limitations of genetic testing, Dania deferred testing at this time, and opted instead to discuss testing with her mother. If her mother decides to undergo genetic testing, then her results will determine whether or not any genetic testing is indicated for Dania. We have encouraged Dania to keep us updated on her mother's results. If her mother decides not to undergo testing, then we encourage Dania to re-contact our program, as 3-site AJ BRCA1/2 testing would be available to her. (More comprehensive testing would also be available to her, but is unlikely to be covered by insurance.) For the time being, we discussed the importance of continuing to follow her physicians' recommendations with regard to ongoing colonoscopies (currently planning to f/u with GI in 3 years). She should also continue other age-related cancer screenings, including regular PAP smears. PLAN: - No genetic testing was initiated at this time. Dania plans to discuss the option of genetic testing with her mother. I have encouraged her to keep us updated and let us know whether her mother decides to proceed with genetic testing. - If Dania would like to reconsider genetic testing at a later time, we encourage her to contact our program. She is also encouraged to reach out if there are updates to her personal or family history of cancer. - We remain available to Dania at [phone] if any questions arise regarding information discussed at today's visit. Keyanna Singer, [facility] [place] Licensed Genetic Counselor [facility] Reviewed by: Caron Terry MD Clinical Portfolio Lead [facility] . Chief Complaint A telephone visit (audio only) between the patient (at the originating site) and the provider (at the distant site) was utilized to provide this telehealth service. Verbal consent was requested and obtained from DANIA ROGERS on this date, 06/25/2021 03:15 PM , for a telehealth visit. Personal history of colon polyps Accompanied by alone. Reference Documentation See scanned note Please refer to the scanned pedigree in the Genetics folder. History of Present Illness Ms. Dania Rogers is a 31-year-old female who recently underwent her first colonoscopy and was found to have two colon polyps, including one tubular a (more content not included)... Normal [facility] .Auto Diffon 04-07-2019 Ammonia (P) [Mass/Vol] 0.70 10 3/mcL Normal 0.15-1.00 [facility] ([place]) Comment on above: Performed By: #### C MARQUITA HERNANDEZ, LISA #### [place] [address] #### LIP, CMP, GFR #### [address] [address] Basophils (Bld) [#/Vol] 0.00 10 3/mcL Normal 0.00-0.19 [facility] ([place]) Comment on above: Performed By: #### C BC, ADIFF, ANEU #### [place] [address] #### LIP, CMP, GFR #### [address] [address] Basophils/100 WBC (Bld) 0.7 % Normal 0.0-2.5 [facility] ([place]) Comment on above: Performed By: #### C BC, ADIFF, ANEU #### [place] [address] #### LIP, CMP, GFR #### [address] [address] Eosinophils (Bld) [#/Vol] 0.20 10 3/mcL Normal 0.00-0.40 [facility] ([place]) Comment on above: Performed By: #### C BC, ADIFF, ANEU #### [place] [address] #### LIP, CMP, GFR #### [address] [address] Eosinophils/100 WBC (Bld) 2.5 % Normal 0.0-7.0 [facility] ([place]) Comment on above: Performed By: #### C BC, ADIFF, ANEU #### [place] [address] #### LIP, CMP, GFR #### [address] [address] Lymphocytes (Bld) [#/Vol] 2.50 10 3/mcL Normal 0.77-3.85 [facility] ([place]) Comment on above: Performed By: #### C BC, ADIFF, ANEU #### [place] [address] #### LIP, CMP, GFR #### [address] [address] Lymphocytes/100 WBC (Bld) 38.4 % Normal 10.0-50.0 [facility] ([place]) Comment on above: Performed By: #### C BC, ADIFF, ANEU #### [address] [address] #### LIP, CMP, GFR #### [address] [address] Monocytes/100 WBC (Bld) 10.8 % Normal 1.7-13.0 [facility] ([place]) Comment on above: Performed By: #### C BC, ADIFF, ANEU #### [address] [address] #### LIP, CMP, GFR #### [address] [address] Neutrophils/100 WBC (Bld) 47.6 % Normal 37.0-80.0 [facility] ([place]) Comment on above: Performed By: #### C BC, ADIFF, ANEU #### [address] [address] #### LIP, CMP, GFR #### [address] [address] .GFRon 04-07-2019 GFR Non- 81 ml/min/1.73sqm Normal [facility] ([place]) Comment on above: Result Comment: GFR Population mean for , Non- Americans Ages 20-29 = 116 mL/min/1.73 sq.m. Ages 30-39 = 107 mL/min/1.73 sq.m. Ages 40-49 = 99 mL/min/1.73 sq.m. Ages 50-59 = 93 mL/min/1.73 sq.m. Ages 60-69 = 85 mL/min/1.73 sq.m. Ages 70+ = 75 mL/min/1.73 sq.m. Chronic Kidney Disease: Less than 60 mL/min/1.73 square meters End Stage Renal Disease: Less than 15 mL/min/1.73 square meters Performed By: #### C BC, ADIFF, ANEU #### [place] [address] #### LIP, CMP, GFR #### [place] [address] GFR 99 ml/min/1.73sqm Normal [facility] ([place]) Comment on above: Result Comment: GFR Population mean for , Non- Americans Ages 20-29 = 116 mL/min/1.73 sq.m. Ages 30-39 = 107 mL/min/1.73 sq.m. Ages 40-49 = 99 mL/min/1.73 sq.m. Ages 50-59 = 93 mL/min/1.73 sq.m. Ages 60-69 = 85 mL/min/1.73 sq.m. Ages 70+ = 75 mL/min/1.73 sq.m. Chronic Kidney Disease: Less than 60 mL/min/1.73 square meters End Stage Renal Disease: Less than 15 mL/min/1.73 square meters Performed By: #### C BC, ADIFF, ANEU #### [place] [address] #### LIP, CMP, GFR #### [place] [address] .NEUABSon 04-07-2019 Neutrophils (Bld) [#/Vol] 3.10 10 3/mcL Normal 2.85-6.16 [facility] ([place]) Comment on above: Performed By: #### C MARQUITA HERNANDEZ, ANEU #### [place] [address] #### LIP, CMP, GFR #### [place] [address] .Urinalysis Microscopic (AO) on 04-07-2019 RBC (U) [#/Vol] 0-5 None Seen [facility] ([place] Comment on above: Performed By: #### P REGU #### [place] [address] #### UA, UAMICAO #### [place] [address] UA Amorphus 2+ /hpf Normal [facility] ([place] Comment on above: Performed By: #### P REGU #### [place] [address] #### UA, UAMICAO #### [place] [address] UA Bacteria Trace [facility] ([place] Comment on above: Performed By: #### P REGU #### [place] [address] #### UA, UAMICAO #### [place] [address] UA Squam Epithelial 0-5 None Seen [facility] ([place] Comment on above: Performed By: #### P REGU #### [place] [address] #### UA, UAMICAO #### [place] [address] UA WBC 0-5 None Seen [facility] ([place] Comment on above: Performed By: #### P REGU #### [place] [address] #### UA, UAMICAO #### [place] [address] CBCon 04-07-2019 Erythrocyte distribution width (RBC) [Ratio] 13.2 % Normal 11.5-14.5 [facility] ([place] Comment on above: Performed By: #### C MARQUITA HERNANDEZ, ANEU #### [place] [address] #### LIP, CMP, GFR #### [place] [address] Hematocrit (Bld) [Volume fraction] 45.0 % Normal 37.0-47.0 [facility] ([place] Comment on above: Performed By: #### C BC ADIFF, ANEU #### [place] [address] #### LIP, CMP, GFR #### [address] [address] Hemoglobin (Bld) [Mass/Vol] 15.1 G/dL Normal 12.0-16.0 [facility] ([place] Comment on above: Performed By: #### C MARQUITA HERNANDEZ, ANEU #### [address] [address] #### LIP, CMP, GFR #### [place] [address] MCH (RBC) [Entitic mass] 31.4 pg High 27.0-31.2 [facility] ([place]) Comment on above: Performed By: #### MARQUITA CANDELARIO, ANEU #### [place] [address] #### LIP, CMP, GFR #### [place] [address] MCHC (RBC) [Mass/Vol] 33.5 G/dL Normal 33.0-37.0 [facility] ([place] Comment on above: Performed By: #### C MARQUITA HERNANDEZ, ANEU #### [place] [address] #### LIP, CMP, GFR #### [place] [address] MCV (RBC) [Entitic vol] 93.6 fL Normal 80.0-94.0 [facility] ([place] Comment on above: Performed By: #### C MARQUITA HERNANDEZ, ANEU #### [place] [address] #### LIP, CMP, GFR #### [place] [address] Platelet mean volume (Bld) [Entitic vol] 8.0 fL Normal 7.4-10.4 [facility] ([place] Comment on above: Performed By: #### MARQUITA CANDELARIO, ANEU #### [place] [address] #### LIP, CMP, GFR #### [facility] [address] [place], [place] [address] Platelets (Bld) [#/Vol] 291 10 3/mcL Normal 130-400 [facility] ([place]) Comment on above: Performed By: #### C MARQUITA HERNANDEZ, ANEU #### [address] [address] #### LIP, CMP, GFR #### [place] [address] RBC (Bld) [#/Vol] 4.81 10 6/mcL Normal 4.20-5.40 [facility] ([place]) Comment on above: Performed By: #### C MARQUITA HERNANDEZ, ANEU #### [place] [address] #### LIP, CMP, GFR #### [place] [id number] WBC (Bld) [#/Vol] 6.50 10 3/mcL Normal 4.60-10.80 [facility] ([place]) Comment on above: Performed By: #### C MARQUITA HERNANDEZ, ANEU #### [place] [address] #### LIP, CMP, GFR #### [place] [address] CMPon 04-07-2019 Albumin [Mass/Vol] 4.5 G/dL Normal 3.5-5.0 [facility] ([place]) Comment on above: Performed By: #### MARQUITA CANDELARIO, ANEU #### [place] [address] #### LIP, CMP, GFR #### [place] [address] Albumin/Globulin [Mass ratio] 1.3 {ratio} Normal 1.1-2.5 [facility] ([place]) Comment on above: Performed By: #### MARQUITA CANDELARIO, ANEU #### [address] [address] #### LIP, CMP, GFR #### [place] [id number] ALP [Catalytic activity/Vol] 49 U/L Normal 40-135 [facility] ([place]) Comment on above: Performed By: #### C BC, ADIFF, ANEU #### [address] [address] #### LIP, CMP, GFR #### [address] [address] ALT [Catalytic activity/Vol] 27 U/L Normal 10-35 [facility] ([place] Comment on above: Performed By: #### C BC, ADIFF, ANEU #### [address] [address] #### LIP, CMP, GFR #### [address] [address] AST [Catalytic activity/Vol] 12 U/L Normal 10-40 [facility] ([place] Comment on above: Performed By: #### C BC, ADIFF, ANEU #### [place] [address] #### LIP, CMP, GFR #### [address] [address] Bili Total 1.8 mg/dL High 0.2-1.0 [facility] ([place]) Comment on above: Performed By: #### C BC, ADIFF, ANEU #### [address] [address] #### LIP, CMP, GFR #### [address] [address] Calcium [Mass/Vol] 8.9 mg/dL Normal 8.4-10.2 [facility] ([place] Comment on above: Performed By: #### C BC, ADIFF, ANEU #### [place] [address] #### LIP, CMP, GFR #### [address] [address] Chloride [Moles/Vol] 104 mmol/L Normal 98-107 [facility] ([place] Comment on above: Performed By: #### C BC, ADIFF, ANEU #### [address] [address] #### LIP, CMP, GFR #### [address] [address] CO2 [Moles/Vol] 30 mmol/L High 22-29 [facility] ([place] Comment on above: Performed By: #### C BC, ADIFF, ANEU #### [address] [address] #### LIP, CMP, GFR #### [address] [address] Creatinine [Mass/Vol] 0.84 mg/dL Normal 0.55-1.02 [facility] ([place] Comment on above: Performed By: #### C BC, ADIFF, ANEU #### [place] [address] #### LIP, CMP, GFR #### [place] [address] Electrolyte Balance 11.0 mEq/L Normal [facility] ([place]) Comment on above: Performed By: #### C BC, ADIFF, ANEU #### [address] [address] #### LIP, CMP, GFR #### [address] [address] Globulin (S) [Mass/Vol] 3.4 G/dL Normal [facility] ([place]) Comment on above: Performed By: #### C BC, ADIFF, ANEU #### [place] [address] #### LIP, CMP, GFR #### [address] [address] Glucose [Mass/Vol] 69 mg/dL Low 70-105 [facility] ([place]) Comment on above: Performed By: #### C BC, ADIFF, ANEU #### [address] [address] #### LIP, CMP, GFR #### [place] [id number] Potassium [Moles/Vol] 4.2 mmol/L Normal 3.5-5.1 [facility] ([place]) Comment on above: Performed By: #### C BC, ADIFF, ANEU #### [address] [address] #### LIP, CMP, GFR #### [address] [address] Protein [Mass/Vol] 7.9 G/dL Normal 6.4-8.2 [facility] ([place]) Comment on above: Performed By: #### C BC, ADIFF, ANEU #### [address] [address] #### LIP, CMP, GFR #### [address] [address] Sodium [Moles/Vol] 145 mmol/L Normal 136-145 [facility] ([place]) Comment on above: Performed By: #### C BC, ADIFF, ANEU #### [place] [address] #### LIP, CMP, GFR #### [address] [address] Urea nitrogen [Mass/Vol] 13 mg/dL Normal 7-18 [facility] ([place]) Comment on above: Performed By: #### C BC, ADIFF, ANEU #### [place] [address] #### LIP, CMP, GFR #### [address] [address] Urea nitrogen/Creatinin e [Mass ratio] 15 ratio Normal 7-27 [facility] ([place]) Comment on above: Performed By: #### C BC, ADIFF, ANEU #### [place] [address] #### LIP, CMP, GFR #### [address] [address] LIPon 04-07-2019 Lipase Level 121 U/L Normal 73-393 [facility] ([place]) Comment on above: Performed By: #### C BC, ADIFF, ANEU #### [place] [address] #### LIP, CMP, GFR #### [place] [address] PREGUon 04-07-2019 HCG ( test) Ql (U) Negative Normal [facility] ([place]) Comment on above: Performed By: #### P REGU #### [place] [address] #### UA, UAMICAO #### [place] [address] test (u) int HCG not detected. [facility] ([place]) Comment on above: Performed By: #### P REGU #### [place] [address] #### UA, UAMICAO #### [place] [address] UAon 04-07-2019 Color (U) Yellow Normal [facility] ([place]) Comment on above: Performed By: #### P REGU #### [place] [address] #### UA, UAMICAO #### [place] [address] Glucose (U) [Mass/Vol] Negative Normal Negative [facility] ([place]) Comment on above: Performed By: #### P REGU #### [place] [address] #### UA, UAMICAO #### [place] [address] Ketones Ql (U) Negative Normal Negative [facility] ([place]) Comment on above: Performed By: #### P REGU #### [place] [address] #### UA, UAMICAO #### [place] [address] UA Appear Cloudy Clear [facility] ([place]) Comment on above: Performed By: #### P REGU #### [place] [address] #### UA, UAMICAO #### [place] [address] UA Blood Negative Normal Negative [facility] ([place]) Comment on above: Performed By: #### P REGU #### [place] [address] #### UA, UAMICAO #### [place] [address] UA Leuk Est Trace Negative [facility] ([place]) Comment on above: Performed By: #### P REGU #### [place] [address] #### UA, UAMICAO #### [place] [address] UA Nitrite Negative Normal Negative [facility] ([place]) Comment on above: Performed By: #### P REGU #### [place] [address] #### UA, UAMICAO #### [place] [address] UA pH 8.5 5.0 - 8.0 [facility] ([place]) Comment on above: Performed By: #### P REGU #### [place] [address] #### UA, UAMICAO #### [place] [address] UA Protein Negative Normal Negative [facility] ([place] Comment on above: Performed By: #### P REGU #### [place] [address] #### UA, UAMICAO #### [place] [address] UA Spec Grav 1.020 Normal 1.015-1.025 [facility] ([place]) Comment on above: Performed By: #### P REGU #### [place] [address] #### UA, UAMICAO #### [place] [address] UA Specimen Type Clean Catch Normal [facility] ([place]) Comment on above: Performed By: #### P REGU #### [address] [address] #### UA, UAMICAO #### [place] [address] UA Urobilinogen 0.2 E.U./dL Normal 0.2-1.0 [facility] ([place]) Comment on above: Performed By: #### P REGU #### [address] [address] #### UA, UAMICAO #### [place] [address] Urobilinogen Qn (U) Negative Normal Negative [facility] ([place]) Comment on above: Performed By: #### P REGU #### [place] [address] #### UA, UAMICAO #### [place] [address] XR SPINE LUMBAR AP/LATon XR SPINE LUMBAR AP/LAT ORIGINAL XR SPINE LUMBAR AP/LAT CLINICAL STATEMENT: back pain. COMPARISON: None FINDINGS: Vertebral body height and alignment is normal. There is no visible fracture, aggressive osseous lesion or pars defect. Metallic radiopaque foreign body projecting at the left posterior soft tissues of the pelvis is favored to be clothing related. The sacroiliac joints are normal. The sacral alae are symmetric. IMPRESSION: No compression deformity or significant listhesis. Interpreted By: Randy Vegas Preliminary Report By: Randy Vegas Electronically Signed By: Randy Vegas Dictated Date: 04/07/2019 3:16:15 PM Prelim Date: 04/07/2019 3:16:15 PM Sign Date: 04/07/2019 3:17:51 PM Ordering Provider:Magdaleno Duque [facility] ([place]) Blood Bank: Type AND Screeno n 01-22-2017 Antibody Screen Negative Normal [facility] Lab Report: CBC-Complete Blo od Cnt No Diffon 01-22-2017 Erythrocyte distribution width Auto Ratio (RBC) 13.5 % Invalid Interpretation Code 11.6-14.6 [facility] Erythrocytes (RBC) 3.87 10*6/uL Low 4.2-5.4 [facility] Hematocrit (HCT) 35.3 % Low 37-47 [facility] Hemoglobin mass conc (Bld) 12.0 g/dL Invalid Interpretation Code 12.0-15.0 [facility] MCH 31.0 pg Invalid Interpretation Code 27.0-32.0 [facility] MCHC mass conc (RBC) 34.0 G/GL Invalid Interpretation Code 32-36 [facility] MCV 91.2 fL Invalid Interpretation Code 81-99 [facility] Platelets 317 10*3/mm3 Invalid Interpretation Code 150-450 [facility] PMV by Suman 11.3 fL Invalid Interpretation Code 6.2-12.0 [facility] RDW SD 44.5 fL High 35.1-43.9 [facility] WBC (Leukocytes) 17.7 10*3/uL High 4.4-11.0 [facility] Lab Report: (P) Urinalysis, Completeon 01-16-2017 Bilirubin Ql (U) Negative Invalid Interpretation Code Negative [facility] NITRITE UR Negative Invalid Interpretation Code Negative [facility] OCCULT BLOOD-UR Negative Invalid Interpretation Code Negative [facility] specific gravity, urine 1.010 Invalid Interpretation Code 1.002-1.030 [facility] Urine, clarity Clear Invalid Interpretation Code Clear [facility] Urine, color Yellow Invalid Interpretation Code Yellow [facility] Urine, glucose presence Normal mg/dl Invalid Interpretation Code Normal [facility] Urine, ketones presence Negative Invalid Interpretation Code Negative [facility] Urine, leukocyte esterase presence 25 High Negative [facility] Urine, pH 7.0 [pH] Invalid Interpretation Code 5.0 - 8.0 [facility] Urine, protein 15 mg/dL High Negative [facility] UROBILI Normal mg/dl Invalid Interpretation Code Normal [facility] Lab Report: Urinalysis, Comp leteon 01-16-2017 Urine, bacteria in sediment RARE /hpf Invalid Interpretation Code None Seen [facility] Urine, epithelial cells in sediment 0-5 SEEN Invalid Interpretation Code 5-10 [facility] Urine, erythrocytes in sediment by volume 0 SEEN Invalid Interpretation Code 0-5 [facility] Urine, mucus presence in sediment 0 SEEN Invalid Interpretation Code [facility] WBC (Leukocytes) 0-5 SEEN Invalid Interpretation Code 0-5 [facility] Office Visit: OB Routineon 1 Documentation of current medications (procedure) Done Invalid Interpretation Code [facility] Documentation of current medications (procedure) T Invalid Interpretation Code [facility] Urine, glucose presence N Invalid Interpretation Code [facility] Lab Report: Group B Strep DN A By PCRon 01-10-2017 GBS TEST RESULT Negative Invalid Interpretation Code Negative [facility] HOSPon 12-27-2016 HOSP Routine Off ice Visit (WOOB) --DANIA ROGERS ([id number]) 1990 [facility] Time Provider Qnxhmwvlhl44/3/17 10:20 AM FARRAH LUKE WOOB During your visit today, we recorded the following information about you: Blood pressure [facility] 110[facility]62 [facility] 12/[facility]/2016 10:24 AM SignedSEQUENTIAL SCREENINGSThe [facility] offers sequential screenings for women who are interestedin screenings for chromosomal abnormalities and certain defects during apregnancy. The sequential screen combines ultrasound and blood tests todetermine the risk of chromosomal abnormalities, including Down's Syndrome(Trisomy 21) and Trisomy 18, as well as open neural tube defects includingspina bifida. Ultrasound examination is performed between 11 weeks and 13 weeksgestational age. Blood tests are drawn after the ultrasound and again later inthe between 15 and 21 weeks gestational age. Please let yourphysician know if you are interested in this testing. It will require anappointment with our durable medical equipment technician. This is not an ultrasound performedby a physician in our office during a routine visit.SIGNS AND SYMPTOMS OF LABOR1. Contractions every 10 minutes or more often2. Clear, pink, or brownish fluid (water) leaking from vagina3. Feeling that baby is pushing down, pressure4. Low, dull backache5. Cramps that feel like a period6. Cramps with or without diarrheaIf you notice any of the above symptoms, contact our office at [phone] andask to speak with a nurse.After hours, you can call doctors registry at [phone] OR call [facility] at [phone] and ask to have the doctor extrusion die coordinator paged.If you consider this an emergency, dial 1-0-1 or go to your nearest emergencydepartment.NEED HELP? Are you dealing with a violent or abusive relationship? Are you avictim of rape or sexual assult? Call [facility] ([place]) 24 hourCrisis Hotline: 459.204.1318 or 548-479-6621. MANUALYour Guide to a Healthy manual is now on-line. [email or web address] lthyPregnancyGuide to download your free copyHeamaliha Patricia Ma 12/27/2016 12:27 PM [id number] year old female here for INACTIVATED INFLUENZA VACCINE.6328-3709 SeasonPatient is identified by name and date of : Yes [] CONTRAINDICATIONS color enhancedsectionAge less than 6 months? NoAllergy to eggs, chicken, chicken feathers, or chicken dander? NoAllergy to thimerosal (a preservative) or formaldehyde? NoHistory of severe reaction to any vaccine component or a previous dose ofinfluenza vaccination? NoHistory of Guillain-Evening Shade Syndrome within 6 weeks after a previous influenzavaccine? NoCurrent moderate or severe illness? NoCurrent temperature greater or equal to 100.4F? NoHistory of Bone Marrow Transplant in past 6 months or solid organ transplant inthe past 3 months ? No _No contraindicationspresent. Acceptable to proceed with vaccine. [] VERIFICATION colorenhanced sectionWas the answer ANDquot;YesANDquot; for any of the above contraindications?Patient/gu ardian agrees the above answers are true to the best of theirknowledge? YesFlu vaccine information sheet given? YesSee immunization activity in [facility] for details of immunizations adminsteredtoday.Patient age: [age] year old For The 2168-3057 Flu Season 6-35 months old: Fluzone 0.25 ml - IM (Preservative Free)3 years of age: Fluzone 0.5 ml - IM (Preservative Free)3 years and older: Fluzone 0.5 ml- IM-(with Preservatives)65+ years old: Fluzone High-Dose 0.5 ml - IM (Preservative Free)REMEMBER: If patient is less than 9 years of age and this is the first vaccineof Influenza to be received in any flu season, they should receive a seconddose in one months time.Referring Provider: SELF [[id number]]Allergies As of Date: 12/27/2016 Noted Allergy ReactionSTEROIDS (BETAMETHASONE DIPROPION*10/07/2010 16 - Unknown Comments: Pt unsure of reactionDate Reviewed: 12/27/2016Reviewed by: Farrah Luke - Fully AssessedReason for Visit: Care [86] Imm/Inj [58] Cmt: Flu VaccineReason For Visit History RecordedPrimary Visit Diagnosis:34 weeks gestation of [Z3A.34] Other Visit Diagnoses:Encounter for supervision of other normal in third trimester [Z34.83] Need for vaccination [Z23]Order(s):URINE OB DIP B/O [[id number]] Order #: [id number] INFLUENZA VACCINE QUADRIVALENT AGE 3 YRS PLUS + IM [[id number]] Order #: [id number] as of 12/27/2016 Sig: ACETAMINOPHEN 325 MG TABLET Take 650 mg by mouth every 6 * VITAMIN,CALCIUM,MINE* Take 1 tablet by mouth.Problem List As Of Date 12/27/2016 Noted Resolved History of macrosomia in infant in prior pregna*INVALID FOR* More... Hx of mitral valve prolapse [Z86.79] INVALID FOR* More... History of anxiety [Z86.59] INVALID FOR* More... Family history of congenital heart defect [Z82.*INVALID FOR* More... Family history of carrier of genetic disease [Z*INVALID FOR* More... Patient requested diagnostic testing [Z01.89] INVALID FOR*09/09/2016 More... Other instructions from your clinician: SEQUENTIAL SCREENINGS The [facility] offers sequential screenings for women who are interested in screenings for chromosomal abnormalities and certain defects during a . The sequential screen combines ultrasound and blood tests to determine the risk of chromosomal abnormalities, including Down's Syndrome (Trisomy 21) and Trisomy 18, as well as open neural tube defects including spina bifida. Ultrasound examination is performed between 11 weeks and 13 weeks gestational age. Blood tests are drawn after the ultrasound and again later in the between 15 and 21 weeks gestational age. Please let your physician know if you are interested in this testing. It will require an appointment with our durable medical equipment technician. This is not an ultrasound performed by a physician in our office during a routine visit. SIGNS AND SYMPTOMS OF LABOR 1. Contractions every 10 minutes or more often 2. Clear, pink, or brownish fluid (water) leaking from vagina 3. Feeling that baby is pushing down, pressure 4. Low, dull backache 5. Cramps that feel like a period 6. Cramps with or without diarrhea If you notice any of the above symptoms, contact our office at [phone] and ask to speak with a nurse. After hours, you can call doctors registry at [phone] OR call [facility] at [phone] and ask to have the doctor extrusion die coordinator paged. If you consider this an emergency, dial or go to your nearest emergency department. NEED HELP? Are you dealing with a violent or abusive relationship? Are you a victim of rape or sexual assult? Call [facility] ([place]) 24 hour Crisis Hotline: 701.366.9695 or 262-576-8887. MANUAL Your Guide to a Healthy manual is now on-line. Visit [email or web address] regnancyGuide to download your free copyMedications Discontinued During This Encounter ranitidine (ZANTAC) 150 mg tablet 60 t* 12 06/17/2016 12/27/2016 Route: ORAL Sig: Take 1 tablet by mouth twice daily. Disc: Reason for discontinue is not on file.Disposition: Return in about 2 weeks (around 01/10/2017) for routine OB check.Follow-up and Disposition History RecordedEncounter Number: [id number] Status:Closed by FARRAH LUKE MD on 12/27/16 [facility] PROGRESSon 12-27-2016 PROGRESS HNO ID: [id number] thor: Bonnie Patricia MaService: (none)Author Type: (none)Type: Progress NotesFiled: 12/27/2016 12:27 PMNote Text:26 year old female here for INACTIVATED INFLUENZA VACCINE.7592-5350 SeasonPatient is identified by name and date of : Yes [] CONTRAINDICATIONS colorenhanced sectionAge less than 6 months? NoAllergy to eggs, chicken, chicken feathers, or chicken dander? NoAllergy to thimerosal (a preservative) or formaldehyde? NoHistory of severe reaction to any vaccine component or a previous dose ofinfluenza vaccination? NoHistory of Guillain-Evening Shade Syndrome within 6 weeks after a previousinfluenza vaccine? NoCurrent moderate or severe illness? NoCurrent temperature greater or equal to 100.4F? NoHistory of Bone Marrow Transplant in past 6 months or solid organtransplant in the past 3 months ? No _Nocontraindications present. Acceptable to proceed with vaccine. [] VERIFICATIONcolor enhanced sectionWas the answer Yes for any of the above contraindications?Patient/gu sang agrees the above answers are true to the best of theirknowledge? YesFlu vaccine information sheet given? YesSee immunization activity in [facility] for details of immunizationsadminstered today.Patient age: [age] year old For The 2937-8302 Flu Season 6-35 months old: Fluzone 0.25 ml - IM (Preservative Free)3 years of age: Fluzone 0.5 ml - IM (Preservative Free)3 years and older: Fluzone 0.5 ml- IM-(with Preservatives)65+ years old: Fluzone High-Dose 0.5 ml - IM (Preservative Free)REMEMBER: If patient is less than 9 years of age and this is the firstvaccine of Influenza to be received in any flu season, they should receivea second dose in one months time. Normal [facility] 12-13-2016 HOSP Routine Off ice Visit (WOOB) --DANIA ROGERS ([id number]) 1990 [facility] Time Provider Department12/13/16 10:20 AM JACLYN PEREIRA During your visit today, we recorded the following information about you: Blood pressure Weight 110/60 96.2 kgPaola Cortes Ma 12/13/2016 10:14 AM SignedSEQUENTIAL SCREENINGSThe [facility] offers sequential screenings for women who are interestedin screenings for chromosomal abnormalities and certain defects during apregnancy. The sequential screen combines ultrasound and blood tests todetermine the risk of chromosomal abnormalities, including Down's Syndrome(Trisomy 21) and Trisomy 18, as well as open neural tube defects includingspina bifida. Ultrasound examination is performed between 11 weeks and 13 weeksgestational age. Blood tests are drawn after the ultrasound and again later inthe between 15 and 21 weeks gestational age. Please let yourphysician know if you are interested in this testing. It will require anappointment with our durable medical equipment technician. This is not an ultrasound performedby a physician in our office during a routine visit.SIGNS AND SYMPTOMS OF LABOR1. Contractions every 10 minutes or more often2. Clear, pink, or brownish fluid (water) leaking from vagina3. Feeling that baby is pushing down, pressure4. Low, dull backache5. Cramps that feel like a period6. Cramps with or without diarrheaIf you notice any of the above symptoms, contact our office at [phone] andask to speak with a nurse.After hours, you can call doctors registry at [phone] OR call [facility] at [phone] and ask to have the doctor extrusion die coordinator paged.If you consider this an emergency, dial 7-3-1 or go to your nearest emergencydepartment.NEED HELP? Are you dealing with a violent or abusive relationship? Are you avictim of rape or sexual assult? Call [facility] ([place]) 24 hourCrisis Hotline: 699.424.3561 or 954-312-8795. MANUALYour Guide to a Healthy manual is now on-line. [email or web address]/Hea lthyPregnancyGuide to download your free copyReferring Provider: FARRAH LUKE [[id number]]Allergies As of Date: 12/13/2016 Noted Allergy ReactionSTEROIDS (BETAMETHASONE DIPROPION*10/07/2010 16 - Unknown Comments: Pt unsure of reactionDate Reviewed: 12/13/2016Reviewed by: Paola Cortes Ma - Fully AssessedReason for Visit: Care [86]Primary Visit Diagnosis:Encounter for supervision of other normal in third trimester [Z34.83] Other Visit Diagnosis:32 weeks gestation of [Z3A.32]Order(s):URINE OB DIP B/O [[id number]] Order #: [id number] OBSTETRIC ULTRASOUND WHI [[id number]] Order #: [id number]: 1Prescriptions as of 12/13/2016 Sig: ACETAMINOPHEN 325 MG TABLET Take 650 mg by mouth every 6 * RANITIDINE 150 MG TABLET Take 1 tablet by mouth twice * VITAMIN,CALCIUM,MINE* Take 1 tablet by mouth.Problem List As Of Date 12/13/2016 Noted Resolved History of macrosomia in in prior pregna*INVALID FOR* More... Hx of mitral valve prolapse [Z86.79] INVALID FOR* More... History of anxiety [Z86.59] INVALID FOR* More... Family history of congenital heart defect [Z82.*INVALID FOR* More... Family history of carrier of genetic disease [Z*INVALID FOR* More... Patient requested diagnostic testing [Z01.89] INVALID FOR*09/09/2016 More... Other instructions from your clinician: SEQUENTIAL SCREENINGS The [facility] offers sequential screenings for women who are interested in screenings for chromosomal abnormalities and certain defects during a . The sequential screen combines ultrasound and blood tests to determine the risk of chromosomal abnormalities, including Down's Syndrome (Trisomy 21) and Trisomy 18, as well as open neural tube defects including spina bifida. Ultrasound examination is performed between 11 weeks and 13 weeks gestational age. Blood tests are drawn after the ultrasound and again later in the between 15 and 21 weeks gestational age. Please let your physician know if you are interested in this testing. It will require an appointment with our durable medical equipment technician. This is not an ultrasound performed by a physician in our office during a routine visit. SIGNS AND SYMPTOMS OF LABOR 1. Contractions every 10 minutes or more often 2. Clear, pink, or brownish fluid (water) leaking from vagina 3. Feeling that baby is pushing down, pressure 4. Low, dull backache 5. Cramps that feel like a period 6. Cramps with or without diarrhea If you notice any of the above symptoms, contact our office at [phone] and ask to speak with a nurse. After hours, you can call doctors registry at [phone] OR call [facility] at [phone] and ask to have the doctor extrusion die coordinator paged. If you consider this an emergency, dial or go to your nearest emergency department. NEED HELP? Are you dealing with a violent or abusive relationship? Are you a victim of rape or sexual assult? Call [facility] [place] ([facility] 24 hour Crisis Hotline: 130.244.3879 or 592-677-4710. MANUAL Your Guide to a Healthy manual is now on-line. Visit [email or web address] Maggi to download your free copyDisposition: Return in about 2 weeks (around 12/27/2016).Follow-up and Disposition History RecordedEncounter Number: [id number] Status:Closed by JACLYN READ MD on 12/13/16 [facility] 11-29-2016 [facility] Routine Off ice Visit (WOOB) --DANIA ROGERS ([id number]) 1990 [facility] Provider Department11/29/16 11:10 AM FARRAH LUKE During your visit today, we recorded the following information about you: Blood pressure [facility] 108/62 [facility] 11/29/2016 11:21 AM SignedSEQUENTIAL SCREENINGSThe [facility] offers sequential screenings for women who are interestedin screenings for chromosomal abnormalities and certain defects during apregnancy. The sequential screen combines ultrasound and blood tests todetermine the risk of chromosomal abnormalities, including Down's Syndrome(Trisomy 21) and Trisomy 18, as well as open neural tube defects includingspina bifida. Ultrasound examination is performed between 11 weeks and 13 weeksgestational age. Blood tests are drawn after the ultrasound and again later inthe between 15 and 21 weeks gestational age. Please let yourphysician know if you are interested in this testing. It will require anappointment with our durable medical equipment technician. This is not an ultrasound performedby a physician in our office during a routine visit.SIGNS AND SYMPTOMS OF LABOR1. Contractions every 10 minutes or more often2. Clear, pink, or brownish fluid (water) leaking from vagina3. Feeling that baby is pushing down, pressure4. Low, dull backache5. Cramps that feel like a period6. Cramps with or without diarrheaIf you notice any of the above symptoms, contact our office at [phone] andask to speak with a nurse.After hours, you can call doctors registry at [phone] OR call [facility] at [phone] and ask to have the doctor extrusion die coordinator paged.If you consider this an emergency, dial 9--1 or go to your nearest emergencydepartment.NEED HELP? Are you dealing with a violent or abusive relationship? Are you avictim of rape or sexual assult? Call [facility] ([place]) 24 hourCrisis Hotline: 654.622.7881 or 106-748-6497. MANUALYour Guide to a Healthy manual is now on-line. Visitcletrihealth [email or web address]/Hewill lthyPregnancyGuide to download your free copyRoseline Scanlon Ma 11/29/2016 11:42 AM SignedPatient identified by name and date of .Dania Rogers presents today for a vaccination of Tdap.Patient denies an allergy to latex: yesPatient denies a severe (life-threatening) allergy to a previous dose of Tdap,DTP, DTaP, DT or Td vaccine. YesPatient denies history of epilepsy or neurological problems: YesPatient is afebrile and denies being moderately or severely ill: YesPatient denies history of Guillain-Evening Shade Syndrome (a severe paralytic illness): YesTdap Adacel injection was given without incident.See immunizations for details of immunizations administered today.VIS sheet provided: YesProvider Dr. Farrah Luke was present in office at time of injection.Roseline Long Provider: SELF [200]Allergies As of Date: 11/29/2016 Noted Allergy ReactionSTEROIDS (BETAMETHASONE DIPROPION*10/07/2010 16 - Unknown Comments: Pt unsure of reactionDate Reviewed: 11/29/2016Reviewed by: Farrah Luke - Fully AssessedReason for Visit: Care [86]Primary Visit Diagnosis:30 weeks gestation of [Z3A.30] Other Visit Diagnoses:Encounter for supervision of other normal in third trimester [Z34.83] Need for vaccination [Z23]Order(s):URINE OB DIP B/O [[id number]] Order #: [id number] TDAP VACCINE AGE 7+ IM [[id number]] Order #: [id number] as of 11/29/2016 Sig: ACETAMINOPHEN 325 MG TABLET Take 650 mg by mouth every 6 * VITAMIN,CALCIUM,MINE* Take 1 tablet by mouth. RANITIDINE 150 MG TABLET Take 1 tablet by mouth twice *Problem List As Of Date 11/29/2016 Noted Resolved History of macrosomia in in prior pregna*INVALID FOR* More... Hx of mitral valve prolapse [Z86.79] INVALID FOR* More... History of anxiety [Z86.59] INVALID FOR* More... Family history of congenital heart defect [Z82.*INVALID FOR* More... Family history of carrier of genetic disease [Z*INVALID FOR* More... Patient requested diagnostic testing [Z01.89] INVALID FOR*09/09/2016 More... Other instructions from your clinician: SEQUENTIAL SCREENINGS [facility] offers sequential screenings for women who are interested in screenings for chromosomal abnormalities and certain defects during a . The sequential screen combines ultrasound and blood tests to determine the risk of chromosomal abnormalities, including Down's Syndrome (Trisomy 21) and Trisomy 18, as well as open neural tube defects including spina bifida. Ultrasound examination is performed between 11 weeks and 13 weeks gestational age. Blood tests are drawn after the ultrasound and again later in the between 15 and 21 weeks gestational age. Please let your physician know if you are interested in this testing. It will require an appointment with our durable medical equipment technician. This is not an ultrasound performed by a physician in our office during a routine visit. SIGNS AND SYMPTOMS OF LABOR 1. Contractions every 10 minutes or more often 2. Clear, pink, or brownish fluid (water) leaking from vagina 3. Feeling that baby is pushing down, pressure 4. Low, dull backache 5. Cramps that feel like a period 6. Cramps with or without diarrhea If you notice any of the above symptoms, contact our office at [phone] and ask to speak with a nurse. After hours, you can call doctors registry at [phone] OR call [facility] at [phone] and ask to have the doctor extrusion die coordinator paged. If you consider this an emergency, dial or go to your nearest emergency department. NEED HELP? Are you dealing with a violent or abusive relationship? Are you a victim of rape or sexual assult? Call [facility] ([place]) 24 hour Crisis Hotline: 685.304.9272 or 103-161-3309. MANUAL Your Guide to a Healthy manual is now on-line. Visit [email or web address]/[email or web address] regnancyGuide to download your free copyDisposition: Return in about 2 weeks (around 12/13/2016) for routine OB check.Follow-up and Disposition History RecordedEncounter Number: [id number] Status:Closed by ROSELINE SCANLON MA on 11/29/16 [facility] PROGRESSon 11-29-2016 PROGRESS HNO ID: [id number] thor: Roseline Scanlon MaService: (none)Author Type: (none)Type: Progress NotesFiled: 11/29/2016 11:42 AMNote Text:Patient identified by name and date of .Dania Rogers presents today for a vaccination of Tdap.Patient denies an allergy to latex: yesPatient denies a severe (life-threatening) allergy to a previous dose ofTdap, DTP, DTaP, DT or Td vaccine. YesPatient denies history of epilepsy or neurological problems: YesPatient is afebrile and denies being moderately or severely ill: YesPatient denies history of Guillain-Evening Shade Syndrome (a severe paralyticillness): YesTdap Adacel injection was given without incident.See immunizations for details of immunizations administered today.VIS sheet provided: YesProshaka Luke was present in office at time of injection.Roseline Scanlon Ma [facility] 50g, 1hr gest. GSCRNon 11-14 Glucose mass conc 117 mg/dL Normal <135 [facility] Comment on above: Performed By: #### G LTGST ####[facility] [address] [place], [place] [phone] CBC and Differentialon 11-14 Abs Baso 0.02 k/uL Normal 0.00-0.10 [facility] Comment on above: Performed By: #### C BCDIF ####[facility], [place] [phone] Abs Essex 0.74 k/uL Normal 0.00-0.86 [facility] Comment on above: Performed By: #### C BCDIF ####[facility], [place] [phone] Abs Neut 8.16 k/uL High 1.45-7.50 [facility] Comment on above: Performed By: #### C BCDIF ####[place] [address] [place] [phone] Basophils/100 WBC Auto (Bld) 0.2 % Normal [facility] Comment on above: Performed By: #### C BCDIF ####[place] [address] [address] [place] [phone] DTYPE Auto Diff Normal [facility] Comment on above: Performed By: #### C BCDIF ####[facility] [place] [phone] Eosinophils 0.08 10*3/uL Normal 0.00-0.45 [facility] Comment on above: Performed By: #### C BCDIF ####[facility] [place] [phone] Eosinophils/100 leukocytes 0.7 % Normal [facility] Comment on above: Performed By: #### C BCDIF ####[facility] [place] [phone] Erythrocyte distribution width Auto Ratio (RBC) 13.3 % Normal 11.5-15.0 [facility] Comment on above: Performed By: #### C BCDIF ####[facility], [place] [phone] Erythrocytes (RBC) 3.64 10*6/uL Low 3.90-5.20 [facility] Comment on above: Performed By: #### C BCDIF ####[place] [address], [place] [phone] Erythrocytes (RBC) 0.0 /100 WBC Normal 0 [facility] Comment on above: Performed By: #### C BCDIF ####[place] [address] [address], [place] [phone] Erythrocytes (RBC) 0.00 10*6/uL Normal [facility] Comment on above: Performed By: #### C BCDIF ####[place] [phone] Hematocrit (HCT) 36.1 % Normal 36.0-46.0 [facility] Comment on above: Performed By: #### C BCDIF ####[address] [place] [phone] Hemoglobin mass conc (Bld) 11.2 g/dL Low 11.5-15.5 [facility] Comment on above: Performed By: #### C BCDIF ####[place] [phone] Lymphocytes 2.00 10*3/uL Normal 1.00-4.00 [facility] Comment on above: Performed By: #### C BCDIF ####[place] [address] [address] [phone] Lymphocytes/100 leukocytes 18.2 % Normal [facility] Comment on above: Performed By: #### C BCDIF ####[place] [address] [address] [place] [phone] MCH 30.8 pG Normal 26.0-34.0 [facility] Comment on above: Performed By: #### C BCDIF ####[place] [address] [address] [phone] MCHC mass conc (RBC) 31.0 g/dL Normal 30.5-36.0 [facility] Comment on above: Performed By: #### C BCDIF ####[facility], [place] [phone] MCV 99.2 fL Normal 80.0-100.0 [facility] Comment on above: Performed By: #### C BCDIF ####[place] [address] PhilippeSyber[place], [place] [phone] Monocytes/100 leukocytes 6.7 % Normal [facility] Comment on above: Performed By: #### C BCDIF ####[place] [address], [place] [phone] Neutrophils/100 WBC Auto (Bld) 74.2 % Normal [facility] Comment on above: Performed By: #### C BCDIF ####[place] [address] PhilippeSy[place], [place] [phone] Platelet mean volume (PMV) 10.9 fL Normal 9.0-12.7 [facility] Comment on above: Performed By: #### C BCDIF ####[place] [address] PhilippeSy[place], [place] [phone] Platelets 305 10*3/uL Normal 150-400 [facility] Comment on above: Performed By: #### C BCDIF ####[place] [address] [address], [place] [phone] WBC (Leukocytes) 11.00 10*3/uL Normal 3.70-11.00 [facility] Comment on above: Performed By: #### C BCDIF ####[facility], [place] [phone] HOSPon 11-14-2016 HOSP Routine Off ice Visit (WOOB) --DANIA ROGERS ([id number]) 1990 FDate Time Provider Department11/14/16 9:20 AM JACLYN PEREIRA During your visit today, we recorded the following information about you: Blood pressure Weight 102/60 95.7 kgTabatha Mary Nj 11/14/2016 9:28 AM SignedSEQUENTIAL SCREENINGSThe [facility] offers sequential screenings for women who are interestedin screenings for chromosomal abnormalities and certain defects during apregnancy. The sequential screen combines ultrasound and blood tests todetermine the risk of chromosomal abnormalities, including Down's Syndrome(Trisomy 21) and Trisomy 18, as well as open neural tube defects includingspina bifida. Ultrasound examination is performed between 11 weeks and 13 weeksgestational age. Blood tests are drawn after the ultrasound and again later inthe between 15 and 21 weeks gestational age. Please let yourphysician know if you are interested in this testing. It will require anappointment with our durable medical equipment technician. This is not an ultrasound performedby a physician in our office during a routine visit.SIGNS AND SYMPTOMS OF LABOR1. Contractions every 10 minutes or more often2. Clear, pink, or brownish fluid (water) leaking from vagina3. Feeling that baby is pushing down, pressure4. Low, dull backache5. Cramps that feel like a period6. Cramps with or without diarrheaIf you notice any of the above symptoms, contact our office at [phone] andask to speak with a nurse.After hours, you can call doctors registry at [phone] OR call [facility] at [phone] and ask to have the doctor extrusion die coordinator paged.If you consider this an emergency, dial or go to your nearest emergencydepartment.NEED HELP? Are you dealing with a violent or abusive relationship? Are you avictim of rape or sexual assult? Call [facility] ([place]) 24 hourCrisis Hotline: 881.855.5877 or 655-236-8718. MANUALYour Guide to a Healthy manual is now on-line. [email or web address] lthyPregnancyGuide to download your free copyMelita Hernandez Ma 11/14/2016 10:54 AM SignedDeferred tdap to next visitReferring Provider: SELF [200]Allergies As of Date: 11/14/2016 Noted Allergy ReactionSTEROIDS (BETAMETHASONE DIPROPION*10/07/2010 16 - Unknown Comments: Pt unsure of reactionDate Reviewed: 11/14/2016Reviewed by: Melita Hernandez Ma - Fully AssessedReason for Visit: Care [86]Primary Visit Diagnosis:28 weeks gestation of [Z3A.28] Other Visit Diagnoses:Encounter for supervision of other normal [Z34.80] Need for vaccination [Z23]Order(s):URINE OB DIP B/O [[id number]] Order #: [id number] CBC + DIFF [SQCBCDIF] Order #: [id number] FUTURE GEST GLUC SCREEN, 1-HR, 50 GM, NON-FASTING [SQGLTGST] Order #: [id number] FUTURE TDAP VACCINE AGE 7+ IM [[id number]] Order #: [id number] as of 11/14/2016 Sig: ACETAMINOPHEN 325 MG TABLET Take 650 mg by mouth every 6 * VITAMIN,CALCIUM,MINE* Take 1 tablet by mouth. RANITIDINE 150 MG TABLET Take 1 tablet by mouth twice *Problem List As Of Date 11/14/2016 Noted Resolved History of macrosomia in in prior pregna*INVALID FOR* More... Hx of mitral valve prolapse [Z86.79] INVALID FOR* More... History of anxiety [Z86.59] INVALID FOR* More... Family history of congenital heart defect [Z82.*INVALID FOR* More... Family history of carrier of genetic disease [Z*INVALID FOR* More... Patient requested diagnostic testing [Z01.89] INVALID FOR*09/09/2016 More... Other instructions from your clinician: SEQUENTIAL SCREENINGS [facility] offers sequential screenings for women who are interested in screenings for chromosomal abnormalities and certain defects during a . The sequential screen combines ultrasound and blood tests to determine the risk of chromosomal abnormalities, including Down's Syndrome (Trisomy 21) and Trisomy 18, as well as open neural tube defects including spina bifida. Ultrasound examination is performed between 11 weeks and 13 weeks gestational age. Blood tests are drawn after the ultrasound and again later in the between 15 and 21 weeks gestational age. Please let your physician know if you are interested in this testing. It will require an appointment with our durable medical equipment technician. This is not an ultrasound performed by a physician in our office during a routine visit. SIGNS AND SYMPTOMS OF LABOR 1. Contractions every 10 minutes or more often 2. Clear, pink, or brownish fluid (water) leaking from vagina 3. Feeling that baby is pushing down, pressure 4. Low, dull backache 5. Cramps that feel like a period 6. Cramps with or without diarrhea If you notice any of the above symptoms, contact our office at [phone] and ask to speak with a nurse. After hours, you can call [employer] registry at [phone] OR call [facility] at [phone] and ask to have the doctor extrusion die coordinator paged. If you consider this an emergency, dial 4-8-7 or go to your nearest emergency department. NEED HELP? Are you dealing with a violent or abusive relationship? Are you a victim of rape or sexual assult? Call [facility] ([place]) 24 hour Crisis Hotline: 864.330.8391 or 370-719-0249. MANUAL Your Guide to a Healthy manual is now on-line. Visit [email or web address]/[email or web address] regsummercyGuide to download your free copyDisposition: Return in about 2 weeks (around 11/28/2016) for routine OB check.Follow-up and Disposition History RecordedEncounter Number: [id number] Status:Closed by JACLYN READ MD on 11/14/16 Normal [facility] PROGRESSon 11-14-2016 PROGRESS HNO ID: [id number] Author: Melita Hernandez Ma Service: (none) Author Type: (none) Type: Progress Notes Filed: 11/14/2016 10:54 AM Note Text: Deferred tdap to next visit Normal [facility] HOSPon 10-17-2016 HOSP Routine Off ice Visit (WOOB) --DANIA ROGERS ([id number]) 1990 [facility] Time Provider Department10/17/16 1:50 PM JACLYN PEREIRA During your visit today, we recorded the following information about you: Blood pressure Weight 100/62 94.8 kgSusierobert Manpreet Rocha Ma 10/17/2016 1:47 PM SignedSEQUENTIAL SCREENINGSThe [facility] offers sequential screenings for women who are interestedin screenings for chromosomal abnormalities and certain defects during apregnancy. The sequential screen combines ultrasound and blood tests todetermine the risk of chromosomal abnormalities, including Down's Syndrome(Trisomy 21) and Trisomy 18, as well as open neural tube defects includingspina bifida. Ultrasound examination is performed between 11 weeks and 13 weeksgestational age. Blood tests are drawn after the ultrasound and again later inthe between 15 and 21 weeks gestational age. Please let yourphysician know if you are interested in this testing. It will require anappointment with our durable medical equipment technician. This is not an ultrasound performedby a physician in our office during a routine visit.SIGNS AND SYMPTOMS OF LABOR1. Contractions every 10 minutes or more often2. Clear, pink, or brownish fluid (water) leaking from vagina3. Feeling that baby is pushing down, pressure4. Low, dull backache5. Cramps that feel like a period6. Cramps with or without diarrheaIf you notice any of the above symptoms, contact our office at [phone] andask to speak with a nurse.After hours, you can call doctors registry at [phone] OR call [facility] at [phone] and ask to have the doctor extrusion die coordinator paged.If you consider this an emergency, dial 9-1-1 or go to your nearest emergencydepartment.NEED HELP? Are you dealing with a violent or abusive relationship? Are you avictim of rape or sexual assult? Call [facility] ([place]) 24 hourCrisis Hotline: 160.350.9217 or 510-823-2430. MANUALYour Guide to a Healthy manual is now on-line. [email or web address] lthyPregnancyGuide to download your free copyReferring Provider: SELF [200]Allergies As of Date: 10/17/2016 Noted Allergy ReactionSTEROIDS (BETAMETHASONE DIPROPION*10/07/2010 16 - Unknown Comments: Pt unsure of reactionDate Reviewed: 10/17/2016Reviewed by: Paola Cortes Ma - Fully AssessedReason for Visit: Care [86]Primary Visit Diagnosis:History of macrosomia in infant in prior , currently , second trimester [O09.292] Other Visit Diagnosis:24 weeks gestation of [Z3A.24]Order(s):URINE OB DIP B/O [[id number]] Order #: [id number] as of 10/17/2016 Sig: ACETAMINOPHEN 325 MG TABLET Take 650 mg by mouth every 6 * RANITIDINE 150 MG TABLET Take 1 tablet by mouth twice * VITAMIN,CALCIUM,MINE* Take 1 tablet by mouth.Problem List As Of Date 10/17/2016 Noted Resolved History of macrosomia in infant in prior pregna*INVALID FOR* More... Hx of mitral valve prolapse [Z86.79] INVALID FOR* More... History of anxiety [Z86.59] INVALID FOR* More... Family history of congenital heart defect [Z82.*INVALID FOR* More... Family history of carrier of genetic disease [Z*INVALID FOR* More... Patient requested diagnostic testing [Z01.89] INVALID FOR*09/09/2016 More... Other instructions from your clinician: SEQUENTIAL SCREENINGS [facility] offers sequential screenings for women who are interested in screenings for chromosomal abnormalities and certain defects during a . The sequential screen combines ultrasound and blood tests to determine the risk of chromosomal abnormalities, including Down's Syndrome (Trisomy 21) and Trisomy 18, as well as open neural tube defects including spina bifida. Ultrasound examination is performed between 11 weeks and 13 weeks gestational age. Blood tests are drawn after the ultrasound and again later in the between 15 and 21 weeks gestational age. Please let your physician know if you are interested in this testing. It will require an appointment with our durable medical equipment technician. This is not an ultrasound performed by a physician in our office during a routine visit. SIGNS AND SYMPTOMS OF LABOR 1. Contractions every 10 minutes or more often 2. Clear, pink, or brownish fluid (water) leaking from vagina 3. Feeling that baby is pushing down, pressure 4. Low, dull backache 5. Cramps that feel like a period 6. Cramps with or without diarrhea If you notice any of the above symptoms, contact our office at [phone] and ask to speak with a nurse. After hours, you can call doctors registry at [phone] OR call [facility] at [phone] and ask to have the doctor extrusion die coordinator paged. If you consider this an emergency, dial 1-3-8 or go to your nearest emergency department. NEED HELP? Are you dealing with a violent or abusive relationship? Are you a victim of rape or sexual assult? Call [facility] ([place]) 24 hour Crisis Hotline: 510.960.7230 or 750-687-3812. MANUAL Your Guide to a Healthy manual is now on-line. Visit [email or web address] [email or web address] to download your free copyDisposition: Return in about 4 weeks (around 11/14/2016).Follow-up and Disposition History RecordedEncounter Number: [id number] Status:Closed by JACLYN READ MD on 10/17/16 Normal [facility] Lab Report: CT/NG [facility] BY PCR on 11-04-2015 Chlamydia trachomatis DNA [Presence] in Urine by Probe and target amplification method Negative Invalid Interpretation Code Negative [facility] Neisseria gonorrhoeae presence Negative Invalid Interpretation Code Negative [facility] Office Visit: Medication all ergyon 11-04-2015 Tobacco use [facility] Former smoker Invalid Interpretation Code [facility] Rx Refill: eRx Request for V ENLAFAXINE HCL ER 150 MG TABon 04-06-2015 [id number]`VENLAFAXI NE HCL ER 150 MG TAB```30 Tablet`4`TAKE 1 TABLET IN THE MORNING``4`0`10/23/2014`No date sent`[facility]*`[id number]`VENLAFAXINE HCL ER 150 MG TAB Quantity: 30 Tablet Instructions: TAKE 1 TABLET IN THE MORNING [facility] Office Visit: Depression and pain follow upon 06-24-2014 Smoking cessation education (procedure) yes Invalid Interpretation Code [facility] Lab Report: Vitamin D 1,25-D ihydroxyon 05-09-2014 VITD 1,25 01189 46.5 Invalid Interpretation Code 10.0-75.0 [facility] Lab Report: CBC W/Diff, Auto matedon 05-05-2014 Absolute Neut 3.8 X10 3/UL Invalid Interpretation Code 2.0-7.7 [facility] Basophils/100 WBC Auto (Bld) 0.4 % Invalid Interpretation Code 0-1 [facility] Eosinophils/100 leukocytes 2.3 % Invalid Interpretation Code 0-5 [facility] Lymphocytes/100 leukocytes 33.9 % Invalid Interpretation Code 19-41 [facility] Monocytes/100 leukocytes 9.6 % Invalid Interpretation Code 0-10 [facility] Neutrophils/100 WBC Auto (Bld) 53.5 % Invalid Interpretation Code 47-70 [facility] Lab Report: CRPon 05-05-2014 C-REACTIVE PROT < 2.90 Invalid Interpretation Code 0.0-3.0 [facility] Lab Report: Comprehensive Me tabolic Profilon 05-05-2014 Alanine aminotransferase (ALT) 22 U/L Invalid Interpretation Code 12-78 [facility] Albumin 4.1 g/dL Invalid Interpretation Code 3.4-5.0 [facility] Albumin/Globulin Ratio 1.2 {ratio} Invalid Interpretation Code 0.9-2.4 [facility] Anion gap 8 mmol/L Invalid Interpretation Code 5-15 [facility] Aspartate aminotransferase (AST) 13 U/L Critically low 15-37 [facility] Bilirubin (total) 1.30 mg/dL Invalid Interpretation Code 0.00-4.00 [facility] BUN/Creatinine Ratio 15.0 RATIO Invalid Interpretation Code 10-20 [facility] Calcium 8.6 mg/dL Invalid Interpretation Code 8.5-10.1 [facility] Chloride 104 mmol/L Invalid Interpretation Code 98-107 [facility] CO2 27.0 mmol/L Invalid Interpretation Code 21.0-32.0 [facility] Creatinine 0.8 mg/dL Invalid Interpretation Code 0.6-1.0 [facility] eGFR (non-black) 95 mL/min/{1.73_m2} Invalid Interpretation Code >60 [facility] eGFR (non-black) 115 mL/min/{1.73_m2} Invalid Interpretation Code >60 [facility] Globulin 3.3 g/dL Invalid Interpretation Code 2.7-4.2 [facility] Glucose mass conc 86 mg/dL Invalid Interpretation Code 70-110 [facility] Potassium molar conc 4.0 mmol/L Invalid Interpretation Code 3.5-5.1 [facility] Protein 7.4 g/dL Invalid Interpretation Code 6.4-8.2 [facility] Sodium 139 mmol/L Invalid Interpretation Code 136-145 [facility] Urea nitrogen 12 mg/dL Invalid Interpretation Code 7-18 [facility] Lab Report: Ferritinon 05-05 Ferritin 34 ng/mL Invalid Interpretation Code 8252 [facility] Lab Report: Folates, (Folic Acid)on 05-05-2014 Folate 19.30 ng/mL Critically high 3.1-17.5 [facility] Lab Report: Iron+Iron Bindin g Capacityon 05-05-2014 Iron 99 ug/dL Invalid Interpretation Code 50-170 [facility] iron binding capacity, total 320 ug/dL Invalid Interpretation Code 250-450 [facility] Lab Report: Thyroid Stim Hor flaquita (TSH)on 05-05-2014 Thyroid stimulating hormone (TSH) 0.86 u[iU]/mL Invalid Interpretation Code 0.358-3.74 [facility] Replaced Document: (P) Eryth rocyte Sed Rateon 05-05-2014 Erythrocyte sedimentation rate 3 mm/h Invalid Interpretation Code 0-20 [facility] Vital Signs Date Time Vital Sign Value Performing Clinician Paulinoi danilo 01-16-2017 08:11-0400 BMI (Body Mass Index) 34.34 kg/m2 Anisa Gilbert MD [facility] 01-16-2017 08:11-0400 Body Temperature 96.6 [degF] Anisa Gilbert MD [facility] 01-16-2017 08:11-0400 BP Diastolic 73 mm[Hg] Anisa Gilbert MD [facility] 01-16-2017 08:11-0400 BP Systolic 116 mm[Hg] Anisa Gilbert MD [facility] 01-16-2017 08:11-0400 Pulse (Heart Rate) 95 /min Anisa Gilbert MD [facility] 01-16-2017 08:11-0400 Respiratory Rate 16 /min Anisa Gilbert MD [facility] 01-16-2017 08:11-0400 Weight 96.53 kg Anisa Gilbert MD [facility] 11-04-2015 08:14-0400 BSA (Body Surface Area) 1.89 m2 Anisa Gilbert MD [facility] 05-05-2014 14:32-0500 Height 167.64 cm Anisa Gilbert MD [facility] Encounters Encounter Date Encounter Type Care Provider Facility Start: 05-26-2023 End: 05-26-2023 ambulatory GRUPO Mills [facility] Start: 02-27-2023 End: 02-27-2023 ambulatory KATELYN Sewell [facility] Start: 01-25-2023 End: 01-26-2023 ambulatory [facility] Start: 01-25-2023 End: 01-25-2023 ambulatory VALARIE A [facility] Start: 01-25-2023 End: 01-25-2023 Subsequent hospital visit by physician Yuridia Gardner MD Work Phone: [facility] Comment on above: Tubular adenoma Start: 12-03-2021 End: 12-03-2021 Subsequent hospital visit by physician Qiana Machado DO Work Phone: [facility] Comment on above: Abnormal genetic kourtney t during Start: 06-25-2021 Patient encounter procedure Qiana [facility] Work Phone: [place] [address] Work Phone: Start: 12-27-2016 End: 12-29-2016 Ambulatory FARRAH LUKE [facility] Start: 12-13-2016 End: 12-13-2016 [facility] Start: 11-29-2016 End: 12-01-2016 Ambulatory FARRAH Frye [facility] Start: 11-14-2016 Ambulatory JACLYN JONES [facility] Start: 11-14-2016 End: 11-17-2016 Ambulatory FARRAH Frye [facility] Start: 10-17-2016 End: 10-17-2016 Ambulatory JACLYN JONES [facility] Procedures Date Procedure Procedure Detail Performing Clinician [...] End: 11-05-2015 *CHLGC - Chlamydia/GC DNA Probe [id number] Grupo Levy DO Work Phone: Start: 05-05-2014 End: 05-09-2014 *MATT Escoto, DO Work Phone: Start: 05-05-2014 End: 05-06-2014 *B12FO Vitamin B12 and Folates Valarie machuca, DO Work Phone: Start: 05-05-2014 End: 05-06-2014 *CBC with Differential Valarie Escoto, DO Work Phone: Start: 05-05-2014 End: 05-08-2014 *CELIAC Celiac Disease [place] [id number] Valarie Escoto, DO Work Phone: Start: 05-05-2014 [...] 05-05-2014 End: 05-06-2014 Erythrocyte sedimentation rate Valarie machuca, DO Work Phone: Start: 05-05-2014 [...] procedure 05/26/2023 11:45 AM EST Office Visit [facility] [place], [place] [phone] Yuridia Gardner MD [place], [place] [id number] [facility] Start: 02-27-2023 End: 02-27-2023 Professional / ancillary services management 02/27/2023 10:00 AM EST Telehealth Ancillary [facility] [place], [place] [phone] Katelyn Jimenez CGC [place], [place] [id number] [facility] Start: 11-25-2022 FLU (#1) FLU (#1) [facility] Start: 12-30-2021 End: 12-30-2021 Professional / ancillary services management 12/30/2021 Ancillary Procedure Visit [facility] Start: 11-25-2021 FLU (#1) FLU (#1) [facility] Start: 01-24-2017 End: 01-24-2017 Appointment Appointment [facility] Start: 01-10-2017 End: 01-11-2017 Streptococcus agalactiae DNA [Presence] in Unspecified specimen by JUAN A with probe detection *GBSD - Group B Strep, DNA by PCR [facility] Start: 01-03-2017 End: 01-17-2017 Us preg uterus real time f/u trnsabdl per fetus US uterus, re-evaluation of size or follow up [facility] Start: 11-04-2015 End: 11-05-2015 *CHLGC - Chlamydia/GC DNA Probe [id number] *CHLGC - Chlamydia/GC DNA Probe [id number] [facility] Start: 04-20-2015 End: 04-20-2015 Physical Therapy General Physical Therapy [facility], [address] [place] [address], [id number] [facility] Start: 06-24-2014 End: 06-24-2014 EMG EMG [facility] Start: 06-24-2014 End: 06-24-2014 Nerve Conduction Nerve Conduction [facility] Start: 05-05-2014 End: 05-09-2014 *MATT *MATT [facility] Start: 05-05-2014 End: 05-06-2014 *B12FO Vitamin B12 and Folates *B12FO Vitamin B12 and Folates [facility] Start: 05-05-2014 End: 05-06-2014 *CBC with Differential *CBC with Differential [facility] Start: 05-05-2014 End: 05-08-2014 *CELIAC Celiac Disease AB [id number] *CELIAC Celiac Disease AB [id number] [facility] Start: 05-05-2014 End: 05-06-2014 *CMP Complete Metabolic Panel *CMP Complete Metabolic Panel [facility] Start: 05-05-2014 End: 05-09-2014 1,25-Dihydroxyvitamin D [Mass/volume] in Serum or Plasma *[id number] Vitamin D, 1, 25- DiHydroxy [facility] Start: 05-05-2014 End: 05-06-2014 C reactive protein (hsCRP) *CRP - C-Reative Protein [facility] Start: 05-05-2014 End: 05-06-2014 Erythrocyte sedimentation rate *Sedimentation Rate (ESR) [facility] Start: 05-05-2014 End: 05-06-2014 Ferritin *Ferritin [facility] Start: 05-05-2014 End: 05-06-2014 HCG ( test) Ql *PREGS - Qualitative, Serum [facility] Start: 05-05-2014 End: 05-06-2014 Iron and Iron binding capacity panel - Serum or Plasma *IBC Iron & Total Iron Binding Capacity [facility] Start: 05-05-2014 End: 05-06-2014 Rheumatoid factor *RA Rheumatoid Factor - Quaint [facility] Start: 05-05-2014 End: 05-06-2014 Thyroid stimulating hormone (TSH) *TSH [facility] Start: 05-05-2014 End: 05-06-2014 Thyroxine (T4) free *T4 free [facility] Start: 05-05-2014 End: 05-06-2014 Triiodothyronine (T3) *T3-Total [facility] Start: 01-26-2013 Microscopic observat ion [Identifier] in Cervix by Cyto stain Pap Smear [facility] Start: 2008 MenB (1 of 2 - MenB 2-Dose Series Bexsero) MenB (1 of 2 - MenB 2-Dose Series Bexsero) [facility] Start: 2008 MenB (1 of 2 - MenB 2-Dose Series) MenB (1 of 2 - MenB 2-Dose Series) [facility] Start: 01-26-1999 Tetanus Diphtheria a nd Pertussis Vaccines (1 - Tdap) Tetanus Diphtheria and Pertussis Vaccines (1 - Tdap) [facility] Start: 01-26-1993 MMR (1 of 1 - Standa rd series) MMR (1 of 1 - Standard series) [facility] Start: 01-26-1993 Varicella (1 of 2 - 2-dose childhood series) Varicella (1 of 2 - 2-dose childhood series) [facility] Start: 1992 COVID-19 (#1) COVID-19 (#1) [facility] Start: 1992 Hepatitis B (1 of 3 - 3-dose series) Hepatitis B (1 of 3 - 3-dose series) [facility] Genetic Sendout: Cus brittany Panel Genetic Sendout: Custom Panel Lab Routine Tubular adenoma 01/25/2023 12:07 PM EDT [facility] Work Phone: End: 12-03-2021 Panorama Test: Chromosomes 13, 18, 21, X&Y, Triploidy, Optional 22Q 11.2 Deletion [facility] Work Phone: Comment on above: 1 Occurrences starti ng 12/03/2021 until 12/03/2021 Payers Date Payer Category Payer Unknown 1992 Unknown [id number] [id number]. [id number] 1992 Unknown [id number] 2.16. [id number] 1992 Unknown [id number] 2.16. [id number] 1992 Unknown [id number] 2.16. [id number] Unknown [id number] Unknown [id number] Social History Date Type Detail Facility Start: 12-03-2021 Tobacco smoking status NHIS Ex-smoker [facility] End: 03-27-2020 History of tobacco use Current smoker [facility] End: 03-27-2020 History of tobacco use Cigarette Smoker [facility] Start: 12-03-2021 Tobacco use and exposure Smokeless tobacco non-user [facility] Start: 12-03-2021 Alcohol intake Lifetime non-d vito (finding) [facility] Start: 08-24-2021 [facility] Start: 1990 Sex Assigned At Not on file [facility] Start: 11-23-2021 End: 12-03-2021 Exposure to SARS-CoV-2 (event) Not sure [facility] Start: 12-03-2021 History of Social function [facility] Start: 12-03-2021 Tobacco use panel [facility] NEGATED: Highlighted rowStart: NINF History of tobacco use Passive smoker [facility] Evaluation note Note Date & Type Note Facility Evaluation note Diagnosis Abnormal genetic test during documented in this encounter [facility] Evaluation note Note Date & Type Note Facility Evaluation note Diagnosis Tubular adenoma Benign neoplasm of unspecified site documented in this encounter [facility] History of Present illness Narrative Note Date & Type Note Facility History of Present illness Narrative Ms. Dania Rogers is a 31-year-old female who recently underwent her first colonoscopy and was found to have two colon polyps, including one tubular adenoma. Given the finding of multiple polyps at a young age, she was referred to the Cancer Genetics Clinic at [facility] by Farrah Mendoza NP ([facility]).Personal history of cancer? NoPrior genetic testing? [...] the gastric ulcers.Dermatology? Has not seen a asp net mvc developer.- However, she reports that she has a [...] paternal ancestry is . She has [place] ancestry on her mother's side ([facility]'s mother was Ashkenazi [employer]). Consanguinity was denied. [employer]-Zjvpehco-Yiyaewnj S[facility] Work Phone: History of Present illness Narrative Note Date & Type Note Facility History of Present illness Narrative Ms. Dania Rogers is a 31-year-old female who recently underwent her first colonoscopy and was found to have two colon polyps, including one tubular adenoma. Given the finding of multiple polyps at a young age, she was referred to the Cancer Genetics Clinic at [facility] by Farrah Mendoza NP ([facility]).Personal history of cancer? NoPrior genetic testing? [...] the gastric ulcers.Dermatology? Has not seen a asp net mvc developer.- However, she reports that she has a [...] cancer in her 50s- Mother's first cousins (akwill Najera's maternal first cousins once-removed) with history of kidney, colon, lung, and cervical cancer, respectively.Ms. Rogers reports that her maternal and paternal ancestry is . She has [place] [employer] ancestry on her mother's side (BRANDON's mother was Ashkenazi [employer]). Consanguinity was denied. OQ-Eehpsfab-Ncwqusdt 1500 Work Phone: Summary Purpose Family History No [...] ized section and content) DATE CREATED AUTHOR 09/20/2017 [facility] DATE CREATED AUTHOR AUTHOR'S ORGANIZ ATION 04/07/2019 [facility] ([place]) DATE CREATED AUTHOR AUTHOR'S ORGANIZ ATION 10/31/2021 [employer] DATE CREATED AUTHOR AUTHOR'S ORGANIZ ATION 06/14/2023 [facility] 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 Relationship Specialty Start Date End Date Valarie Escoto, DO [address] [place] [address] PCP - General Family Medicine 04/21/20 Tucker Dunham MD [address] [place] [address] [phone] 04/21/20 Fretted Instrument Repairer Relationship Specialty Start Date End Date Valarie Escoto, DO [address] [place] [address] PCP - General Family Medicine 04/21/20 Tucker Dunham MD [address] [place] [address] [phone] 04/21/20 Anisa Gilbert MD [address] [place] [phone] Referring Physician Obstetrics Gynecology 12/29/21 Anisa Gilbert MD [address] [place] [address] Attending Provider Obstetrics Gynecology 12/29/21 Eva [place], [place] [address] Registered Nurse 08/18/22 Katelyn Jimenez, LUIS ALFREDO [place], [place] [phone] Genetic Counselor Genetics 01/25/23 Reason for Visit (unrecogniz ed section and content) Specialty Diagnoses / Procedures Referred By Contkristopher t Referred To Contact Lab Diagnoses Tubular adenoma Procedures Genetic Sendout: Custom Panel [place] [address] Referral ID Status Reason Start Date Expiration Date V isits Requested Visits Authorized [id number] Open Specialty Services Required 01/25/2023 01/25/2024 1 [...] BE BASED ON THE PRIMARY CLINICAL RECORDS. [facility] [facility]. provides no warranty or guarantee of the accuracy or completeness of information in this document.
== END | disposition home or self-care (01) ==
LOC: US 17:04
PROVIDERS: PCP Family Medicine; Referring Provider Obstetrics & Gynecology; Visit Provider Obstetrics & Gynecology
DX: R10.2 Pelvic and perineal pain (principal)
CPT/HCPCS: 76830; 76856

== ENCOUNTER 2024-02-16 09:52 | Day surgery (SDC) | payer MEDICAID, SELFPAY ==
[2024-02-05 14:30] LABS: Hemoglobin 13.6 g/dL (12.0-15.0); Mean Corp Hgb Conc 33.2 g/dL (32-36); Mean Corpuscular Hgb 31.9 pg (27.0-32.0); Mean Corpuscular Volume 96.2 fL (81-99); Mean Platelet Vol. 9.9 fl (6.2-12.0); Platelet Count 324 K/mm3 (150-450); RBC Distribution Width CV 13.2 % (11.6-14.6); RBC Distribution Width SD 47.4 fl (35.1-43.9); Red Blood Count 4.26 M/mm3 (4.2-5.4); White Blood Count 7.1 K/mm3 (4.4-11.0)
[2024-02-05 14:50] LABS: Anion Gap 6 (5-15); BUN 16 mg/dL (7-18); BUN/Creat Ratio 18.8 RATIO (10-20); Calcium,Total 8.8 mg/dL (8.5-10.1); Chloride 107 mmol/L (98-107); Creatinine, Serum 0.85 mg/dL (0.55-1.02); EST Glomerular Filtration Rate 82 mL/min (>60); Est Glom Filt Rate - Afr Amer 100 mL/min (>60); Glucose 101 mg/dL (74-106); Potassium 3.9 mmol/L (3.5-5.1); Sodium Level 141 mmol/L (136-145)
[2024-02-16] VITALS (11 sets, daily range): BP systolic 88–117; BP diastolic 56–89; PULSE 56–94; RESP 16–18; TEMP 36.6–37.1; O2SAT 94–100; BMI 23.8
--- NOTE | 2024-02-16 10:01 | HP.PCM_ITS ---
History and Physical Date of Admission: 02/16/24 Intake Vital Signs 10/27/2410:40 11/22/2414:18 Height 5 ft 7 in 5 ft 7 in Weight: 153 lb BMI 23.9 BP 100/64 Blood Pressure Location Rt brachial Position Sitting Respiration 17 Pulse 70 Pulse Source Monitor Pulse Oximetry (%) 100 Oxygen Delivery Method room air Intake Visit Reasons: Umbilical hernia Chief Complaint: umbilical hernia Allergies acyclovir Allergy (Severe, Verified 11/29/23 15:13) Chest tightnessspironolactone Adverse Reaction (Verified 11/29/23 15:13) chest pain Medications ?Medication ?Instructions ?Recorded ?Confirmed ?Type Saccharomyces boulardii 250 mg 250 mg PO DAILY 06/27/23 11/29/23 History capsule (Daily Probiotic (S. boulardii)) buspirone 10 mg tablet 10 mg PO TID PRN anxiety #60 tabs 06/27/23 11/29/23 Rx inulin 2 gram chewable tablet g PO 06/27/23 11/29/23 History (Prebiotic Fiber) magnesium 200 mg tablet 200 mg PO DAILY 06/27/23 11/29/23 History multivitamin 1 tab PO DAILY 06/27/23 11/29/23 History polyethylene glycol 3350 17 4 g PO DAILY #238 grams 06/27/23 11/29/23 Rx gram/dose oral powder (Miralax) levonorgestrel-ethinyl estradiol 1 tab PO QDAY #84 tabs 11/29/23 11/29/23 Rx 0.1 mg-20 mcg tablet (Aviane) valacyclovir 1 gram tablet 1,000 mg PO .COMPLEX #4 tabs 11/29/23 11/29/23 Rx PFSH Medical History Umbilical hernia Bile duct leak Difficulty swallowing Leg cramps History of pain when walking History of edema Liver disease MRSA infection macrosomia depression psychosis Loose, teeth Chronic pain History of ulceration Smoker History of echocardiogram Personal history of colonic polyps Back pain History of IBS Gastric reflux Former smoker History of irregular heartbeat Chest pain Hx of vaginal delivery Hirsutism PCOS (polycystic ovarian syndrome) Fibromyalgia Seizures GERD (gastroesophageal reflux disease) IBS (irritable bowel syndrome) Anxiety Surgical History History of esophagogastroduodenoscopy (EGD) Hx of colonoscopy History of wisdom tooth extraction, class II edentulism History of tonsillectomy Family History Aunt DiabetesMother Autosomal recessive severe combined immunodeficiency diseaseOther Anemia Anxiety Arthritis Asthma Breast cancer Cancer Depression Epilepsy Heart disease Social History number of children: 4 current occupational status: unemployed and student current occupation: [employer] Smoking Status: Former smoker alcohol intake: never substance use type: does not use caffeine: Yes what type of physical activity do you participate in: walking and aerobics frequency: 1-2 times per week seatbelt use: always do you feel safe at home: Yes additional social history: Single HPI HPI HPI: Patient is a 33-year-old female here with umbilical hernia ROS General General: Yes fatigue HEENT HEENT: Yes difficulty swallowing and swollen glands Musc Musculoskeletal: Yes back problems Psych Psychiatric: Yes depression and anxiety Gastro Gastrointestinal: Yes abdominal pain, Yes nausea or vomiting, Yes diarrhea, Yes constipation, Yes acid reflux and Yes ulcers Neuro Neurologic: Yes numbness and Yes tingling Assessment and Plan Assessment and Plan (1) Umbilical hernia: Status: Acute Qualifiers: Obstruction and gangrene presence: without obstruction or gangrene Qualified Code(s): K42.9 - Umbilical hernia without obstruction or gangrene Plan: Patient has a small umbilical hernia I discussed fixing this with her in detail. I discussed repairing it with or without mesh depending on size. She is agreeable. I discussed the risks in detail such as bleeding, infection, injury other organs, patient understands and is willing to proceed. Vinnie Santana MD Pager: [facility] [address] [place] [address], [address] [place] [address] Office: I have examined the patient and the H&P has been reviewed. There are no clinical changes since date of exam.
[2024-02-16 10:28] LABS: Internal QC Validated? YES +Cl - CLEAR BKGD; Pregnancy, Urine Negative Negative
[2024-02-16] MEDS: Lactated Ringers 1,000 ML 15 ML IV (10:33)
[2024-02-16] MEDS: Cefazolin 2 GM in Syringe IV (10:40)
--- NOTE | 2024-02-16 11:18 | PRE.ANES_ITS ---
ASA Classification* ASA Classification ASA Classification: 3 Assessment & Plan Anesthesia* Anesthesia Assessment Anesthesia Assessment: Discussed sedation and/or anesthesia options, risks, benefits, and alternatives with patient/parents/legal guardian/POA. Questions invited. The patient/parents/legal guardian/POA seems to understand and agrees to proceed with anesthesia plan. Reviewed the physical assessment, medical history, allergy history and patient home medications list prior to surgery/procedure/anesthetic and documented any changes. Performed airway and anesthesia risk assessments. Anesthesia Type Anesthesia Type: General History Source History Obtained from:: Patient and Chart Anesthesia Focused Assessment* Temperature: 98.1 F Pulse Rate: 67 Blood Pressure: 97/59 Respiratory Rate: 16 Pulse Ox: 100 Oxygen Delivery Method: Room Air Airway Assessment Mouth opens: >3 cm Mallampati Score: I Teeth Condition: Caps/Crowns (Patient has 2 crowns 1 on either side of the lower jaw. They are tight.) Neck Range of motion (ROM): Full ROM Focused Labs Anesthesia Preop lab: CBC WBC 7.1 K/mm3 (4.4-11.0) 02/05/24 13:57 RBC 4.26 M/mm3 (4.2-5.4) 02/05/24 13:57 Hgb 13.6 g/dL (12.0-15.0) 02/05/24 13:57 Hct 41.0 % (37-47) 02/05/24 13:57 Plt Count 324 K/mm3 (150-450) 02/05/24 13:57 CHEMISTRY Potassium 3.9 mmol/L (3.5-5.1) 02/05/24 13:58 Sodium 141 mmol/L (136-145) 02/05/24 13:58 BUN 16 mg/dL (7-18) 02/05/24 13:58 Creatinine 0.85 mg/dL (0.55-1.02) 02/05/24 13:58 Glucose 101 mg/dL (74-106) 02/05/24 13:58 TSH 1.19 uIU/mL (0.358-3.74) 09/30/22 11:34 COAG HCG, Quant 09303 mIU/mL (1-3) H 10/04/21 14:40 Urine Test Negative Negative 02/16/24 10:07 Tst Clinic Negative 02/09/21 09:17 Pre-Assessment Diagnosis/Proposed Procedure Planned Operative Procedure(s): Hernia, Umbilical Repair, Mesh LAP SALPINGECTOMY Anesthesia History 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 When Was Last Pacemaker Check QUESTION #4 FULL TEXT: You/Your Family Experience fever (hyperthermia) with Anesthesia Last Oral Intake Last Oral intake: Last Oral Intake NPO since 06:00 02/16/24 10:22 Meds taken in AM with sips of water? Meds patient instructed to take am of surgery PONV PONV - fire information officer: PONV - fire information officer Female Yes 02/02/24 10:43 HX of Motion Sickness Yes 02/02/24 10:43 HX of N/V After Surgery Yes 02/02/24 10:43 Non-Smoker No 02/02/24 10:43 Duration of Surgery greater Yes 02/02/24 10:43 than 60 minutes Number of Risk Factors 4 02/02/24 10:43 PONV Score Severe Risk 02/02/24 10:43 Height & Weight Height & Weight: Anesthesia: Height & Weight Height 5 ft 7 in 02/16/24 10:22 Weight: 68.946 kg 02/16/24 10:22 Body Mass Index (BMI) 23.8 02/16/24 10:22 Respiratory Assessment Respiratory Assessment - fire information officer: Respiratory Tract Infection Hx - fire information officer Hx Respiratory Tract Infection No 02/02/24 10:43 STOP Sleep Apnea STOP Sleep Apnea - fire information officer: STOP Sleep Apnea - fire information officer Hx Hypertension No 02/02/24 10:43 Hx Sleep Apnea No 02/02/24 10:43 CPAP No 01/04/24 12:38 BIPAP Do you snore loudly (louder No 02/02/24 10:43 than talking or can be heard Do you often feel tired/ No 02/02/24 10:43 fatigued/ sleepy during daytime? Has anyone observed you stop No 02/02/24 10:43 breathing during sleep? STOP Results Negative 02/02/24 10:43 QUESTION #5 FULL TEXT : Do you snore loudly (louder than talking or can be heard through closed doors)? Tobacco Use History Tobacco Use History - fire information officer: Tobacco Use History - fire information officer Tobacco Use Smoking Status Current every day smoker 02/02/24 10:43 Hx Tobacco Use Yes 02/02/24 10:43 Years Smoking Packs Smoked per Day 0.5 02/02/24 10:43 Smoking Cessation Date was within the last 15 years Hx Smoking Cessation Date 02/02/24 10:43 Hx Smoking Cessation Counseling Any additional information?: Yes Smoking Status: Current every day smoker (Patient did not smoke today) Hematologic Medial History Hematologic Hx - fire information officer: Hematologic Medical Hx - button cutter Hx of Blood Transfusion No 02/02/24 10:43 Hx of Transfusion in last 3 No 02/02/24 10:43 Months Date of Last Transfusion (if within last 3 months) Ever experience any problems No 02/02/24 10:43 with transfusion(s)? Specify any problems Hx of Preganancy in last 3 N/A 02/02/24 10:43 Months Nurse Filling Out Transfusion NBUCHER 02/02/24 10:43 & Questions: Date: 02/02/24 02/02/24 10:43 Time: 10:45 02/02/24 10:43 Patient unable to answer at this time (ie. confused, unrespo /Reproduction History /Reproductive History - fire information officer: /Reproductive Hx- fire information officer Hx Now No 02/02/24 10:43 Gestational Age (in weeks): EDC: Hx Hx Para Hx Section SAB No 02/02/24 10:43 Active Medications Active Medications: Current Medications Generic Name Dose Route Start Last Admin Trade Name Freq PRN Reason Stop Dose Admin Lactated Ringer's 1,000 mls @ 15 mls/hr 02/16/24 10:00 02/16/24 10:33 IV 02/21/24 23:19 15 mls/hr .Q48H VARGHESE Administration Protocol PFSH Medical History Wears glasses Marijuana use Castillo disease PONV (postoperative nausea and vomiting) History of tachycardia Umbilical hernia Bile duct leak Difficulty swallowing Leg cramps History of pain when walking History of edema Liver disease MRSA infection macrosomia depression psychosis Loose, teeth Chronic pain History of ulceration Smoker History of echocardiogram Personal history of colonic polyps Back pain History of IBS Gastric reflux Former smoker History of irregular heartbeat Chest pain Hx of vaginal delivery Hirsutism PCOS (polycystic ovarian syndrome) Fibromyalgia Seizures GERD (gastroesophageal reflux disease) IBS (irritable bowel syndrome) Anxiety Home Medications ?Medication ?Instructions ?Recorded ?Last Taken ?Type valacyclovir 500 mg tablet 500 mg PO QDAY #30 tabs 12/21/23 Unknown Rx Lactobacillus acidophilus 10 100 mmu cells PO DAILY 02/02/24 Unknown History billion cell capsule (Probacap) Allergy/AdvReac Type Severity Reaction Status Date / Time acyclovir Allergy Severe Chest Verified 02/16/24 10:21 tightness spironolactone AdvReac chest pain Verified 02/16/24 10:21 Family History Aunt Diabetes Mother Autosomal recessive severe combined immunodeficiency disease Other Anemia Anxiety Arthritis Asthma Breast cancer Cancer Depression Epilepsy Heart disease Surgical History (Updated 02/16/24 @ 11:[address] 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 Smoking Status: Current every day smoker tobacco type: cigarettes alcohol intake: never substance use type: does not use caffeine: Yes what type of physical activity do you participate in: walking and aerobics frequency: 1-2 times per week seatbelt use: always do you feel safe at home: Yes additional social history: Single Review of Systems (Anesthesia) ROS Narrative System reviewed and no additional complaints, except as documented.
--- NOTE | 2024-02-16 11:30 | FALS_PTH ---
PATIENT: DANIEL RAIN LOC: [facility] U#:[id number] AGE/SX: 34/F ROOM: RE02/16/[address]: Dr. Vinnie Santana MD : 1990 BED: DIS: 02/16/2024 SPEC #: [id number] RECD: 02/16/24 13:10 STATUS: SOPHIA REQ #: [id number] MONA: 02/16/24 11:[address]: Vinnie Santana DEPT: SURGICAL PATHOLOGY RECD BY: Keyana Pitts ENTERED: 02/16/24 13:56 SP TYPE: FALL TUBES OTHR DR: MD Dr. Agus Villar DO Dr. Sharon Marcanthony, MD Tissues: Fallopian tube Procedures: Surgery Specimen Level II HEADER OPERATION: Laparoscopic salpingectomy PRE-OP DIAGNOSIS: Desires sterilization TISSUE SUBMITTED: Bilateral fallopian tubes MICROSCOPIC DIAGNOSIS Right and left fallopian tubes, bilateral salpingectomies: Complete cross-sections of two fallopian tubes. Benign paratubal cyst. AM: 02/19/2024 MICROSCOPIC DESCRIPTION Slides are reviewed. GROSS DESCRIPTION Received in fixative is one container labeled with the patient's name and designated bilateral fallopian tubes. The specimen consists of bilateral fallopian tubes including fimbrial ends measuring 6.0 cm in length and 0.5 cm in diameter and 6.5cm in length and 0.5cm in diameter. The fallopian tubes are not identified as right or left. Sections reveal unremarkable cut surfaces. One of the fallopian tubes shows a paratubal cyst measuring 0.6cm in greatest dimension. Residential Property Tax Appraiser sections are submitted in two cassettes: 1- one fallopian tube, 2- second fallopian tube and paratubal cyst. / SJ: 02/16/2024 TC:5 CPT: 14911,55273
--- NOTE | 2024-02-16 11:38 | PCM.HP.BLA ---
History and Physical Date of Admission: 02/16/24 Vital Signs 12/20/2414:06 01/04/2412:38 01/12/2408:55 Height 5 ft 7 in 5 ft 7 in 5 ft 7 in Weight: 154 lb BMI 24.1 BP 106/68 Intake Visit Reasons: BS consult title 19 needs signed Max mejias Mechanic Chief Required: No Is patient in pain?: Yes (burning pain in lower pelvic area - going on for about a month) Allergies acyclovir Allergy (Severe, Verified 01/12/24 08:57) Chest tightnessspironolactone Adverse Reaction (Verified 01/12/24 08:57) chest pain Medications ?Medication ?Instructions ?Recorded ?Confirmed ?Type valacyclovir 500 mg tablet 500 mg PO QDAY #30 tabs 12/21/23 01/12/24 Rx Is last menstrual period known: Yes Last Menstrual Period: 11/29/23 Post menopausal: No Patient : No : No PFSH Medical History Umbilical hernia Bile duct leak Difficulty swallowing Leg cramps History of pain when walking History of edema Liver disease MRSA infection macrosomia depression psychosis Loose, teeth Chronic pain History of ulceration Smoker History of echocardiogram Personal history of colonic polyps Back pain History of IBS Gastric reflux Former smoker History of irregular heartbeat Chest pain Hx of vaginal delivery Hirsutism PCOS (polycystic ovarian syndrome) Fibromyalgia Seizures GERD (gastroesophageal reflux disease) IBS (irritable bowel syndrome) Anxiety Surgical History History of esophagogastroduodenoscopy (EGD) Hx of colonoscopy History of wisdom tooth extraction, class II edentulism History of tonsillectomy Family History Aunt DiabetesMother Autosomal recessive severe combined immunodeficiency diseaseOther Anemia Anxiety Arthritis Asthma Breast cancer Cancer Depression Epilepsy Heart disease Social History (Updated 01/12/24 @ 09:02 by Radha Gorman) number of children: 4 current occupational status: employed and student 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 Smoking Status: Former smoker alcohol intake: never substance use type: does not use caffeine: Yes what type of physical activity do you participate in: walking and aerobics frequency: 1-2 times per week seatbelt use: always do you feel safe at home: Yes additional social history: Single HPI BS consult title 19 needs signed Max mejias Details: DANIEL RAIN is a 33 year old who presents for consultation desiring sterilization, has been wanting for a while and hasn't had time to get done, now getting a hernia surgery so ready for sterilization. she has regular menses but heavy at times, has had 4 kids, doesn't want to have any more. she is also having some burning suprapubic increasing over the last few weeks. menses are heavier some months and she feels some vaginal pressure some months. she has a history of some heavy menses and some mild prolapse. Female Reproductive History Last Menstrual Period: 11/29/23 Menopausal Symptoms: No night sweats History 4 Elective abortions Hx Para 4 Spontaneous abortions Hx # Term Pregnancies Ectopic pregnancies Hx # Pregnancies Multiple births # of living children 4 Past Pregnancies Del. Date Name GA/Weeks Outcome Route Bth Weight Gen Labor Lgth Anesthesia Del Locatn Provider FOB Unknown 2011 Abelino Valente 40 live - full term 9lbs 1oz Male 12 hours epidural [facility] [place] Unknown 2016 Dayana 38 live - full term 8lbs 8oz Female 11 hours epidural [facility] [place] 09/30/20 Eloha 38 live - full term 7. 3 Female [facility] Dr. Gilbert 05/11/22 Sonata 39 live - full term Male [facility] Bertha Cardona Delivery Date: Last Updated by: Katelyn Arreola no complications Delivery Date: Last Updated by: Katelyn Arreola nuchal cord; failed epidural; jaundice- stayed an extra 4 days in hospital ROS Const Constitutional: Denies fatigue, night sweats, weight gain or weight loss ENT ENT: Reports system reviewed and no additional complaints, except as documented Cardio Card: Denies chest pain Resp Resp: Denies cough or dyspnea GI GI: Reports as per HPI and abdominal pain; Denies constipation, nausea or vomiting : Denies nipple discharge, urinary frequency, urinary incontinence, urinary hesitancy, urinary urgency, vaginal discharge, vaginal dryness, vaginal odor or vaginal pruritus Musc Musc: Denies arthralgias, back pain or muscle weakness Skin Skin/Breast: Denies alopecia, change in hair, dry skin, breast mass, breast pain, breast skin changes or nipple discharge Neuro Neuro: Reports system reviewed and no additional complaints, except as documented Psych Psych: Reports system reviewed and no additional complaints, except as documented Endo Endo: Denies cold intolerance, excessive sweating, heat intolerance or polydipsia Jesse/Lymph Hematologic/Lymphatic: Denies easy bleeding, Denies easy bruising and Denies lymphadenopathy Exam Const General: cooperative, healthy appearing, comfortable and no acute distress Orientation: alert [facility] Head: normal to inspection and normocephalic Ears: hearing grossly normal bilaterally and external ears normal Nose: external nose normal and nares normal Face and sinus: normal facial exam Neck Neck: normal visual inspection and no lymphadenopathy Thyroid: thyroid normal Chest Chest palpation & inspection: normal inspection of the chest Resp Effort & Inspection: normal respiratory effort Auscultation: clear to auscultation bilaterally Cardio Rate: regular rate Rhythm: regular rhythm Heart Sounds: S1 normal and S2 normal GI Inspection: normal to inspection and non-distended Palpation: soft and no hepatosplenomegaly Other: hernia present Musc Other: gross motor intact no deficits, full bilateral strength Skin General: no rashes or lesions noted Neuro General: patient alert, patient awake, moves all extremities and no focal motor deficits Motor: muscle tone normal throughout Extrem General: normal to inspection and no pedal edema Psych Appearance: grossly normal Mental Status: mental status grossly normal Affect: normal affect Speech and Movement: speech and movement normal Coding Level of Care Code Off vis,est,level 4 Diagnoses Sterilization Z30.2 Acute pelvic pain, female R10.2 Menorrhagia N92.0 Prolapse of female pelvic organs N81.9 Assessment and Plan Assessment and Plan (1) Sterilization: Status: Acute Comment: plan lap bs at time of hernia repair (2) Acute pelvic pain, female: Status: Acute Comment: s/p infection workup, pelvic US ordered (3) Menorrhagia: Status: Acute (4) Prolapse of female pelvic organs: Status: Acute Orders: Orders Pelvic w/ Transvaginal 01/12/24 R10.2 - Pelvic and perineal pain Plan After discussing the patient's diagnosis and treatment plan options, patient wishes to proceed with surgical management. I have discussed with the patient the risks, benefits, and alternatives of the procedure which include but are not limited to risks of anesthesia, bleeding, infection, possible damage to bowel, bladder, or surrounding vasculature which could lead to additional surgery to evaluate any complications. Patient agrees to procedure and wishes to proceed. ACOG/uptodate references given for additional information regarding procedure. UPDATE- I have seen the patient and performed any clinically relevant updates to the history and physical exam. Anisa Gilbert MD
[2024-02-16] MEDS: Bupiv/Epi 0.25% 30 ML Vial (12:17)
--- NOTE | 2024-02-16 12:28 | PCM.OPRPT ---
Operative Report (Standard) Operative Information Surgery/Procedure Performed: Umbilical hernia repair Surgeon: Vinnie Santana Date of Procedure: 02/16/24 Procedure Start Time: 11:55 Procedure Stop Time: 12:19 Pre-Operative Diagnosis: Umbilical hernia Post-Operative Diagnosis: Same Select all DRAINS/GRAFTS/IMPLANTS that apply: None Type of Anesthesia: General/Regional Estimated Blood Loss: 5 Specimen collected: No Description of surgery: This was a joint surgery with Dr. Gilbert. We brought the patient back to the operating room and general anesthesia was induced. Patient was placed in stirrups. The abdomen was prepped and draped in usual sterile fashion as well as the perineum. Dr. Gilbert placed the uterine manipulator. A curvilinear incision was marked superior to the umbilicus and then injected with local anesthetic. The marking was then incised using a scalpel and deepened to the subcutaneous tissue. The umbilical stalk was taken off of the hernia sharply. Next the hernia contents were reduced and using Visiport technique a 5 mm port was placed through the umbilical hernia and into the abdomen. The abdomen was insufflated to [address] Agus Birmingham placed a suprapubic port and performed a bilateral salpingectomy. After she was done the ports were removed and the abdomen was allowed to desufflate. The umbilical hernia was closed with 2 [id number] 0 Nurolon sutures. The hernia measured less than 1 cm. The umbilical stalk was then sutured to the fascia using 3-0 Vicryl suture. The incisions were closed with interrupted 3-0 Vicryl sutures. Steri-Strips and bandages were applied. Patient was taken to PACU in stable condition and tolerated the procedure well. Surgical Findings: Small umbilical hernia Rolled Glass Crosscutter aerospace stress engineer: Yes Home Performance Laborer: Anisa Gilbert Tasks completed by bus assistant: Opening, Closing and Retracting Complications Complications: No Admit VTE Documentation VTE Mechan Device Prophylaxis: SCD's
--- NOTE | 2024-02-16 12:30 | PCM.POST.ANE ---
Anesthesia: Postop Eval I Current Vital Signs Temperature: 98 F Pulse Rate: 90 Blood Pressure: 106/62 Respiratory Rate: 18 Pulse Ox: 100 Oxygen Delivery Method: Room Air Assessment Airway patent: Yes Spontaneous unlabored respirations: Yes Mental status: Awake and Calm nausea: No Vomiting: No Anesthesia Complication: No Fluid Hydration Crystalloid volume administer (ml): 500 Total IV fluid infused: 500 Progress Note Anesthesia document: Postop Eval 1 completed: Yes
--- NOTE | 2024-02-16 12:31 | DCINST_ITS ---
Discharge Instructions Procedure Hernia Diet Discharge Diet: Light diet - advance as tolerated Activity Discharge Activity: May Not Drive (for 2-3 days or while taking narcotic pain meds.) and May Shower (with the bandage in place 1-2 days after surgery.) Lifting Restrictions: 20 pounds for 2 weeks. Additional Activity Instructions:: Climbing stairs is fine, walking is encouraged. Sitting in bed may be uncomfortable. Sitting up using your lateral muscles (sitting up sideways) is usually more comfortable. Do not drive, work heavy equipment of sign legal documents for 24 hours. Pain medications may cause nausea, you should typically eat light foods as you take your pain medications. Pain medications may also cause constipation. If you have difficulty with this, discuss with your doctor. Alternate ibuprofen and Tylenol for pain control, oxycodone for breakthrough pain Dressing / Incision Call your doctor if your incision/area has: Continuous Slow Oozing, Sudden Increased Bleeding, Increased Pain/ Swelling, Increased Redness and Foul Smelling Discharge Call your doctor if you observe: Fever of 101 or Higher Suture Line Care: Avoid Pulling/Pushing and Avoid Pinching/Bending Remove Dressing in: 2 days (Remove clear bandages in 2 days, remove Steri-Strips in 7 to 10 days.) Cleanse incision/area with: Soap & Water Follow Up Care Please Follow Up With: Vinnie Santana MD When: Please call to schedule 2 week follow up appointment. [phone] Test Results: Test results from this visit will be discussed in further detail at your follow- up appointment, if applicable. Discharge Plan Admission Attending Provider: Vinnie Santana Primary Care Provider: Agus Levy Consulting Providers: Anisa Gilbert; Titus Munguia Instructions Print Language: Albanian Discharge Orders/Prescriptions Prescriptions: New oxycodone 5 mg tablet 5 - 10 mg PO Q6H PRN (Reason: pain) 5 Days Qty: 10 0RF No Action valacyclovir 500 mg tablet 500 mg PO QDAY Qty: 30 6RF Probacap 10 billion cell capsule 100 mmu cells PO DAILY Referrals / Follow Up: Agus Levy DO [Primary Care Provider] - Disposition Disposition (needs filled in before D/C Order can be placed): Home, Self Care
--- NOTE | 2024-02-16 13:11 | POSTOPAN2_ITS ---
Anesthesia Postop Eval I Sum Postop Eval Completion status Anesthesia document: Postop Eval 1 completed: Yes Anesthesia Postop Eval I Summary Anesthesia Postop Eval I Summary: Anesthesia Postop Eval I: Assessment Summary Airway patent Yes 02/16/24 12:31 ENERGY RISK MANAGEMENT ANALYST.NICAOBJoseluis Spontaneous unlabored Yes 02/16/24 12:31 ENERGY RISK MANAGEMENT ANALYST.TAYLOR respirations Mental status Awake,Calm 02/16/24 12:31 ENERGY RISK MANAGEMENT ANALYST.TAYLOR nausea No 02/16/24 12:31 ENERGY RISK MANAGEMENT ANALYST.TAYLOR Vomiting No 02/16/24 12:31 ENERGY RISK MANAGEMENT ANALYST.TAYLOR Anesthesia Postop Eval I: Fluid Summary Crystalloid volume administer 500 02/16/24 12:31 ENERGY RISK MANAGEMENT ANALYST.NICAOBY (ml) Colloids volume administered ( ml) Blood Product volume administered (ml) Total IV fluid infused 500 02/16/24 12:31 ENERGY RISK MANAGEMENT ANALYST.TAYLOR Anesthesia Postop Eval I: Summary Notes Anesthesia Complication No 02/16/24 12:31 ENERGY RISK MANAGEMENT ANALYST.TAYLOR Anesthesia Complication Comment: Post-operative progress note Anesthesia: Postop Eval II Evaluation Mental status: Awake Pain Level: 0 nausea: No Vomiting: No
--- NOTE | 2024-02-16 13:11 | PCM.POSTANE2 ---
Anesthesia Postop Eval I Sum Postop Eval Completion status Anesthesia document: Postop Eval 1 completed: Yes Anesthesia Postop Eval I Summary Anesthesia Postop Eval I Summary: Anesthesia Postop Eval I: Assessment Summary Airway patent Yes 02/16/24 12:31 PLACE CHANGE ROOF BOLTER.NICAOBJoseluis Spontaneous unlabored Yes 02/16/24 12:31 PL[address] CHANGE ROOF BOLTER.TAYLOR respirations Mental status Awake,Calm 02/16/24 12:31 PLACE CHANGE ROOF BOLTER.TAYLOR nausea No 02/16/24 12:31 PL[address] CHANGE ROOF BOLTER.TAYLOR Vomiting No 02/16/24 12:31 PL[address] CHANGE ROOF BOLTER.TAYLOR Anesthesia Postop Eval I: Fluid Summary Crystalloid volume administer 500 02/16/24 12:31 PL[address] CHANGE ROOF BOLTER.NICAOBY (ml) Colloids volume administered ( ml) Blood Product volume administered (ml) Total IV fluid infused 500 02/16/24 12:31 PL[address] CHANGE ROOF BOLTER.TAYLOR Anesthesia Postop Eval I: Summary Notes Anesthesia Complication No 02/16/24 12:31 PL[address] CHANGE ROOF BOLTER.TAYLOR Anesthesia Complication Comment: Post-operative progress note Anesthesia: Postop Eval II Evaluation Mental status: Awake Pain Level: 0 nausea: No Vomiting: No
[2024-02-16] MEDS: oxyCODONE 5 MG Tablet PO (14:06)
--- NOTE | 2024-02-17 04:55 | PCM.OPRPT ---
Problems Associated Problem List Diagnoses (1) Sterilization: Operative Report (Standard) Operative Information Surgery/Procedure Performed: laparoscopic bilateral salpingectomy Surgeon: Anisa Gilbert Date of Procedure: 02/16/24 Procedure Start Time: 11:55 Procedure Stop Time: 12:19 Pre-Operative Diagnosis: sterilization Post-Operative Diagnosis: same Select all DRAINS/GRAFTS/IMPLANTS that apply: None Type of Anesthesia: General Estimated Blood Loss: minimal Specimen collected: Yes Description of specimen(s) removed: tubes Description of surgery: Patient was taken to the operating room placed under general anesthesia was prepped and draped in normal sterile fashion in the dorsolithotomy position. Uterine manipulator placed inside the uterus after it sounded to 8 cm and the bladder had been drained. Dr. Santana made the umbilical incision and placed the umbilical port please see his operative note for additional information. 5 mm suprapubic port was placed and using the LigaSure device the mesosalpinx was transected bilaterally and bilateral fallopian tubes were removed without complication. Uterus tubes and ovaries were noted to be within normal limits and the cul-de-sac was within normal limits. The rest of the procedure was performed by Dr. Santana see his note for additional information Surgical Findings: nl uterus tubes ovaries Adult Care Provider partner marketing intern: No Complications Complications: No Procedures Urinary/Genital [id number]: [id number] Laproscopic BS/O
== END 2024-02-16 15:05 | disposition home or self-care (01) ==
LOC: SDC 09:54 → AC 09:55
PROVIDERS: Obstetrics & Gynecology; PCP Family Medicine; Referring Provider Surgery; Visit Provider Surgery
PROC: (CPT 49591; principal; 2024-02-16 11:15)
PROC: (CPT 58661; 2024-02-16 11:15)
DX: K42.9 Umbilical hernia without obstruction or gangrene (principal); Z87.891 Personal history of nicotine dependence; N92.0 Excessive and frequent menstruation with regular cycle; Z30.2 Encounter for sterilization; K21.9 Gastro-esophageal reflux disease without esophagitis; N81.4 Uterovaginal prolapse, unspecified; N83.8 Other noninflammatory disorders of ovary, fallopian tube and broad ligament
CPT/HCPCS: 58661; 49591; 00830; 36415; 80048; 81025; 85027; 86850; 86900; 86901; 88302; J2405

== ENCOUNTER → 2024-10-21 | Outpatient (CLI) | payer MEDICAID, SELFPAY ==
[2024-10-21 12:58] LABS: AST(SGOT) 16 U/L (<=31); Alanine Aminotransfer ALT/SGPT 9 U/L (<=34); Albumin, Serum 4.3 g/dL (3.5-5.0); Alkaline Phosphatase 41 U/L (35-104); Anion Gap 12 (5-15); BUN 15 mg/dL (4-19); BUN/Creat Ratio 17.7 RATIO (10-20); CORTISOL AM 16.60 ug/dL (6.02-18.40); Calcium,Total 9.2 mg/dL (7.6-11.0); Carbon Dioxide 23.9 mmol/L (21.0-32.0); Chloride 106 mmol/L (98-108); Globulin 2.5 g/dL (2.2-4.2); Glucose 79 mg/dL (70-99); Potassium 4.0 mmol/L (3.3-5.1)
== END | disposition home or self-care (01) ==
LOC: LAB 11:33
PROVIDERS: PCP Family Medicine; Referring Provider Family Medicine; Visit Provider Family Medicine
DX: E16.2 Hypoglycemia, unspecified (principal)
CPT/HCPCS: 36415; 80053; 82533; 83036; 83525; 84439; 84443

== ENCOUNTER → 2024-10-24 | Outpatient (CLI) | payer MEDICAID, SELFPAY | END | disposition home or self-care (01) | LOC: US 07:59 | PROVIDERS: PCP Family Medicine; Referring Provider Family Medicine; Visit Provider Family Medicine | DX: R10.9 Unspecified abdominal pain (principal); E16.1 Other hypoglycemia | CPT/HCPCS: 76705 ==

== ENCOUNTER → 2024-11-22 | Outpatient (CLI) | payer MEDICAID, SELFPAY ==
[2024-11-22 11:14] LABS: CORTISOL AM 0.75 ug/dL (6.02-18.40)
== END | disposition home or self-care (01) ==
LOC: LAB 09:07
PROVIDERS: PCP Family Medicine; Referring Provider Family Medicine; Visit Provider Family Medicine
DX: R79.89 Other specified abnormal findings of blood chemistry (principal)
CPT/HCPCS: 36415; 82533

== ENCOUNTER → 2024-12-30 | Outpatient (CLI) | payer MEDICAID, SELFPAY ==
--- NOTE | 2024-12-30 16:27 | RAD_ITS ---
PROCEDURE: CERV SPINE OBL/FLEX/EXT COMP 12/30/2024 REASON FOR EXAM: ASSESS FOR CRANIAL CERVICAL INSTABILITY TECHNIQUE: Procedure Code: RADSPCFE Modality: DX Procedure: CERV SPINE OBL/FLEX/EXT COMP COMPARISON: None FINDINGS: Vertebrae: The cervical vertebral body heights are within normal limits. There is no spondylolysis. Disc spaces: Disc spaces are well-maintained. Alignment: There is subtle loss of the normal lordotic cervical curvature. There is no spondylolisthesis. There is no instability on the flexion or extension views. Soft tissues: Paravertebral soft tissues are unremarkable. There is no prevertebral soft tissue swelling. Other: Fillings are identified in some of the teeth. RAD/Cerv Spine Obl/Flex/Ext Comp IMPRESSION: Loss of the normal lordotic cervical curvature. Reading Location: [id number]
--- NOTE | 2024-12-30 16:27 | RAD_ITS ---
PROCEDURE: CERV SPINE OBL/FLEX/EXT COMP 12/30/2024 REASON FOR EXAM: ASSESS FOR CRANIAL CERVICAL INSTABILITY TECHNIQUE: Procedure Code: RADSPCFE Modality: DX Procedure: CERV SPINE OBL/FLEX/EXT COMP COMPARISON: None FINDINGS: Vertebrae: The cervical vertebral body heights are within normal limits. There is no spondylolysis. Disc spaces: Disc spaces are well-maintained. Alignment: There is subtle loss of the normal lordotic cervical curvature. There is no spondylolisthesis. There is no instability on the flexion or extension views. Soft tissues: Paravertebral soft tissues are unremarkable. There is no prevertebral soft tissue swelling. Other: Fillings are identified in some of the teeth. RAD/Cerv Spine Obl/Flex/Ext Comp IMPRESSION: Loss of the normal lordotic cervical curvature. Reading Location: [id number]
[2024-12-30 21:21] LABS: CRP < 3.00 mg/L (0.0-3.0)
== END | disposition home or self-care (01) ==
LOC: MTLAB 16:24
PROVIDERS: PCP Family Medicine; Referring Provider Family Medicine; Visit Provider Family Medicine
DX: R51.9 Headache, unspecified (principal)
CPT/HCPCS: 36415; 72052; 85652; 86140